=== PATIENT | female | born 1970 | race Caucasian/White ===

== ENCOUNTER 2018-05-31 12:19 | Inpatient (IN) ==
[2018-05-31 12:57] LABS: Bilirubin,Urine Negative (Negative); Blood,Urine Negative (Negative); Clarity,Urine Clear (Clear); Color,Urine Yellow (Yellow); Glucose,Urine (UA) Normal (Normal); Ketones,Urine Negative (Negative); Leukocyte Esterase,Urine Negative (Negative); Nitrite,Urine Negative (Negative); PH,Urine 8.5 pH Units (5.0-8.0); Protein,Urine 100 mg/dL (Neg-Trace); Specific Gravity,Urine 1.015 (1.010-1.025); Urobilinogen,Urine Normal (Normal)
[2018-05-31 13:19] LABS: RBC,Urine 0-3 per hpf (0-3); Squamous Epithelial Cell,Urine Many per lpf (None-Few); WBC,Urine 0-3 per hpf (0-3)
[2018-05-31 13:20] LABS: Bacteria,Urine Moderate per hpf (None-Few)
[2018-05-31] MEDS ORDERED: *HR* FentaNYL (PF) 100 MCG/2 ML VIAL IVP ONE ×2 (13:50→20:27)
[2018-05-31] MEDS ORDERED: Ondansetron 4 MG/2 ML VIAL IVP ONE (13:50)
--- NOTE | 2018-05-31 13:57 | Emergency Department Note ---
Disposition Clinical Impression: Epigastric pain, Chronic alcohol use Pancreatitis Qualifiers: Chronicity: acute Pancreatitis type: unspecified pancreatitis type Acute pancreatitis complication: unspecified Qualified Code(s): K85.90 - Acute pancreatitis without necrosis or infection, unspecified Nausea and vomiting Qualifiers: Vomiting type: unspecified Vomiting Intractability: non-intractable Qualified Code(s): R11.2 - Nausea with vomiting, unspecified Disposition: Admitted As Inpatient Condition: Good Referrals: NONE,PCP [Primary Care Provider] - Forms: ED Satisfaction Letter, Work/School Release Time of Disposition: 15:28 Abdominal Pain HPI - General Chief Complaint: ED Abdominal Pain Stated Complaint: "abd pain" Time Seen by Provider: 05/31/18 13:39 Source: patient, family Mode of arrival: ambulatory Limitations: no limitations Nursing Notes Reviewed: Yes Vital Signs Reviewed: Yes - History of Present Illness HPI Narrative: Patient is a 47 year old female with past medical history of chronic alcohol abuse, recurrent pancreatitis, previous opiate drug abuse. She presents today due to epigastric pain. She states that she was just recently admitted to [facility] about a week ago due to pancreatitis. She states that she was discharged after around 36 hours. She states that she went home and started drinking alcohol again. She drinks 2-3 bottles of vodka a day, says that she is drinking this for several years. She currently describes her abdominal pain as sharp in the epigastric region, mild radiation to the back. Associated with nausea and vomiting. Denies any fevers, chest pain, shortness of breath, diarrhea, constipation, blood in vomit or stool. She states that this feels similar to all previous pancreatitis exacerbations. Pain Scale: 10 - Related Data Previous Rx's Medication Instructions Recorded Sulfamethoxazole/Trimeth DS 1 each PO BID #14 tablet 01/26/17 [Bactrim DS] Allergies Allergy/AdvReac Type Severity Reaction Status Date / Time aspirin [ASA] Allergy Hives Verified 06/11/15 20:46 All systems ED: reviewed and negative except as stated. Constitutional: Denies: fever Cardiovascular: Denies: chest pain, palpitations Respiratory: Denies: cough, dyspnea, wheezes Gastrointestinal: Reports: abdominal pain, nausea, vomiting. Denies: diarrhea, constipation Genitourinary: Denies: urgency, dysuria, frequency Integumentary: Denies: rash Neurological: Denies: headache, weakness, numbness, paresthesias Abdominal Pain PMH - Past Medical History Medical history: Reports: other [employer] history: Reports: no [employer] history Psychiatric history: Reports: no psych history - Social History Smoking status: Current every day smoker Alcohol use: Reports: heavy, recent Drug use: Reports: none Physical Exam - General Limitations: no limitations General appearance: alert, other (Appears to be in pain, holding epigastric region) - Head Head exam: atraumatic, normocephalic, normal inspection - Eye Eye exam: Present: normal appearance, PERRL, EOMI - ENT ENT exam: normal exam, normal oropharynx, mucous membranes moist - Neck Neck exam: Present: normal inspection, full ROM, trachea midline - Chest Chest inspection: Present: normal inspection, symmetric chest wall rise - Respiratory Respiratory exam: Present: normal lung sounds bilaterally - Cardiovascular Cardiovascular exam: Present: regular rate, normal rhythm, normal heart sounds - Abdominal Exam Abdominal exam: Present: soft, tenderness (Epigastric tenderness, moderate). Absent: distention, guarding, rebound, rigidity - Extremities Exam Extremities exam: Present: normal inspection, full ROM. Absent: tenderness, pedal edema - Neurological Exam Neurological exam: Present: alert, oriented X3 - Psychiatric Psychiatric exam: Present: normal affect, normal mood - Skin Skin exam: Present: warm, dry, intact, normal color Course Course Narrative: Currently concern for recurrent pancreatitis. We will treat the patient with Zofran and fentanyl for nausea and pain control. We will also give the patient normal saline bolus due to tachycardia. We will obtain records from [facility]. Will see if there has been any recent CT abdomen and pelvis. If not , we will obtain CT abdomen and pelvis to assess for any other etiology. 15:26 labs consistent with chronic alcohol use, elevated AST and MALT. Lipase elevated in the 200s consistent with pancreatitis. No CT abdomen and pelvis obtained at this time. Still pending paperwork from [facility]. Fluids and pain medication have been given. Discussed admission with the patient she is agreeable with this plan. Hospitalist has accepted the patient for further care. Did discuss chronic alcohol use and concern for possible withdrawal during stay. Hospitalist is aware. Vital Signs Temperature 97.9 F 05/31/18 12:22 Pulse Rate 118 05/31/18 12:22 Respiratory Rate 18 05/31/18 12:22 Blood Pressure 149/84 05/31/18 12:22 O2 Sat by Pulse Oximetry 96 05/31/18 12:22 Temperature 97.9 F 05/31/18 13:27 Pulse Rate 118 05/31/18 13:27 Respiratory Rate 18 05/31/18 13:27 Blood Pressure 149/84 05/31/18 13:27 O2 Sat by Pulse Oximetry 96 05/31/18 13:27 Oxygen Delivery Oxygen Delivery Room Air Abdominal Pain - MDM Narrative Medical decision making narrative: Currently concern for recurrent pancreatitis. We will treat the patient with Zofran and fentanyl for nausea and pain control. We will also give the patient normal saline bolus due to tachycardia. We will obtain records from [facility]. Will see if there has been any recent CT abdomen and pelvis. If not , we will obtain CT abdomen and pelvis to assess for any other etiology. 15:26 labs consistent with chronic alcohol use, elevated AST and MALT. Lipase elevated in the 200s consistent with pancreatitis. No CT abdomen and pelvis obtained at this time. Still pending paperwork from [facility]. Fluids and pain medication have been given. Discussed admission with the patient she is agreeable with this plan. Hospitalist has accepted the patient for further care. Did discuss chronic alcohol use and concern for possible withdrawal during stay. Hospitalist is aware. - Medical Records Medical records reviewed: Yes I reviewed the patient's medical records. - Lab Data Lab results reviewed: Yes I reviewed the patient's lab results. Result diagrams: 05/31/18 13:48 05/31/18 13:48 Lab Results 05/31/18 05/31/18 05/31/18 Range/Units 12:32 13:48 13:48 WBC 3.8 L (4.3-11.1) K/mcL RBC 5.18 H (3.82-4.97) M/mcL Hgb 17.0 H (11.5-15.4) g/dL Hct 50.0 H (35.3-44.9) % MCV 96.5 (83.0-100.0) fL MCH 32.8 (28.0-33.3) pg MCHC 34.0 (31.6-35.5) g/dL RDW 15.1 H (11.5-14.5) % Plt Count 161 (140-400) K/mcL MPV 9.7 (9.4-12.4) fL Sodium 141 (136-145) mEq/L Potassium 4.2 (3.5-5.1) mEq/L Chloride 100 (98-107) mEq/L Carbon Dioxide 23 (23-29) mEq/L BUN 15 (6-20) mg/dL Creatinine 0.80 (0.60-1.20) mg/dL Est GFR ( Amer) > 60 (> 60) Est GFR (Non-Af Amer) > 60 (> 60) BUN/Creatinine Ratio 19 (6-26) Glucose 99 (70-105) mg/dL Calculated Osmolality 293 (280-300) Calcium 11.7 H (8.6-10.3) mg/dL Total Bilirubin 0.4 (0.3-1.0) mg/dL Direct Bilirubin 0.1 (0.0-0.2) mg/dL Indirect Bilirubin 0.3 (0.0-1.2) mg/dL AST 129 H (13-39) Units/L ALT 69 H (7-52) Units/L Alkaline Phosphatase 128 H (34-104) Units/L Serum Total Protein 9.7 H (6.4-8.9) g/dL Albumin 5.2 (3.5-5.7) g/dL Globulin 4.5 H (2.4-3.5) g/dL Albumin/Globulin Ratio 1.2 (1.1-2.2) Lipase 209 H (11-82) Units/L Urine Color Yellow (Yellow) Urine Clarity Clear (Clear) Urine pH 8.5 H (5.0-8.0) pH Units Ur Specific [place] 1.015 (1.010-1.025) Urine Protein 100 H (Neg-Trace) mg/dL Urine Glucose (UA) Normal (Normal) mg/dL Urine Ketones Negative (Negative) mg/dL Urine Blood Negative (Negative) Urine Nitrite Negative (Negative) Urine Bilirubin Negative (Negative) Urine Urobilinogen Normal (Normal) mg/dL Ur Leukocyte Esterase Negative (Negative) Urine Microscopic RBC 0-3 (0-3) per hpf Urine Microscopic WBC 0-3 (0-3) per hpf Ur Squamous Epith Cells Many H (None-Few) per lpf Urine Bacteria Moderate H (None-Few) per hpf S.B.A.R. - S.B.A.R. Situation: Demographics, MOA Background: Presenting Complaint, Relevant PMH, Meds, & Allergies Assessment: Vital Signs, Course and respsone to treatment, Exam Concerns, Patient/Family Expectation, Pertinant Lab Results Recommendation: Barrier(s) to disposition, Recommendation based on pending studies, treatments, or consults S.B.A.R. Report Given to: Dr. Webb
[2018-05-31 13:59] LABS: Mean Corpuscular Hemoglobin 32.8 pg (28.0-33.3); Mean Corpuscular Volume 96.5 fL (83.0-100.0); Mean Platelet Volume 9.7 fL (9.4-12.4); Platelet Count 161 K/mcL (140-400); Red Blood Count 5.18 M/mcL (3.82-4.97); Red Cell Distribution Width 15.1 % (11.5-14.5)
--- NOTE | 2018-05-31 14:05 | Emergency Department Note ---
Disposition Clinical Impression: Epigastric pain, Chronic alcohol use Pancreatitis Qualifiers: Chronicity: acute Pancreatitis type: unspecified pancreatitis type Acute pancreatitis complication: unspecified Qualified Code(s): K85.90 - Acute pancreatitis without necrosis or infection, unspecified Nausea and vomiting Qualifiers: Vomiting type: unspecified Vomiting Intractability: non-intractable Qualified Code(s): R11.2 - Nausea with vomiting, unspecified Disposition: Admitted As Inpatient Condition: Good General Adult HPI - General Chief complaint: ED Abdominal Pain Stated complaint: "abd pain" Time Seen by Provider: 05/31/18 13:39 Source: patient, family Limitations: no limitations - History of Present Illness Pain Scale: 10 - Related Data Home Medications Medication Instructions Recorded Confirmed No Known Home Drugs 05/31/18 05/31/18 Allergies Allergy/AdvReac Type Severity Reaction Status Date / Time aspirin [ASA] Allergy Hives Verified 05/31/18 15:41 Past Medical History - Past Medical History Medical history: Reports: other Psychiatric history: Reports: no psych history LITERACY SPECIALIST history: Reports: no LITERACY SPECIALIST history - Social History Smoking Status: Current every day smoker Smokeless Tobacco Status: No Alcohol use: Reports: heavy, recent Drug use: Reports: none Physical Exam - General Limitations: no limitations General appearance: alert, in no apparent distress Course Vital Signs Temperature 97.9 F 05/31/18 12:22 Pulse Rate 118 05/31/18 12:22 Respiratory Rate 18 05/31/18 12:22 Blood Pressure 149/84 05/31/18 12:22 O2 Sat by Pulse Oximetry 96 05/31/18 12:22 Temperature 97.9 F 05/31/18 13:27 Pulse Rate 118 05/31/18 13:27 Respiratory Rate 18 05/31/18 17:49 Blood Pressure 159/117 05/31/18 17:49 O2 Sat by Pulse Oximetry 96 05/31/18 13:27 Oxygen Delivery Oxygen Delivery Room Air Medical Decision Making - Lab Data Result diagrams: 05/31/18 13:48 05/31/18 13:48 Lab Results 05/31/18 05/31/18 05/31/18 Range/Units 12:32 13:48 13:48 WBC 3.8 L (4.3-11.1) K/mcL RBC 5.18 H (3.82-4.97) M/mcL Hgb 17.0 H (11.5-15.4) g/dL Hct 50.0 H (35.3-44.9) % MCV 96.5 (83.0-100.0) fL MCH 32.8 (28.0-33.3) pg MCHC 34.0 (31.6-35.5) g/dL RDW 15.1 H (11.5-14.5) % Plt Count 161 (140-400) K/mcL MPV 9.7 (9.4-12.4) fL PT (9.4-12.1) Seconds INR APTT (26.0-36.0) Seconds Sodium 141 (136-145) mEq/L Potassium 4.2 (3.5-5.1) mEq/L Chloride 100 (98-107) mEq/L Carbon Dioxide 23 (23-29) mEq/L BUN 15 (6-20) mg/dL Creatinine 0.80 (0.60-1.20) mg/dL Est GFR ( Amer) > 60 (> 60) Est GFR (Non-Af Amer) > 60 (> 60) BUN/Creatinine Ratio 19 (6-26) Glucose 99 (70-105) mg/dL Calculated Osmolality 293 (280-300) Lactic Acid (0.5-2.2) mmol/L Calcium 11.7 H (8.6-10.3) mg/dL Phosphorus 4.7 H (2.7-4.5) mg/dL Magnesium 1.8 (1.6-2.6) mg/dL Total Bilirubin 0.4 (0.3-1.0) mg/dL Direct Bilirubin 0.1 (0.0-0.2) mg/dL Indirect Bilirubin 0.3 (0.0-1.2) mg/dL AST 129 H (13-39) Units/L ALT 69 H (7-52) Units/L Alkaline Phosphatase 128 H (34-104) Units/L Lactate Dehydrogenase 287 H (140-271) Units/L Serum Total Protein 9.7 H (6.4-8.9) g/dL Albumin 5.2 (3.5-5.7) g/dL Globulin 4.5 H (2.4-3.5) g/dL Albumin/Globulin Ratio 1.2 (1.1-2.2) Amylase 109 H (29-103) Units/L Lipase 209 H (11-82) Units/L Urine Color Yellow (Yellow) Urine Clarity Clear (Clear) Urine pH 8.5 H (5.0-8.0) pH Units Ur Specific [place] 1.015 (1.010-1.025) Urine Protein 100 H (Neg-Trace) mg/dL Urine Glucose (UA) Normal (Normal) mg/dL Urine Ketones Negative (Negative) mg/dL Urine Blood Negative (Negative) Urine Nitrite Negative (Negative) Urine Bilirubin Negative (Negative) Urine Urobilinogen Normal (Normal) mg/dL Ur Leukocyte Esterase Negative (Negative) Urine Microscopic RBC 0-3 (0-3) per hpf Urine Microscopic WBC 0-3 (0-3) per hpf Ur Squamous Epith Cells Many H (None-Few) per lpf Urine Bacteria Moderate H (None-Few) per hpf Hyaline Casts (None-Few) per lpf Hep Bs Antigen (Nonreactive) HIV Ag/Ab Combo Qual (Nonreactive) 05/31/18 05/31/18 05/31/18 Range/Units 13:48 13:48 16:44 WBC (4.3-11.1) K/mcL RBC (3.82-4.97) M/mcL Hgb (11.5-15.4) g/dL Hct (35.3-44.9) % MCV (83.0-100.0) fL MCH (28.0-33.3) pg MCHC (31.6-35.5) g/dL RDW (11.5-14.5) % Plt Count (140-400) K/mcL MPV (9.4-12.4) fL PT 10.5 (9.4-12.1) Seconds INR 0.9 APTT 38.3 H (26.0-36.0) Seconds Sodium (136-145) mEq/L Potassium (3.5-5.1) mEq/L Chloride (98-107) mEq/L Carbon Dioxide (23-29) mEq/L BUN (6-20) mg/dL Creatinine (0.60-1.20) mg/dL Est GFR ( Amer) (> 60) Est GFR (Non-Af Amer) (> 60) BUN/Creatinine Ratio (6-26) Glucose (70-105) mg/dL Calculated Osmolality (280-300) Lactic Acid 2.0 (0.5-2.2) mmol/L Calcium (8.6-10.3) mg/dL Phosphorus (2.7-4.5) mg/dL Magnesium (1.6-2.6) mg/dL Total Bilirubin (0.3-1.0) mg/dL Direct Bilirubin (0.0-0.2) mg/dL Indirect Bilirubin (0.0-1.2) mg/dL AST (13-39) Units/L ALT (7-52) Units/L Alkaline Phosphatase (34-104) Units/L Lactate Dehydrogenase (140-271) Units/L Serum Total Protein (6.4-8.9) g/dL Albumin (3.5-5.7) g/dL Globulin (2.4-3.5) g/dL Albumin/Globulin Ratio (1.1-2.2) Amylase (29-103) Units/L Lipase (11-82) Units/L Urine Color (Yellow) Urine Clarity (Clear) Urine pH (5.0-8.0) pH Units Ur Specific [place] (1.010-1.025) Urine Protein (Neg-Trace) mg/dL Urine Glucose (UA) (Normal) mg/dL Urine Ketones (Negative) mg/dL Urine Blood (Negative) Urine Nitrite (Negative) Urine Bilirubin (Negative) Urine Urobilinogen (Normal) mg/dL Ur Leukocyte Esterase (Negative) Urine Microscopic RBC (0-3) per hpf Urine Microscopic WBC (0-3) per hpf Ur Squamous Epith Cells (None-Few) per lpf Urine Bacteria (None-Few) per hpf Hyaline Casts (None-Few) per lpf Hep Bs Antigen Nonreactive (Nonreactive) HIV Ag/Ab Combo Qual Nonreactive (Nonreactive) 05/31/18 Range/Units 17:10 WBC (4.3-11.1) K/mcL RBC (3.82-4.97) M/mcL Hgb (11.5-15.4) g/dL Hct (35.3-44.9) % MCV (83.0-100.0) fL MCH (28.0-33.3) pg MCHC (31.6-35.5) g/dL RDW (11.5-14.5) % Plt Count (140-400) K/mcL MPV (9.4-12.4) fL PT (9.4-12.1) Seconds INR APTT (26.0-36.0) Seconds Sodium (136-145) mEq/L Potassium (3.5-5.1) mEq/L Chloride (98-107) mEq/L Carbon Dioxide (23-29) mEq/L BUN (6-20) mg/dL Creatinine (0.60-1.20) mg/dL Est GFR ( Amer) (> 60) Est GFR (Non-Af Amer) (> 60) BUN/Creatinine Ratio (6-26) Glucose (70-105) mg/dL Calculated Osmolality (280-300) Lactic Acid (0.5-2.2) mmol/L Calcium (8.6-10.3) mg/dL Phosphorus (2.7-4.5) mg/dL Magnesium (1.6-2.6) mg/dL Total Bilirubin (0.3-1.0) mg/dL Direct Bilirubin (0.0-0.2) mg/dL Indirect Bilirubin (0.0-1.2) mg/dL AST (13-39) Units/L ALT (7-52) Units/L Alkaline Phosphatase (34-104) Units/L Lactate Dehydrogenase (140-271) Units/L Serum Total Protein (6.4-8.9) g/dL Albumin (3.5-5.7) g/dL Globulin (2.4-3.5) g/dL Albumin/Globulin Ratio (1.1-2.2) Amylase (29-103) Units/L Lipase (11-82) Units/L Urine Color Yellow (Yellow) Urine Clarity Cloudy A (Clear) Urine pH 7.5 (5.0-8.0) pH Units Ur Specific [place] > 1.030 H (1.010-1.025) Urine Protein 100 H (Neg-Trace) mg/dL Urine Glucose (UA) Normal (Normal) mg/dL Urine Ketones Trace H (Negative) mg/dL Urine Blood Negative (Negative) Urine Nitrite Negative (Negative) Urine Bilirubin Negative (Negative) Urine Urobilinogen Normal (Normal) mg/dL Ur Leukocyte Esterase Negative (Negative) Urine Microscopic RBC 5-15 H (0-3) per hpf Urine Microscopic WBC 0-3 (0-3) per hpf Ur Squamous Epith Cells Many H (None-Few) per lpf Urine Bacteria Few (None-Few) per hpf Hyaline Casts None Seen (None-Few) per lpf Hep Bs Antigen (Nonreactive) HIV Ag/Ab Combo Qual (Nonreactive) Attestation Statement - Attestation Attestation: I examined this patient and my medical decision-making was reviewed with the DRAWER UPFITTER/PA/Advanced Practice Nurse/Resident Physician. I agree with the documented findings, disposition and treatment plan as described except to the extent set forth below. I did see the patient spoke with her and examined her and she does have moderate pain and generalized mostly midepigastric reason and she does have a history of pancreatitis. Did drink half of a fifth of vodka today. Is here with her [id number]. Was recently admitted to [facility] and we will attempt to get the records from there. The patient on my exam does not have a surgical abdomen. Laboratory evaluation putting lipase level is initiated. Patient is hemodynamically stable at this time and 1404
[2018-05-31] MEDS ORDERED: 0.9 % Sodium Chloride 1,000 ML IVC ONE (14:15)
[2018-05-31 14:39] LABS: Alanine Aminotransferase 69 Units/L (7-52); Albumin 5.2 g/dL (3.5-5.7); Albumin/Globulin Ratio 1.2 (1.1-2.2); Alkaline Phosphatase 128 Units/L (34-104); Aspartate Amino Transferase 129 Units/L (13-39); BUN/Creatinine Ratio 19 (6-26); Bilirubin,Direct 0.1 mg/dL (0.0-0.2); Bilirubin,Indirect 0.3 mg/dL (0.0-1.2); Bilirubin,Total 0.4 mg/dL (0.3-1.0); Blood Urea Nitrogen 15 mg/dL (6-20); Calcium 11.7 mg/dL (8.6-10.3); Carbon Dioxide 23 mEq/L (23-29); Chloride 100 mEq/L (98-107); Globulin 4.5 g/dL (2.4-3.5); Glucose 99 mg/dL (70-105); Lipase 209 Units/L (11-82); Osmolality,Calculated 293 (280-300); Potassium 4.2 mEq/L (3.5-5.1); Sodium 141 mEq/L (136-145); Total Protein 9.7 g/dL (6.4-8.9); eGFR For Non-African Americans > 60 (> 60)
[2018-05-31] MEDS ORDERED: Lidocaine -MPF 1% 5 ML AMPUL INFILT ONE (15:04)
[2018-05-31] MEDS ORDERED: *HR* LORazepam 2 MG/ML VIAL IVP ONE (15:43)
--- NOTE | 2018-05-31 15:49 | Internal Med History&Physical ---
Date of Encounter: 05/31/18 Time of Encounter: 15:47 Internal Medicine - H&P: HPI Chief complaint: abdominal pain Admitted From: Home Plans for Post Hospital Care: Home History of present illness: Ms. Odell is a 47 year old female with alcohol use disorder, drug use disorder and multiple admissions for acute pancreatitis secondary to alcohol abuse presented to the ED with complaint of epigastric abdominal pain. As per patient she was recently admitted on May 22 to [facility] and was discharged 2 days later for similar symptoms. She was told to have acute pancreatitis secondary to alcohol abuse at that time. She reports that she continued to have epigastric abdominal pain radiating to her back since she was discharged on May 24. Her pain has progressively worsened so she decided to come to the ED for further management. She reports that she has not ate any solid food for the past 2 days but she was able to drink alcohol, last drink was about, on admission morning. She reports she drinks about 1-2 pints of vodka a day. She last used IV heroin on May 28. She used to be on methadone program but that was canceled due to her ongoing alcohol use disorder. Currently her pain is located in the epigastric area that radiates to the back it is 5 out of 10 and sharp in quality. She denies any nausea or vomiting. Currently she is only complaining of going through withdrawal from alcohol and is requesting medications. she denies fever, chills, Nausea, headache, vision changes, falls, abdominal trauma, chest pain, palpitations, SOB, cough, vomiting, diarrhea, hemoptysis, hematemesis, hematochezia. Past Med Surg Social Fam HX - Past Medical History Medical history: other Additional medical history: ETOH abuse, pancreatitis Psychiatric history: no psych history - Past Surgical History Additional surgical history: FOOT SURGERY TODAY - Social History Smoking Status: Current every day smoker Smokeless Tobacco Status: No Alcohol use: heavy, recent Drug use: none - Family History Mother Hx Family Endocrine Disorder: Yes (diabetes) Internal Medicine - H&P: Meds RX: No Known Home Drugs 05/31/18 [History] 3 Allergy/AdvReac Type Severity Reaction Status Date / Time aspirin [ASA] Allergy Hives Verified 05/31/18 15:41 All Systems PM: A 10-system review of systems was performed and is negative for pertinent findings except as documented above in the HPI. - Constitutional Vitals: Temp Pulse Resp BP Pulse Ox 97.9 F 118 18 149/84 96 05/31/18 13:27 05/31/18 13:27 05/31/18 13:27 05/31/18 13:27 05/31/18 13:27 - Other Additional findings: General: Patient is alert, oriented, no acute distress, desheveled Head: atraumatic, normocephalic, Eye: normal appearance, PERRL, no scleral icterus, no conjunctival injection ENT: mucous membranes moist, normal external ear exam Neck: normal inspection, trachea midline, full ROM, no carotid bruits Chest: normal inspection, symmetric chest rise Respiratory: Good respiratory effort. Bilateral breath sounds are clear without wheezing, crackles, or rhonchi. Cardiovascular: tachycardic . s1 and s2 No clicks, rubs, gallops, or murmors. Abdomen: Bowel sounds present normoactive, soft, tender to palpation in the epigastric area, no flank discoloration, has ecchymosis on the RLQ secondary to heparin injections from previous admission. negative turners sign musculoskeletal: Spontaneously moving all extremities. no edema, no calf tenderness Skin: warm, dry, intact. has needle murphy on bilateral upper nad lower extremity Neuro: Alert and oriented x4. Sensation light touch intact. Cranial nerves 2- 12 is intact. Not aphasic, mild tremor on out stretched hands Psych: Patient's affect is normal Internal Med - H&P Results - Labs CBC & Chem 7: 05/31/18 13:48 05/31/18 13:48 Labs: Short CBC 05/31/18 Range/Units 13:48 WBC 3.8 L (4.3-11.1) K/mcL Hgb 17.0 H (11.5-15.4) g/dL Hct 50.0 H (35.3-44.9) % Plt Count 161 (140-400) K/mcL BMP 05/31/18 13:48 Sodium 141 Potassium 4.2 Chloride 100 Carbon Dioxide 23 BUN 15 Creatinine 0.80 Glucose 99 Calcium 11.7 H Liver Function 05/31/18 Range/Units 13:48 Total Bilirubin 0.4 (0.3-1.0) mg/dL Direct Bilirubin 0.1 (0.0-0.2) mg/dL AST 129 H (13-39) Units/L ALT 69 H (7-52) Units/L Alkaline Phosphatase 128 H (34-104) Units/L Albumin 5.2 (3.5-5.7) g/dL Urine 05/31/18 Range/Units 12:32 Urine Color Yellow (Yellow) Urine Clarity Clear (Clear) Urine pH 8.5 H (5.0-8.0) pH Units Ur Specific [place] 1.015 (1.010-1.025) Urine Protein 100 H (Neg-Trace) mg/dL Urine Glucose (UA) Normal (Normal) mg/dL - Assessment and plan (1) Alcohol induced acute pancreatitis Current Visit: Yes Status: Acute Assessment and plan: ransons score is low - WBC<16, Age<55, flucose is <200, AST<250, Awaiting LDH IVF LR 2000 ML bolus stat, Ringer lactate at 150 ml/hr (received 1L NS in the ED ) is hemoconcentrated ilya send LDH, lactic acid and Amylase STAT PPI 40 mg IVPB Q daily Zofran 4 mg IVP Q 8 H PRN for nauseas or vomiting - watch QT Pain control with morphine prn - watch for ilius - currently not in pain bowel regimen Serial abdominal exam CBC, CMP in AM UTOX Fasting lipids in the AM r/o hypertriglyceridemia Abdominal US to evaluated biliary stone/obstruction. Consider CT Abdomen if the patient is not improving clinically after 3~4 days Consider GI evaluation if not clinically improving Keep patient NPO for now, except medications Vital as protocol Precaution: Fall, Aspiration. Activity: Bed Rest Prognosis: Guarded Qualifiers: Acute pancreatitis complication: unspecified Qualified Code(s): K85.20 - Alcohol induced acute pancreatitis without necrosis or infection (2) Alcoholic hepatitis Current Visit: Yes Status: Acute Assessment and plan: ASt>ALT RUQ pain will get US of the abdomen to rule out any obstruction on CIWA protocol avoid hepatotoxic medications Qualifiers: Ascites presence: without ascites Qualified Code(s): K70.10 - Alcoholic hepatitis without ascites (3) Alcohol withdrawal delirium Current Visit: Yes Status: Acute Assessment and plan: CIWA protocol initiated will check magnesium and PO4 (4) Alcohol use disorder Current Visit: Yes Status: Acute Assessment and plan: was counseled on Abstinence on CIWA protocol (5) Drug use disorder Current Visit: Yes Status: Acute Assessment and plan: has been using heroin IV. methadone was stopped by the clinic due to alcoholism was counseled on abstinence and harms associated with drug abuse (6) DVT prophylaxis Current Visit: Yes Status: Acute Assessment and plan: heparin 5000 units Q8H SC - Time Spent With Patient Total time spent is greater than 50% in coordination of care (as documented) at patient's floor/unit and/or counseling patient:
[2018-05-31] MEDS ORDERED: *HR* LORazepam 2 MG/ML VIAL IVP PRN (15:57)
[2018-05-31] MEDS ORDERED: Folic Acid 1 MG in D5% in Water 50 ML IVPB STA ×2 (16:05→23:16)
[2018-05-31] MEDS ORDERED: Pantoprazole 40 MG VIAL IVP SCH (16:15)
[2018-05-31] MEDS ORDERED: Thiamine (B-1) 100 MG in D5% in Water 50 ML IVPB SCH (16:15)
[2018-05-31 16:26] LABS: Amylase 109 Units/L (29-103); Lactate Dehydrogenase 287 Units/L (140-271); Magnesium 1.8 mg/dL (1.6-2.6); Phosphorous 4.7 mg/dL (2.7-4.5)
[2018-05-31 16:33] LABS: INR 0.9; Prothrombin Time 10.5 Seconds (9.4-12.1)
[2018-05-31 16:35] LABS: Activated Partial Thrombo Time 38.3 Seconds (26.0-36.0)
[2018-05-31 17:24] LABS: HIV-1&2 Antibody & p24 Ag Nonreactive (Nonreactive); Hepatitis B Surface Antigen Nonreactive (Nonreactive)
[2018-05-31 17:34] LABS: Bilirubin,Urine Negative (Negative); Blood,Urine Negative (Negative); Clarity,Urine Cloudy (Clear); Color,Urine Yellow (Yellow); Glucose,Urine (UA) Normal (Normal); Ketones,Urine Trace mg/dL (Negative); Leukocyte Esterase,Urine Negative (Negative); Nitrite,Urine Negative (Negative); PH,Urine 7.5 pH Units (5.0-8.0); Protein,Urine 100 mg/dL (Neg-Trace); Specific Gravity,Urine > 1.030 (1.010-1.025); Urobilinogen,Urine Normal (Normal)
[2018-05-31 17:40] LABS: Bacteria,Urine Few per hpf (None-Few); Hyaline Casts,Urine None Seen per lpf (None-Few); Squamous Epithelial Cell,Urine Many per lpf (None-Few); WBC,Urine 0-3 per hpf (0-3)
[2018-05-31] MEDS: Ringers Solution, Lactated 1,000 ML IVC SCH ×3 (18:26→20:05)
[2018-05-31] MEDS: *HR* LORazepam 2 MG/ML VIAL IVP PRN ×2 (18:42→23:30)
[2018-05-31] MEDS: *HR* Heparin 5,000 UNIT/ML VIAL SQ SCH (21:18)
[2018-05-31] MEDS: Ondansetron 4 MG/2 ML VIAL IVP PRN (21:19)
[2018-06-01] MEDS: Ringers Solution, Lactated 1,000 ML IVC SCH ×5 (02:23→22:38)
[2018-06-01 03:57] LABS: Hematocrit 39.3 % (35.3-44.9); Mean Corpuscular HGB Conc 34.9 g/dL (31.6-35.5); Mean Corpuscular Hemoglobin 33.7 pg (28.0-33.3); Mean Corpuscular Volume 96.6 fL (83.0-100.0); Mean Platelet Volume 9.9 fL (9.4-12.4); Platelet Count 142 K/mcL (140-400); Red Blood Count 4.07 M/mcL (3.82-4.97); Red Cell Distribution Width 14.7 % (11.5-14.5)
[2018-06-01 03:58] LABS: Hemoglobin 13.7 g/dL (11.5-15.4)
[2018-06-01 04:14] LABS: Hepatitis B Surface Antibody 1489.53 mIU/mL
[2018-06-01 04:17] LABS: Hepatitis C Virus Antibody Reactive (Nonreactive)
[2018-06-01 04:17] LABS: Alanine Aminotransferase 48 Units/L (7-52); Albumin 3.7 g/dL (3.5-5.7); Albumin/Globulin Ratio 1.2 (1.1-2.2); Alkaline Phosphatase 89 Units/L (34-104); Aspartate Amino Transferase 72 Units/L (13-39); BUN/Creatinine Ratio 22 (6-26); Bilirubin,Total 0.5 mg/dL (0.3-1.0); Blood Urea Nitrogen 14 mg/dL (6-20); Calcium 9.3 mg/dL (8.6-10.3); Carbon Dioxide 22 mEq/L (23-29); Chloride 100 mEq/L (98-107); Chol/HDL Ratio 3.4 (0-4.9); Cholesterol 271 mg/dL (< 200); Glucose 76 mg/dL (70-105); HDL Cholesterol 79 mg/dL (40-59); LDL Cholesterol,Calculated 172 mg/dL (0-99); Osmolality,Calculated 283 (280-300); Potassium 3.8 mEq/L (3.5-5.1); Sodium 137 mEq/L (136-145); Total Protein 6.7 g/dL (6.4-8.9); Triglycerides 102 mg/dL (< 150); eGFR For Non-African Americans > 60 (> 60)
[2018-06-01] MEDS: *HR* LORazepam 2 MG/ML VIAL IVP PRN ×8 (04:17→21:46)
[2018-06-01] MEDS: *HR* Heparin 5,000 UNIT/ML VIAL SQ SCH ×3 (05:10→21:41)
[2018-06-01] MEDS: Thiamine (B-1) 100 MG, Folic Acid 1 MG in D5% in Water 50 ML IVPB SCH (08:20)
[2018-06-01] MEDS: *HR* HYDROcodone/Acet 5/325 mg TABLET PO PRN ×3 (10:37→22:37)
--- NOTE | 2018-06-01 11:00 | Internal Med Progress Note ---
Date of Encounter: 06/01/18 Time of Encounter: 10:58 - Assessment and plan (1) Alcohol induced acute pancreatitis Current Visit: Yes Status: Acute Assessment and plan: ransons score is low - WBC<16, Age<55, flucose is <200, AST<250, Awaiting LDH IVF LR 2000 ML bolus stat, Ringer lactate at 150 ml/hr (received 1L NS in the ED ) is hemoconcentrated ilya send LDH, lactic acid and Amylase STAT PPI 40 mg IVPB Q daily Zofran 4 mg IVP Q 8 H PRN for nauseas or vomiting - watch QT Pain control with morphine prn - watch for ilius - currently not in pain bowel regimen Serial abdominal exam CBC, CMP in AM UTOX Fasting lipids in the AM r/o hypertriglyceridemia Abdominal US to evaluated biliary stone/obstruction.-Negative for biliary stent obstruction Consider CT Abdomen if the patient is not improving clinically after 3~4 days Consider GI evaluation if not clinically improving Keep patient NPO for now, except medications Vital as protocol Precaution: Fall, Aspiration. Activity: Bed Rest Prognosis: Guarded 06/01-Continuing to have left upper quadrant abdominal pain as well as right upper quadrant abdominal pain, history of recurrent alcohol-induced pancreatitis. Lipase 209, amylase 109. Continue to treat pain with by mouth [place] 5/325 every 6 when necessary, continue antiemetics. Continue PPI. Recheck lipase in the morning. Continue IV fluids. Daily labs, serial abdominal exams (2) Alcohol use disorder Current Visit: Yes Status: Acute Assessment and plan: was counseled on Abstinence on CIWA protocol 06/01-appears to be in early withdrawal. Continue CIWA protocol -Again counseled on abstinence of use of alcohol however, patient does not wish to have resources for alcohol cessation (3) Alcohol withdrawal delirium Current Visit: Yes Status: Acute Assessment and plan: CIWA protocol initiated will check magnesium and PO4 06/01-patient is agitated, anxious and tremulous. Denies any suicidal/homicidal ideation, denies any visual or auditory hallucinations. Does not appear to be delirious. In early withdrawal. Continue to closely monitor. Aggressive CIWA protocol. Should patient have a change her declining condition consider sending to unit with higher acuity and starting Precedex drip (4) Drug use disorder Current Visit: Yes Status: Acute Assessment and plan: has been using heroin IV. methadone was stopped by the clinic due to alcoholism was counseled on abstinence and harms associated with drug abuse 06/01-offered social research assistant for support and resources--patient declined stating "I am already in a program ", "I do not want any other help " (5) Alcoholic hepatitis Current Visit: Yes Status: Acute Assessment and plan: ASt>ALT RUQ pain will get US of the abdomen to rule out any obstruction on CIWA protocol avoid hepatotoxic medications 06/01-alcoholic hepatitis. AST> ALT, AST trending down 72 today. Abdominal ultrasound reveals no obstruction. Right upper quadrant pain secondary to acute on chronic alcohol induced pancreatitis Abdominal ultrasound-No cholelithiasis. Gallbladder sludge is noted. Common duct is at the upper limits of normal, measuring 6.3 mm. Hyperechoic liver parenchyma, consistent with fatty infiltration. Qualifiers: Ascites presence: without ascites Qualified Code(s): K70.10 - Alcoholic hepatitis without ascites (6) Hepatitis C Current Visit: Yes Status: Acute Assessment and plan: Positive for hepatitis C, chronic. Reactive results on 03/24/15. Reactive results this admission 05/31/18 Qualifiers: Viral hepatitis chronicity: chronic Hepatic coma status: without hepatic coma Qualified Code(s): B18.2 - Chronic viral hepatitis C (7) Hypertension Current Visit: Yes Status: Acute Assessment and plan: No prior history of hypertension-I suspect this is due to pain with acute on chronic alcohol induced pancreatitis. I suspect that pain management will assist with decreasing her blood pressure. Continue to closely monitor hemodynamic status and had BP medications as needed Qualifiers: Hypertension type: unspecified Qualified Code(s): I10 - Essential (primary ) hypertension (8) DVT prophylaxis Current Visit: Yes Status: Acute Assessment and plan: cont heparin 5000 units Q8H SC - Time Spent With Patient Total time spent is greater than 50% in coordination of care (as documented) at patient's floor/unit and/or counseling patient: 25 - 35 minutes - Subjective Interval history: Patient seen and examined at bedside today. Reporting agitation, anxiety, tremulousness. Also reporting nausea. Denies any suicidal/homicidal ideations , denies any auditory/visual hallucinations. She is concerned that she is in early withdrawal. Admits to being a daily drinker unsure of amount. Last drink was approximately 24 hours ago. - Constitutional Vitals: Temp Pulse Resp BP Pulse Ox 98.8 F 60 16 162/91 95 06/01/18 07:05 06/01/18 07:05 06/01/18 07:05 06/01/18 07:05 06/01/18 07:05 General appearance: Present: cooperative, A&O X 3 - Head Head exam: Present: atraumatic, normocephalic - Eye Eye exam: Present: PERRL, conjuntiva pink, sclera anicteric Pupils: Present: PERRL - Neck Neck exam general surgery: Present: supple, trachea midline. Absent: lymphadenopathy - Respiratory Respiratory exam: Present: CTAB. Absent: accessory muscle use, rales, rhonchi, wheezes - Cardiovascular Cardiovascular exam: Present: RRR, +S1, +S2. Absent: diastolic murmur, gallop, rubs, systolic murmur - GI/Abdominal GI/Abdominal exam: Present: normal bowel sounds, soft, no peritoneal signs. Absent: distended, tenderness - Extremities Exam Extremities exam: Present: warm, radial pulses palpable and symmetrical. Absent : calf tenderness, cyanotic, pedal edema Additional comments: Tremulous - Neurological Exam Neurological exam: Present: alert, CN II-XII intact, oriented X3, no focal deficits. Absent: pronater drift, facial droop, speech deficit - Psychiatric Psychiatric exam: Present: agitated, anxious. Absent: homicidal ideation, normal affect, normal mood, suicidal ideation - Skin Skin exam: Present: dry, intact Internal Medicine: Result - Labs CBC & Chem 7: 06/01/18 03:17 06/01/18 03:17 Labs: Short CBC 06/01/18 Range/Units 03:17 WBC 4.8 (4.3-11.1) K/mcL Hgb 13.7 D (11.5-15.4) g/dL Hct 39.3 (35.3-44.9) % Plt Count 142 (140-400) K/mcL BMP 06/01/18 03:17 Sodium 137 Potassium 3.8 Chloride 100 Carbon Dioxide 22 L BUN 14 Creatinine 0.63 Glucose 76 Calcium 9.3 Liver Function 06/01/18 Range/Units 03:17 Total Bilirubin 0.5 (0.3-1.0) mg/dL AST 72 H (13-39) Units/L ALT 48 (7-52) Units/L Alkaline Phosphatase 89 (34-104) Units/L Albumin 3.7 (3.5-5.7) g/dL - ABG Interpretation ABG results: PT/INR, D-dimer PT 10.5 Seconds (9.4-12.1) 05/31/18 13:48 Consult Discharge Plan - Plan Referrals: NONE,PCP [Primary Care Provider] -
[2018-06-01 14:15] LABS: Amphetamine Screen,Urine Negative ng/mL (Cutoff=1000); Barbiturate Screen,Urine Negative ng/mL (Cutoff=200); Benzodiazepines Screen,Urine Negative ng/mL (Cutoff=200); Cannabinoid Screen,Urine Negative ng/mL (Cutoff = 50); Cocaine Screen,Urine Negative ng/mL (Cutoff= 300); Opiate Screen,Urine Positive ng/mL (Cutoff=300); Phencyclidine Screen,Urine Negative ng/mL (Cutoff=25)
[2018-06-01] MEDS ORDERED: Ketorolac 15 MG/ML VIAL IVP ONE (15:03)
[2018-06-01] MEDS: Ondansetron 4 MG/2 ML VIAL IVP PRN (21:46)
[2018-06-02] MEDS: *HR* LORazepam 2 MG/ML VIAL IVP PRN ×5 (01:56→18:17)
[2018-06-02] MEDS: Ringers Solution, Lactated 1,000 ML IVC SCH ×3 (05:20→19:46)
[2018-06-02] MEDS: *HR* Heparin 5,000 UNIT/ML VIAL SQ SCH ×3 (05:45→21:47)
[2018-06-02] MEDS: *HR* HYDROcodone/Acet 5/325 mg TABLET PO PRN ×3 (05:45→18:45)
[2018-06-02] MEDS: Ondansetron 4 MG/2 ML VIAL IVP PRN ×3 (05:53→18:45)
[2018-06-02 06:52] LABS: Basophils # 0.1 K/mcL (0.0-0.2); Basophils % 1.3 %; Eosinophils # 0.1 K/mcL (0.0-0.6); Eosinophils % 2.2 %; Hemoglobin 13.6 g/dL (11.5-15.4); Immature Granulocytes % 0.4 % (0-4); Lymphocytes # 1.2 K/mcL (0.6-4.6); Lymphocytes % 26.2 %; Mean Corpuscular Hemoglobin 32.9 pg (28.0-33.3); Mean Corpuscular Volume 96.9 fL (83.0-100.0); Mean Platelet Volume 10.4 fL (9.4-12.4); Monocytes # 0.8 K/mcL (0.0-1.3); Monocytes % 16.7 %; Neutrophils # 2.4 K/mcL (1.6-8.9); Platelet Count 140 K/mcL (140-400); Red Blood Count 4.13 M/mcL (3.82-4.97); Segmented Neutrophils % 53.2 %
[2018-06-02 07:06] LABS: BUN/Creatinine Ratio 15 (6-26); Blood Urea Nitrogen 11 mg/dL (6-20); Calcium 9.6 mg/dL (8.6-10.3); Carbon Dioxide 25 mEq/L (23-29); Chloride 97 mEq/L (98-107); Glucose 80 mg/dL (70-105); Lipase 149 Units/L (11-82); Osmolality,Calculated 282 (280-300); Potassium 3.4 mEq/L (3.5-5.1); Sodium 137 mEq/L (136-145); eGFR For Non-African Americans > 60 (> 60)
[2018-06-02] MEDS: Thiamine (B-1) 100 MG, Folic Acid 1 MG in D5% in Water 50 ML IVPB SCH (08:53)
[2018-06-02] MEDS: Pantoprazole 40 MG VIAL IVP SCH (08:53)
[2018-06-02] MEDS: amLODIPine 5 MG TABLET PO SCH (14:38)
--- NOTE | 2018-06-02 15:39 | Internal Med Progress Note ---
Date of Encounter: 06/02/18 Time of Encounter: 15:35 - Assessment and plan (1) Alcohol induced acute pancreatitis Current Visit: Yes Status: Acute Assessment and plan: ransons score is low - WBC<16, Age<55, flucose is <200, AST<250, Awaiting LDH IVF LR 2000 ML bolus stat, Ringer lactate at 150 ml/hr (received 1L NS in the ED ) is hemoconcentrated ilya send LDH, lactic acid and Amylase STAT PPI 40 mg IVPB Q daily Zofran 4 mg IVP Q 8 H PRN for nauseas or vomiting - watch QT Pain control with morphine prn - watch for ilius - currently not in pain bowel regimen Serial abdominal exam CBC, CMP in AM UTOX Fasting lipids in the AM r/o hypertriglyceridemia Abdominal US to evaluated biliary stone/obstruction.-Negative for biliary stent obstruction Consider CT Abdomen if the patient is not improving clinically after 3~4 days Consider GI evaluation if not clinically improving Keep patient NPO for now, except medications Vital as protocol Precaution: Fall, Aspiration. Activity: Bed Rest Prognosis: Guarded 06/01-Continuing to have left upper quadrant abdominal pain as well as right upper quadrant abdominal pain, history of recurrent alcohol-induced pancreatitis. Lipase 209, amylase 109. Continue to treat pain with by mouth [place] 5/325 every 6 when necessary, continue antiemetics. Continue PPI. Recheck lipase in the morning. Continue IV fluids. Daily labs, serial abdominal exams 06/02- patient condition improving, abdominal pain remains but she reports that it is tolerable and less pronounced today. Mild B/L upper abdominal tenderness to palpation. Reporting nausea--continue antiemetics, continue IV fluid, advance to clear liquid diet as tolerated. Continue [place] for pain. Continue PPI. Recheck lipase in the morning. Daily labs and serial abdominal exams (2) Alcohol use disorder Current Visit: Yes Status: Acute Assessment and plan: was counseled on Abstinence on CIWA protocol 06/01-appears to be in early withdrawal. Continue CIWA protocol -Again counseled on abstinence of use of alcohol however, patient does not wish to have resources for alcohol cessation (3) Alcohol withdrawal delirium Current Visit: Yes Status: Acute Assessment and plan: CIWA protocol initiated will check magnesium and PO4 06/01-patient is agitated, anxious and tremulous. Denies any suicidal/homicidal ideation, denies any visual or auditory hallucinations. Does not appear to be delirious. In early withdrawal. Continue to closely monitor. Aggressive CIWA protocol. Should patient have a change her declining condition consider sending to unit with higher acuity and starting Precedex drip 06/02- ETOH withdrawal improving. Continues to deny SI/HI, auditory/visual hallucinations. cont with CIWA protocol (4) Drug use disorder Current Visit: Yes Status: Acute Assessment and plan: has been using heroin IV. methadone was stopped by the clinic due to alcoholism was counseled on abstinence and harms associated with drug abuse 06/01-offered social media strategist for support and resources--patient declined stating "I am already in a program ", "I do not want any other help " (5) Alcoholic hepatitis Current Visit: Yes Status: Acute Assessment and plan: ASt>ALT RUQ pain will get US of the abdomen to rule out any obstruction on CIWA protocol avoid hepatotoxic medications 06/01-alcoholic hepatitis. AST> ALT, AST trending down 72 today. Abdominal ultrasound reveals no obstruction. Right upper quadrant pain secondary to acute on chronic alcohol induced pancreatitis Abdominal ultrasound-No cholelithiasis. Gallbladder sludge is noted. Common duct is at the upper limits of normal, measuring 6.3 mm. Hyperechoic liver parenchyma, consistent with fatty infiltration. Qualifiers: Ascites presence: without ascites Qualified Code(s): K70.10 - Alcoholic hepatitis without ascites (6) Hepatitis C Current Visit: Yes Status: Acute Assessment and plan: chronic does not follow with GI Not a candidate for treatment d/t continued IVDU AST AND ALT improving yesterday recheck hepatic panel in am Qualifiers: Viral hepatitis chronicity: chronic Hepatic coma status: without hepatic coma Qualified Code(s): B18.2 - Chronic viral hepatitis C (7) Hypertension Current Visit: Yes Status: Acute Assessment and plan: Hypertension persists Prior history of HTN Likely exacerbated by pancreatitis and alcohol withdrawal Continue treat pain with pancreatitis 5 mg amlodipine by mouth daily monitor blood pressure and uptitrate as necessary PRN hydralazine Qualifiers: Hypertension type: unspecified Qualified Code(s): I10 - Essential (primary ) hypertension (8) DVT prophylaxis Current Visit: Yes Status: Acute Assessment and plan: cont SC heparin - Time Spent With Patient Total time spent is greater than 50% in coordination of care (as documented) at patient's floor/unit and/or counseling patient: less than 15 minutes - Subjective Interval history: Patient seen and examined at bedside today. Reporting that her agitation is improving. Continues to endorse nausea but denies any vomiting or diarrhea. Continues to deny any suicidal/homicidal ideations, orany auditory/visual hallucinations. - Constitutional Vitals: Temp Pulse Resp BP Pulse Ox 98.3 F 72 18 174/107 96 06/02/18 11:44 06/02/18 11:44 06/02/18 11:44 06/02/18 11:44 06/02/18 11:44 General appearance: Present: cooperative, A&O X 3 - Head Head exam: Present: atraumatic, normocephalic - Eye Eye exam: Present: PERRL, conjuntiva pink, sclera anicteric Pupils: Present: PERRL - Respiratory Respiratory exam: Present: CTAB. Absent: accessory muscle use, rales, rhonchi, wheezes - Cardiovascular Cardiovascular exam: Present: RRR, +S1, +S2. Absent: diastolic murmur, gallop, rubs, systolic murmur - GI/Abdominal GI/Abdominal exam: Present: normal bowel sounds, soft, no peritoneal signs. Absent: distended, tenderness - Extremities Exam Extremities exam: Present: warm, radial pulses palpable and symmetrical. Absent : calf tenderness, cyanotic, pedal edema - Neurological Exam Neurological exam: Present: alert, oriented X3. Absent: facial droop, speech deficit Additional comments: Tremulousness bilateral upper and lower extremities - Psychiatric Psychiatric exam: Present: agitated, anxious Internal Medicine: Result - Labs CBC & Chem 7: 06/02/18 06:25 06/02/18 06:25 Labs: Short CBC 06/02/18 Range/Units 06:25 WBC 4.5 (4.3-11.1) K/mcL Hgb 13.6 (11.5-15.4) g/dL Hct 40.0 (35.3-44.9) % Plt Count 140 (140-400) K/mcL Neutrophils # 2.4 (1.6-8.9) K/mcL BMP 06/02/18 06:25 Sodium 137 Potassium 3.4 L Chloride 97 L Carbon Dioxide 25 BUN 11 Creatinine 0.71 Glucose 80 Calcium 9.6 - ABG Interpretation ABG results: PT/INR, D-dimer PT 10.5 Seconds (9.4-12.1) 05/31/18 13:48 Consult Discharge Plan - Plan Referrals: NONE,PCP [Primary Care Provider] -
[2018-06-03] MEDS: *HR* HYDROcodone/Acet 5/325 mg TABLET PO PRN ×4 (00:54→20:00)
[2018-06-03] MEDS: *HR* LORazepam 2 MG/ML VIAL IVP PRN ×6 (00:55→23:16)
[2018-06-03] MEDS: Ondansetron 4 MG/2 ML VIAL IVP PRN ×4 (00:58→20:00)
[2018-06-03] MEDS: Ringers Solution, Lactated 1,000 ML IVC SCH ×3 (02:40→23:12)
[2018-06-03 04:34] LABS: Basophils # 0.1 K/mcL (0.0-0.2); Basophils % 1.3 %; Eosinophils # 0.1 K/mcL (0.0-0.6); Eosinophils % 2.5 %; Hematocrit 46.1 % (35.3-44.9); Immature Granulocytes % 0.2 % (0-4); Lymphocytes # 1.3 K/mcL (0.6-4.6); Lymphocytes % 24.9 %; Mean Corpuscular HGB Conc 33.8 g/dL (31.6-35.5); Mean Corpuscular Hemoglobin 34.2 pg (28.0-33.3); Mean Corpuscular Volume 101.1 fL (83.0-100.0); Monocytes # 0.7 K/mcL (0.0-1.3); Monocytes % 12.5 %; Neutrophils # 3.1 K/mcL (1.6-8.9); Platelet Count 114 K/mcL (140-400); Red Blood Count 4.56 M/mcL (3.82-4.97); Red Cell Distribution Width 13.7 % (11.5-14.5); Segmented Neutrophils % 58.6 %
[2018-06-03 04:44] LABS: Hemoglobin 15.6 g/dL (11.5-15.4)
[2018-06-03 04:58] LABS: Alanine Aminotransferase 56 Units/L (7-52); Albumin 4.3 g/dL (3.5-5.7); Albumin/Globulin Ratio 1.2 (1.1-2.2); Alkaline Phosphatase 100 Units/L (34-104); Aspartate Amino Transferase 76 Units/L (13-39); BUN/Creatinine Ratio 12 (6-26); Bilirubin,Direct 0.2 mg/dL (0.0-0.2); Bilirubin,Indirect 0.6 mg/dL (0.0-1.2); Bilirubin,Total 0.8 mg/dL (0.3-1.0); Blood Urea Nitrogen 9 mg/dL (6-20); Calcium 10.1 mg/dL (8.6-10.3); Carbon Dioxide 28 mEq/L (23-29); Chloride 100 mEq/L (98-107); Globulin 3.5 g/dL (2.4-3.5); Glucose 111 mg/dL (70-105); Lipase 174 Units/L (11-82); Osmolality,Calculated 285 (280-300); Potassium 3.2 mEq/L (3.5-5.1); Sodium 138 mEq/L (136-145); Total Protein 7.8 g/dL (6.4-8.9); eGFR For Non-African Americans > 60 (> 60)
[2018-06-03] MEDS: *HR* Heparin 5,000 UNIT/ML VIAL SQ SCH ×3 (05:34→20:02)
[2018-06-03] MEDS: amLODIPine 5 MG TABLET PO SCH (08:05)
[2018-06-03] MEDS: Pantoprazole 40 MG VIAL IVP SCH (08:05)
[2018-06-03] MEDS: Thiamine (B-1) 100 MG, Folic Acid 1 MG in D5% in Water 50 ML IVPB SCH (08:08)
--- NOTE | 2018-06-03 12:15 | Internal Med Progress Note ---
Date of Encounter: 06/03/18 Time of Encounter: 12:13 - Assessment and plan (1) Alcohol induced acute pancreatitis Current Visit: Yes Status: Acute Assessment and plan: ransons score is low - WBC<16, Age<55, flucose is <200, AST<250, Awaiting LDH IVF LR 2000 ML bolus stat, Ringer lactate at 150 ml/hr (received 1L NS in the ED ) is hemoconcentrated ilya send LDH, lactic acid and Amylase STAT PPI 40 mg IVPB Q daily Zofran 4 mg IVP Q 8 H PRN for nauseas or vomiting - watch QT Pain control with morphine prn - watch for ilius - currently not in pain bowel regimen Serial abdominal exam CBC, CMP in AM UTOX Fasting lipids in the AM r/o hypertriglyceridemia Abdominal US to evaluated biliary stone/obstruction.-Negative for biliary stent obstruction Consider CT Abdomen if the patient is not improving clinically after 3~4 days Consider GI evaluation if not clinically improving Keep patient NPO for now, except medications Vital as protocol Precaution: Fall, Aspiration. Activity: Bed Rest Prognosis: Guarded 06/01-Continuing to have left upper quadrant abdominal pain as well as right upper quadrant abdominal pain, history of recurrent alcohol-induced pancreatitis. Lipase 209, amylase 109. Continue to treat pain with by mouth [place] 5/325 every 6 when necessary, continue antiemetics. Continue PPI. Recheck lipase in the morning. Continue IV fluids. Daily labs, serial abdominal exams 06/02- patient condition improving, abdominal pain remains but she reports that it is tolerable and less pronounced today. Mild B/L upper abdominal tenderness to palpation. Reporting nausea--continue antiemetics, continue IV fluid, advance to clear liquid diet as tolerated. Continue [place] for pain. Continue PPI. Recheck lipase in the morning. Daily labs and serial abdominal exams 06/02- patient denies abdominal pain. Reports the nausea is improving as well. However, is experiencing diarrhea but I believe this is due to alcoholic withdrawal. Continue antiemetics and IV fluid. Decrease IV fluid rate to 50 mL per hour. Advance diet as tolerated. Patient tolerating diet well thus far. Continue with [place] for pain, continue PPI. Recheck lipase and liver profile in the morning. Daily labs and serial abdominal exams. (2) Alcohol use disorder Current Visit: Yes Status: Acute Assessment and plan: was counseled on Abstinence on CIWA protocol 06/01-appears to be in early withdrawal. Continue CIWA protocol -Again counseled on abstinence of use of alcohol however, patient does not wish to have resources for alcohol cessation (3) Alcohol withdrawal delirium Current Visit: Yes Status: Acute Assessment and plan: CIWA protocol initiated will check magnesium and PO4 06/01-patient is agitated, anxious and tremulous. Denies any suicidal/homicidal ideation, denies any visual or auditory hallucinations. Does not appear to be delirious. In early withdrawal. Continue to closely monitor. Aggressive CIWA protocol. Should patient have a change her declining condition consider sending to unit with higher acuity and starting Precedex drip 06/02- ETOH withdrawal improving. Continues to deny SI/HI, auditory/visual hallucinations. cont with CIWA protocol 06/03-withdrawal symptoms continue to improve, denies any suicidal or homicidal ideation or visual auditory hallucinations. Continue with CIWA protocol (4) Drug use disorder Current Visit: Yes Status: Acute Assessment and plan: has been using heroin IV. methadone was stopped by the clinic due to alcoholism was counseled on abstinence and harms associated with drug abuse 06/01-offered social media community manager for support and resources--patient declined stating "I am already in a program ", "I do not want any other help " (5) Alcoholic hepatitis Current Visit: Yes Status: Acute Assessment and plan: ASt>ALT RUQ pain will get US of the abdomen to rule out any obstruction on CIWA protocol avoid hepatotoxic medications 06/01-alcoholic hepatitis. AST> ALT, AST trending down 72 today. Abdominal ultrasound reveals no obstruction. Right upper quadrant pain secondary to acute on chronic alcohol induced pancreatitis Abdominal ultrasound-No cholelithiasis. Gallbladder sludge is noted. Common duct is at the upper limits of normal, measuring 6.3 mm. Hyperechoic liver parenchyma, consistent with fatty infiltration. 06/03-AST greater than ALT, AST 76, ALT 56--denies any abdominal pain, or nausea Qualifiers: Ascites presence: without ascites Qualified Code(s): K70.10 - Alcoholic hepatitis without ascites (6) Hepatitis C Current Visit: Yes Status: Acute Assessment and plan: chronic does not follow with GI Not a candidate for treatment d/t continued IVDU AST AND ALT improving yesterday recheck hepatic panel in am Qualifiers: Viral hepatitis chronicity: chronic Hepatic coma status: without hepatic coma Qualified Code(s): B18.2 - Chronic viral hepatitis C (7) Hypertension Current Visit: Yes Status: Acute Assessment and plan: Hypertension persists Prior history of HTN Likely exacerbated by pancreatitis and alcohol withdrawal Continue treat pain with pancreatitis 5 mg amlodipine by mouth daily monitor blood pressure and uptitrate as necessary PRN hydralazine 06/03-blood pressures improved, 132/88 this afternoon. Continue to monitor and titrate BP meds as necessary Qualifiers: Hypertension type: unspecified Qualified Code(s): I10 - Essential (primary ) hypertension (8) DVT prophylaxis Current Visit: Yes Status: Acute Assessment and plan: SC heparin - Time Spent With Patient Total time spent is greater than 50% in coordination of care (as documented) at patient's floor/unit and/or counseling patient: less than 15 minutes - Subjective Interval history: Patient seen and examined at bedside today. Reporting that her agitation is improving. Denies any nausea but is now reporting diarrhea. Continues have tremors. Denies any suicidal/homicidal ideations, or any auditory/visual hallucinations. - Constitutional Vitals: Temp Pulse Resp BP Pulse Ox 98.0 F 106 20 132/88 96 06/03/18 10:35 06/03/18 10:35 06/03/18 10:35 06/03/18 10:35 06/03/18 10:35 General appearance: Present: cooperative, A&O X 3 - Head Head exam: Present: atraumatic, normocephalic - Eye Eye exam: Present: PERRL, conjuntiva pink, sclera anicteric Pupils: Present: PERRL - Neck Neck exam general surgery: Present: supple, trachea midline. Absent: lymphadenopathy - Respiratory Respiratory exam: Present: CTAB. Absent: accessory muscle use, rales, rhonchi, wheezes - Cardiovascular Cardiovascular exam: Present: RRR, +S1, +S2. Absent: diastolic murmur, gallop, rubs, systolic murmur - GI/Abdominal GI/Abdominal exam: Present: normal bowel sounds, soft, no peritoneal signs. Absent: distended, tenderness - Extremities Exam Extremities exam: Present: normal capillary refill, normal inspection, warm, radial pulses palpable and symmetrical. Absent: calf tenderness, cyanotic, pedal edema, tenderness - Neurological Exam Neurological exam: Present: alert, oriented X3. Absent: pronater drift, facial droop, speech deficit Additional comments: Tremulous - Psychiatric Psychiatric exam: Present: agitated - Skin Skin exam: Present: dry, intact Internal Medicine: Result - Labs CBC & Chem 7: 06/03/18 03:27 06/03/18 03:27 Labs: Short CBC 06/03/18 Range/Units 03:27 WBC 5.3 (4.3-11.1) K/mcL Hgb 15.6 H D (11.5-15.4) g/dL Hct 46.1 H (35.3-44.9) % Plt Count 114 L (140-400) K/mcL Neutrophils # 3.1 (1.6-8.9) K/mcL BMP 06/03/18 03:27 Sodium 138 Potassium 3.2 L Chloride 100 Carbon Dioxide 28 BUN 9 Creatinine 0.77 Glucose 111 H Calcium 10.1 Liver Function 06/03/18 Range/Units 03:27 Total Bilirubin 0.8 (0.3-1.0) mg/dL Direct Bilirubin 0.2 (0.0-0.2) mg/dL AST 76 H (13-39) Units/L ALT 56 H (7-52) Units/L Alkaline Phosphatase 100 (34-104) Units/L Albumin 4.3 (3.5-5.7) g/dL - ABG Interpretation ABG results: PT/INR, D-dimer PT 10.5 Seconds (9.4-12.1) 05/31/18 13:48 Consult Discharge Plan - Plan Referrals: NONE,PCP [Primary Care Provider] -
[2018-06-04] MEDS: *HR* HYDROcodone/Acet 5/325 mg TABLET PO PRN ×3 (03:07→22:19)
[2018-06-04] MEDS: Ondansetron 4 MG/2 ML VIAL IVP PRN ×3 (03:08→20:52)
[2018-06-04] MEDS: *HR* LORazepam 2 MG/ML VIAL IVP PRN ×6 (03:29→20:44)
[2018-06-04 06:14] LABS: Basophils # 0.1 K/mcL (0.0-0.2); Basophils % 1.3 %; Eosinophils # 0.2 K/mcL (0.0-0.6); Eosinophils % 3.2 %; Hematocrit 41.9 % (35.3-44.9); Immature Granulocytes % 0.5 % (0-4); Lymphocytes # 1.6 K/mcL (0.6-4.6); Mean Corpuscular HGB Conc 32.9 g/dL (31.6-35.5); Mean Corpuscular Hemoglobin 32.7 pg (28.0-33.3); Mean Corpuscular Volume 99.3 fL (83.0-100.0); Mean Platelet Volume 11.3 fL (9.4-12.4); Monocytes # 0.6 K/mcL (0.0-1.3); Monocytes % 9.4 %; Neutrophils # 3.8 K/mcL (1.6-8.9); Platelet Count 114 K/mcL (140-400); Red Blood Count 4.22 M/mcL (3.82-4.97); Red Cell Distribution Width 13.8 % (11.5-14.5); Segmented Neutrophils % 59.6 %
[2018-06-04 06:15] LABS: Hemoglobin 13.8 g/dL (11.5-15.4)
[2018-06-04] MEDS: *HR* Heparin 5,000 UNIT/ML VIAL SQ SCH ×3 (06:20→20:41)
[2018-06-04 06:33] LABS: Alanine Aminotransferase 45 Units/L (7-52); Albumin 4.1 g/dL (3.5-5.7); Albumin/Globulin Ratio 1.2 (1.1-2.2); Alkaline Phosphatase 84 Units/L (34-104); Aspartate Amino Transferase 45 Units/L (13-39); Bilirubin,Direct 0.1 mg/dL (0.0-0.2); Bilirubin,Indirect 0.5 mg/dL (0.0-1.2); Bilirubin,Total 0.6 mg/dL (0.3-1.0); Globulin 3.3 g/dL (2.4-3.5); Lipase 144 Units/L (11-82); Total Protein 7.4 g/dL (6.4-8.9)
[2018-06-04 06:47] LABS: BUN/Creatinine Ratio 14 (6-26); Blood Urea Nitrogen 12 mg/dL (6-20); Calcium 9.9 mg/dL (8.6-10.3); Carbon Dioxide 21 mEq/L (23-29); Chloride 104 mEq/L (98-107); Glucose 100 mg/dL (70-105); Osmolality,Calculated 286 (280-300); Potassium 3.5 mEq/L (3.5-5.1); Sodium 138 mEq/L (136-145); eGFR For Non-African Americans > 60 (> 60)
[2018-06-04] MEDS ORDERED: *HR* LORazepam 2 MG/ML VIAL IVP ONE (07:51)
--- NOTE | 2018-06-04 10:59 | Internal Med Progress Note ---
Hospitalist Progress Note - Encounter Date of Encounter: 06/04/18 Time of Encounter: 10:57 - Subjective Interval History: Patient seen and examined at bedside today. Appears very agitated this morning , patient is confused reporting auditory and visual hallucinations. Continues to deny suicidal or homicidal ideation, but is a harm to self and others given her current state. She is reporting that she needs to drive home to her kid so she can get them to school, also, at times she is reporting that her kids are in her room and running through the halls. She is also hearing whistles and bells. - Exam Vitals: Temp Pulse Resp BP Pulse Ox 97.8 F 73 15 149/97 97 06/04/18 06:43 06/04/18 06:43 06/04/18 06:43 06/04/18 06:43 06/04/18 06:43 Exam: PHYSICAL EXAMINATION: GENERAL: He is an ill appearing female who looks older than stated age of 47. She is alert to self but due to acute alcoholic withdrawal she is unaware of situatio HEENT: Head is normocephalic and atraumatic. Extraocular muscles are intact. Pupils are equal, round, and reactive to light and accommodation. NECK: Supple. No carotid bruits. No lymphadenopathy or thyromegaly. LUNGS: Clear to auscultation. HEART: Regular rate and rhythm without murmur. ABDOMEN: Soft, nontender, and nondistended. Positive bowel sounds. No hepatosplenomegaly was noted. EXTREMITIES: Without any cyanosis, clubbing, rash, lesions or edema. NEUROLOGIC: No slurred speech, facial droop, alert to self but is uncooperative and disoriented due to acute alcohol withdrawal PSYCHIATRIC: Agitated, confused and uncooperative, having auditory and visual hallucinations, denies suicidal or homicidal ideations. SKIN: Track murphy present throughout bilateral lower extremities - Assessment and Plan (1) Alcohol withdrawal delirium Current Visit: Yes Status: Acute Assessment and Plan: CIWA protocol initiated will check magnesium and PO4 06/01-patient is agitated, anxious and tremulous. Denies any suicidal/homicidal ideation, denies any visual or auditory hallucinations. Does not appear to be delirious. In early withdrawal. Continue to closely monitor. Aggressive CIWA protocol. Should patient have a change her declining condition consider sending to unit with higher acuity and starting Precedex drip 06/02- ETOH withdrawal improving. Continues to deny SI/HI, auditory/visual hallucinations. cont with CIWA protocol 06/03-withdrawal symptoms continue to improve, denies any suicidal or homicidal ideation or visual auditory hallucinations. Continue with CIWA protocol 06/04- withdrawal progressing overnight. Per my assessment yesterday the patient's withdrawal. To be improving. However, overnight the patient began to experience auditory or visual hallucinations and is not agitated and uncooperative. She is having hallucinations of seeing her children running in and out of her room and throughout the hospital. Also, she is hearing bells and whistles. She is mistaking the plumbing in her room for an adamant objects. I believe she is a harm to self and others that she is reporting she wants to drive home and see her children. Continue current state withdrawal the patient will be transferred to higher level of acuity and started on a Precedex drip. Given that she is a harm to self and others she will be pink slipped into the hospital as she is attempting to sign out AGAINST MEDICAL ADVICE. Given her current state withdrawal she is without capacity to make safe decisions for herself. (2) Alcohol induced acute pancreatitis Current Visit: Yes Status: Acute Assessment and Plan: ransons score is low - WBC<16, Age<55, flucose is <200, AST<250, Awaiting LDH IVF LR 2000 ML bolus stat, Ringer lactate at 150 ml/hr (received 1L NS in the ED ) is hemoconcentrated ilya send LDH, lactic acid and Amylase STAT PPI 40 mg IVPB Q daily Zofran 4 mg IVP Q 8 H PRN for nauseas or vomiting - watch QT Pain control with morphine prn - watch for ilius - currently not in pain bowel regimen Serial abdominal exam CBC, CMP in AM UTOX Fasting lipids in the AM r/o hypertriglyceridemia Abdominal US to evaluated biliary stone/obstruction.-Negative for biliary stent obstruction Consider CT Abdomen if the patient is not improving clinically after 3~4 days Consider GI evaluation if not clinically improving Keep patient NPO for now, except medications Vital as protocol Precaution: Fall, Aspiration. Activity: Bed Rest Prognosis: Guarded 06/01-Continuing to have left upper quadrant abdominal pain as well as right upper quadrant abdominal pain, history of recurrent alcohol-induced pancreatitis. Lipase 209, amylase 109. Continue to treat pain with by mouth [place] 5/325 every 6 when necessary, continue antiemetics. Continue PPI. Recheck lipase in the morning. Continue IV fluids. Daily labs, serial abdominal exams 06/02- patient condition improving, abdominal pain remains but she reports that it is tolerable and less pronounced today. Mild B/L upper abdominal tenderness to palpation. Reporting nausea--continue antiemetics, continue IV fluid, advance to clear liquid diet as tolerated. Continue [place] for pain. Continue PPI. Recheck lipase in the morning. Daily labs and serial abdominal exams 06/02- patient denies abdominal pain. Reports the nausea is improving as well. However, is experiencing diarrhea but I believe this is due to alcoholic withdrawal. Continue antiemetics and IV fluid. Decrease IV fluid rate to 50 mL per hour. Advance diet as tolerated. Patient tolerating diet well thus far. Continue with [place] for pain, continue PPI. Recheck lipase and liver profile in the morning. Daily labs and serial abdominal exams. 06/04-abdominal pain and nausea has subsided. Tolerating diet today. However, patient in active withdrawal. Continue IV fluids, continue [place] for pain, continue PPI, continue serial abdominal exams (3) Alcohol use disorder Current Visit: Yes Status: Acute Assessment and Plan: was counseled on Abstinence on CIWA protocol 06/01-appears to be in early withdrawal. Continue CIWA protocol -Again counseled on abstinence of use of alcohol however, patient does not wish to have resources for alcohol cessation 06/04- withdrawal progressing overnight. Per my assessment yesterday the patient's withdrawal. To be improving. However, overnight the patient began to experience auditory or visual hallucinations and is not agitated and uncooperative. She is having hallucinations of seeing her children running in and out of her room and throughout the hospital. Also, she is hearing bells and whistles. She is mistaking the plumbing in her room for an adamant objects. I believe she is a harm to self and others that she is reporting she wants to drive home and see her children. Continue current state withdrawal the patient will be transferred to higher level of acuity and started on a Precedex drip. Given that she is a harm to self and others she will be pink slipped into the hospital as she is attempting to sign out AGAINST MEDICAL ADVICE. Given her current state withdrawal she is without capacity to make safe decisions for herself. (4) Drug use disorder Current Visit: Yes Status: Acute Assessment and Plan: Polysubstance abuse disorder--reporting regular IVDU--offered counseling, patient declined--reports that she does not want to quit drug use at this time (5) Alcoholic hepatitis Current Visit: Yes Status: Acute Assessment and Plan: ASt>ALT RUQ pain will get US of the abdomen to rule out any obstruction on CIWA protocol avoid hepatotoxic medications --alcoholic hepatitis as well as chronic hepatitis C infection Abdominal ultrasound-No cholelithiasis. Gallbladder sludge is noted. Common duct is at the upper limits of normal, measuring 6.3 mm. Hyperechoic liver parenchyma, consistent with fatty infiltration. (6) Hepatitis C Current Visit: Yes Status: Acute Assessment and Plan: chronic does not follow with GI Not a candidate for treatment d/t continued IVDU (7) Hypertension Current Visit: Yes Status: Acute Assessment and Plan: Hypertension persists Prior history of HTN Likely exacerbated by pancreatitis and alcohol withdrawal Continue treat pain with pancreatitis 5 mg amlodipine by mouth daily monitor blood pressure and uptitrate as necessary PRN hydralazine 06/03-blood pressures improved, 132/88 this afternoon. Continue to monitor and titrate BP meds as necessary 06/03- mild hypertension today, BP 149/97. She was experiencing active alcohol withdrawal which is further exacerbating her hypertension. Continue current medication regimen and uptitrate as necessary (8) DVT prophylaxis Current Visit: Yes Status: Acute Assessment and Plan: SC heparin - Time Spent with Patient Total time spent is greater than 50% in coordination of care (as documented) at patient's floor/unit and/or counseling patient: Internal Medicine: Result - Labs CBC & Chem 7: 06/04/18 04:51 06/04/18 04:51 Labs: Short CBC 06/04/18 Range/Units 04:51 WBC 6.3 (4.3-11.1) K/mcL Hgb 13.8 D (11.5-15.4) g/dL Hct 41.9 (35.3-44.9) % Plt Count 114 L (140-400) K/mcL Neutrophils # 3.8 (1.6-8.9) K/mcL BMP 06/04/18 04:51 Sodium 138 Potassium 3.5 Chloride 104 Carbon Dioxide 21 L BUN 12 Creatinine 0.83 Glucose 100 Calcium 9.9 Liver Function 06/04/18 Range/Units 04:51 Total Bilirubin 0.6 (0.3-1.0) mg/dL Direct Bilirubin 0.1 (0.0-0.2) mg/dL AST 45 H (13-39) Units/L ALT 45 (7-52) Units/L Alkaline Phosphatase 84 (34-104) Units/L Albumin 4.1 (3.5-5.7) g/dL - ABG Interpretation ABG results: PT/INR, D-dimer PT 10.5 Seconds (9.4-12.1) 05/31/18 13:48 Consult Discharge Plan - Plan Referrals: NONE,PCP [Primary Care Provider] - (5) Alcoholic hepatitis Qualifiers: Ascites presence: without ascites Qualified Code(s): K70.10 - Alcoholic hepatitis without ascites (6) Hepatitis C Qualifiers: Viral hepatitis chronicity: chronic Hepatic coma status: without hepatic coma Qualified Code(s): B18.2 - Chronic viral hepatitis C (7) Hypertension Qualifiers: Hypertension type: essential hypertension Qualified Code(s): I10 - Essential (primary) hypertension
[2018-06-04] MEDS: Pantoprazole 40 MG VIAL IVP SCH (11:38)
[2018-06-04] MEDS: Thiamine (B-1) 100 MG, Folic Acid 1 MG in D5% in Water 50 ML IVPB SCH (11:38)
[2018-06-04] MEDS: amLODIPine 5 MG TABLET PO SCH (12:16)
[2018-06-04] MEDS: Ringers Solution, Lactated 1,000 ML IVC SCH ×2 (13:40→20:32)
[2018-06-04] MEDS: Dexmedetomidine HCl 400 MCG/100 ML MLS IVC SCH (14:41)
[2018-06-05 04:43] LABS: Basophils # 0.1 K/mcL (0.0-0.2); Basophils % 1.2 %; Eosinophils # 0.3 K/mcL (0.0-0.6); Eosinophils % 4.9 %; Hematocrit 38.2 % (35.3-44.9); Immature Granulocytes % 0.3 % (0-4); Lymphocytes # 1.9 K/mcL (0.6-4.6); Mean Corpuscular Hemoglobin 33.2 pg (28.0-33.3); Mean Corpuscular Volume 97.7 fL (83.0-100.0); Mean Platelet Volume 10.5 fL (9.4-12.4); Monocytes # 0.8 K/mcL (0.0-1.3); Monocytes % 11.9 %; Neutrophils # 3.6 K/mcL (1.6-8.9); Platelet Count 147 K/mcL (140-400); Red Blood Count 3.91 M/mcL (3.82-4.97); Red Cell Distribution Width 13.8 % (11.5-14.5); Segmented Neutrophils % 53.7 %
[2018-06-05 05:04] LABS: BUN/Creatinine Ratio 15 (6-26); Blood Urea Nitrogen 13 mg/dL (6-20); Calcium 9.7 mg/dL (8.6-10.3); Carbon Dioxide 25 mEq/L (23-29); Chloride 107 mEq/L (98-107); Glucose 106 mg/dL (70-105); Osmolality,Calculated 293 (280-300); Potassium 3.4 mEq/L (3.5-5.1); Sodium 141 mEq/L (136-145); eGFR For Non-African Americans > 60 (> 60)
[2018-06-05] MEDS: Ringers Solution, Lactated 1,000 ML IVC SCH ×2 (05:39→19:50)
[2018-06-05] MEDS: *HR* Heparin 5,000 UNIT/ML VIAL SQ SCH ×3 (05:40→19:42)
[2018-06-05] MEDS: *HR* HYDROcodone/Acet 5/325 mg TABLET PO PRN ×3 (05:49→22:30)
[2018-06-05] MEDS: amLODIPine 5 MG TABLET PO SCH (09:52)
[2018-06-05] MEDS: Pantoprazole 40 MG VIAL IVP SCH (09:52)
[2018-06-05] MEDS: Thiamine (B-1) 100 MG, Folic Acid 1 MG in D5% in Water 50 ML IVPB SCH (09:55)
[2018-06-05] MEDS: *HR* LORazepam 2 MG/ML VIAL IVP PRN ×3 (10:01→22:31)
[2018-06-05] MEDS: Ondansetron 4 MG/2 ML VIAL IVP PRN ×2 (14:25→20:40)
--- NOTE | 2018-06-05 15:59 | Internal Med Progress Note ---
Hospitalist Progress Note - Encounter Date of Encounter: 06/05/18 Time of Encounter: 09:00 - Subjective Interval History: Patient said abdominal pain has improved but still has tenderness. Patient has nausea but no vomiting. Generally tolerate regular diet. Review chart, she may has chronic pancreatitis as lipase is always at high level. - Exam Vitals: Temp Pulse Resp BP Pulse Ox 98.7 F 78 20 153/92 96 06/05/18 15:10 06/05/18 14:00 06/05/18 14:00 06/05/18 14:00 06/05/18 14:00 - Assessment and Plan (1) Alcohol use disorder Current Visit: Yes Status: Acute Assessment and Plan: was counseled on Abstinence on CIWA protocol, continue closely monitor patient (2) Alcohol withdrawal delirium Current Visit: Yes Status: Acute Assessment and Plan: CIWA protocol initiated, mental status improved the today, continue close monitoring. (3) Alcohol induced acute pancreatitis Current Visit: Yes Status: Acute Assessment and Plan: Diet has been advanced to regular. Continue follow-up lipase level. (4) Drug use disorder Current Visit: Yes Status: Acute Assessment and Plan: Polysubstance abuse disorder--reporting regular IVDU--offered counseling, patient declined--reports that she does not want to quit drug use at this time. Closely monitor withdrawal symptoms (5) DVT prophylaxis Current Visit: Yes Status: Acute Assessment and Plan: SC heparin (6) Hepatitis C Current Visit: Yes Status: Acute Assessment and Plan: chronic does not follow with GI Probably not a candidate for treatment d/t continued IVDU and does not want to quit (7) Hypertension Current Visit: Yes Status: Acute Assessment and Plan: Hypertension improved. Continue current treatment with by mouth amlodipine. Monitor BP DVT Prophylaxis: Heparin subcutaneously - Summary of Assessment and Plan Summary of Assessment and Plan: Patient admitted as pancreatitis, most likely due to alcoholism. Abdominal pain has improved. Patient has signs of alcohol withdrawal. Continue CIWA protocol and closely monitoring - Time Spent with Patient Total time spent is greater than 50% in coordination of care (as documented) at patient's floor/unit and/or counseling patient: 40 minutes Greater than 35 minutes Plan of Care Discussed with: patient Internal Medicine: Result - Labs CBC & Chem 7: 06/05/18 04:27 06/05/18 04:27 Labs: Short CBC 06/05/18 Range/Units 04:27 WBC 6.7 (4.3-11.1) K/mcL Hgb 13.0 (11.5-15.4) g/dL Hct 38.2 (35.3-44.9) % Plt Count 147 (140-400) K/mcL Neutrophils # 3.6 (1.6-8.9) K/mcL BMP 06/05/18 04:27 Sodium 141 Potassium 3.4 L Chloride 107 Carbon Dioxide 25 BUN 13 Creatinine 0.84 Glucose 106 H Calcium 9.7 - ABG Interpretation ABG results: PT/INR, D-dimer PT 10.5 Seconds (9.4-12.1) 05/31/18 13:48 Consult Discharge Plan - Plan Referrals: NONE,PCP [Primary Care Provider] - (6) Hepatitis C Qualifiers: Viral hepatitis chronicity: chronic Hepatic coma status: without hepatic coma Qualified Code(s): B18.2 - Chronic viral hepatitis C (7) Hypertension Qualifiers: Hypertension type: essential hypertension Qualified Code(s): I10 - Essential (primary) hypertension
[2018-06-05] MEDS: Dexmedetomidine HCl 400 MCG/100 ML MLS IVC SCH (19:42)
[2018-06-06] MEDS: *HR* LORazepam 2 MG/ML VIAL IVP PRN ×2 (01:02→07:01)
[2018-06-06] MEDS: Dexmedetomidine HCl 400 MCG/100 ML MLS IVC SCH (04:54)
[2018-06-06 05:33] LABS: Basophils # 0.1 K/mcL (0.0-0.2); Basophils % 1.1 %; Eosinophils # 0.2 K/mcL (0.0-0.6); Eosinophils % 3.2 %; Hemoglobin 13.5 g/dL (11.5-15.4); Immature Granulocytes % 0.3 % (0-4); Lymphocytes # 1.9 K/mcL (0.6-4.6); Lymphocytes % 24.9 %; Mean Corpuscular HGB Conc 34.6 g/dL (31.6-35.5); Mean Corpuscular Hemoglobin 33.5 pg (28.0-33.3); Mean Corpuscular Volume 96.8 fL (83.0-100.0); Mean Platelet Volume 10.6 fL (9.4-12.4); Monocytes # 0.8 K/mcL (0.0-1.3); Monocytes % 10.5 %; Neutrophils # 4.5 K/mcL (1.6-8.9); Platelet Count 177 K/mcL (140-400); Red Blood Count 4.03 M/mcL (3.82-4.97); Red Cell Distribution Width 13.7 % (11.5-14.5)
[2018-06-06 05:59] LABS: BUN/Creatinine Ratio 17 (6-26); Blood Urea Nitrogen 11 mg/dL (6-20); Calcium 9.1 mg/dL (8.6-10.3); Carbon Dioxide 23 mEq/L (23-29); Chloride 110 mEq/L (98-107); Glucose 98 mg/dL (70-105); Osmolality,Calculated 291 (280-300); Potassium 3.1 mEq/L (3.5-5.1); Sodium 141 mEq/L (136-145); eGFR For Non-African Americans > 60 (> 60)
[2018-06-06 06:05] VITALS: BP 141/102
[2018-06-06] MEDS: *HR* Heparin 5,000 UNIT/ML VIAL SQ SCH (06:12)
[2018-06-06] MEDS: *HR* HYDROcodone/Acet 5/325 mg TABLET PO PRN (06:20)
[2018-06-06] MEDS: Ondansetron 4 MG/2 ML VIAL IVP PRN (06:57)
[2018-06-06] MEDS: Ringers Solution, Lactated 1,000 ML IVC SCH ×2 (07:11→08:07)
[2018-06-06] MEDS: amLODIPine 5 MG TABLET PO SCH (08:07)
[2018-06-06] MEDS: Pantoprazole 40 MG VIAL IVP SCH (08:17)
[2018-06-06] MEDS ORDERED: Folic Acid 1 MG TABLET PO SCH (09:00)
[2018-06-06] MEDS ORDERED: Thiamine (B-1) 100 MG TABLET PO SCH (09:00)
--- NOTE | 2018-06-06 09:56 | Discharge Summary ---
- NOTES TO OUTPATIENT PROVIDER Notes to Outpatient Provider: Pt was new diagnosed as HTN and started amlodipine 5 mg po daily, plz f/u BP. Date of Encounter: 06/06/18 Time of Encounter: 09:00 - Discharge Diagnosis (1) Alcohol use disorder Priority: Secondary Status: Acute Assessment and Plan: was counseled on Abstinence SW saw pt, resource provided. (2) Alcohol withdrawal delirium Priority: Secondary Status: Acute Assessment and Plan: CIWA protocol initiated, mental status improved the today. Stable now. (3) Alcohol induced acute pancreatitis Priority: Primary Status: Acute Assessment and Plan: Diet has been advanced to regular. Trend down lipase level. At baseline now (4) Drug use disorder Priority: Secondary Status: Acute Assessment and Plan: Polysubstance abuse disorder--reporting regular IVDU--offered counseling, patient declined--reports that she does not want to quit drug use at this time. (5) DVT prophylaxis Priority: Secondary Status: Acute Assessment and Plan: SC heparin (6) Hepatitis C Priority: Secondary Status: Acute Assessment and Plan: chronic does not follow with GI Probably not a candidate for treatment d/t continued IVDU and does not want to quit Qualifiers: Viral hepatitis chronicity: chronic Hepatic coma status: without hepatic coma Qualified Code(s): B18.2 - Chronic viral hepatitis C (7) Hypertension Priority: Secondary Status: Acute Assessment and Plan: Hypertension improved. Continue current treatment with by mouth amlodipine. F/ U with PCP after discharge. Qualifiers: Hypertension type: essential hypertension Qualified Code(s): I10 - Essential (primary) hypertension Hospital course: Ms. Odell is a 47 year old female admitted for acute pancreatitis. Patient has history of alcoholism and multiple substance abuse. Patient was treated with nothing by mouth, IV fluid. As symptoms has improved, her diet has been advanced to regular diet gradually. Patient tolerated regular diet well and lipase trended down to her baseline. Patient developed alcohol withdrawal delirium during hospitalization, she was treated per CIWA protocol and has improved the now. Patient has hypertension, amlodipine 5 mg by mouth daily was started. After treatment, patient's symptoms has improved and stable to discharge home. Continue follow-up with PCP for further management. I saw and examined the patient today. She is awake alert, no tremor, no hallucination, no nausea. Still mild abdominal tenderness. Tolerate regular diet well. Vitals are stable. Patient is stable to discharge home and continue follow-up with PCP. - Time Spent with Patient Total time spent providing and/or coordinating discharge services: 30 minutes Greater than 30 minutes - Discharge Medications Prescriptions: amLODIPine [Norvasc] 5 mg PO DAILY #30 tablet Folic Acid 1 mg PO DAILY #30 tablet Thiamine (B-1) [Vitamin B-1] 100 mg PO DAILY #30 tablet Home Medications: Folic Acid 1 mg PO DAILY #30 tablet 06/06/18 [Rx] Thiamine (B-1) [Vitamin B-1] 100 mg PO DAILY #30 tablet 06/06/18 [Rx] amLODIPine [Norvasc] 5 mg PO DAILY #30 tablet 06/06/18 [Rx] Allergies/Adverse Reactions: 3 Allergy/AdvReac Type Severity Reaction Status Date / Time aspirin [ASA] Allergy Hives Verified 05/31/18 15:41 Date of admission: 06/01/18 12:10 Primary care physician: PCP NONE Discharging clinician: Portillo Garcia Anticipated date of discharge: 06/06/18 - Constitutional Vitals: Temp Pulse Resp BP Pulse Ox 98.6 F 78 16 141/102 95 06/06/18 07:31 06/06/18 07:06 06/06/18 06:00 06/06/18 06:00 06/06/18 06:00 General appearance: Present: cooperative, A&O X 3 - Head Head exam: Present: atraumatic, normocephalic - Eye Eye exam: Present: PERRL, conjuntiva pink, sclera anicteric Pupils: Present: PERRL - Neck Neck exam general surgery: Present: supple, trachea midline. Absent: lymphadenopathy - Respiratory Respiratory exam: Present: CTAB. Absent: accessory muscle use, rales, rhonchi, wheezes - Cardiovascular Cardiovascular exam: Present: RRR, +S1, +S2. Absent: diastolic murmur, gallop, rubs, systolic murmur - GI/Abdominal GI/Abdominal exam: Present: normal bowel sounds, soft, tenderness (Mild epigastric tenderness without rebound or guarding), no peritoneal signs. Absent : distended - Extremities Exam Extremities exam: Present: warm, radial pulses palpable and symmetrical. Absent : calf tenderness, cyanotic, pedal edema - Neurological Exam Neurological exam: Present: CN II-XII intact, oriented X3, no focal deficits. Absent: pronater drift, facial droop, speech deficit - Skin Skin exam: Present: dry, intact - Patient Status Disposition: Home, Self-Care Condition: Good - Discharge Instructions Follow Up With: NONE,PCP [Primary Care Provider] - - Diet and Activity Activity: increase activity as tolerated Diet: advance to your usual diet
== END 2018-06-06 10:05 | disposition home or self-care (01) | DRG 282 ==
LOC: 3BNU 12:19 → EMEROO 12:19 → 3BNU 18:10 → ICNU 06-04 12:12
PROVIDERS: ADMIT Internal Medicine; ATTEND Internal Medicine

== ENCOUNTER 2019-06-05 19:58 | Inpatient (IN) ==
[2019-06-05] MEDS ORDERED: Ketorolac 15 MG/ML VIAL IVP ONE (20:35)
--- NOTE | 2019-06-05 20:38 | Emergency Department Note ---
Disposition Clinical Impression: Opiate withdrawal Acute pancreatitis Qualifiers: Pancreatitis type: alcohol induced Acute pancreatitis complication: unspecified Qualified Code(s): K85.20 - Alcohol induced acute pancreatitis without necrosis or infection Alcoholic pancreatitis Qualifiers: Chronicity: acute Acute pancreatitis complication: unspecified Qualified Code(s): K85.20 - Alcohol induced acute pancreatitis without necrosis or infec tion Alcohol intoxication Qualifiers: Complication of substance-induced condition: uncomplicated Qualified Code(s): F10.920 - Alcohol use, unspecified with intoxication, uncomplicated Disposition: Admitted As Inpatient Condition: Good Referrals: NONE,PCP [Primary Care Provider] - Forms: ED Satisfaction Letter, Work/School Release Time of Disposition: 22:40 General Adult HPI - General Chief complaint: ED Abdominal Pain Stated complaint: ABD Pain Time Seen by Provider: 06/05/19 20:16 Source: patient Mode of arrival: ambulatory Limitations: no limitations Nursing Notes Reviewed: Yes Vital Signs Reviewed: Yes - History of Present Illness HPI Narrative: Patient is a 48-year-old female that presents emergency Department with reports of abdominal pain. Patient states she has been having some vomiting and di arrhea. Patient states that she has been on methadone for the past year and approximate only 10 days ago she stopped taking the methadone "cold turkey". Patient states that she has since then not been feeling well. Patient states that she has not had any fevers. Patient states that she does at times feel like her abdominal pain makes it harder to breathe. Patient states that she was seen at urgent care and sent here for further evaluation. Patient states that she has not had any blood in her stool. Patient denies any other symptoms. Patient has any blood in her urine or any dysuria. Patient also states that she has a sore on her left big toe. Pain Scale: 6 - Related Data Home Medications Medication Instructions Recorded Confirmed Duloxetine HCl [Cymbalta] 60 mg PO DAILY 06/05/19 06/05/19 Previous Rx's Medication Instructions Recorded Folic Acid 1 mg PO DAILY #30 tablet 06/06/18 Allergies Allergy/AdvReac Type Severity Reaction Status Date / Time aspirin [ASA] Allergy Hives Verified 05/31/18 15:41 All systems ED: reviewed and negative except as stated. 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 Absent: respiratory distress, wheezes - Cardiovascular Cardiovascular exam: Present: regular rate, normal rhythm, normal heart sounds, +S1, +S2 - Abdominal Exam Abdominal exam: Present: soft, Non-Tender, normal bowel sounds - Neurological Exam Neurological exam: Present: alert, oriented X3 - Psychiatric Psychiatric exam: Present: normal affect, normal mood - Skin Skin exam: Present: warm, dry, intact Course Vital Signs Temperature 98.1 F 06/05/19 20:03 Pulse Rate 106 06/05/19 20:03 Respiratory Rate 20 06/05/19 20:03 Blood Pressure 157/99 06/05/19 20:03 O2 Sat by Pulse Oximetry 96 06/05/19 20:03 Temperature 98.1 F 06/05/19 20:03 Pulse Rate 106 06/05/19 20:03 Respiratory Rate 20 06/05/19 20:03 Blood Pressure 157/99 06/05/19 20:03 O2 Sat by Pulse Oximetry 96 06/05/19 20:03 Oxygen Delivery Oxygen Delivery Room Air Medical Decision Making - MDM Narrative Medical decision making narrative: Due to the patient since emergency Department with reports of abdominal pain we will obtain basic laboratory testing, CT scan of the abdomen and pelvis and provide the patient with analgesics here in the ED. CT scan shows evidence of acute pancreatitis. Patient has an elevated lipase of over 700. Her ethanol level is 458. Patient does have a white blood cell count of 3.1. Patient does have elevations of her AST and ALTs which is likely consistent with her alcohol abuse. Suspect at the patient's pancreatitis is secondary to her chronic alcohol consumption. I called and spoke with the admitting hospitalist Dr. Quinn and he has accepted the patient to their service. Patient will be admitted to the hospital for further evaluation and management of her pancreatitis. - Medical Records Medical records reviewed: Yes I reviewed the patient's medical records. - Lab Data Lab results reviewed: Yes I reviewed the patient's lab results. Result diagrams: 06/05/19 21:20 06/05/19 21:20 Lab Results 06/05/19 06/05/19 06/05/19 Range/Units 20:00 20:00 21:20 WBC 3.1 L (4.3-11.1) K/mcL RBC 3.93 (3.82-4.97) M/mcL Hgb 13.6 (11.5-15.4) g/dL Hct 39.5 (35.3-44.9) % MCV 100.5 H (83.0-100.0) fL MCH 34.6 H (28.0-33.3) pg MCHC 34.4 (31.6-35.5) g/dL RDW 17.0 H (11.5-14.5) % Plt Count 46 L (140-400) K/mcL MPV 10.4 (9.4-12.4) fL Immature Gran % 1.0 (0-4) % Seg Neutrophils % 32.7 % Lymphocytes % 40.7 % Monocytes % 20.8 % Eosinophils % 2.6 % Basophils % 2.2 % Neutrophils # 1.0 L (1.6-8.9) K/mcL Lymphocytes # 1.3 (0.6-4.6) K/mcL Monocytes # 0.6 (0.0-1.3) K/mcL Eosinophils # 0.1 (0.0-0.6) K/mcL Basophils # 0.1 (0.0-0.2) K/mcL Immature Plt Fraction 4.5 (1.1-6.1) % Sodium (136-145) mEq/L Potassium (3.5-5.1) mEq/L Chloride (98-107) mEq/L Carbon Dioxide (23-29) mEq/L BUN (6-20) mg/dL Creatinine (0.60-1.20) mg/dL Est GFR ( Amer) (> 60) Est GFR (Non-Af Amer) (> 60) BUN/Creatinine Ratio (6-26) Glucose (70-105) mg/dL Calculated Osmolality (280-300) Calcium (8.6-10.3) mg/dL Total Bilirubin (0.3-1.0) mg/dL Direct Bilirubin (0.0-0.2) mg/dL Indirect Bilirubin (0.0-1.2) mg/dL AST (13-39) Units/L ALT (7-52) Units/L Alkaline Phosphatase (34-104) Units/L Serum Total Protein (6.4-8.9) g/dL Albumin (3.5-5.7) g/dL Globulin (2.4-3.5) g/dL Albumin/Globulin Ratio (1.1-2.2) Lipase (11-82) Units/L Urine Color Yellow (Yellow) Urine Clarity Clear (Clear) Urine pH 7.0 (5.0-8.0) pH Units Ur Specific [place] 1.007 L (1.010-1.025) Urine Protein 30 H (Neg-Trace) mg/dL Urine Glucose (UA) Normal (Normal) mg/dL Urine Ketones Negative (Negative) mg/dL Urine Blood Trace H (Negative) Urine Nitrite Negative (Negative) Urine Bilirubin Negative (Negative) Urine Urobilinogen Normal (Normal) mg/dL Ur Leukocyte Esterase Negative (Negative) Urine Microscopic RBC 0-3 (0-3) per hpf Urine Microscopic WBC 0-3 (0-3) per hpf Ur Squamous Epith Cells Many H (None-Few) per lpf Urine Bacteria None Seen (None-Few) per hpf Hyaline Casts None Seen (None-Few) per lpf Ur Culture Indicated? NO (NO) Urine Test Negative (Negative) Ethyl Alcohol (Less than 10) mg/dL 06/05/19 Range/Units 21:20 WBC (4.3-11.1) K/mcL RBC (3.82-4.97) M/mcL Hgb (11.5-15.4) g/dL Hct (35.3-44.9) % MCV (83.0-100.0) fL MCH (28.0-33.3) pg MCHC (31.6-35.5) g/dL RDW (11.5-14.5) % Plt Count (140-400) K/mcL MPV (9.4-12.4) fL Immature Gran % (0-4) % Seg Neutrophils % % Lymphocytes % % Monocytes % % Eosinophils % % Basophils % % Neutrophils # (1.6-8.9) K/mcL Lymphocytes # (0.6-4.6) K/mcL Monocytes # (0.0-1.3) K/mcL Eosinophils # (0.0-0.6) K/mcL Basophils # (0.0-0.2) K/mcL Immature Plt Fraction (1.1-6.1) % Sodium 146 H (136-145) mEq/L Potassium 3.8 (3.5-5.1) mEq/L Chloride 104 (98-107) mEq/L Carbon Dioxide 28 (23-29) mEq/L BUN 13 (6-20) mg/dL Creatinine 0.57 L (0.60-1.20) mg/dL Est GFR ( Amer) > 60 (> 60) Est GFR (Non-Af Amer) > 60 (> 60) BUN/Creatinine Ratio 23 (6-26) Glucose 103 (70-105) mg/dL Calculated Osmolality 302 H (280-300) Calcium 9.1 (8.6-10.3) mg/dL Total Bilirubin 0.3 (0.3-1.0) mg/dL Direct Bilirubin 0.1 (0.0-0.2) mg/dL Indirect Bilirubin 0.2 (0.0-1.2) mg/dL AST 338 H (13-39) Units/L ALT 115 H (7-52) Units/L Alkaline Phosphatase 77 (34-104) Units/L Serum Total Protein 7.6 (6.4-8.9) g/dL Albumin 4.0 (3.5-5.7) g/dL Globulin 3.6 H (2.4-3.5) g/dL Albumin/Globulin Ratio 1.1 (1.1-2.2) Lipase 781 H (11-82) Units/L Urine Color (Yellow) Urine Clarity (Clear) Urine pH (5.0-8.0) pH Units Ur Specific [place] (1.010-1.025) Urine Protein (Neg-Trace) mg/dL Urine Glucose (UA) (Normal) mg/dL Urine Ketones (Negative) mg/dL Urine Blood (Negative) Urine Nitrite (Negative) Urine Bilirubin (Negative) Urine Urobilinogen (Normal) mg/dL Ur Leukocyte Esterase (Negative) Urine Microscopic RBC (0-3) per hpf Urine Microscopic WBC (0-3) per hpf Ur Squamous Epith Cells (None-Few) per lpf Urine Bacteria (None-Few) per hpf Hyaline Casts (None-Few) per lpf Ur Culture Indicated? (NO) Urine Test (Negative) Ethyl Alcohol 458 H (Less than 10) mg/dL - Radiology Data Radiology results reviewed: Yes I reviewed the patient's radiology results. Abdomen/Pelvis CT 06/05/19 20:34 IMPRESSION: 1. Acute pancreatitis. No peripancreatic fluid collection. 2. Punctate right nephroliths. No obstructive uropathy. 3. Diffuse hepatic steatosis. D/ / 06/05/2019 21:54:11 Shantal Cline MD / [facility] Interpreting Provider: Shantal Cline MD Chest X-Ray 06/05/19 21:45 IMPRESSION: Negative portable study. D/ / Angela Trent Cha, MD / Angela Trent Cha, MD Interpreting Provider: Angela Trent Cha, MD
[2019-06-05 20:40] LABS: Bilirubin,Urine Negative (Negative); Blood,Urine Trace (Negative); Clarity,Urine Clear (Clear); Color,Urine Yellow (Yellow); Glucose,Urine (UA) Normal (Normal); Ketones,Urine Negative (Negative); Leukocyte Esterase,Urine Negative (Negative); Nitrite,Urine Negative (Negative); Protein,Urine 30 mg/dL (Neg-Trace); Specific Gravity,Urine 1.007 (1.010-1.025); Urobilinogen,Urine Normal (Normal)
[2019-06-05 20:41] LABS: Bacteria,Urine None Seen per hpf (None-Few); Hyaline Casts,Urine None Seen per lpf (None-Few); RBC,Urine 0-3 per hpf (0-3); Squamous Epithelial Cell,Urine Many per lpf (None-Few); WBC,Urine 0-3 per hpf (0-3)
[2019-06-05 21:30] LABS: Hemoglobin 13.6 g/dL (11.5-15.4)
[2019-06-05 21:32] LABS: Basophils # 0.1 K/mcL (0.0-0.2); Basophils % 2.2 %; Eosinophils # 0.1 K/mcL (0.0-0.6); Eosinophils % 2.6 %; Hematocrit 39.5 % (35.3-44.9); Immature Platelets 4.5 % (1.1-6.1); Lymphocytes # 1.3 K/mcL (0.6-4.6); Lymphocytes % 40.7 %; Mean Corpuscular HGB Conc 34.4 g/dL (31.6-35.5); Mean Corpuscular Hemoglobin 34.6 pg (28.0-33.3); Mean Corpuscular Volume 100.5 fL (83.0-100.0); Mean Platelet Volume 10.4 fL (9.4-12.4); Monocytes % 20.8 %; Red Blood Count 3.93 M/mcL (3.82-4.97); Segmented Neutrophils % 32.7 %; White Blood Count 3.1 K/mcL (4.3-11.1)
[2019-06-05] MEDS ORDERED: 0.9 % Sodium Chloride 1,000 ML IVC ONE (21:45)
[2019-06-05] MEDS ORDERED: Ondansetron 4 MG/2 ML VIAL IVP ONE (21:45)
[2019-06-05 21:54] LABS: Monocytes # 0.6 K/mcL (0.0-1.3); Platelet Count 46 K/mcL (140-400)
--- NOTE | 2019-06-05 21:55 | Emergency Department Note ---
Disposition Clinical Impression: Acute pancreatitis, Alcoholic pancreatitis, Alcohol intoxication, Opiate withdrawal Disposition: Admitted As Inpatient Referrals: NONE,PCP [Primary Care Provider] - Forms: ED Satisfaction Letter, Work/School Release Time of Disposition: 22:31 General Adult HPI - General Chief complaint: ED Abdominal Pain Stated complaint: ABD Pain Time Seen by Provider: 06/05/19 20:16 Source: patient Mode of arrival: ambulatory Limitations: no limitations - History of Present Illness Pain Scale: 6 - Related Data Previous Rx's Medication Instructions Recorded Folic Acid 1 mg PO DAILY #30 tablet 06/06/18 Thiamine (B-1) [Vitamin B-1] 100 mg PO DAILY #30 tablet 06/06/18 amLODIPine [Norvasc] 5 mg PO DAILY #30 tablet 06/06/18 Allergies Allergy/AdvReac Type Severity Reaction Status Date / Time aspirin [ASA] Allergy Hives Verified 05/31/18 15:41 Constitutional: Denies: fever Cardiovascular: Denies: chest pain Respiratory: Reports: dyspnea Gastrointestinal: Reports: abdominal pain, nausea, vomiting, diarrhea Genitourinary: Denies: dysuria, frequency Integumentary: Reports: other (Wound on the left big toe.) Neurological: Denies: weakness, numbness, paresthesias Past Medical History - Past Medical History Medical history: Reports: hepatitis, hypertension, other Psychiatric history: Reports: no psych history MOLD BUNCH TRIMMER history: Reports: no MOLD BUNCH TRIMMER history - Social History Smoking Status: Current every day smoker Smokeless Tobacco Status: No Alcohol use: Reports: heavy, recent Drug use: Reports: none Physical Exam - General Limitations: no limitations General appearance: alert, in no apparent distress, anxious Course Vital Signs Temperature 98.1 F 06/05/19 20:03 Pulse Rate 106 06/05/19 20:03 Respiratory Rate 06/05/19 20:03 Blood Pressure 157/99 06/05/19 20:03 O2 Sat by Pulse Oximetry 96 06/05/19 20:03 Temperature 98.1 F 06/05/19 20:03 Pulse Rate 106 06/05/19 20:03 Respiratory Rate 20 06/05/19 20:03 Blood Pressure 157/99 06/05/19 20:03 O2 Sat by Pulse Oximetry 96 06/05/19 20:03 Oxygen Delivery Oxygen Delivery Room Air Medical Decision Making - MDM Narrative Medical decision making narrative: Patient has a ALCOHOL level 458. CT shows evidence of pancreatitis. Patient will need to be admitted. I have ordered some IV fluids as well. Pain control as needed. Antiemetics. - Medical Records Medical records reviewed: Yes I reviewed the patient's medical records. - Lab Data Lab results reviewed: Yes I reviewed the patient's lab results. Result diagrams: 06/05/19 21:20 06/05/19 21:20 Lab Results 06/05/19 06/05/19 06/05/19 Range/Units 20:00 20:00 21:20 WBC 3.1 L (4.3-11.1) K/mcL RBC 3.93 (3.82-4.97) M/mcL Hgb 13.6 (11.5-15.4) g/dL Hct 39.5 (35.3-44.9) % MCV 100.5 H (83.0-100.0) fL MCH 34.6 H (28.0-33.3) pg MCHC 34.4 (31.6-35.5) g/dL RDW 17.0 H (11.5-14.5) % Plt Count 46 L (140-400) K/mcL MPV 10.4 (9.4-12.4) fL Immature Gran % 1.0 (0-4) % Seg Neutrophils % 32.7 % Lymphocytes % 40.7 % Monocytes % 20.8 % Eosinophils % 2.6 % Basophils % 2.2 % Neutrophils # 1.0 L (1.6-8.9) K/mcL Lymphocytes # 1.3 (0.6-4.6) K/mcL Monocytes # 0.6 (0.0-1.3) K/mcL Eosinophils # 0.1 (0.0-0.6) K/mcL Basophils # 0.1 (0.0-0.2) K/mcL Immature Plt Fraction 4.5 (1.1-6.1) % Sodium (136-145) mEq/L Potassium (3.5-5.1) mEq/L Chloride (98-107) mEq/L Carbon Dioxide (23-29) mEq/L BUN (6-20) mg/dL Creatinine (0.60-1.20) mg/dL Est GFR ( Amer) (> 60) Est GFR (Non-Af Amer) (> 60) BUN/Creatinine Ratio (6-26) Glucose (70-105) mg/dL Calculated Osmolality (280-300) Calcium (8.6-10.3) mg/dL Total Bilirubin (0.3-1.0) mg/dL Direct Bilirubin (0.0-0.2) mg/dL Indirect Bilirubin (0.0-1.2) mg/dL AST (13-39) Units/L ALT (7-52) Units/L Alkaline Phosphatase (34-104) Units/L Serum Total Protein (6.4-8.9) g/dL Albumin (3.5-5.7) g/dL Globulin (2.4-3.5) g/dL Albumin/Globulin Ratio (1.1-2.2) Lipase (11-82) Units/L Urine Color Yellow (Yellow) Urine Clarity Clear (Clear) Urine pH 7.0 (5.0-8.0) pH Units Ur Specific [place] 1.007 L (1.010-1.025) Urine Protein 30 H (Neg-Trace) mg/dL Urine Glucose (UA) Normal (Normal) mg/dL Urine Ketones Negative (Negative) mg/dL Urine Blood Trace H (Negative) Urine Nitrite Negative (Negative) Urine Bilirubin Negative (Negative) Urine Urobilinogen Normal (Normal) mg/dL Ur Leukocyte Esterase Negative (Negative) Urine Microscopic RBC 0-3 (0-3) per hpf Urine Microscopic WBC 0-3 (0-3) per hpf Ur Squamous Epith Cells Many H (None-Few) per lpf Urine Bacteria None Seen (None-Few) per hpf Hyaline Casts None Seen (None-Few) per lpf Ur Culture Indicated? NO (NO) Urine Test Negative (Negative) Ethyl Alcohol (Less than 10) mg/dL 06/05/19 Range/Units 21:20 WBC (4.3-11.1) K/mcL RBC (3.82-4.97) M/mcL Hgb (11.5-15.4) g/dL Hct (35.3-44.9) % MCV (83.0-100.0) fL MCH (28.0-33.3) pg MCHC (31.6-35.5) g/dL RDW (11.5-14.5) % Plt Count (140-400) K/mcL MPV (9.4-12.4) fL Immature Gran % (0-4) % Seg Neutrophils % % Lymphocytes % % Monocytes % % Eosinophils % % Basophils % % Neutrophils # (1.6-8.9) K/mcL Lymphocytes # (0.6-4.6) K/mcL Monocytes # (0.0-1.3) K/mcL Eosinophils # (0.0-0.6) K/mcL Basophils # (0.0-0.2) K/mcL Immature Plt Fraction (1.1-6.1) % Sodium 146 H (136-145) mEq/L Potassium 3.8 (3.5-5.1) mEq/L Chloride 104 (98-107) mEq/L Carbon Dioxide 28 (23-29) mEq/L BUN 13 (6-20) mg/dL Creatinine 0.57 L (0.60-1.20) mg/dL Est GFR ( Amer) > 60 (> 60) Est GFR (Non-Af Amer) > 60 (> 60) BUN/Creatinine Ratio 23 (6-26) Glucose 103 (70-105) mg/dL Calculated Osmolality 302 H (280-300) Calcium 9.1 (8.6-10.3) mg/dL Total Bilirubin 0.3 (0.3-1.0) mg/dL Direct Bilirubin 0.1 (0.0-0.2) mg/dL Indirect Bilirubin 0.2 (0.0-1.2) mg/dL AST 338 H (13-39) Units/L ALT 115 H (7-52) Units/L Alkaline Phosphatase 77 (34-104) Units/L Serum Total Protein 7.6 (6.4-8.9) g/dL Albumin 4.0 (3.5-5.7) g/dL Globulin 3.6 H (2.4-3.5) g/dL Albumin/Globulin Ratio 1.1 (1.1-2.2) Lipase 781 H (11-82) Units/L Urine Color (Yellow) Urine Clarity (Clear) Urine pH (5.0-8.0) pH Units Ur Specific [place] (1.010-1.025) Urine Protein (Neg-Trace) mg/dL Urine Glucose (UA) (Normal) mg/dL Urine Ketones (Negative) mg/dL Urine Blood (Negative) Urine Nitrite (Negative) Urine Bilirubin (Negative) Urine Urobilinogen (Normal) mg/dL Ur Leukocyte Esterase (Negative) Urine Microscopic RBC (0-3) per hpf Urine Microscopic WBC (0-3) per hpf Ur Squamous Epith Cells (None-Few) per lpf Urine Bacteria (None-Few) per hpf Hyaline Casts (None-Few) per lpf Ur Culture Indicated? (NO) Urine Test (Negative) Ethyl Alcohol 458 H (Less than 10) mg/dL - Radiology Data Radiology results reviewed: Yes I reviewed the patient's radiology results. Attestation Statement - Attestation Attestation: I examined this patient and my medical decision-making was reviewed with the Resident Physician. I agree with the documented findings, disposition and treatment plan as described except to the extent set forth below. 48-year-old female presents emergency room for abdominal pain and shortness of breath. She has a long-standing history of chronic alcohol abuse. She drinks daily liquor. She is a history of hepatitis C. She is currently on methadone but has been off that cold turkey for 10 days. She went to urgent care and they sent her to the ER because they thought she might be withdrawing from opiates. She again is on day 10 of no methadone. Her withdrawal symptoms should have started days ago. She does admit to some loose stools but states that because she stopped the methadone and is still drinking more alcohol. She denies fevers. She states she is has diffuse abdominal discomfort. She also feels slightly short of breath. She does admit to a cough. Positive for smoking.
[2019-06-05] MEDS ORDERED: *HR* HYDROmorphone (PF) 1 MG/ML SYRINGE IVP ONE (22:02)
[2019-06-05 22:10] LABS: Alanine Aminotransferase 115 Units/L (7-52); Albumin/Globulin Ratio 1.1 (1.1-2.2); Alkaline Phosphatase 77 Units/L (34-104); Aspartate Amino Transferase 338 Units/L (13-39); BUN/Creatinine Ratio 23 (6-26); Bilirubin,Direct 0.1 mg/dL (0.0-0.2); Bilirubin,Indirect 0.2 mg/dL (0.0-1.2); Bilirubin,Total 0.3 mg/dL (0.3-1.0); Blood Urea Nitrogen 13 mg/dL (6-20); Calcium 9.1 mg/dL (8.6-10.3); Carbon Dioxide 28 mEq/L (23-29); Chloride 104 mEq/L (98-107); Ethanol 458 mg/dL (Less than 10); Globulin 3.6 g/dL (2.4-3.5); Glucose 103 mg/dL (70-105); Lipase 781 Units/L (11-82); Osmolality,Calculated 302 (280-300); Potassium 3.8 mEq/L (3.5-5.1); Sodium 146 mEq/L (136-145); Total Protein 7.6 g/dL (6.4-8.9); eGFR For African Americans > 60 (> 60); eGFR For Non-African Americans > 60 (> 60)
[2019-06-05] MEDS ORDERED: *HR* LORazepam 2 MG/ML VIAL IVP ONE (23:11)
[2019-06-06] MEDS ORDERED: *HR* LORazepam 2 MG/ML VIAL IVP PRN ×2 (00:09)
[2019-06-06] MEDS ORDERED: diazePAM 10 MG/2 ML SYRINGE IVP PRN (00:09)
[2019-06-06] MEDS ORDERED: Naloxone 0.4 MG/ML INJ IVP PRN (00:09)
[2019-06-06] MEDS: Ringers Solution, Lactated 1,000 ML IVC SCH ×3 (00:44→10:44)
[2019-06-06] MEDS: Ondansetron 4 MG/2 ML VIAL IVP PRN ×3 (00:45→19:00)
--- NOTE | 2019-06-06 01:39 | Internal Med History&Physical ---
Date of Encounter: 06/06/19 Time of Encounter: 01:38 Internal Medicine - H&P: HPI Chief complaint: abdominal pain Admitted From: Home Plans for Post Hospital Care: Home History of present illness: Madai Odell is 48 -year-old woman with a history of substance use disorder and viral hepatitis who was up until last week on methadone program but was kicked out due to ongoing incessant alcohol abuse. She says that since being off methadone she has cranked up her alcohol intake even more than her last drink was before coming into the emergency room today. She presents to the ER with complaints of abdominal pain which she localizes more to her epigastrium that has been present for over a week but did not care to seek medical attention as she thought it would pass on its own. She has had multiple episodes of pancreatitis in the past and felt like this was the case after it worsened with her alcohol binge today. She was found to have a serum lipase of 781 and an alcohol level of 458. CT scan showed inflammatory signs of acute pancreatitis. She is admitted for further care. Vitals: Reviewed General: Well-developed white woman sitting up in bed in no acute distress. Skin: Warm, flushed and dry. HEENT: Moist mucous membranes. No conjunctivae pallor. Neck: No lymphadenopathy. No JVD. No carotid bruits. No palpable thyroid. Chest: Normal thoracic expansion. Normal breath sounds. Clear to auscultation. Heart: Normal S1 & S2; rhythmic. No rubs or murmurs. Abdomen: Non-distended, soft and exquisitely tender to palpation in the epigastrium and right upper quadrant. Extremities: No clubbing, cyanosis or edema. No calf tenderness. Normal distal pulses. Neurological: Awake, alert and oriented to person, place and time. No focal deficits. Psych: Affect appropriate. Assessment/Plan 1. Acute pancreatitis: Seemingly alcoholic in etiology. Will keep NPO and diet may be advanced as tolerated. Provide antiemetics and analgesics as needed. Aggressive fluid resuscitation in the meantime. 2. Alcohol intoxication: The patient is at high risk of withdrawal during this admission and will need close monitoring. CIWA protocol instituted. Benzos on symptom triggered approach. Banana bags ordered as well. 3. Viral hepatitis: Review of records reveal HCV 1a that remains untreated and HBV core IgM suggesting an inactive cleared Hep B virus. She will benefit from HAV vaccination if not already immune given the risk of fulminant hepatitis if she were to acquire this. 4. Substance use disorder: Reports not having been on heroin for years. Since she is no longer on methadone program, we cannot provide this medication for her. Check UDS. Past Med Surg Social Fam HX - Past Medical History Medical history: hepatitis, hypertension, other Additional medical history: ETOH abuse, pancreatitis Psychiatric history: no psych history - Past Surgical History Additional surgical history: FOOT SURGERY - Social History Smoking Status: Current every day smoker Smokeless Tobacco Status: No Alcohol use: heavy, recent Drug use: none - Family History Mother Hx Family Endocrine Disorder: Yes (diabetes) Internal Medicine - H&P: Meds Folic Acid 1 mg PO DAILY #30 tablet 06/06/18 [Rx] Duloxetine HCl [Cymbalta] 60 mg PO DAILY 06/05/19 [History] Allergy/AdvReac Type Severity Reaction Status Date / Time aspirin [ASA] Allergy Hives Verified 05/31/18 15:41 All Systems PM: A 10-system review of systems was performed and is negative for pertinent findings except as documented above in the HPI. - Constitutional Vitals: Temp Pulse Resp BP Pulse Ox 98.0 F 87 16 144/100 93 06/06/19 00:18 06/06/19 00:18 06/06/19 00:18 06/06/19 00:18 06/06/19 00:58 Exam: . Internal Med - H&P Results - Labs CBC & Chem 7: 06/05/19 21:20 06/05/19 21:20 Labs: Short CBC 06/05/19 Range/Units 21:20 WBC 3.1 L (4.3-11.1) K/mcL Hgb 13.6 (11.5-15.4) g/dL Hct 39.5 (35.3-44.9) % Plt Count 46 L (140-400) K/mcL Neutrophils # 1.0 L (1.6-8.9) K/mcL BMP 06/05/19 21:20 Sodium 146 H Potassium 3.8 Chloride 104 Carbon Dioxide 28 BUN 13 Creatinine 0.57 L Glucose 103 Calcium 9.1 Liver Function 06/05/19 Range/Units 21:20 Total Bilirubin 0.3 (0.3-1.0) mg/dL Direct Bilirubin 0.1 (0.0-0.2) mg/dL AST 338 H (13-39) Units/L ALT 115 H (7-52) Units/L Alkaline Phosphatase 77 (34-104) Units/L Albumin 4.0 (3.5-5.7) g/dL Urine 06/05/19 Range/Units 20:00 Urine Color Yellow (Yellow) Urine Clarity Clear (Clear) Urine pH 7.0 (5.0-8.0) pH Units Ur Specific [place] 1.007 L (1.010-1.025) Urine Protein 30 H (Neg-Trace) mg/dL Urine Glucose (UA) Normal (Normal) mg/dL - Impressions ITS Impressions Abdomen/Pelvis CT 06/05/19 20:34 IMPRESSION: 1. Acute pancreatitis. No peripancreatic fluid collection. 2. Punctate right nephroliths. No obstructive uropathy. 3. Diffuse hepatic steatosis. D/ / 06/05/2019 21:54:11 Shantal Cline MD / [facility] Interpreting Provider: Shantal Clnie MD Chest X-Ray 06/05/19 21:45 IMPRESSION: Negative portable study. D/ / Angela Trent Cha, MD / Angela Trent Cha, MD Interpreting Provider: Angela Trent Cha, MD - Time Spent With Patient Total time spent is greater than 50% in coordination of care (as documented) at patient's floor/unit and/or counseling patient: Greater than 35 minutes
[2019-06-06] MEDS: *HR* Promethazine 25 MG/ML VIAL IVP PRN (05:28)
[2019-06-06 06:36] LABS: Immature Granulocytes % 0.9 % (0-4)
[2019-06-06 06:38] LABS: Basophils % 1.7 %; Eosinophils # 0.1 K/mcL (0.0-0.6); Eosinophils % 5.2 %; Hematocrit 38.6 % (35.3-44.9); Immature Platelets 5.2 % (1.1-6.1); Lymphocytes # 1.1 K/mcL (0.6-4.6); Lymphocytes % 45.9 %; Mean Corpuscular HGB Conc 33.7 g/dL (31.6-35.5); Mean Corpuscular Hemoglobin 34.4 pg (28.0-33.3); Mean Corpuscular Volume 102.1 fL (83.0-100.0); Mean Platelet Volume 10.8 fL (9.4-12.4); Monocytes # 0.3 K/mcL (0.0-1.3); Monocytes % 14.6 %; Neutrophils # 0.7 K/mcL (1.6-8.9); Red Blood Count 3.78 M/mcL (3.82-4.97); Red Cell Distribution Width 17.1 % (11.5-14.5); Segmented Neutrophils % 31.7 %; White Blood Count 2.3 K/mcL (4.3-11.1)
[2019-06-06 06:39] LABS: Platelet Count 39 K/mcL (140-400)
[2019-06-06 07:00] LABS: Alanine Aminotransferase 98 Units/L (7-52); Albumin 3.7 g/dL (3.5-5.7); Albumin/Globulin Ratio 1.2 (1.1-2.2); Alkaline Phosphatase 70 Units/L (34-104); Aspartate Amino Transferase 252 Units/L (13-39); BUN/Creatinine Ratio 22 (6-26); Bilirubin,Direct 0.2 mg/dL (0.0-0.2); Bilirubin,Indirect 0.2 mg/dL (0.0-1.2); Bilirubin,Total 0.4 mg/dL (0.3-1.0); Blood Urea Nitrogen 11 mg/dL (6-20); Calcium 8.2 mg/dL (8.6-10.3); Carbon Dioxide 28 mEq/L (23-29); Chloride 103 mEq/L (98-107); Globulin 3.1 g/dL (2.4-3.5); Glucose 86 mg/dL (70-105); Magnesium 1.4 mg/dL (1.6-2.6); Osmolality,Calculated 297 (280-300); Potassium 3.8 mEq/L (3.5-5.1); Sodium 144 mEq/L (136-145); Total Protein 6.8 g/dL (6.4-8.9); eGFR For African Americans > 60 (> 60); eGFR For Non-African Americans > 60 (> 60)
[2019-06-06] MEDS: *HR* LORazepam 2 MG/ML VIAL IVP PRN ×3 (11:15→19:00)
[2019-06-06] MEDS: Ketorolac 30 MG/ML VIAL IVP PRN ×2 (11:16→19:00)
--- NOTE | 2019-06-06 12:16 | Event Note ---
Date of Encounter: 06/06/19 Time of Encounter: 12:15 Patient is 48-year-old female with past medical history of recurrent pancreatitis, significant alcohol abuse, and history of substance use disorder. She was recently kicked out of methadone clinic program due to continuous use of alcohol. Patient was presented to the emergency room yesterday after heavy binge drinking with complaint of severe epigastric abdominal pain. Upon presentation to the emergency care patient's lipase level was elevated at 781, alkaline of [address] findings suggestive of acute pancreatitis. Patient was started on Cipro protocol. Patient is made nothing by mouth. And we will advance diet as tolerated. I examined the patient this morning and patient was complaining of moderate abdominal pain. Patient reports pain has improved from yesterday. On his monitor today for pain and nausea. We will continue banana bag and IV fluid. We will switch her to oral as tolerated. We will switch banana to oral multivitamin, folic acid, and timing. We will continue to monitor today.
[2019-06-06] MEDS: Pantoprazole 40 MG VIAL IVP SCH (12:53)
[2019-06-06 15:23] LABS: Amphetamine Screen,Urine Negative ng/mL (Cutoff=1000); Barbiturate Screen,Urine Negative ng/mL (Cutoff=200); Benzodiazepines Screen,Urine Negative ng/mL (Cutoff=200); Cannabinoid Screen,Urine Negative ng/mL (Cutoff = 50); Cocaine Screen,Urine Negative ng/mL (Cutoff= 300); Opiate Screen,Urine Negative ng/mL (Cutoff=300); Phencyclidine Screen,Urine Negative ng/mL (Cutoff=25)
[2019-06-06] MEDS: Thiamine (B-1) 100 MG, Folic Acid 1 MG, MVI, adult with vitamin K 10 ML in 0.9 % Sodi... IVPB SCH (16:14)
[2019-06-07] MEDS: *HR* LORazepam 2 MG/ML VIAL IVP PRN ×6 (00:13→20:56)
[2019-06-07] MEDS: *HR* Promethazine 25 MG/ML VIAL IVP PRN (00:14)
[2019-06-07 03:03] LABS: Immature Granulocytes % 0.6 % (0-4)
[2019-06-07 03:05] LABS: Basophils # 0.1 K/mcL (0.0-0.2); Basophils % 1.9 %; Eosinophils # 0.1 K/mcL (0.0-0.6); Eosinophils % 2.3 %; Hematocrit 45.2 % (35.3-44.9); Hemoglobin 15.4 g/dL (11.5-15.4); Immature Platelets 7.4 % (1.1-6.1); Lymphocytes # 0.8 K/mcL (0.6-4.6); Mean Corpuscular HGB Conc 34.1 g/dL (31.6-35.5); Mean Corpuscular Hemoglobin 33.8 pg (28.0-33.3); Mean Corpuscular Volume 99.1 fL (83.0-100.0); Mean Platelet Volume 11.6 fL (9.4-12.4); Monocytes # 0.6 K/mcL (0.0-1.3); Neutrophils # 1.6 K/mcL (1.6-8.9); Red Blood Count 4.56 M/mcL (3.82-4.97); Red Cell Distribution Width 15.4 % (11.5-14.5); Segmented Neutrophils % 50.2 %; White Blood Count 3.1 K/mcL (4.3-11.1)
[2019-06-07 03:11] LABS: Platelet Count 39 K/mcL (140-400)
[2019-06-07 03:40] LABS: Platelet Estimate Decreased (Normal)
[2019-06-07 03:54] LABS: Alanine Aminotransferase 93 Units/L (7-52); Albumin 4.4 g/dL (3.5-5.7); Albumin/Globulin Ratio 1.2 (1.1-2.2); Alkaline Phosphatase 91 Units/L (34-104); Aspartate Amino Transferase 191 Units/L (13-39); BUN/Creatinine Ratio 13 (6-26); Bilirubin,Total 0.9 mg/dL (0.3-1.0); Blood Urea Nitrogen 8 mg/dL (6-20); Calcium 9.4 mg/dL (8.6-10.3); Carbon Dioxide 25 mEq/L (23-29); Chloride 97 mEq/L (98-107); Globulin 3.8 g/dL (2.4-3.5); Glucose 86 mg/dL (70-105); Osmolality,Calculated 278 (280-300); Potassium 3.4 mEq/L (3.5-5.1); Sodium 135 mEq/L (136-145); Total Protein 8.2 g/dL (6.4-8.9); eGFR For African Americans > 60 (> 60); eGFR For Non-African Americans > 60 (> 60)
[2019-06-07] MEDS: Ondansetron 4 MG/2 ML VIAL IVP PRN ×2 (04:00→15:49)
[2019-06-07] MEDS: Pantoprazole 40 MG VIAL IVP SCH (09:13)
[2019-06-07] MEDS: Ketorolac 30 MG/ML VIAL IVP PRN (11:54)
--- NOTE | 2019-06-07 13:05 | Internal Med Progress Note ---
Hospitalist Progress Note - Encounter Date of Encounter: 06/07/19 Time of Encounter: 13:03 - Subjective Interval History: Patient was seen and examined at bedside. Patient reports that her epigastric pain has improved significantly. Patient reports that she is getting assessment for alcohol withdrawal. Patient reports [id number] pain. Patient has tolerated clear liquid diet which was placed last night for the dinner. - Exam Vitals: Temp Pulse Resp BP Pulse Ox 99.1 F 80 16 148/98 93 06/07/19 11:56 06/07/19 11:56 06/07/19 11:56 06/07/19 11:56 06/07/19 11:56 Exam: General: A & O 3, In no acute distress HENNT: PERRLA. Head atraumatic and makes supple CVS S1 and S2 regular, no murmur RS: Clear to air entry bilaterally, no wheeze, no crackles Abdomen: Mild tenderness. No rebound tenderness no guarding no rigidity. Bowel sounds normal 4 Extremities: No cyanosis, clubbing, and edema Neurology: Cranial II - XII normal. Motor strength 5/5 bilaterally. Sensation intact - Assessment and Plan (1) Acute pancreatitis Current Visit: Yes Status: Acute Assessment and Plan: Patient was admitted for acute pancreatitis , alcohol couple of days ago. Patient is improving well on pain management. Patient was advanced on diet to clear liquid. 1 is to continue advancing diet as tolerated. (2) Alcoholic pancreatitis Current Visit: Yes Status: Acute Assessment and Plan: Management as above. (3) Alcohol withdrawal delirium Current Visit: No Status: Acute Assessment and Plan: Continue CIWA protocol. (4) Substance use disorder Current Visit: Yes Status: Acute Assessment and Plan: Consultation regarding substance use. Patient was recently discharged from methadone clinic. DVT Prophylaxis: Compression stocking. - Time Spent with Patient Total time spent is greater than 50% in coordination of care (as documented) at patient's floor/unit and/or counseling patient: 25 - 35 minutes Plan of Care Discussed with: patient Internal Medicine: Result - Labs CBC & Chem 7: 06/07/19 02:46 06/07/19 02:46 Labs: Short CBC 06/07/19 Range/Units 02:46 WBC 3.1 L (4.3-11.1) K/mcL Hgb 15.4 D (11.5-15.4) g/dL Hct 45.2 H (35.3-44.9) % Plt Count 39 L (140-400) K/mcL Neutrophils # 1.6 (1.6-8.9) K/mcL BMP 06/07/19 02:46 Sodium 135 L D Potassium 3.4 L Chloride 97 L Carbon Dioxide 25 BUN 8 Creatinine 0.60 Glucose 86 Calcium 9.4 Liver Function 06/07/19 Range/Units 02:46 Total Bilirubin 0.9 (0.3-1.0) mg/dL AST 191 H (13-39) Units/L ALT 93 H (7-52) Units/L Alkaline Phosphatase 91 (34-104) Units/L Albumin 4.4 (3.5-5.7) g/dL Consult Discharge Plan - Plan Referrals: NONE,PCP [Primary Care Provider] - (1) Acute pancreatitis Qualifiers: Pancreatitis type: alcohol induced Acute pancreatitis complication: unspecified Qualified Code(s): K85.20 - Alcohol induced acute pancreatitis without necrosis or infection (2) Alcoholic pancreatitis Qualifiers: Chronicity: acute Acute pancreatitis complication: unspecified Qualified Code(s): K85.20 - Alcohol induced acute pancreatitis without necrosis or infection
[2019-06-07] MEDS: Thiamine (B-1) 100 MG, Folic Acid 1 MG, MVI, adult with vitamin K 10 ML in 0.9 % Sodi... IVPB SCH (17:51)
[2019-06-07] MEDS ORDERED: Haloperidol Lactate 5 MG/ML VIAL IVP ONE (22:05)
[2019-06-07] MEDS ORDERED: *HR* Promethazine 25 MG/ML VIAL IVP ONE ×2 (22:06→22:45)
[2019-06-08] MEDS ORDERED: Dexmedetomidine HCl 400 MCG/100 ML MLS IVC ONE (00:19)
[2019-06-08] MEDS: Dexmedetomidine HCl 400 MCG/100 ML MLS IVC SCH ×3 (00:24→10:24)
[2019-06-08] MEDS ORDERED: 0.9 % Sodium Chloride 500 ML ONE (00:26)
[2019-06-08] MEDS: Nicotine 21 MG PATCH.TD24 TD SCH (01:59)
[2019-06-08] MEDS: *HR* Promethazine 25 MG/ML VIAL IVP PRN (04:32)
[2019-06-08] MEDS ORDERED: *HR* LORazepam 2 MG/ML VIAL IVP ONE (04:47)
--- NOTE | 2019-06-08 07:12 | Event Note ---
Date of Encounter: 06/07/19 Time of Encounter: 19:38 Alerted by pts. nurse DO Newman that the patient was scoring 26 on CIWA scale. She had administered 4 mg of Ativan per protocol. Nurse reported the pt. was experiencing severe tremors, hallucinations, auditory and visual disturbances. I went to see the pt. immediately who was in bed and very restless. Patient was talking about people in the room who were not present. Patient was agitated as well. The pts. room was originally 2A38. I instructed the charge nurse DO Love to move the pt. to a closer room to the nurse's station. Patient was moved to 2A63. I ordered 2 mg Haldol IVP as well as an initial dose of Phenergan IVP 12.5 mg which was given to the patient. This did nothing to calm the patient down. Additional 12.5 mg IVP Phenergan ordered. Again, patient continued to have active hallucinations and was agitated. I called Bed Management to discuss if a or ICU bed was available d/t pts. high CIWA scores. [facility] was coming available after cleaning. Sitter placed with the patient in the meantime. Patient was transferred to [facility] and Precedex gtt ordered as well as 4-point soft restraints d/t pts. current agitation and disruption of her medical care. Continuous pulse oximetry ordered. as well as cardiac monitoring. Dr. Baumann notified of patient's transfer to as he was covering this unit. Nurse instructed to continue monitoring the patient and alert Dr. Baumann or myself of any adverse changes or events.
[2019-06-08] MEDS: *HR* LORazepam 2 MG/ML VIAL IVP PRN ×4 (08:27→21:18)
[2019-06-08 11:17] LABS: Red Cell Distribution Width 14.7 % (11.5-14.5)
[2019-06-08 11:18] LABS: Basophils # 0.1 K/mcL (0.0-0.2); Basophils % 1.5 %; Eosinophils # 0.2 K/mcL (0.0-0.6); Eosinophils % 5.1 %; Hematocrit 43.1 % (35.3-44.9); Hemoglobin 15.1 g/dL (11.5-15.4); Immature Granulocytes % 3.6 % (0-4); Immature Platelets 9.5 % (1.1-6.1); Lymphocytes % 23.2 %; Mean Corpuscular Hemoglobin 34.5 pg (28.0-33.3); Mean Corpuscular Volume 98.4 fL (83.0-100.0); Mean Platelet Volume 11.4 fL (9.4-12.4); Monocytes # 0.6 K/mcL (0.0-1.3); Monocytes % 14.5 %; Red Blood Count 4.38 M/mcL (3.82-4.97); Segmented Neutrophils % 52.1 %; White Blood Count 4.1 K/mcL (4.3-11.1)
[2019-06-08 11:35] LABS: Neutrophils # 2.1 K/mcL (1.6-8.9); Platelet Count 46 K/mcL (140-400)
--- NOTE | 2019-06-08 12:34 | Internal Med Progress Note ---
Hospitalist Progress Note - Encounter Date of Encounter: 06/08/19 Time of Encounter: 12:37 - Subjective Interval History: Patient was seen and examined at bedside. Patient was sedated on Precedex drip. Patient developed acute delirium last night and started developing aggression, tremor, agitation, auditory and visual disturbances, and hallucination. Patient was placed on Precedex drip and then was transferred to the unit. Patient is currently on Precedex drip. Will monitor patient on a drip and will start to wean as tolerated. - Exam Vitals: Temp Pulse Resp BP Pulse Ox 98.6 F 80 19 133/103 97 06/08/19 11:45 06/08/19 11:45 06/08/19 11:45 06/08/19 11:45 06/08/19 08:38 Exam: Patient is sedated on Precedex drip. Patient has intermittent agitation. RASS score scale of -1 CVS S1 and S2 regular, no murmur RS: Clear to air entry bilaterally, no wheeze, no crackles Abdomen: Soft and nontender. Bowel sounds normal 4 Extremities: No cyanosis, clubbing, and edema Neurology: Not performed due to patient is sedated at this point. - Assessment and Plan (1) Alcohol withdrawal delirium Current Visit: No Status: Acute Assessment and Plan: Patient acute delirium from alcohol withdrawal last night. Patient was agitated and aggressive. Patient was transferred from 2A38 to bed 2N08 since he was placed on Precedex drip. Patient still required 51 while on the Precedex drip and subsequently got 4 mg of vecuronium and around 5 AM and again 2 mg few hours later. We will continue Precedex drip at current rate at this point. Will try to wean once patient is stable on CIWA. Continue CIWA protocol. (2) Acute pancreatitis Current Visit: Yes Status: Acute Assessment and Plan: Patient was admitted for acute pancreatitis , alcohol couple of days ago. Pt is currently on sedation for acute delirium. Will advance diet once patient is alert and oriented. (3) Alcoholic pancreatitis Current Visit: Yes Status: Acute Assessment and Plan: Management as above. (4) Substance use disorder Current Visit: Yes Status: Acute Assessment and Plan: Consultation regarding substance use. Patient was recently discharged from methadone clinic. DVT Prophylaxis: Compression stocking. - Time Spent with Patient Total time spent is greater than 50% in coordination of care (as documented) at patient's floor/unit and/or counseling patient: 25 - 35 minutes Plan of Care Discussed with: nurse Internal Medicine: Result - Labs CBC & Chem 7: 06/08/19 10:15 06/07/19 02:46 Labs: Short CBC 06/08/19 Range/Units 10:15 WBC 4.1 L (4.3-11.1) K/mcL Hgb 15.1 (11.5-15.4) g/dL Hct 43.1 (35.3-44.9) % Plt Count 46 L (140-400) K/mcL Neutrophils # 2.1 (1.6-8.9) K/mcL Consult Discharge Plan - Plan Referrals: NONE,PCP [Primary Care Provider] - (2) Acute pancreatitis Qualifiers: Pancreatitis type: alcohol induced Acute pancreatitis complication: unspecified Qualified Code(s): K85.20 - Alcohol induced acute pancreatitis without necrosis or infection (3) Alcoholic pancreatitis Qualifiers: Chronicity: acute Acute pancreatitis complication: unspecified Qualified Code(s): K85.20 - Alcohol induced acute pancreatitis without necrosis or infection
[2019-06-08 16:23] LABS: Alanine Aminotransferase 99 Units/L (7-52); Albumin/Globulin Ratio 1.1 (1.1-2.2); Alkaline Phosphatase 86 Units/L (34-104); Aspartate Amino Transferase 175 Units/L (13-39); BUN/Creatinine Ratio 22 (6-26); Bilirubin,Total 1.3 mg/dL (0.3-1.0); Blood Urea Nitrogen 15 mg/dL (6-20); Calcium 9.5 mg/dL (8.6-10.3); Carbon Dioxide 24 mEq/L (23-29); Chloride 102 mEq/L (98-107); Globulin 3.6 g/dL (2.4-3.5); Glucose 111 mg/dL (70-105); Osmolality,Calculated 286 (280-300); Potassium 3.7 mEq/L (3.5-5.1); Sodium 137 mEq/L (136-145); Total Protein 7.6 g/dL (6.4-8.9); eGFR For African Americans > 60 (> 60); eGFR For Non-African Americans > 60 (> 60)
[2019-06-08] MEDS: Thiamine (B-1) 100 MG, Folic Acid 1 MG, MVI, adult with vitamin K 10 ML in 0.9 % Sodi... IVPB SCH (18:59)
[2019-06-08] MEDS: Ketorolac 30 MG/ML VIAL IVP PRN (20:22)
[2019-06-09] MEDS: Nicotine 21 MG PATCH.TD24 TD SCH (01:35)
[2019-06-09] MEDS: *HR* LORazepam 2 MG/ML VIAL IVP PRN ×3 (03:14→19:57)
[2019-06-09] MEDS: Dexmedetomidine HCl 400 MCG/100 ML MLS IVC SCH ×2 (05:49→17:18)
[2019-06-09 06:06] LABS: Basophils % 1.4 %; Red Blood Count 4.59 M/mcL (3.82-4.97); Red Cell Distribution Width 14.6 % (11.5-14.5)
[2019-06-09 06:08] LABS: Basophils # 0.1 K/mcL (0.0-0.2); Eosinophils # 0.4 K/mcL (0.0-0.6); Eosinophils % 6.5 %; Hematocrit 46.2 % (35.3-44.9); Hemoglobin 15.6 g/dL (11.5-15.4); Immature Granulocytes % 1.1 % (0-4); Immature Platelets 8.1 % (1.1-6.1); Lymphocytes # 1.6 K/mcL (0.6-4.6); Lymphocytes % 27.5 %; Mean Corpuscular HGB Conc 33.8 g/dL (31.6-35.5); Mean Corpuscular Volume 100.7 fL (83.0-100.0); Mean Platelet Volume 11.4 fL (9.4-12.4); Monocytes # 0.9 K/mcL (0.0-1.3); Monocytes % 15.8 %; Neutrophils # 2.7 K/mcL (1.6-8.9); Segmented Neutrophils % 47.7 %; White Blood Count 5.7 K/mcL (4.3-11.1)
[2019-06-09 06:09] LABS: Platelet Count 64 K/mcL (140-400)
[2019-06-09] MEDS: Thiamine (B-1) 100 MG TABLET PO SCH (08:10)
[2019-06-09] MEDS: Folic Acid 1 MG TABLET PO SCH (08:10)
[2019-06-09] MEDS ORDERED: 0.9 % Sodium Chloride 500 ML ONE (09:28)
[2019-06-09] MEDS ORDERED: Gabapentin 400 MG CAPSULE PO ONE (11:14)
--- NOTE | 2019-06-09 11:17 | Internal Med Progress Note ---
Hospitalist Progress Note - Encounter Date of Encounter: 06/09/19 Time of Encounter: 11:15 - Subjective Interval History: Patient was seen and examined at bedside. Patient was sedated on Precedex drip day before . Patient is currently ding well on Precedex drip. Drip rate is at 0.6. Will monitor patient on a drip and will start to wean as too erated. Target RASS ia at 0. Pt is currently at RASS of 0 - Exam Vitals: Temp Pulse Resp BP Pulse Ox 98.0 F 89 17 127/100 97 06/09/19 06:41 06/09/19 06:41 06/09/19 06:41 06/09/19 06:41 06/09/19 06:41 Exam: Patient is sedated on Precedex drip. Patient has intermittent agitation. RASS score scale of 0 CVS S1 and S2 regular, no murmur RS: Clear to air entry bilaterally, no wheeze, no crackles Abdomen: Soft and nontender. Bowel sounds normal 4 Extremities: No cyanosis, clubbing, and edema Neurology: Not performed due to patient is sedated at this point. - Assessment and Plan (1) Alcohol withdrawal delirium Current Visit: No Status: Acute Assessment and Plan: Patient acute delirium from alcohol withdrawal night before last night. Continue Precedex drip with a target goal of RASS of 0. Continue CIWA protocol. (2) Acute pancreatitis Current Visit: Yes Status: Acute Assessment and Plan: Advance diet as tolerated. Patient reports of mild pain. Continue to monitor. (3) Alcoholic pancreatitis Current Visit: Yes Status: Acute Assessment and Plan: Management as above. (4) Substance use disorder Current Visit: Yes Status: Acute Assessment and Plan: Consultation regarding substance use. Patient was recently discharged from methadone clinic. DVT Prophylaxis: Compression stocking. - Time Spent with Patient Total time spent is greater than 50% in coordination of care (as documented) at patient's floor/unit and/or counseling patient: 25 - 35 minutes Plan of Care Discussed with: patient Internal Medicine: Result - Labs CBC & Chem 7: 06/09/19 05:43 06/08/19 15:51 Labs: Short CBC 06/08/19 06/09/19 Range/Units 10:15 05:43 WBC 4.1 L 5.7 (4.3-11.1) K/mcL Hgb 15.1 15.6 H (11.5-15.4) g/dL Hct 43.1 46.2 H (35.3-44.9) % Plt Count 46 L 64 L (140-400) K/mcL Neutrophils # 2.1 2.7 (1.6-8.9) K/mcL BMP 06/08/19 15:51 Sodium 137 Potassium 3.7 Chloride 102 Carbon Dioxide 24 BUN 15 Creatinine 0.68 Glucose 111 H Calcium 9.5 Liver Function 06/08/19 Range/Units 15:51 Total Bilirubin 1.3 H (0.3-1.0) mg/dL AST 175 H (13-39) Units/L ALT 99 H (7-52) Units/L Alkaline Phosphatase 86 (34-104) Units/L Albumin 4.0 (3.5-5.7) g/dL - VTE Documentation of Mechanical Device: Graduated compression elastic hosiery Consult Discharge Plan - Plan Referrals: NONE,PCP [Primary Care Provider] - __ (2) Acute pancreatitis Qualifiers: Pancreatitis type: alcohol induced Acute pancreatitis complication: unspecified Qualified Code(s): K85.20 - Alcohol induced acute pancreatitis without necrosis or infection (3) Alcoholic pancreatitis Qualifiers: Chronicity: acute Acute pancreatitis complication: unspecified Qualified Code(s): K85.20 - Alcohol induced acute pancreatitis without necrosis or infection
[2019-06-09] MEDS: Ketorolac 30 MG/ML VIAL IVP PRN (20:07)
[2019-06-09] MEDS: *HR* Promethazine 25 MG/ML VIAL IVP PRN (20:07)
[2019-06-10] MEDS: Nicotine 21 MG PATCH.TD24 TD SCH (02:12)
[2019-06-10] MEDS: Dexmedetomidine HCl 400 MCG/100 ML MLS IVC SCH ×3 (02:13→23:35)
[2019-06-10 05:44] LABS: Basophils # 0.1 K/mcL (0.0-0.2); Eosinophils # 0.3 K/mcL (0.0-0.6); Eosinophils % 6.1 %; Hematocrit 46.1 % (35.3-44.9); Hemoglobin 15.6 g/dL (11.5-15.4); Immature Granulocytes % 0.8 % (0-4); Lymphocytes # 1.5 K/mcL (0.6-4.6); Mean Corpuscular HGB Conc 33.8 g/dL (31.6-35.5); Mean Corpuscular Hemoglobin 34.8 pg (28.0-33.3); Mean Corpuscular Volume 102.9 fL (83.0-100.0); Mean Platelet Volume 10.9 fL (9.4-12.4); Monocytes # 0.7 K/mcL (0.0-1.3); Monocytes % 13.9 %; Neutrophils # 2.3 K/mcL (1.6-8.9); Platelet Count 102 K/mcL (140-400); Red Blood Count 4.48 M/mcL (3.82-4.97); Red Cell Distribution Width 14.6 % (11.5-14.5); Segmented Neutrophils % 46.2 %; White Blood Count 4.9 K/mcL (4.3-11.1)
[2019-06-10] MEDS: *HR* LORazepam 2 MG/ML VIAL IVP PRN ×4 (05:53→21:34)
[2019-06-10 06:04] LABS: Alanine Aminotransferase 77 Units/L (7-52); Albumin/Globulin Ratio 1.2 (1.1-2.2); Alkaline Phosphatase 82 Units/L (34-104); Aspartate Amino Transferase 80 Units/L (13-39); BUN/Creatinine Ratio 24 (6-26); Blood Urea Nitrogen 16 mg/dL (6-20); Calcium 9.7 mg/dL (8.6-10.3); Carbon Dioxide 23 mEq/L (23-29); Chloride 106 mEq/L (98-107); Globulin 3.3 g/dL (2.4-3.5); Glucose 116 mg/dL (70-105); Osmolality,Calculated 292 (280-300); Potassium 3.5 mEq/L (3.5-5.1); Sodium 140 mEq/L (136-145); Total Protein 7.3 g/dL (6.4-8.9); eGFR For African Americans > 60 (> 60); eGFR For Non-African Americans > 60 (> 60)
[2019-06-10] MEDS: Folic Acid 1 MG TABLET PO SCH (08:31)
[2019-06-10] MEDS: Thiamine (B-1) 100 MG TABLET PO SCH (08:31)
[2019-06-10] MEDS: Gabapentin 400 MG CAPSULE PO SCH ×2 (11:52→19:59)
--- NOTE | 2019-06-10 11:56 | Internal Med Progress Note ---
Hospitalist Progress Note - Encounter Date of Encounter: 06/10/19 Time of Encounter: 11:54 - Subjective Interval History: Patient was seen and examined today. Patient is alert and oriented. Patient is on Precedex drip with RASS of 1. We will continue to down titrate her Precedex drip. She reports some mild abdominal pain. Apart from this, she denies any acute issues and concerns overnight. - Exam Vitals: Temp Pulse Resp BP Pulse Ox 98.4 F 96 18 136/93 95 06/10/19 11:31 06/10/19 11:31 06/10/19 11:31 06/10/19 11:31 06/10/19 11:31 Exam: Patient is sedated on Precedex drip. Patient has intermittent agitation. RASS score scale of 1 CVS S1 and S2 regular, no murmur RS: Clear to air entry bilaterally, no wheeze, no crackles Abdomen: Soft and mildly tender. Bowel sounds normal 4 Extremities: No cyanosis, clubbing, and edema Neurology: Not performed due to patient is sedated at this point. - Assessment and Plan (1) Alcohol withdrawal delirium Current Visit: No Status: Acute Assessment and Plan: Patient acute delirium from alcohol withdrawal night before last night. Continue Precedex drip with a target goal of RASS of 0. Continue CIWA protocol. Current RASS of 1. Current Precedex drip rate of 0.3 mcg/kg/hr. and is doing her off from the Precedex drip today. (2) Acute pancreatitis Current Visit: Yes Status: Acute Assessment and Plan: Advance diet as tolerated. Patient has successfully advanced to regular diet. Patient reports of mild pain. Continue to monitor. (3) Alcoholic pancreatitis Current Visit: Yes Status: Acute Assessment and Plan: Management as above. (4) Substance use disorder Current Visit: Yes Status: Acute Assessment and Plan: Consultation regarding substance use. Patient was recently discharged from methadone clinic. DVT Prophylaxis: Compression stocking. - Time Spent with Patient Total time spent is greater than 50% in coordination of care (as documented) at patient's floor/unit and/or counseling patient: Internal Medicine: Result - Labs CBC & Chem 7: 06/10/19 05:04 06/10/19 05:04 Labs: Short CBC 06/10/19 Range/Units 05:04 WBC 4.9 (4.3-11.1) K/mcL Hgb 15.6 H (11.5-15.4) g/dL Hct 46.1 H (35.3-44.9) % Plt Count 102 L D (140-400) K/mcL Neutrophils # 2.3 (1.6-8.9) K/mcL BMP 06/10/19 05:04 Sodium 140 Potassium 3.5 Chloride 106 Carbon Dioxide 23 BUN 16 Creatinine 0.68 Glucose 116 H Calcium 9.7 Liver Function 06/10/19 Range/Units 05:04 Total Bilirubin 1.0 (0.3-1.0) mg/dL AST 80 H (13-39) Units/L ALT 77 H (7-52) Units/L Alkaline Phosphatase 82 (34-104) Units/L Albumin 4.0 (3.5-5.7) g/dL - VTE Documentation of Mechanical Device: Graduated compression elastic hosiery Consult Discharge Plan - Plan Referrals: NONE,PCP [Primary Care Provider] - (2) Acute pancreatitis Qualifiers: Pancreatitis type: alcohol induced Acute pancreatitis complication: unspecified Qualified Code(s): K85.20 - Alcohol induced acute pancreatitis without necrosis or infection (3) Alcoholic pancreatitis Qualifiers: Chronicity: acute Acute pancreatitis complication: unspecified Qualified Code(s): K85.20 - Alcohol induced acute pancreatitis without necrosis or infection
[2019-06-10] MEDS ORDERED: 0.9 % Sodium Chloride 500 ML ONE (19:47)
[2019-06-10] MEDS: *HR* Promethazine 25 MG/ML VIAL IVP PRN (19:55)
[2019-06-11 02:14] LABS: White Blood Count 5.2 K/mcL (4.3-11.1)
[2019-06-11 02:15] LABS: Basophils # 0.1 K/mcL (0.0-0.2); Basophils % 1.7 %; Eosinophils # 0.3 K/mcL (0.0-0.6); Eosinophils % 5.2 %; Hematocrit 43.6 % (35.3-44.9); Hemoglobin 14.4 g/dL (11.5-15.4); Immature Granulocytes % 0.8 % (0-4); Lymphocytes # 1.6 K/mcL (0.6-4.6); Mean Corpuscular Hemoglobin 34.4 pg (28.0-33.3); Mean Corpuscular Volume 104.3 fL (83.0-100.0); Mean Platelet Volume 11.1 fL (9.4-12.4); Monocytes # 0.8 K/mcL (0.0-1.3); Monocytes % 14.8 %; Neutrophils # 2.5 K/mcL (1.6-8.9); Platelet Count 123 K/mcL (140-400); Red Blood Count 4.18 M/mcL (3.82-4.97); Red Cell Distribution Width 14.9 % (11.5-14.5); Segmented Neutrophils % 47.5 %
[2019-06-11 02:19] LABS: Alanine Aminotransferase 58 Units/L (7-52); Albumin 3.7 g/dL (3.5-5.7); Albumin/Globulin Ratio 1.2 (1.1-2.2); Alkaline Phosphatase 71 Units/L (34-104); Aspartate Amino Transferase 46 Units/L (13-39); BUN/Creatinine Ratio 25 (6-26); Bilirubin,Total 0.7 mg/dL (0.3-1.0); Blood Urea Nitrogen 13 mg/dL (6-20); Calcium 9.4 mg/dL (8.6-10.3); Carbon Dioxide 21 mEq/L (23-29); Chloride 108 mEq/L (98-107); Glucose 124 mg/dL (70-105); Osmolality,Calculated 288 (280-300); Potassium 3.8 mEq/L (3.5-5.1); Sodium 138 mEq/L (136-145); Total Protein 6.7 g/dL (6.4-8.9); eGFR For African Americans > 60 (> 60); eGFR For Non-African Americans > 60 (> 60)
[2019-06-11] MEDS: Nicotine 21 MG PATCH.TD24 TD SCH (04:22)
[2019-06-11] MEDS: Gabapentin 400 MG CAPSULE PO SCH ×2 (08:03→20:10)
[2019-06-11] MEDS: Folic Acid 1 MG TABLET PO SCH (08:03)
[2019-06-11] MEDS: *HR* LORazepam 2 MG/ML VIAL IVP PRN ×5 (08:03→20:10)
[2019-06-11] MEDS: Thiamine (B-1) 100 MG TABLET PO SCH (08:03)
[2019-06-11] MEDS ORDERED: Ibuprofen 800 MG TABLET PO PRN (12:03)
[2019-06-11] MEDS: *HR* Promethazine 25 MG/ML VIAL IVP PRN ×2 (14:42→18:27)
--- NOTE | 2019-06-11 14:43 | Internal Med Progress Note ---
Hospitalist Progress Note - Encounter Date of Encounter: 06/11/19 Time of Encounter: 14:41 - Subjective Interval History: He was seen and examined at bedside. He reports no acute issues overnight. Patient is currently on Precedex drip and drip is running at 0.3 g per KG per hour. She reports mild abdominal pain. Apart from this, she denies any acute issues. I advised patient that we will continue to keep her on medication drip for alcohol withdrawal and will continue giving her Ativan as needed for withdrawal. - Exam Vitals: Temp Pulse Resp BP Pulse Ox 98.7 F 91 18 142/100 97 06/11/19 11:34 06/11/19 11:34 06/11/19 11:34 06/11/19 11:34 06/11/19 11:34 Exam: Patient is sedated on Precedex drip. Patient has intermittent agitation. RASS score scale of 2 CVS S1 and S2 regular, no murmur RS: Clear to air entry bilaterally, no wheeze, no crackles Abdomen: Soft and mildly tender. Bowel sounds normal 4 Extremities: No cyanosis, clubbing, and edema Neurology: Not performed due to patient is sedated at this point. - Assessment and Plan (1) Alcohol withdrawal delirium Current Visit: No Status: Acute Assessment and Plan: Patient acute delirium from alcohol withdrawal. Continue Precedex drip with a target goal of RASS of 0. Continue CIWA protocol. Current RASS of 2. Current Precedex drip rate of 0.3 mcg/kg/hr and plan is to wean her off from the Precedex drip today. Morning CIWA score was 16 and patient received Ativan 2 mg IV push once. Patient was started on Librium today. Plan is to taper off Librium. Anticipate discharge tomorrow or day after tomorrow. (2) Acute pancreatitis Current Visit: Yes Status: Acute Assessment and Plan: Advance diet as tolerated. Patient has successfully advanced to regular diet. Patient reports of mild pain. Continue to monitor. (3) Alcoholic pancreatitis Current Visit: Yes Status: Acute Assessment and Plan: Management as above. (4) Substance use disorder Current Visit: Yes Status: Acute Assessment and Plan: Consultation regarding substance use. Patient was recently discharged from methadone clinic. He reports that she can go back to methadone program. Case management and social director is on consult. Awaiting input from them. DVT Prophylaxis: Compression stocking. - Time Spent with Patient Total time spent is greater than 50% in coordination of care (as documented) at patient's floor/unit and/or counseling patient: 25 - 35 minutes Plan of Care Discussed with: patient Internal Medicine: Result - Labs CBC & Chem 7: 06/11/19 01:47 06/11/19 01:47 Labs: Short CBC 06/11/19 Range/Units 01:47 WBC 5.2 (4.3-11.1) K/mcL Hgb 14.4 (11.5-15.4) g/dL Hct 43.6 (35.3-44.9) % Plt Count 123 L (140-400) K/mcL Neutrophils # 2.5 (1.6-8.9) K/mcL BMP 06/11/19 01:47 Sodium 138 Potassium 3.8 Chloride 108 H Carbon Dioxide 21 L BUN 13 Creatinine 0.53 L Glucose 124 H Calcium 9.4 Liver Function 06/11/19 Range/Units 01:47 Total Bilirubin 0.7 (0.3-1.0) mg/dL AST 46 H (13-39) Units/L ALT 58 H (7-52) Units/L Alkaline Phosphatase 71 (34-104) Units/L Albumin 3.7 (3.5-5.7) g/dL - VTE Documentation of Mechanical Device: Graduated compression elastic hosiery Consult Discharge Plan - Plan Referrals: wound,clinic [Other] - 06/19/19 1:00 pm Grace Valera [Resident] - 06/18/19 9:00 am (2) Acute pancreatitis Qualifiers: Pancreatitis type: alcohol induced Acute pancreatitis complication: unspecified Qualified Code(s): K85.20 - Alcohol induced acute pancreatitis without necrosis or infection (3) Alcoholic pancreatitis Qualifiers: Chronicity: acute Acute pancreatitis complication: unspecified Qualified Code(s): K85.20 - Alcohol induced acute pancreatitis without necrosis or infection
[2019-06-11] MEDS: hydroCHLOROthiazide 25 MG TABLET PO SCH (20:12)
[2019-06-12] MEDS: *HR* Promethazine 25 MG/ML VIAL IVP PRN ×4 (00:42→21:54)
[2019-06-12] MEDS: *HR* LORazepam 2 MG/ML VIAL IVP PRN ×4 (00:42→20:10)
[2019-06-12 02:31] LABS: Basophils # 0.1 K/mcL (0.0-0.2); Basophils % 1.4 %; Eosinophils # 0.2 K/mcL (0.0-0.6); Eosinophils % 3.5 %; Hematocrit 45.7 % (35.3-44.9); Hemoglobin 15.4 g/dL (11.5-15.4); Immature Granulocytes % 0.7 % (0-4); Lymphocytes % 33.9 %; Mean Corpuscular HGB Conc 33.7 g/dL (31.6-35.5); Mean Corpuscular Hemoglobin 34.5 pg (28.0-33.3); Mean Corpuscular Volume 102.2 fL (83.0-100.0); Mean Platelet Volume 10.9 fL (9.4-12.4); Monocytes % 15.1 %; Platelet Count 137 K/mcL (140-400); Red Blood Count 4.47 M/mcL (3.82-4.97); Red Cell Distribution Width 14.9 % (11.5-14.5); Segmented Neutrophils % 45.4 %; White Blood Count 6.9 K/mcL (4.3-11.1)
[2019-06-12 02:59] LABS: Lymphocytes # 2.3 K/mcL (0.6-4.6); Neutrophils # 3.1 K/mcL (1.6-8.9)
[2019-06-12 03:00] LABS: Platelet Estimate Slight Decrease (Normal)
[2019-06-12 03:48] LABS: BUN/Creatinine Ratio 23 (6-26); Blood Urea Nitrogen 17 mg/dL (6-20); Calcium 9.8 mg/dL (8.6-10.3); Carbon Dioxide 22 mEq/L (23-29); Chloride 107 mEq/L (98-107); Glucose 111 mg/dL (70-105); Osmolality,Calculated 290 (280-300); Potassium 3.7 mEq/L (3.5-5.1); Sodium 139 mEq/L (136-145); eGFR For African Americans > 60 (> 60); eGFR For Non-African Americans > 60 (> 60)
[2019-06-12] MEDS: Nicotine 21 MG PATCH.TD24 TD SCH (04:24)
[2019-06-12] MEDS: hydroCHLOROthiazide 25 MG TABLET PO SCH (09:41)
[2019-06-12] MEDS: Gabapentin 400 MG CAPSULE PO SCH ×2 (09:45→20:10)
[2019-06-12] MEDS: Thiamine (B-1) 100 MG TABLET PO SCH (09:46)
[2019-06-12] MEDS: Folic Acid 1 MG TABLET PO SCH (09:47)
--- NOTE | 2019-06-12 14:27 | Internal Med Progress Note ---
Hospitalist Progress Note - Encounter Date of Encounter: 06/12/19 Time of Encounter: 14:24 - Subjective Interval History: No acute events overnight. Patient has no new complaints. Was able to tolerate diet today with minimal epigastric pain. - Exam Vitals: Temp Pulse Resp BP Pulse Ox 36.7 C 104 17 143/111 96 06/12/19 11:55 06/12/19 13:30 06/12/19 13:30 06/12/19 11:55 06/12/19 11:55 Exam: GENERAL: Not in distress. Alert and Oriented. No tremors or excessive pe rspiration noted HEENT: EOMI, PERRLA MOUTH: Good oral hygiene NECK:No JVD, No lymph nodes. CHEST AND LUNGS: Normal breath sounds, no wheezes or crackles HEART: S1 and S2 normal, no murmurs ABDOMEN: Soft, mild epigasric pain, no organomegaly SKIN: Normal color, no rahses, no lesions EXTREMITIES: No deformity, no edema, no tenderness, no joint swelling or clubbing NEUROLOGICAL: Normal cognition, normal motor and sensory exam. - Assessment and Plan (1) Alcohol withdrawal delirium Current Visit: No Status: Acute Assessment and Plan: Currently has no withdrawal signs or symptoms. Continue on CIWA protocol. (2) Acute pancreatitis Current Visit: Yes Status: Acute Assessment and Plan: Tolerated diet with minimal epigastric pain and complains of some nausea. For possible discaharge tomorrow (3) Alcoholic pancreatitis Current Visit: Yes Status: Acute Assessment and Plan: Management as above. (4) Substance use disorder Current Visit: Yes Status: Acute Assessment and Plan: Patient counseled. Would like some form of rehab for heroin after discharge. - Time Spent with Patient Total time spent is greater than 50% in coordination of care (as documented) at patient's floor/unit and/or counseling patient: Internal Medicine: Result - Labs CBC & Chem 7: 06/12/19 02:18 06/12/19 03:18 Labs: Short CBC 06/12/19 Range/Units 02:18 WBC 6.9 (4.3-11.1) K/mcL Hgb 15.4 (11.5-15.4) g/dL Hct 45.7 H (35.3-44.9) % Plt Count 137 L (140-400) K/mcL Neutrophils # 3.1 (1.6-8.9) K/mcL BMP 06/12/19 03:18 Sodium 139 Potassium 3.7 Chloride 107 Carbon Dioxide 22 L BUN 17 Creatinine 0.75 Glucose 111 H Calcium 9.8 - VTE Documentation of Mechanical Device: Graduated compression elastic hosiery Consult Discharge Plan - Plan Referrals: wound,clinic [Other] - 06/19/19 1:00 pm Grace Valera [Resident] - 06/18/19 9:00 am (2) Acute pancreatitis Qualifiers: Pancreatitis type: alcohol induced Acute pancreatitis complication: unspecified Qualified Code(s): K85.20 - Alcohol induced acute pancreatitis without necrosis or infection (3) Alcoholic pancreatitis Qualifiers: Chronicity: acute Acute pancreatitis complication: unspecified Qualified Code(s): K85.20 - Alcohol induced acute pancreatitis without necrosis or infection
[2019-06-13 01:48] LABS: Basophils # 0.1 K/mcL (0.0-0.2); Basophils % 1.4 %; Eosinophils # 0.3 K/mcL (0.0-0.6); Eosinophils % 3.6 %; Hematocrit 45.6 % (35.3-44.9); Hemoglobin 15.3 g/dL (11.5-15.4); Immature Granulocytes % 0.7 % (0-4); Mean Corpuscular HGB Conc 33.6 g/dL (31.6-35.5); Mean Corpuscular Hemoglobin 34.9 pg (28.0-33.3); Mean Corpuscular Volume 103.9 fL (83.0-100.0); Mean Platelet Volume 10.7 fL (9.4-12.4); Monocytes # 1.2 K/mcL (0.0-1.3); Monocytes % 16.8 %; Neutrophils # 3.7 K/mcL (1.6-8.9); Platelet Count 207 K/mcL (140-400); Red Blood Count 4.39 M/mcL (3.82-4.97); Red Cell Distribution Width 14.7 % (11.5-14.5); Segmented Neutrophils % 50.5 %; White Blood Count 7.3 K/mcL (4.3-11.1)
[2019-06-13 02:05] LABS: BUN/Creatinine Ratio 20 (6-26); Blood Urea Nitrogen 19 mg/dL (6-20); Calcium 10.4 mg/dL (8.6-10.3); Carbon Dioxide 23 mEq/L (23-29); Chloride 104 mEq/L (98-107); Glucose 113 mg/dL (70-105); Osmolality,Calculated 289 (280-300); Sodium 138 mEq/L (136-145); eGFR For African Americans > 60 (> 60); eGFR For Non-African Americans > 60 (> 60)
[2019-06-13] MEDS: Dexmedetomidine HCl 400 MCG/100 ML MLS IVC SCH (05:48)
[2019-06-13] MEDS: *HR* LORazepam 2 MG/ML VIAL IVP PRN (05:57)
[2019-06-13 07:40] VITALS: BP 134/85
[2019-06-13] MEDS: Folic Acid 1 MG TABLET PO SCH (08:33)
[2019-06-13] MEDS: hydroCHLOROthiazide 25 MG TABLET PO SCH (08:33)
[2019-06-13] MEDS: Gabapentin 400 MG CAPSULE PO SCH (08:33)
[2019-06-13] MEDS: Thiamine (B-1) 100 MG TABLET PO SCH (08:33)
--- NOTE | 2019-06-13 08:35 | Discharge Summary ---
Date of Encounter: 06/13/19 Time of Encounter: 08:32 - Discharge Diagnosis (1) Alcoholic pancreatitis Priority: Primary Status: Acute Assessment and Plan: Patient with a known hx of heavy alcohol cosumption presented with abdominal pain, nausea and vomiting. Investigation revealed acute pancreatitis. She was managed with pain meds and IVF and is now doing well. Will DC. Counseled to quit drinking. Qualifiers: Chronicity: acute Acute pancreatitis complication: no infection or necrosis Qualified Code(s): K85.20 - Alcohol induced acute pancreatitis without necrosis or infection (2) Acute pancreatitis Priority: Secondary Status: Acute Qualifiers: Pancreatitis type: alcohol induced Acute pancreatitis complication: no infection or necrosis Qualified Code(s): K85.20 - Alcohol induced acute pancreatitis without necrosis or infection (3) Alcohol withdrawal delirium Priority: Secondary Status: Acute (4) Substance use disorder Priority: Secondary Status: Acute Assessment and Plan: Patient counseled. Would like some form of rehab for heroin after discharge. Hospital course: Ms. Odell is a 48 year old female with a PMHx of Polysubstance use disorder including heavy alcohol ocnsumption. She presented with nausea, vomiting and abdominal pain. Investigations revealed acute pancreatitis. Patient was managed with IVF and analgesics. Currently tolerating regular diet without significant pain. Counseled on trying to quit alcohol use. Will be dsicharged. Discharge discussed with: patient - Time Spent with Patient Total time spent providing and/or coordinating discharge services: Time spent: Greater than 30 minutes (36) - Discharge Medications Prescriptions: New Thiamine (B-1) [Vitamin B-1] 100 mg PO DAILY 30 Days #30 tablet Continued Folic Acid 1 mg PO DAILY #30 tablet Duloxetine HCl [Cymbalta] 60 mg PO DAILY Home Medications: Folic Acid 1 mg PO DAILY #30 tablet 06/06/18 [Rx] Duloxetine HCl [Cymbalta] 60 mg PO DAILY 06/05/19 [History] Thiamine (B-1) [Vitamin B-1] 100 mg PO DAILY 30 Days #30 tablet 06/13/19 [Rx] Allergies/Adverse Reactions: Allergy/AdvReac Type Severity Reaction Status Date / Time aspirin [ASA] Allergy Hives Verified 05/31/18 15:41 Date of admission: 06/06/19 00:06 Primary care physician: PCP NONE Consults: 06/06/19 01:32 Consult to Wound Care [CONS] Routine Reason for Consult: Deep lonstanding ulceration under her left great toe. Call Completed: No - Constitutional Vitals: Temp Pulse Resp BP Pulse Ox 36.9 C 114 18 134/85 92 06/13/19 03:49 06/13/19 07:38 06/13/19 07:38 06/13/19 07:38 06/13/19 07:38 Exam: GENERAL: Not in distress. Alert and Oriented HEENT: EOMI, PERRLA MOUTH: Good oral hygiene NECK:No JVD, No lymph nodes. CHEST AND LUNGS: Normal breath sounds, no wheezes or crackles HEART: S1 and S2 normal, no murmurs ABDOMEN: Soft, nontender, no organomegaly SKIN: Normal color, no rahses, no lesions EXTREMITIES: No deformity, no edema, no tenderness, no joint swelling or clubbing NEUROLOGICAL: Normal cognition, normal motor and sensory exam. - Patient Status Disposition: Home, Self-Care Functional capacity at discharge: independent ambulation Overall status at discharge: patient is back to baseline - Discharge Instructions Follow Up With: wound,clinic [Other] - 06/19/19 1:00 pm Grace Valera [Resident] - 06/18/19 9:00 am - Diet and Activity Activity: increase activity as tolerated Diet: advance to your usual diet - VTE Documentation of Mechanical Device: Graduated compression elastic hosiery
[2019-06-13] MEDS: Nicotine 21 MG PATCH.TD24 TD SCH (08:36)
== END 2019-06-13 10:59 | disposition home or self-care (01) | DRG 282 ==
LOC: 2ANU 19:58 → EMEROOARM 19:58 → 2ANU 23:39 → SUATTDRO 06-06 00:06 → 2ANU 06-07 19:54 → 2NNU 06-08 00:21
PROVIDERS: ADMIT Internal Medicine; ATTEND Internal Medicine

== ENCOUNTER 2019-12-12 01:18 | Inpatient (IN) ==
[2019-12-12 02:11] LABS: Hematocrit 34.8 % (35.3-44.9); Hemoglobin 11.7 g/dL (11.5-15.4); Mean Corpuscular HGB Conc 33.6 g/dL (31.6-35.5); Mean Corpuscular Hemoglobin 32.1 pg (28.0-33.3); Mean Corpuscular Volume 95.3 fL (83.0-100.0); Mean Platelet Volume 9.7 fL (9.4-12.4); Platelet Count 157 K/mcL (140-400); Red Blood Count 3.65 M/mcL (3.82-4.97); Red Cell Distribution Width 14.8 % (11.5-14.5); White Blood Count 5.3 K/mcL (4.3-11.1)
[2019-12-12] MEDS ORDERED: Ipratropium/Albuterol Neb 3 ML IH STA (02:17)
[2019-12-12 02:32] LABS: Alanine Aminotransferase 39 Units/L (7-52); Albumin 3.9 g/dL (3.5-5.7); Albumin/Globulin Ratio 1.2 (1.1-2.2); Alkaline Phosphatase 115 Units/L (34-104); Aspartate Amino Transferase 64 Units/L (13-39); BUN/Creatinine Ratio 26 (6-26); Bilirubin,Indirect 0.2 mg/dL (0.0-1.0); Bilirubin,Total 0.2 mg/dL (0.3-1.0); Blood Urea Nitrogen 19 mg/dL (6-20); Calcium 9.1 mg/dL (8.6-10.3); Carbon Dioxide 34 mEq/L (23-29); Chloride 101 mEq/L (98-107); Ethanol 297 mg/dL (Less than 10); Globulin 3.3 g/dL (2.4-3.5); Glucose 88 mg/dL (70-105); Osmolality,Calculated 294 (280-300); Sodium 141 mEq/L (136-145); Total Protein 7.2 g/dL (6.4-8.9); eGFR For African Americans > 60 (> 60); eGFR For Non-African Americans > 60 (> 60)
[2019-12-12] MEDS ORDERED: Albuterol 2.5 MG/3 ML NEBULIZER IH ONE (03:30)
[2019-12-12] MEDS ORDERED: cefTRIAXone 2,000 MG in Water for inj. (sterile) 20 ML IVP ONE (03:32)
[2019-12-12] MEDS ORDERED: cefTRIAXone 1,000 MG in Water for inj. (sterile) 10 ML IVP ONE (03:32)
[2019-12-12] MEDS ORDERED: Azithromycin 500 MG in 0.9 % Sodium Chloride 250 ML IVPB ONE (03:32)
[2019-12-12] MEDS ORDERED: *HR* LORazepam 2 MG/ML VIAL IVP PRN ×2 (04:10)
[2019-12-12] MEDS: *HR* LORazepam 2 MG/ML VIAL IVP PRN ×2 (04:46→14:26)
[2019-12-12] MEDS ORDERED: Naloxone 0.4 MG/ML INJ IVP PRN (04:53)
[2019-12-12] MEDS: *HR* Heparin 5,000 UNIT/ML VIAL SQ SCH ×2 (06:05→17:29)
[2019-12-12] MEDS ORDERED: levoFLOXacin 750 MG/150 ML 750 MG/150 ML BAG IVPB SCH (09:00)
[2019-12-12] MEDS: Piperacillin/Tazobactam 3.375 GM in 0.9 % Sodium Chloride Mini Bag 100 ML IVPB SCH ×2 (10:08→17:28)
[2019-12-12] MEDS: Ondansetron 4 MG/2 ML VIAL IVP PRN (13:20)
[2019-12-12] MEDS: Methadone Oral Concentrate 50 MG/5 ML UDC PO SCH (14:51)
[2019-12-12 15:50] LABS: Adenovirus Not Detected (Not Detect); Bordetella Pertussis Not Detected (Not Detect); Chlamydophila pneumoniae Not Detected (Not Detect); Coronavirus 229E Not Detected (Not Detect); Coronavirus HKU1 Not Detected (Not Detect); Coronavirus NL63 Not Detected (Not Detect); Coronavirus OC43 Not Detected (Not Detect); Human Metapneumovirus Not Detected (Not Detect); Human Rhinovirus/Enterovirus Not Detected (Not Detect); Influenza A Subtype 2009 H1 Not Detected (Not Detect); Influenza B Not Detected (Not Detect); Mycoplasma pneumoniae Not Detected (Not Detect); Parainfluenza Virus 1 Not Detected (Not Detect); Parainfluenza Virus 2 Not Detected (Not Detect); Parainfluenza Virus 3 Not Detected (Not Detect); Parainfluenza Virus 4 Not Detected (Not Detect); Respiratory Syncytial Virus Not Detected (Not Detect)
[2019-12-12 19:59] LABS: Lipase 143 Units/L (11-82)
[2019-12-12] MEDS: Thiamine (B-1) 100 MG, Folic Acid 1 MG, MVI, adult with vitamin K 10 ML in 0.9 % Sodi... IVPB SCH (23:24)
[2019-12-13] MEDS ORDERED: *HR* LORazepam 2 MG/ML VIAL IM STA (00:06)
[2019-12-13 01:06] LABS: Hematocrit 39.6 % (35.3-44.9); Mean Corpuscular HGB Conc 32.8 g/dL (31.6-35.5); Mean Corpuscular Hemoglobin 32.2 pg (28.0-33.3); Platelet Count 145 K/mcL (140-400); Red Blood Count 4.04 M/mcL (3.82-4.97); Red Cell Distribution Width 14.3 % (11.5-14.5)
[2019-12-13] MEDS: Piperacillin/Tazobactam 3.375 GM in 0.9 % Sodium Chloride Mini Bag 100 ML IVPB SCH ×3 (01:12→15:48)
[2019-12-13 01:25] LABS: BUN/Creatinine Ratio 19 (6-26); Blood Urea Nitrogen 12 mg/dL (6-20); Calcium 9.6 mg/dL (8.6-10.3); Carbon Dioxide 30 mEq/L (23-29); Chloride 97 mEq/L (98-107); Glucose 91 mg/dL (70-105); Osmolality,Calculated 281 (280-300); Sodium 136 mEq/L (136-145); eGFR For African Americans > 60 (> 60); eGFR For Non-African Americans > 60 (> 60)
[2019-12-13] MEDS: *HR* Heparin 5,000 UNIT/ML VIAL SQ SCH ×2 (05:29→17:51)
[2019-12-13 06:02] LABS: Amphetamine Screen,Urine Negative ng/mL (Cutoff=1000); Barbiturate Screen,Urine Negative ng/mL (Cutoff=200); Benzodiazepines Screen,Urine Negative ng/mL (Cutoff=200); Cannabinoid Screen,Urine Negative ng/mL (Cutoff = 50); Cocaine Screen,Urine Negative ng/mL (Cutoff= 300); Opiate Screen,Urine Negative ng/mL (Cutoff=300); Phencyclidine Screen,Urine Negative ng/mL (Cutoff=25)
[2019-12-13] MEDS: amLODIPine 5 MG TABLET PO SCH (08:26)
[2019-12-13] MEDS: Methadone Oral Concentrate 50 MG/5 ML UDC PO SCH (08:31)
[2019-12-13] MEDS: 0.9 % Sodium Chloride 1,000 ML IVC SCH ×2 (08:39→20:40)
[2019-12-13] MEDS ORDERED: Folic Acid 1 MG TABLET PO SCH (09:00)
[2019-12-13] MEDS: *HR* LORazepam 2 MG/ML VIAL IVP PRN ×2 (13:59→18:10)
[2019-12-13] MEDS: Gentamicin Oint 15 GM TUBE TP SCH (15:50)
[2019-12-13] MEDS: Thiamine (B-1) 100 MG, Folic Acid 1 MG, MVI, adult with vitamin K 10 ML in 0.9 % Sodi... IVPB SCH (20:37)
[2019-12-14] MEDS: Piperacillin/Tazobactam 3.375 GM in 0.9 % Sodium Chloride Mini Bag 100 ML IVPB SCH ×3 (01:26→16:22)
[2019-12-14] MEDS: *HR* LORazepam 2 MG/ML VIAL IVP PRN ×4 (02:57→21:49)
[2019-12-14] MEDS: *HR* Heparin 5,000 UNIT/ML VIAL SQ SCH ×2 (06:31→17:21)
[2019-12-14] MEDS: Gentamicin Oint 15 GM TUBE TP SCH (06:32)
[2019-12-14] MEDS ORDERED: Aminoglycoside Consult 1 EACH MC ONE (08:11)
[2019-12-14] MEDS: amLODIPine 5 MG TABLET PO SCH (09:01)
[2019-12-14] MEDS: Methadone Oral Concentrate 50 MG/5 ML UDC PO SCH (09:01)
[2019-12-14] MEDS: Ondansetron 4 MG/2 ML VIAL IVP PRN (12:22)
[2019-12-14] MEDS: Thiamine (B-1) 100 MG, Folic Acid 1 MG, MVI, adult with vitamin K 10 ML in 0.9 % Sodi... IVPB SCH (21:49)
[2019-12-15 01:49] LABS: Hematocrit 40.3 % (35.3-44.9); Mean Corpuscular HGB Conc 32.3 g/dL (31.6-35.5); Mean Corpuscular Hemoglobin 31.8 pg (28.0-33.3); Mean Corpuscular Volume 98.5 fL (83.0-100.0); Mean Platelet Volume 9.9 fL (9.4-12.4); Platelet Count 152 K/mcL (140-400); Red Blood Count 4.09 M/mcL (3.82-4.97); Red Cell Distribution Width 14.3 % (11.5-14.5)
[2019-12-15] MEDS: Piperacillin/Tazobactam 3.375 GM in 0.9 % Sodium Chloride Mini Bag 100 ML IVPB SCH ×3 (01:49→16:33)
[2019-12-15 02:03] LABS: BUN/Creatinine Ratio 24 (6-26); Blood Urea Nitrogen 19 mg/dL (6-20); Calcium 9.8 mg/dL (8.6-10.3); Carbon Dioxide 28 mEq/L (23-29); Chloride 100 mEq/L (98-107); Glucose 99 mg/dL (70-105); Osmolality,Calculated 282 (280-300); Potassium 4.1 mEq/L (3.5-5.1); Sodium 135 mEq/L (136-145); eGFR For African Americans > 60 (> 60); eGFR For Non-African Americans > 60 (> 60)
[2019-12-15] MEDS: *HR* Heparin 5,000 UNIT/ML VIAL SQ SCH ×2 (06:09→17:58)
[2019-12-15] MEDS: Folic Acid 1 MG TABLET PO SCH (10:46)
[2019-12-15] MEDS: amLODIPine 5 MG TABLET PO SCH (10:46)
[2019-12-15] MEDS: Thiamine (B-1) 100 MG TABLET PO SCH (10:46)
[2019-12-15] MEDS: Vitamin B Complex/Vit C/Vit E 1 EACH TABLET PO SCH (10:46)
[2019-12-15] MEDS: *HR* LORazepam 2 MG/ML VIAL IVP PRN ×3 (10:47→21:55)
[2019-12-15] MEDS: Methadone Oral Concentrate 50 MG/5 ML UDC PO SCH (10:47)
[2019-12-15] MEDS: Gentamicin Oint 15 GM TUBE TP SCH (10:48)
[2019-12-15] MEDS: Ondansetron 4 MG/2 ML VIAL IVP PRN ×2 (10:57→17:59)
[2019-12-16] MEDS: Piperacillin/Tazobactam 3.375 GM in 0.9 % Sodium Chloride Mini Bag 100 ML IVPB SCH ×3 (00:23→16:14)
[2019-12-16] MEDS: *HR* LORazepam 2 MG/ML VIAL IVP PRN ×3 (02:00→19:39)
[2019-12-16] MEDS: Ondansetron 4 MG/2 ML VIAL IVP PRN (02:00)
[2019-12-16] MEDS: *HR* Heparin 5,000 UNIT/ML VIAL SQ SCH ×2 (06:37→17:12)
[2019-12-16] MEDS: amLODIPine 5 MG TABLET PO SCH (08:30)
[2019-12-16] MEDS: Vitamin B Complex/Vit C/Vit E 1 EACH TABLET PO SCH (08:30)
[2019-12-16] MEDS: Folic Acid 1 MG TABLET PO SCH (08:30)
[2019-12-16] MEDS: Thiamine (B-1) 100 MG TABLET PO SCH (08:30)
[2019-12-16] MEDS: Methadone Oral Concentrate 50 MG/5 ML UDC PO SCH (08:30)
[2019-12-16] MEDS: Gentamicin Oint 15 GM TUBE TP SCH (10:31)
[2019-12-17] MEDS: Piperacillin/Tazobactam 3.375 GM in 0.9 % Sodium Chloride Mini Bag 100 ML IVPB SCH ×4 (00:20→23:34)
[2019-12-17] MEDS: *HR* LORazepam 2 MG/ML VIAL IVP PRN ×5 (02:42→23:58)
[2019-12-17] MEDS: *HR* Heparin 5,000 UNIT/ML VIAL SQ SCH ×2 (05:09→19:00)
[2019-12-17 07:16] LABS: Alanine Aminotransferase 53 Units/L (7-52); Albumin 3.9 g/dL (3.5-5.7); Albumin/Globulin Ratio 1.1 (1.1-2.2); Alkaline Phosphatase 107 Units/L (34-104); Aspartate Amino Transferase 38 Units/L (13-39); BUN/Creatinine Ratio 29 (6-26); Bilirubin,Total 0.3 mg/dL (0.3-1.0); Blood Urea Nitrogen 23 mg/dL (6-20); Calcium 9.6 mg/dL (8.6-10.3); Carbon Dioxide 28 mEq/L (23-29); Chloride 101 mEq/L (98-107); Globulin 3.6 g/dL (2.4-3.5); Glucose 105 mg/dL (70-105); Osmolality,Calculated 290 (280-300); Potassium 4.2 mEq/L (3.5-5.1); Sodium 138 mEq/L (136-145); Total Protein 7.5 g/dL (6.4-8.9); eGFR For African Americans > 60 (> 60); eGFR For Non-African Americans > 60 (> 60)
[2019-12-17] MEDS: Folic Acid 1 MG TABLET PO SCH (08:57)
[2019-12-17] MEDS: amLODIPine 5 MG TABLET PO SCH (08:58)
[2019-12-17] MEDS: Methadone Oral Concentrate 50 MG/5 ML UDC PO SCH (08:58)
[2019-12-17] MEDS: Thiamine (B-1) 100 MG TABLET PO SCH (08:58)
[2019-12-17] MEDS: Vitamin B Complex/Vit C/Vit E 1 EACH TABLET PO SCH (08:58)
[2019-12-17] MEDS: Gentamicin Oint 15 GM TUBE TP SCH (09:01)
[2019-12-17] MEDS: Ondansetron 4 MG/2 ML VIAL IVP PRN (23:57)
[2019-12-18] MEDS: *HR* Promethazine 25 MG/ML VIAL IVP PRN ×3 (03:18→22:56)
[2019-12-18] MEDS: *HR* Heparin 5,000 UNIT/ML VIAL SQ SCH ×2 (04:19→17:15)
[2019-12-18] MEDS: *HR* LORazepam 2 MG/ML VIAL IVP PRN ×2 (04:19→08:27)
[2019-12-18] MEDS: Piperacillin/Tazobactam 3.375 GM in 0.9 % Sodium Chloride Mini Bag 100 ML IVPB SCH (08:24)
[2019-12-18] MEDS: Methadone Oral Concentrate 50 MG/5 ML UDC PO SCH (08:26)
[2019-12-18] MEDS: Thiamine (B-1) 100 MG TABLET PO SCH (08:26)
[2019-12-18] MEDS: amLODIPine 5 MG TABLET PO SCH (08:26)
[2019-12-18] MEDS: Vitamin B Complex/Vit C/Vit E 1 EACH TABLET PO SCH (08:26)
[2019-12-18] MEDS: Gentamicin Oint 15 GM TUBE TP SCH (08:27)
[2019-12-18] MEDS: Folic Acid 1 MG TABLET PO SCH (08:27)
[2019-12-18 12:00] LABS: Adenovirus F 40/41 PCR Not detected (Not detect); Astrovirus PCR Not detected (Not detect); C.difficile Toxin A/B Gene PCR Not detected (Not detect); Campylobacter by PCR Not detected (Not detect); Cryptosporidium by PCR Not detected (Not detect); Cyclospora cayetanensis PCR Not detected (Not detect); E. coli O157 by PCR Not detected (Not detect); Entamoeba histolytica PCR Not detected (Not detect); Enteroaggregative E.coli(EAEC) Not detected (Not detect); Enteropathogenic E.coli(EPEC) Not detected (Not detect); Enterotoxigenic E.coli (ETEC) Not detected (Not detect); Giardia lamblia PCR Not detected (Not detect); Norovirus GI/GII PCR Not detected (Not detect); Plesiomonas shigelloides PCR Not detected (Not detect); Rotavirus A PCR Not detected (Not detect); Salmonella PCR Not detected (Not detect); Sapovirus PCR Not detected (Not detect); Shig/EnteroinvasiveE coli EIEC Not detected (Not detect); Shigalike tox-prod E coli STEC Not detected (Not detect); Vibrio PCR Not detected (Not detect); Vibrio cholerae PCR Not detected (Not detect); Yersinia enterocolitica PCR Not detected (Not detect)
[2019-12-18] MEDS: *HR* LORazepam 0.5 MG TABLET PO PRN (19:26)
[2019-12-19] MEDS ORDERED: *HR* LORazepam 2 MG/ML VIAL IVP ONE (00:30)
[2019-12-19 05:18] LABS: Basophils # 0.1 K/mcL (0.0-0.2); Eosinophils # 0.4 K/mcL (0.0-0.6); Eosinophils % 4.4 %; Hemoglobin 14.2 g/dL (11.5-15.4); Immature Granulocytes % 1.7 % (0-4); Lymphocytes # 2.4 K/mcL (0.6-4.6); Lymphocytes % 29.9 %; Mean Corpuscular Hemoglobin 31.8 pg (28.0-33.3); Mean Corpuscular Volume 96.4 fL (83.0-100.0); Mean Platelet Volume 10.3 fL (9.4-12.4); Monocytes % 12.8 %; Neutrophils # 4.1 K/mcL (1.6-8.9); Platelet Count 226 K/mcL (140-400); Red Blood Count 4.46 M/mcL (3.82-4.97); Red Cell Distribution Width 14.3 % (11.5-14.5); Segmented Neutrophils % 50.2 %; White Blood Count 8.1 K/mcL (4.3-11.1)
[2019-12-19 05:36] LABS: BUN/Creatinine Ratio 28 (6-26); Blood Urea Nitrogen 22 mg/dL (6-20); Calcium 10.3 mg/dL (8.6-10.3); Carbon Dioxide 28 mEq/L (23-29); Chloride 100 mEq/L (98-107); Glucose 80 mg/dL (70-105); Osmolality,Calculated 290 (280-300); Potassium 4.3 mEq/L (3.5-5.1); Sodium 139 mEq/L (136-145); eGFR For African Americans > 60 (> 60); eGFR For Non-African Americans > 60 (> 60)
[2019-12-19] MEDS: *HR* LORazepam 0.5 MG TABLET PO PRN (06:14)
[2019-12-19] MEDS: *HR* Heparin 5,000 UNIT/ML VIAL SQ SCH (06:14)
[2019-12-19] MEDS: *HR* Promethazine 25 MG/ML VIAL IVP PRN (06:20)
[2019-12-19 06:43] VITALS: BP 133/81
[2019-12-19] MEDS: amLODIPine 5 MG TABLET PO SCH (10:01)
[2019-12-19] MEDS: Folic Acid 1 MG TABLET PO SCH (10:02)
[2019-12-19] MEDS: Gentamicin Oint 15 GM TUBE TP SCH (10:02)
[2019-12-19] MEDS: Methadone Oral Concentrate 50 MG/5 ML UDC PO SCH (10:02)
[2019-12-19] MEDS: Thiamine (B-1) 100 MG TABLET PO SCH (10:02)
[2019-12-19] MEDS: Vitamin B Complex/Vit C/Vit E 1 EACH TABLET PO SCH (10:02)
== END 2019-12-19 11:05 | disposition home or self-care (01) | DRG 139 ==
LOC: 2ANU 01:18 → EMEROOARM 01:18 → SUATTDRO 03:50 → 2ANU 04:19 → SUATTDRO 12-14 15:11
PROVIDERS: ADMIT Family Medicine; ATTEND Family Medicine

== ENCOUNTER 2020-01-15 18:09 | Inpatient (IN) ==
[2020-01-15 19:20] LABS: Basophils # 0.1 K/mcL (0.0-0.2); Basophils % 0.4 %; Eosinophils # 0.2 K/mcL (0.0-0.6); Eosinophils % 1.8 %; Hematocrit 35.5 % (35.3-44.9); Hemoglobin 11.8 g/dL (11.5-15.4); Immature Granulocytes % 0.4 % (0-4); Lymphocytes # 1.4 K/mcL (0.6-4.6); Lymphocytes % 12.2 %; Mean Corpuscular HGB Conc 33.2 g/dL (31.6-35.5); Mean Corpuscular Hemoglobin 31.1 pg (28.0-33.3); Mean Corpuscular Volume 93.4 fL (83.0-100.0); Mean Platelet Volume 9.7 fL (9.4-12.4); Monocytes # 0.7 K/mcL (0.0-1.3); Monocytes % 5.9 %; Neutrophils # 9.2 K/mcL (1.6-8.9); Platelet Count 397 K/mcL (140-400); Red Cell Distribution Width 12.9 % (11.5-14.5); Segmented Neutrophils % 79.3 %; White Blood Count 11.6 K/mcL (4.3-11.1)
[2020-01-15 19:36] LABS: INR 1.1
[2020-01-15 19:38] LABS: Calcium 9.6 mg/dL (8.6-10.3); Potassium 3.8 mEq/L (3.5-5.1)
[2020-01-15] MEDS: 0.9 % Sodium Chloride 1,000 ML IVC SCH (21:09)
[2020-01-15] MEDS ORDERED: Naloxone 0.4 MG/ML INJ IVP PRN (21:44)
[2020-01-16] MEDS ORDERED: *HR* LORazepam 2 MG/ML VIAL IVP PRN ×3 (01:28)
[2020-01-16] MEDS: Piperacillin/Tazobactam 3.375 GM in 0.9 % Sodium Chloride Mini Bag 100 ML IVPB SCH ×3 (03:01→17:02)
[2020-01-16 05:15] LABS: Basophils # 0.1 K/mcL (0.0-0.2); Basophils % 0.6 %; Eosinophils # 0.8 K/mcL (0.0-0.6); Eosinophils % 9.1 %; Immature Granulocytes % 0.2 % (0-4); Lymphocytes # 1.7 K/mcL (0.6-4.6); Lymphocytes % 20.4 %; Mean Corpuscular HGB Conc 33.3 g/dL (31.6-35.5); Mean Corpuscular Hemoglobin 31.5 pg (28.0-33.3); Mean Corpuscular Volume 94.5 fL (83.0-100.0); Mean Platelet Volume 10.1 fL (9.4-12.4); Monocytes # 0.8 K/mcL (0.0-1.3); Monocytes % 9.1 %; Platelet Count 367 K/mcL (140-400); Red Blood Count 3.81 M/mcL (3.82-4.97); Red Cell Distribution Width 13.1 % (11.5-14.5); Segmented Neutrophils % 60.6 %; White Blood Count 8.3 K/mcL (4.3-11.1)
[2020-01-16 05:20] LABS: Amphetamine Screen,Urine Positive ng/mL (Cutoff=1000); Barbiturate Screen,Urine Negative ng/mL (Cutoff=200); Benzodiazepines Screen,Urine Positive ng/mL (Cutoff=200); Cannabinoid Screen,Urine Negative ng/mL (Cutoff = 50); Cocaine Screen,Urine Negative ng/mL (Cutoff= 300); Opiate Screen,Urine Negative ng/mL (Cutoff=300); Phencyclidine Screen,Urine Negative ng/mL (Cutoff=25)
[2020-01-16 05:34] LABS: BUN/Creatinine Ratio 16 (6-26); Blood Urea Nitrogen 17 mg/dL (6-20); Calcium 9.3 mg/dL (8.6-10.3); Carbon Dioxide 28 mEq/L (23-29); Chloride 102 mEq/L (98-107); Glucose 89 mg/dL (70-105); Osmolality,Calculated 285 (280-300); Potassium 3.9 mEq/L (3.5-5.1); Sodium 137 mEq/L (136-145); eGFR For African Americans > 60 (> 60); eGFR For Non-African Americans 55 (> 60)
[2020-01-16] MEDS: *HR* Heparin 5,000 UNIT/ML VIAL SQ SCH ×3 (06:24→21:19)
[2020-01-16] MEDS ORDERED: Isovue-370 500 ML BOTTLE IVP ONE (07:47)
[2020-01-16] MEDS ORDERED: Methadone Oral Concentrate 50 MG/5 ML UDC PO SCH (09:00)
[2020-01-16] MEDS: amLODIPine 5 MG TABLET PO SCH (09:54)
[2020-01-16] MEDS: Thiamine (B-1) 100 MG TABLET PO SCH (09:54)
[2020-01-16] MEDS: Vitamin B Complex/Vit C/Vit E 1 EACH TABLET PO SCH (09:54)
[2020-01-16] MEDS: Folic Acid 1 MG TABLET PO SCH (09:54)
[2020-01-16] MEDS: Methadone Oral Concentrate 50 MG/5 ML UDC PO SCH (09:55)
[2020-01-16] MEDS: 0.9 % Sodium Chloride 1,000 ML IVC SCH (10:00)
[2020-01-16] MEDS ORDERED: polyethylene glycoL 3350 17 GM POWD.PACK PO PRN (13:35)
[2020-01-16] MEDS ORDERED: Methyl Salicylate/Menthol 57 APPL/57 GM TUBE TP PRN (13:54)
[2020-01-16] MEDS ORDERED: *HR* HYDROcodone/Acet 5/325 mg TABLET PO ONE (18:51)
[2020-01-17] MEDS: 0.9 % Sodium Chloride 1,000 ML IVC SCH ×3 (02:22→21:46)
[2020-01-17] MEDS: Piperacillin/Tazobactam 3.375 GM in 0.9 % Sodium Chloride Mini Bag 100 ML IVPB SCH ×3 (02:23→17:02)
[2020-01-17] MEDS ORDERED: *HR* HYDROcodone/Acet 5/325 mg TABLET PO ONE (02:54)
[2020-01-17] MEDS ORDERED: Naloxone 0.4 MG/ML INJ IVP PRN ×2 (03:10→18:40)
[2020-01-17] MEDS ORDERED: Acetaminophen 325 MG TABLET PO PRN ×2 (03:10→18:40)
[2020-01-17] MEDS: *HR* Heparin 5,000 UNIT/ML VIAL SQ SCH ×3 (05:53→21:45)
[2020-01-17 05:54] LABS: Basophils # 0.1 K/mcL (0.0-0.2); Basophils % 0.8 %; Eosinophils # 0.7 K/mcL (0.0-0.6); Eosinophils % 11.6 %; Hematocrit 35.9 % (35.3-44.9); Hemoglobin 11.5 g/dL (11.5-15.4); Immature Granulocytes % 0.3 % (0-4); Lymphocytes % 30.7 %; Mean Corpuscular Hemoglobin 31.3 pg (28.0-33.3); Mean Corpuscular Volume 97.6 fL (83.0-100.0); Mean Platelet Volume 10.9 fL (9.4-12.4); Monocytes # 0.6 K/mcL (0.0-1.3); Monocytes % 10.1 %; Platelet Count 324 K/mcL (140-400); Red Blood Count 3.68 M/mcL (3.82-4.97); Red Cell Distribution Width 13.1 % (11.5-14.5); Segmented Neutrophils % 46.5 %; White Blood Count 6.4 K/mcL (4.3-11.1)
[2020-01-17 06:11] LABS: BUN/Creatinine Ratio 26 (6-26); Blood Urea Nitrogen 23 mg/dL (6-20); Calcium 9.3 mg/dL (8.6-10.3); Carbon Dioxide 28 mEq/L (23-29); Chloride 105 mEq/L (98-107); Glucose 109 mg/dL (70-105); Osmolality,Calculated 292 (280-300); Potassium 4.6 mEq/L (3.5-5.1); Sodium 139 mEq/L (136-145); eGFR For African Americans > 60 (> 60); eGFR For Non-African Americans > 60 (> 60)
[2020-01-17] MEDS ORDERED: Ketorolac 15 MG/ML VIAL IVP PRN (07:26)
[2020-01-17] MEDS ORDERED: Ketorolac 30 MG/ML VIAL IVP PRN (07:26)
[2020-01-17] MEDS: amLODIPine 5 MG TABLET PO SCH (09:22)
[2020-01-17] MEDS: Vitamin B Complex/Vit C/Vit E 1 EACH TABLET PO SCH (09:22)
[2020-01-17] MEDS: Folic Acid 1 MG TABLET PO SCH (09:23)
[2020-01-17] MEDS: Methadone Oral Concentrate 50 MG/5 ML UDC PO SCH (09:23)
[2020-01-17] MEDS: Thiamine (B-1) 100 MG TABLET PO SCH (09:23)
[2020-01-17] MEDS ORDERED: Ondansetron 4 MG/2 ML VIAL ONE (16:18)
[2020-01-17] MEDS ORDERED: *HR* Propofol 200 MG/20 ML VIAL IVP ONE (16:18)
[2020-01-17] MEDS ORDERED: *HR* Midazolam HCl 2 MG/2 ML VIAL ONE (16:18)
[2020-01-17] MEDS ORDERED: Lidocaine -MPF 2% 2 ML VIAL ONE (16:18)
[2020-01-17] MEDS ORDERED: Dexamethasone 4 MG/ML VIAL ONE (16:18)
[2020-01-17] MEDS ORDERED: *HR* FentaNYL (PF) 100 MCG/2 ML VIAL ONE (16:21)
[2020-01-17] MEDS ORDERED: *HR* Labetalol 20 MG/4 ML SYRINGE IVP PRN ×2 (16:36→18:40)
[2020-01-17] MEDS ORDERED: Ipratropium/Albuterol Neb 3 ML IH ONE (16:36)
[2020-01-17] MEDS ORDERED: *HR* Promethazine 25 MG/ML VIAL IVP PRN ×2 (16:36→18:40)
[2020-01-17] MEDS ORDERED: *HR* HYDROmorphone (PF) 1 MG/ML SYRINGE IVP PRN ×2 (16:36→18:40)
[2020-01-17] MEDS ORDERED: Ondansetron 4 MG/2 ML VIAL IVP PRN ×2 (16:36→18:40)
[2020-01-17] MEDS ORDERED: Vancomycin 1,000 MG VIAL ONE (16:41)
[2020-01-17] MEDS ORDERED: *HR* Succinylcholine 200 MG/10 ML VIAL IVP ONE (17:42)
[2020-01-17] MEDS ORDERED: *HR* LORazepam 2 MG/ML VIAL IVP PRN ×3 (18:40)
[2020-01-17] MEDS ORDERED: Methyl Salicylate/Menthol 57 APPL/57 GM TUBE TP PRN (18:40)
[2020-01-17] MEDS ORDERED: polyethylene glycoL 3350 17 GM POWD.PACK PO PRN (18:40)
[2020-01-17] MEDS: Ketorolac 30 MG/ML VIAL IVP PRN (23:40)
[2020-01-18] MEDS ORDERED: Piperacillin/Tazobactam 3.375 GM in 0.9 % Sodium Chloride Mini Bag 100 ML IVPB SCH (02:00)
[2020-01-18] MEDS: Piperacillin/Tazobactam 3.375 GM in 0.9 % Sodium Chloride Mini Bag 100 ML IVPB SCH ×3 (04:54→21:42)
[2020-01-18] MEDS: *HR* Heparin 5,000 UNIT/ML VIAL SQ SCH ×3 (04:54→21:43)
[2020-01-18] MEDS: 0.9 % Sodium Chloride 1,000 ML IVC SCH ×3 (05:24→17:54)
[2020-01-18 06:00] LABS: Acinetobacter baumannii by PCR Not Detected (Not Detect); Candida albicans by PCR Not Detected (Not Detect); Candida glabrata by PCR Not Detected (Not Detect); Candida krusei by PCR Not Detected (Not Detect); Candida parapsilosis by PCR Not Detected (Not Detect); Candida tropicalis by PCR Not Detected (Not Detect); Enterobacter cloacae Cmplx PCR Not Detected (Not Detect); Enterobacteriaceae by PCR Not Detected (Not Detect); Enterococcus by PCR Not Detected (Not Detect); Escherichia coli by PCR Not Detected (Not Detect); Klebsiella oxytoca by PCR Not Detected (Not Detect); Klebsiella pneumoniae by PCR Not Detected (Not Detect); Proteus by PCR Not Detected (Not Detect); Pseudomonas aeruginosa by PCR Not Detected (Not Detect); Serratia marcescens by PCR Not Detected (Not Detect); Staphylococcus aureus by PCR Not Detected (Not Detect); Staphylococcus by PCR Not Detected (Not Detect); Streptococcus agalactiae(B)PCR Not Detected (Not Detect); Streptococcus by PCR Not Detected (Not Detect); Streptococcus pneumoniae PCR Not Detected (Not Detect); Streptococcus pyogenes (A) PCR Not Detected (Not Detect)
[2020-01-18] MEDS ORDERED: Methadone Oral Concentrate 50 MG/5 ML UDC ONE ×2 (13:36)
[2020-01-18] MEDS ORDERED: Vitamin B Complex/Vit C/Vit E 1 EACH TABLET ONE (13:36)
[2020-01-18] MEDS ORDERED: Thiamine (B-1) 100 MG TABLET ONE (13:36)
[2020-01-18] MEDS ORDERED: Ketorolac 15 MG/ML VIAL ONE (13:36)
[2020-01-18] MEDS ORDERED: Folic Acid 1 MG TABLET ONE (13:36)
[2020-01-18] MEDS ORDERED: Piperacillin/Tazobactam 3.375 GM VIAL ONE (13:36)
[2020-01-18] MEDS ORDERED: *HR* Heparin 5,000 UNIT/ML VIAL ONE (13:36)
[2020-01-18] MEDS ORDERED: amLODIPine 5 MG TABLET ONE (13:36)
[2020-01-18] MEDS ORDERED: 0.9 % Sodium Chloride (Mini-Bag +) 100 ML IVBAG ONE (13:36)
[2020-01-18] MEDS: Folic Acid 1 MG TABLET PO SCH (17:50)
[2020-01-18] MEDS: amLODIPine 5 MG TABLET PO SCH (17:51)
[2020-01-18] MEDS: Vitamin B Complex/Vit C/Vit E 1 EACH TABLET PO SCH (17:51)
[2020-01-18] MEDS: Thiamine (B-1) 100 MG TABLET PO SCH (17:51)
[2020-01-18] MEDS: Methadone Oral Concentrate 50 MG/5 ML UDC PO SCH (17:51)
[2020-01-19] MEDS: Ketorolac 30 MG/ML VIAL IVP PRN (03:02)
[2020-01-19 04:54] LABS: Basophils # 0.1 K/mcL (0.0-0.2); Basophils % 0.7 %; Eosinophils # 0.5 K/mcL (0.0-0.6); Eosinophils % 5.1 %; Hemoglobin 11.4 g/dL (11.5-15.4); Immature Granulocytes % 0.3 % (0-4); Lymphocytes # 3.5 K/mcL (0.6-4.6); Lymphocytes % 38.9 %; Mean Corpuscular HGB Conc 32.6 g/dL (31.6-35.5); Mean Corpuscular Hemoglobin 31.7 pg (28.0-33.3); Mean Corpuscular Volume 97.2 fL (83.0-100.0); Monocytes # 0.6 K/mcL (0.0-1.3); Monocytes % 6.8 %; Neutrophils # 4.3 K/mcL (1.6-8.9); Platelet Count 380 K/mcL (140-400); Red Cell Distribution Width 13.2 % (11.5-14.5); Segmented Neutrophils % 48.2 %
[2020-01-19 05:15] LABS: BUN/Creatinine Ratio 27 (6-26); Blood Urea Nitrogen 24 mg/dL (6-20); Calcium 9.2 mg/dL (8.6-10.3); Carbon Dioxide 27 mEq/L (23-29); Chloride 104 mEq/L (98-107); Glucose 126 mg/dL (70-105); Osmolality,Calculated 294 (280-300); Potassium 3.6 mEq/L (3.5-5.1); Sodium 139 mEq/L (136-145); eGFR For African Americans > 60 (> 60); eGFR For Non-African Americans > 60 (> 60)
[2020-01-19] MEDS: 0.9 % Sodium Chloride 1,000 ML IVC SCH (05:36)
[2020-01-19] MEDS: Piperacillin/Tazobactam 3.375 GM in 0.9 % Sodium Chloride Mini Bag 100 ML IVPB SCH (05:37)
[2020-01-19] MEDS: *HR* Heparin 5,000 UNIT/ML VIAL SQ SCH ×3 (05:38→22:11)
[2020-01-19] MEDS: amLODIPine 5 MG TABLET PO SCH (09:35)
[2020-01-19] MEDS: Thiamine (B-1) 100 MG TABLET PO SCH (09:35)
[2020-01-19] MEDS: Vitamin B Complex/Vit C/Vit E 1 EACH TABLET PO SCH (09:35)
[2020-01-19] MEDS: Methadone Oral Concentrate 50 MG/5 ML UDC PO SCH (09:35)
[2020-01-19] MEDS: Folic Acid 1 MG TABLET PO SCH (09:35)
[2020-01-19] MEDS: Ketorolac 15 MG/ML VIAL IVP PRN (14:43)
[2020-01-20] MEDS: *HR* Heparin 5,000 UNIT/ML VIAL SQ SCH ×3 (05:38→21:54)
[2020-01-20] MEDS: 0.9 % Sodium Chloride 1,000 ML IVC SCH (05:39)
[2020-01-20] MEDS: amLODIPine 5 MG TABLET PO SCH (08:57)
[2020-01-20] MEDS: Folic Acid 1 MG TABLET PO SCH (08:57)
[2020-01-20] MEDS: Vitamin B Complex/Vit C/Vit E 1 EACH TABLET PO SCH (08:57)
[2020-01-20] MEDS: Thiamine (B-1) 100 MG TABLET PO SCH (08:57)
[2020-01-20] MEDS: Methadone Oral Concentrate 50 MG/5 ML UDC PO SCH (08:57)
[2020-01-20] MEDS: Ketorolac 30 MG/ML VIAL IVP PRN (21:50)
[2020-01-21 04:13] LABS: Basophils # 0.1 K/mcL (0.0-0.2); Basophils % 0.7 %; Eosinophils # 0.6 K/mcL (0.0-0.6); Eosinophils % 6.4 %; Hematocrit 38.4 % (35.3-44.9); Hemoglobin 12.1 g/dL (11.5-15.4); Immature Granulocytes % 1.4 % (0-4); Lymphocytes # 2.8 K/mcL (0.6-4.6); Lymphocytes % 29.3 %; Mean Corpuscular HGB Conc 31.5 g/dL (31.6-35.5); Mean Corpuscular Hemoglobin 30.1 pg (28.0-33.3); Mean Corpuscular Volume 95.5 fL (83.0-100.0); Mean Platelet Volume 9.8 fL (9.4-12.4); Monocytes # 0.7 K/mcL (0.0-1.3); Monocytes % 7.2 %; Neutrophils # 5.2 K/mcL (1.6-8.9); Platelet Count 444 K/mcL (140-400); Red Blood Count 4.02 M/mcL (3.82-4.97); Red Cell Distribution Width 13.2 % (11.5-14.5); White Blood Count 9.4 K/mcL (4.3-11.1)
[2020-01-21 04:24] LABS: BUN/Creatinine Ratio 35 (6-26); Blood Urea Nitrogen 29 mg/dL (6-20); Calcium 9.5 mg/dL (8.6-10.3); Carbon Dioxide 26 mEq/L (23-29); Chloride 106 mEq/L (98-107); Glucose 108 mg/dL (70-105); Osmolality,Calculated 292 (280-300); Potassium 3.8 mEq/L (3.5-5.1); Sodium 138 mEq/L (136-145); eGFR For African Americans > 60 (> 60); eGFR For Non-African Americans > 60 (> 60)
[2020-01-21] MEDS: *HR* Heparin 5,000 UNIT/ML VIAL SQ SCH ×3 (05:42→22:05)
[2020-01-21] MEDS: Ketorolac 15 MG/ML VIAL IVP PRN (05:50)
[2020-01-21] MEDS: Vitamin B Complex/Vit C/Vit E 1 EACH TABLET PO SCH (07:44)
[2020-01-21] MEDS: Thiamine (B-1) 100 MG TABLET PO SCH (07:44)
[2020-01-21] MEDS: Folic Acid 1 MG TABLET PO SCH (07:44)
[2020-01-21] MEDS: amLODIPine 5 MG TABLET PO SCH (07:44)
[2020-01-21] MEDS: Methadone Oral Concentrate 50 MG/5 ML UDC PO SCH (07:44)
[2020-01-21] MEDS: Ketorolac 30 MG/ML VIAL IVP PRN (22:09)
[2020-01-22] MEDS: Ketorolac 30 MG/ML VIAL IVP PRN (05:38)
[2020-01-22] MEDS: *HR* Heparin 5,000 UNIT/ML VIAL SQ SCH ×3 (05:40→21:00)
[2020-01-22] MEDS: Folic Acid 1 MG TABLET PO SCH (08:01)
[2020-01-22] MEDS: amLODIPine 5 MG TABLET PO SCH (08:02)
[2020-01-22] MEDS: Vitamin B Complex/Vit C/Vit E 1 EACH TABLET PO SCH (08:02)
[2020-01-22] MEDS: Thiamine (B-1) 100 MG TABLET PO SCH (08:02)
[2020-01-22] MEDS: Methadone Oral Concentrate 50 MG/5 ML UDC PO SCH (08:02)
[2020-01-22] MEDS: Ketorolac 15 MG/ML VIAL IVP PRN (16:49)
[2020-01-22] MEDS: Acetaminophen 325 MG TABLET PO PRN (21:00)
[2020-01-23] MEDS: Ketorolac 15 MG/ML VIAL IVP PRN ×2 (01:30→21:16)
[2020-01-23] MEDS: *HR* Heparin 5,000 UNIT/ML VIAL SQ SCH ×3 (05:28→21:16)
[2020-01-23] MEDS: amLODIPine 5 MG TABLET PO SCH (09:40)
[2020-01-23] MEDS: Thiamine (B-1) 100 MG TABLET PO SCH (09:40)
[2020-01-23] MEDS: Methadone Oral Concentrate 50 MG/5 ML UDC PO SCH (09:41)
[2020-01-23] MEDS: Folic Acid 1 MG TABLET PO SCH (09:41)
[2020-01-23] MEDS: Vitamin B Complex/Vit C/Vit E 1 EACH TABLET PO SCH (09:41)
[2020-01-24 03:40] LABS: BUN/Creatinine Ratio 32 (6-26); Blood Urea Nitrogen 28 mg/dL (6-20); Calcium 9.3 mg/dL (8.6-10.3); Carbon Dioxide 26 mEq/L (23-29); Chloride 107 mEq/L (98-107); Glucose 91 mg/dL (70-105); Osmolality,Calculated 289 (280-300); Potassium 4.5 mEq/L (3.5-5.1); Sodium 137 mEq/L (136-145); eGFR For African Americans > 60 (> 60); eGFR For Non-African Americans > 60 (> 60)
[2020-01-24] MEDS: *HR* Heparin 5,000 UNIT/ML VIAL SQ SCH ×3 (05:43→20:57)
[2020-01-24] MEDS: Vitamin B Complex/Vit C/Vit E 1 EACH TABLET PO SCH (08:18)
[2020-01-24] MEDS: amLODIPine 5 MG TABLET PO SCH (08:19)
[2020-01-24] MEDS: Thiamine (B-1) 100 MG TABLET PO SCH (08:19)
[2020-01-24] MEDS: Folic Acid 1 MG TABLET PO SCH (08:19)
[2020-01-24] MEDS: Methadone Oral Concentrate 50 MG/5 ML UDC PO SCH (08:19)
[2020-01-24] MEDS: Ketorolac 15 MG/ML VIAL IVP PRN (12:58)
[2020-01-24] MEDS: Gabapentin 100 MG CAPSULE PO SCH ×2 (14:41→20:57)
[2020-01-25] MEDS: Ketorolac 15 MG/ML VIAL IVP PRN ×2 (00:26→14:10)
[2020-01-25] MEDS: *HR* Heparin 5,000 UNIT/ML VIAL SQ SCH ×3 (05:59→21:42)
[2020-01-25] MEDS: Thiamine (B-1) 100 MG TABLET PO SCH (09:42)
[2020-01-25] MEDS: Gabapentin 100 MG CAPSULE PO SCH ×3 (09:42→21:42)
[2020-01-25] MEDS: Vitamin B Complex/Vit C/Vit E 1 EACH TABLET PO SCH (09:42)
[2020-01-25] MEDS: amLODIPine 5 MG TABLET PO SCH (09:43)
[2020-01-25] MEDS: Folic Acid 1 MG TABLET PO SCH (09:43)
[2020-01-25] MEDS: Methadone Oral Concentrate 50 MG/5 ML UDC PO SCH (09:44)
[2020-01-26] MEDS: Acetaminophen 325 MG TABLET PO PRN ×2 (00:55→11:14)
[2020-01-26] MEDS: Ketorolac 15 MG/ML VIAL IVP PRN ×2 (00:55→14:53)
[2020-01-26] MEDS: Gabapentin 100 MG CAPSULE PO SCH ×3 (08:48→20:27)
[2020-01-26] MEDS: Vitamin B Complex/Vit C/Vit E 1 EACH TABLET PO SCH (08:48)
[2020-01-26] MEDS: Thiamine (B-1) 100 MG TABLET PO SCH (08:49)
[2020-01-26] MEDS: Folic Acid 1 MG TABLET PO SCH (08:49)
[2020-01-26] MEDS: amLODIPine 5 MG TABLET PO SCH (08:50)
[2020-01-26] MEDS: Methadone Oral Concentrate 50 MG/5 ML UDC PO SCH (08:51)
[2020-01-26 11:40] LABS: BUN/Creatinine Ratio 48 (6-26); Blood Urea Nitrogen 39 mg/dL (6-20); eGFR For African Americans > 60 (> 60); eGFR For Non-African Americans > 60 (> 60)
[2020-01-26] MEDS: *HR* Heparin 5,000 UNIT/ML VIAL SQ SCH ×3 (11:55→20:26)
[2020-01-27] MEDS: *HR* Heparin 5,000 UNIT/ML VIAL SQ SCH ×3 (05:36→21:20)
[2020-01-27] MEDS: Ketorolac 15 MG/ML VIAL IVP PRN (07:37)
[2020-01-27] MEDS: Folic Acid 1 MG TABLET PO SCH (07:42)
[2020-01-27] MEDS: Methadone Oral Concentrate 50 MG/5 ML UDC PO SCH (07:42)
[2020-01-27] MEDS: Thiamine (B-1) 100 MG TABLET PO SCH (07:46)
[2020-01-27] MEDS: Gabapentin 100 MG CAPSULE PO SCH ×3 (07:46→21:20)
[2020-01-27] MEDS: amLODIPine 5 MG TABLET PO SCH (07:46)
[2020-01-27] MEDS: Vitamin B Complex/Vit C/Vit E 1 EACH TABLET PO SCH (07:46)
[2020-01-27] MEDS ORDERED: Lidocaine -MPF 1% 5 ML AMPUL INFILT ONE (10:31)
[2020-01-28] MEDS: Acetaminophen 325 MG TABLET PO PRN ×2 (00:19→07:35)
[2020-01-28] MEDS: *HR* Heparin 5,000 UNIT/ML VIAL SQ SCH ×2 (05:50→13:48)
[2020-01-28] MEDS: Folic Acid 1 MG TABLET PO SCH (07:36)
[2020-01-28] MEDS: Methadone Oral Concentrate 50 MG/5 ML UDC PO SCH (07:36)
[2020-01-28] MEDS: Vitamin B Complex/Vit C/Vit E 1 EACH TABLET PO SCH (07:37)
[2020-01-28] MEDS: Gabapentin 100 MG CAPSULE PO SCH ×3 (07:37→21:19)
[2020-01-28] MEDS: Thiamine (B-1) 100 MG TABLET PO SCH (07:37)
[2020-01-28] MEDS: amLODIPine 5 MG TABLET PO SCH (07:37)
[2020-01-28] MEDS: Ibuprofen 400 MG TABLET PO PRN (11:33)
[2020-01-29] MEDS: *HR* Heparin 5,000 UNIT/ML VIAL SQ SCH ×4 (00:42→21:08)
[2020-01-29] MEDS: Vitamin B Complex/Vit C/Vit E 1 EACH TABLET PO SCH (08:16)
[2020-01-29] MEDS: Thiamine (B-1) 100 MG TABLET PO SCH (08:16)
[2020-01-29] MEDS: Gabapentin 100 MG CAPSULE PO SCH ×3 (08:16→21:08)
[2020-01-29] MEDS: Folic Acid 1 MG TABLET PO SCH (08:16)
[2020-01-29] MEDS: amLODIPine 5 MG TABLET PO SCH (08:16)
[2020-01-29] MEDS: Methadone Oral Concentrate 50 MG/5 ML UDC PO SCH (08:16)
[2020-01-30] MEDS: Ibuprofen 400 MG TABLET PO PRN (05:19)
[2020-01-30] MEDS: *HR* Heparin 5,000 UNIT/ML VIAL SQ SCH ×3 (05:19→21:02)
[2020-01-30] MEDS: Gabapentin 300 MG CAPSULE PO SCH ×4 (08:23→21:02)
[2020-01-30] MEDS: Folic Acid 1 MG TABLET PO SCH (08:23)
[2020-01-30] MEDS: Methadone Oral Concentrate 50 MG/5 ML UDC PO SCH (08:23)
[2020-01-30] MEDS: Gabapentin 100 MG CAPSULE PO SCH (08:24)
[2020-01-30] MEDS: amLODIPine 5 MG TABLET PO SCH (08:25)
[2020-01-30] MEDS: Vitamin B Complex/Vit C/Vit E 1 EACH TABLET PO SCH (08:25)
[2020-01-30] MEDS: Thiamine (B-1) 100 MG TABLET PO SCH (08:25)
[2020-01-31] MEDS: *HR* Heparin 5,000 UNIT/ML VIAL SQ SCH ×2 (05:25→13:22)
[2020-01-31] MEDS: amLODIPine 5 MG TABLET PO SCH (09:17)
[2020-01-31] MEDS: Vitamin B Complex/Vit C/Vit E 1 EACH TABLET PO SCH (09:17)
[2020-01-31] MEDS: Folic Acid 1 MG TABLET PO SCH (09:17)
[2020-01-31] MEDS: Gabapentin 300 MG CAPSULE PO SCH ×2 (09:17→15:00)
[2020-01-31] MEDS: Thiamine (B-1) 100 MG TABLET PO SCH (09:17)
[2020-01-31] MEDS: Methadone Oral Concentrate 50 MG/5 ML UDC PO SCH (09:17)
[2020-01-31 10:44] VITALS: BP 118/74
[2020-01-31] MEDS ORDERED: Aminoglycoside Consult 1 EACH MC ONE (17:13)
== END 2020-01-31 17:14 | disposition home or self-care (01) | DRG 951 ==
LOC: 3ANU 18:09 → EMEROOARM 18:09 → SUATTDRO 21:16 → 3ANU 22:23 → SUATTDRO 01-17 10:23
PROVIDERS: ADMIT Internal Medicine; ATTEND Internal Medicine

== ENCOUNTER 2020-05-29 11:46 | Inpatient (IN) ==
[2020-05-29] MEDS ORDERED: 0.9 % Sodium Chloride 1,000 ML IVC ONE (11:59)
[2020-05-29] MEDS ORDERED: Ondansetron 4 MG/2 ML VIAL IVP ONE (11:59)
[2020-05-29 13:19] LABS: Red Cell Distribution Width 14.6 % (11.5-14.5)
[2020-05-29 13:21] LABS: Basophils % 1.6 %; Eosinophils % 1.6 %; Hematocrit 39.2 % (35.3-44.9); Immature Granulocytes % 1.6 % (0-4); Immature Platelets 6.9 % (1.1-6.1); Lymphocytes # 0.7 K/mcL (0.6-4.6); Mean Corpuscular HGB Conc 33.2 g/dL (31.6-35.5); Mean Corpuscular Hemoglobin 30.6 pg (28.0-33.3); Mean Corpuscular Volume 92.2 fL (83.0-100.0); Mean Platelet Volume 11.3 fL (9.4-12.4); Monocytes # 0.5 K/mcL (0.0-1.3); Monocytes % 21.4 %; Neutrophils # 1.1 K/mcL (1.6-8.9); Red Blood Count 4.25 M/mcL (3.82-4.97); Segmented Neutrophils % 44.8 %; White Blood Count 2.5 K/mcL (4.3-11.1)
[2020-05-29 13:39] LABS: Alanine Aminotransferase 53 Units/L (7-52); Albumin 4.2 g/dL (3.5-5.7); Albumin/Globulin Ratio 1.2 (1.1-2.2); Alkaline Phosphatase 113 Units/L (34-104); Aspartate Amino Transferase 135 Units/L (13-39); BUN/Creatinine Ratio 13 (6-26); Bilirubin,Total 0.3 mg/dL (0.3-1.0); Blood Urea Nitrogen 8 mg/dL (6-20); Calcium 9.2 mg/dL (8.6-10.3); Carbon Dioxide 27 mEq/L (23-29); Chloride 102 mEq/L (98-107); Globulin 3.6 g/dL (2.4-3.5); Glucose 99 mg/dL (70-105); Osmolality,Calculated 290 (280-300); Potassium 3.6 mEq/L (3.5-5.1); Sodium 141 mEq/L (136-145); Total Protein 7.8 g/dL (6.4-8.9); eGFR For African Americans > 60 (> 60); eGFR For Non-African Americans > 60 (> 60)
[2020-05-29 13:52] LABS: Platelet Count 53 K/mcL (140-400)
[2020-05-29 15:39] LABS: Bilirubin,Urine Negative (Negative); Blood,Urine Negative (Negative); Clarity,Urine Clear (Clear); Color,Urine Colorless (Yellow); Glucose,Urine (UA) Normal (Normal); Ketones,Urine Negative (Negative); Leukocyte Esterase,Urine Negative (Negative); Nitrite,Urine Negative (Negative); PH,Urine 6.5 pH Units (5.0-8.0); Protein,Urine Trace mg/dL (Neg-Trace); Specific Gravity,Urine 1.007 (1.010-1.025); Urobilinogen,Urine Normal (Normal)
[2020-05-29] MEDS ORDERED: *HR* LORazepam 2 MG/ML VIAL IVP ONE (15:52)
[2020-05-29] MEDS ORDERED: Naloxone 0.4 MG/ML INJ IVP PRN (15:54)
[2020-05-29] MEDS ORDERED: Ringers Solution, Lactated 1,000 ML IVC SCH (16:00)
[2020-05-29 16:09] LABS: Lipase 214 Units/L (11-82)
[2020-05-29] MEDS ORDERED: Ipratropium/Albuterol Neb 3 ML IH PRN (16:18)
[2020-05-29] MEDS ORDERED: *HR* Labetalol 20 MG/4 ML SYRINGE IVP PRN (16:31)
[2020-05-29] MEDS: Piperacillin/Tazobactam 3.375 GM in 0.9 % Sodium Chloride Mini Bag 100 ML IVPB SCH (18:37)
[2020-05-29] MEDS: MethylPREDNISolone 40 MG/ML VIAL IVP SCH (18:37)
[2020-05-29] MEDS: Pantoprazole 40 MG VIAL IVP SCH (18:37)
[2020-05-29] MEDS: Gabapentin 300 MG CAPSULE PO SCH (19:33)
[2020-05-29] MEDS: Ondansetron 4 MG/2 ML VIAL IVP PRN (19:36)
[2020-05-29] MEDS: *HR* OxyCODONE Immed Rel 5 MG TABLET PO PRN (19:36)
[2020-05-29] MEDS: *HR* LORazepam 2 MG/ML VIAL IVP PRN (22:08)
[2020-05-30] MEDS ORDERED: 0.9 % Sodium Chloride 1,000 ML IV SCH (00:45)
[2020-05-30] MEDS: Piperacillin/Tazobactam 3.375 GM in 0.9 % Sodium Chloride Mini Bag 100 ML IVPB SCH ×4 (00:53→23:43)
[2020-05-30] MEDS: *HR* OxyCODONE Immed Rel 5 MG TABLET PO PRN ×2 (03:43→18:00)
[2020-05-30] MEDS: *HR* LORazepam 2 MG/ML VIAL IVP PRN ×5 (03:43→23:42)
[2020-05-30] MEDS: Ondansetron 4 MG/2 ML VIAL IVP PRN (03:48)
[2020-05-30] MEDS: MethylPREDNISolone 40 MG/ML VIAL IVP SCH (05:32)
[2020-05-30] MEDS: Thiamine (B-1) 100 MG TABLET PO SCH (08:25)
[2020-05-30] MEDS: Gabapentin 300 MG CAPSULE PO SCH ×3 (08:25→21:03)
[2020-05-30] MEDS: Folic Acid 1 MG TABLET PO SCH (08:25)
[2020-05-30] MEDS: Vitamin B Complex/Vit C/Vit E 1 EACH TABLET PO SCH (08:25)
[2020-05-30] MEDS: Pantoprazole 40 MG VIAL IVP SCH (08:25)
[2020-05-30] MEDS: amLODIPine 5 MG TABLET PO SCH (08:25)
[2020-05-30] MEDS: *HR* HYDROcodone/Acet 5/325 mg TABLET PO PRN (08:43)
[2020-05-30] MEDS: *HR* Promethazine 25 MG/ML VIAL IVP PRN ×2 (08:50→21:04)
[2020-05-30 09:59] LABS: Basophils % 0.9 %; Hematocrit 40.6 % (35.3-44.9); Hemoglobin 13.6 g/dL (11.5-15.4); Immature Granulocytes % 0.9 % (0-4); Immature Platelets 7.4 % (1.1-6.1); Lymphocytes # 0.4 K/mcL (0.6-4.6); Lymphocytes % 17.6 %; Mean Corpuscular HGB Conc 33.5 g/dL (31.6-35.5); Mean Corpuscular Hemoglobin 31.3 pg (28.0-33.3); Mean Corpuscular Volume 93.3 fL (83.0-100.0); Mean Platelet Volume 11.6 fL (9.4-12.4); Monocytes # 0.2 K/mcL (0.0-1.3); Monocytes % 6.4 %; Neutrophils # 1.7 K/mcL (1.6-8.9); Red Blood Count 4.35 M/mcL (3.82-4.97); Segmented Neutrophils % 74.2 %; White Blood Count 2.3 K/mcL (4.3-11.1)
[2020-05-30 10:03] LABS: Prothrombin Time 11.3 Seconds (9.4-12.1)
[2020-05-30 10:06] LABS: Activated Partial Thrombo Time 32.6 Seconds (26.0-36.0)
[2020-05-30 10:15] LABS: Platelet Count 52 K/mcL (140-400)
[2020-05-30 10:17] LABS: Alanine Aminotransferase 58 Units/L (7-52); Albumin 4.1 g/dL (3.5-5.7); Albumin/Globulin Ratio 1.2 (1.1-2.2); Alkaline Phosphatase 116 Units/L (34-104); Aspartate Amino Transferase 155 Units/L (13-39); BUN/Creatinine Ratio 13 (6-26); Bilirubin,Total 0.6 mg/dL (0.3-1.0); Blood Urea Nitrogen 8 mg/dL (6-20); Calcium 9.2 mg/dL (8.6-10.3); Carbon Dioxide 22 mEq/L (23-29); Chloride 96 mEq/L (98-107); Globulin 3.5 g/dL (2.4-3.5); Glucose 142 mg/dL (70-105); Magnesium 1.3 mg/dL (1.6-2.6); Osmolality,Calculated 281 (280-300); Phosphorous 3.1 mg/dL (2.7-4.5); Potassium 3.7 mEq/L (3.5-5.1); Sodium 135 mEq/L (136-145); Total Protein 7.6 g/dL (6.4-8.9); eGFR For African Americans > 60 (> 60); eGFR For Non-African Americans > 60 (> 60)
[2020-05-31 01:17] LABS: Eosinophils % 0.1 %
[2020-05-31 01:19] LABS: Basophils % 0.4 %; Hematocrit 43.1 % (35.3-44.9); Hemoglobin 14.2 g/dL (11.5-15.4); Immature Granulocytes % 0.8 % (0-4); Immature Platelets 13.6 % (1.1-6.1); Lymphocytes % 14.1 %; Mean Corpuscular HGB Conc 32.9 g/dL (31.6-35.5); Mean Corpuscular Hemoglobin 30.3 pg (28.0-33.3); Mean Corpuscular Volume 91.9 fL (83.0-100.0); Mean Platelet Volume 11.2 fL (9.4-12.4); Monocytes # 0.7 K/mcL (0.0-1.3); Monocytes % 9.4 %; Neutrophils # 5.5 K/mcL (1.6-8.9); Red Blood Count 4.69 M/mcL (3.82-4.97); Red Cell Distribution Width 14.1 % (11.5-14.5); Segmented Neutrophils % 75.2 %; White Blood Count 7.3 K/mcL (4.3-11.1)
[2020-05-31 01:29] LABS: Platelet Count 55 K/mcL (140-400)
[2020-05-31 01:33] LABS: Alanine Aminotransferase 51 Units/L (7-52); Albumin 4.1 g/dL (3.5-5.7); Albumin/Globulin Ratio 1.1 (1.1-2.2); Alkaline Phosphatase 105 Units/L (34-104); Aspartate Amino Transferase 90 Units/L (13-39); BUN/Creatinine Ratio 13 (6-26); Bilirubin,Total 0.6 mg/dL (0.3-1.0); Blood Urea Nitrogen 9 mg/dL (6-20); Calcium 9.8 mg/dL (8.6-10.3); Carbon Dioxide 26 mEq/L (23-29); Chloride 98 mEq/L (98-107); Globulin 3.6 g/dL (2.4-3.5); Glucose 117 mg/dL (70-105); Osmolality,Calculated 282 (280-300); Potassium 3.5 mEq/L (3.5-5.1); Sodium 136 mEq/L (136-145); Total Protein 7.7 g/dL (6.4-8.9); eGFR For African Americans > 60 (> 60); eGFR For Non-African Americans > 60 (> 60)
[2020-05-31] MEDS: *HR* LORazepam 2 MG/ML VIAL IVP PRN ×3 (03:36→21:46)
[2020-05-31] MEDS: Folic Acid 1 MG TABLET PO SCH (08:03)
[2020-05-31] MEDS: Vitamin B Complex/Vit C/Vit E 1 EACH TABLET PO SCH (08:03)
[2020-05-31] MEDS: Thiamine (B-1) 100 MG TABLET PO SCH (08:03)
[2020-05-31] MEDS: amLODIPine 5 MG TABLET PO SCH (08:03)
[2020-05-31] MEDS: Gabapentin 300 MG CAPSULE PO SCH ×3 (08:04→21:46)
[2020-05-31] MEDS: Pantoprazole 40 MG VIAL IVP SCH (08:04)
[2020-05-31] MEDS: Piperacillin/Tazobactam 3.375 GM in 0.9 % Sodium Chloride Mini Bag 100 ML IVPB SCH ×2 (08:04→17:05)
[2020-05-31] MEDS: *HR* HYDROcodone/Acet 5/325 mg TABLET PO PRN (12:29)
[2020-05-31] MEDS: *HR* Heparin 5,000 UNIT/ML VIAL SQ SCH (17:11)
[2020-06-01] MEDS: *HR* LORazepam 2 MG/ML VIAL IVP PRN ×4 (00:28→21:53)
[2020-06-01] MEDS: Piperacillin/Tazobactam 3.375 GM in 0.9 % Sodium Chloride Mini Bag 100 ML IVPB SCH ×4 (00:29→23:23)
[2020-06-01 02:29] LABS: Hematocrit 44.6 % (35.3-44.9); Hemoglobin 15.2 g/dL (11.5-15.4); Mean Corpuscular HGB Conc 34.1 g/dL (31.6-35.5); Mean Corpuscular Hemoglobin 31.1 pg (28.0-33.3); Mean Corpuscular Volume 91.4 fL (83.0-100.0); Mean Platelet Volume 11.7 fL (9.4-12.4); Red Blood Count 4.88 M/mcL (3.82-4.97); Red Cell Distribution Width 13.8 % (11.5-14.5); White Blood Count 6.9 K/mcL (4.3-11.1)
[2020-06-01 02:30] LABS: Platelet Count 79 K/mcL (140-400)
[2020-06-01 02:44] LABS: BUN/Creatinine Ratio 21 (6-26); Blood Urea Nitrogen 15 mg/dL (6-20); Calcium 9.8 mg/dL (8.6-10.3); Carbon Dioxide 23 mEq/L (23-29); Chloride 101 mEq/L (98-107); Glucose 89 mg/dL (70-105); Osmolality,Calculated 284 (280-300); Potassium 3.8 mEq/L (3.5-5.1); Sodium 137 mEq/L (136-145); eGFR For African Americans > 60 (> 60); eGFR For Non-African Americans > 60 (> 60)
[2020-06-01] MEDS ORDERED: Haloperidol Lactate 5 MG/ML VIAL IM ONE (03:17)
[2020-06-01] MEDS ORDERED: *HR* LORazepam 2 MG/ML VIAL IVP ONE (03:27)
[2020-06-01] MEDS: *HR* Heparin 5,000 UNIT/ML VIAL SQ SCH ×2 (05:52→17:18)
[2020-06-01] MEDS: Vitamin B Complex/Vit C/Vit E 1 EACH TABLET PO SCH (09:33)
[2020-06-01] MEDS: Gabapentin 300 MG CAPSULE PO SCH ×3 (09:33→20:35)
[2020-06-01] MEDS: Pantoprazole 40 MG VIAL IVP SCH (09:33)
[2020-06-01] MEDS: Folic Acid 1 MG TABLET PO SCH (09:33)
[2020-06-01] MEDS: Thiamine (B-1) 100 MG TABLET PO SCH (09:34)
[2020-06-01] MEDS: amLODIPine 5 MG TABLET PO SCH (09:34)
[2020-06-01] MEDS: *HR* Promethazine 25 MG/ML VIAL IVP PRN (13:21)
[2020-06-01] MEDS: *HR* HYDROcodone/Acet 5/325 mg TABLET PO PRN (13:22)
[2020-06-01] MEDS ORDERED: Prochlorperazine 10 MG/2 ML VIAL IVP PRN (14:19)
[2020-06-01] MEDS: *HR* OxyCODONE Immed Rel 5 MG TABLET PO PRN (15:26)
[2020-06-02] MEDS: *HR* Heparin 5,000 UNIT/ML VIAL SQ SCH ×2 (05:28→17:17)
[2020-06-02] MEDS: *HR* HYDROcodone/Acet 5/325 mg TABLET PO PRN (05:33)
[2020-06-02] MEDS: Gabapentin 300 MG CAPSULE PO SCH ×3 (08:53→20:44)
[2020-06-02] MEDS: Vitamin B Complex/Vit C/Vit E 1 EACH TABLET PO SCH (08:53)
[2020-06-02] MEDS: amLODIPine 5 MG TABLET PO SCH (08:53)
[2020-06-02] MEDS: Thiamine (B-1) 100 MG TABLET PO SCH (08:53)
[2020-06-02] MEDS: Piperacillin/Tazobactam 3.375 GM in 0.9 % Sodium Chloride Mini Bag 100 ML IVPB SCH ×2 (08:54→16:41)
[2020-06-02] MEDS: *HR* LORazepam 2 MG/ML VIAL IVP PRN ×5 (08:54→22:29)
[2020-06-02] MEDS: Folic Acid 1 MG TABLET PO SCH (08:54)
[2020-06-02] MEDS: *HR* Promethazine 25 MG/ML VIAL IVP PRN ×2 (09:03→20:58)
[2020-06-02] MEDS ORDERED: *HR* HYDROmorphone (PF) 1 MG/ML SYRINGE IVP ONE (13:51)
[2020-06-02] MEDS ORDERED: Prochlorperazine 10 MG/2 ML VIAL IVP PRN (13:53)
[2020-06-02 17:21] LABS: Campylobacter by PCR Not detected (Not detect)
[2020-06-02 17:22] LABS: Adenovirus F 40/41 PCR Not detected (Not detect); Astrovirus PCR Not detected (Not detect); C.difficile Toxin A/B Gene PCR DETECTED (Not detect); Cryptosporidium by PCR Not detected (Not detect); Cyclospora cayetanensis PCR Not detected (Not detect); E. coli O157 by PCR Not detected (Not detect); Entamoeba histolytica PCR Not detected (Not detect); Enteroaggregative E.coli(EAEC) Not detected (Not detect); Enteropathogenic E.coli(EPEC) DETECTED (Not detect); Enterotoxigenic E.coli (ETEC) Not detected (Not detect); Giardia lamblia PCR Not detected (Not detect); Norovirus GI/GII PCR Not detected (Not detect); Plesiomonas shigelloides PCR Not detected (Not detect); Rotavirus A PCR Not detected (Not detect); Salmonella PCR Not detected (Not detect); Sapovirus PCR Not detected (Not detect); Shig/EnteroinvasiveE coli EIEC Not detected (Not detect); Shigalike tox-prod E coli STEC Not detected (Not detect); Vibrio PCR Not detected (Not detect); Vibrio cholerae PCR Not detected (Not detect); Yersinia enterocolitica PCR Not detected (Not detect)
[2020-06-02] MEDS: Vancomycin Oral Soln 125 MG/2.5 ML UDC PO SCH (20:45)
[2020-06-02] MEDS: *HR* OxyCODONE Immed Rel 5 MG TABLET PO PRN (22:31)
[2020-06-03] MEDS: *HR* HYDROcodone/Acet 5/325 mg TABLET PO PRN (02:33)
[2020-06-03] MEDS: *HR* LORazepam 2 MG/ML VIAL IVP PRN ×4 (02:33→16:56)
[2020-06-03] MEDS: *HR* Promethazine 25 MG/ML VIAL IVP PRN (03:15)
[2020-06-03 05:25] LABS: Mean Corpuscular Volume 96.3 fL (83.0-100.0)
[2020-06-03 05:27] LABS: Hematocrit 41.7 % (35.3-44.9); Hemoglobin 13.2 g/dL (11.5-15.4); Immature Platelets 9.3 % (1.1-6.1); Mean Corpuscular HGB Conc 31.7 g/dL (31.6-35.5); Mean Corpuscular Hemoglobin 30.5 pg (28.0-33.3); Mean Platelet Volume 11.1 fL (9.4-12.4); Red Blood Count 4.33 M/mcL (3.82-4.97); Red Cell Distribution Width 14.3 % (11.5-14.5); White Blood Count 7.6 K/mcL (4.3-11.1)
[2020-06-03 05:41] LABS: BUN/Creatinine Ratio 26 (6-26); Blood Urea Nitrogen 22 mg/dL (6-20); Calcium 9.4 mg/dL (8.6-10.3); Carbon Dioxide 23 mEq/L (23-29); Chloride 104 mEq/L (98-107); Glucose 109 mg/dL (70-105); Osmolality,Calculated 290 (280-300); Potassium 3.4 mEq/L (3.5-5.1); Sodium 138 mEq/L (136-145); eGFR For African Americans > 60 (> 60); eGFR For Non-African Americans > 60 (> 60)
[2020-06-03] MEDS: *HR* Heparin 5,000 UNIT/ML VIAL SQ SCH ×2 (09:00→16:57)
[2020-06-03] MEDS: Vitamin B Complex/Vit C/Vit E 1 EACH TABLET PO SCH (09:09)
[2020-06-03] MEDS: Thiamine (B-1) 100 MG TABLET PO SCH (09:09)
[2020-06-03] MEDS: Gabapentin 300 MG CAPSULE PO SCH ×3 (09:09→21:40)
[2020-06-03] MEDS: Folic Acid 1 MG TABLET PO SCH (09:09)
[2020-06-03] MEDS: Vancomycin Oral Soln 125 MG/2.5 ML UDC PO SCH ×4 (09:10→21:40)
[2020-06-03] MEDS: *HR* OxyCODONE Immed Rel 5 MG TABLET PO PRN (12:16)
[2020-06-03] MEDS ORDERED: *HR* LORazepam 2 MG/ML VIAL IM PRN ×2 (17:31)
[2020-06-03] MEDS ORDERED: Ondansetron ODT 4 MG TAB.RAPDIS SL ONE (20:46)
[2020-06-03] MEDS: *HR* LORazepam 2 MG/ML VIAL IM PRN (21:45)
[2020-06-04] MEDS: *HR* HYDROcodone/Acet 5/325 mg TABLET PO PRN (02:18)
[2020-06-04] MEDS: *HR* Heparin 5,000 UNIT/ML VIAL SQ SCH ×2 (05:50→17:21)
[2020-06-04] MEDS: *HR* LORazepam 2 MG/ML VIAL IM PRN ×2 (05:56→18:24)
[2020-06-04 07:04] LABS: Mean Platelet Volume 10.9 fL (9.4-12.4)
[2020-06-04 07:07] LABS: Basophils % 0.5 %; Eosinophils # 0.4 K/mcL (0.0-0.6); Eosinophils % 5.4 %; Hematocrit 40.9 % (35.3-44.9); Hemoglobin 13.1 g/dL (11.5-15.4); Immature Granulocytes % 1.1 % (0-4); Lymphocytes # 1.7 K/mcL (0.6-4.6); Lymphocytes % 22.8 %; Mean Corpuscular Hemoglobin 30.5 pg (28.0-33.3); Mean Corpuscular Volume 95.1 fL (83.0-100.0); Monocytes % 13.4 %; Neutrophils # 4.2 K/mcL (1.6-8.9); Platelet Count 131 K/mcL (140-400); Red Cell Distribution Width 14.4 % (11.5-14.5); Segmented Neutrophils % 56.8 %; White Blood Count 7.3 K/mcL (4.3-11.1)
[2020-06-04 07:26] LABS: Alanine Aminotransferase 48 Units/L (7-52); Albumin/Globulin Ratio 1.3 (1.1-2.2); Alkaline Phosphatase 95 Units/L (34-104); Aspartate Amino Transferase 45 Units/L (13-39); BUN/Creatinine Ratio 17 (6-26); Bilirubin,Total 0.4 mg/dL (0.3-1.0); Blood Urea Nitrogen 13 mg/dL (6-20); Calcium 9.6 mg/dL (8.6-10.3); Carbon Dioxide 24 mEq/L (23-29); Chloride 105 mEq/L (98-107); Globulin 3.2 g/dL (2.4-3.5); Glucose 103 mg/dL (70-105); Osmolality,Calculated 284 (280-300); Potassium 3.7 mEq/L (3.5-5.1); Sodium 137 mEq/L (136-145); Total Protein 7.2 g/dL (6.4-8.9); eGFR For African Americans > 60 (> 60); eGFR For Non-African Americans > 60 (> 60)
[2020-06-04] MEDS: Thiamine (B-1) 100 MG TABLET PO SCH (08:41)
[2020-06-04] MEDS: Vitamin B Complex/Vit C/Vit E 1 EACH TABLET PO SCH (08:41)
[2020-06-04] MEDS: Vancomycin Oral Soln 125 MG/2.5 ML UDC PO SCH ×4 (08:41→20:14)
[2020-06-04] MEDS: Folic Acid 1 MG TABLET PO SCH (08:41)
[2020-06-04] MEDS: Gabapentin 300 MG CAPSULE PO SCH ×3 (08:41→20:14)
[2020-06-04] MEDS: *HR* OxyCODONE Immed Rel 5 MG TABLET PO PRN (14:48)
[2020-06-04] MEDS: *HR* Promethazine 25 MG/ML VIAL IVP PRN ×2 (16:30→22:33)
[2020-06-04] MEDS ORDERED: *HR* LORazepam 2 MG/ML VIAL IVP PRN ×2 (20:17)
[2020-06-04] MEDS: *HR* LORazepam 2 MG/ML VIAL IVP PRN (22:34)
[2020-06-05] MEDS: *HR* OxyCODONE Immed Rel 5 MG TABLET PO PRN ×3 (00:20→21:56)
[2020-06-05] MEDS ORDERED: *HR* LORazepam 2 MG/ML VIAL IVP ONE ×2 (03:05→08:32)
[2020-06-05] MEDS: *HR* HYDROcodone/Acet 5/325 mg TABLET PO PRN ×2 (03:16→15:06)
[2020-06-05] MEDS: *HR* Heparin 5,000 UNIT/ML VIAL SQ SCH ×2 (05:06→16:51)
[2020-06-05] MEDS: *HR* Promethazine 25 MG/ML VIAL IVP PRN ×3 (05:07→21:47)
[2020-06-05 06:50] LABS: Basophils # 0.1 K/mcL (0.0-0.2); Eosinophils # 0.4 K/mcL (0.0-0.6); Eosinophils % 5.3 %; Hematocrit 40.8 % (35.3-44.9); Hemoglobin 13.2 g/dL (11.5-15.4); Immature Granulocytes % 1.1 % (0-4); Lymphocytes % 26.7 %; Mean Corpuscular HGB Conc 32.4 g/dL (31.6-35.5); Mean Corpuscular Hemoglobin 30.3 pg (28.0-33.3); Mean Corpuscular Volume 93.8 fL (83.0-100.0); Mean Platelet Volume 11.1 fL (9.4-12.4); Monocytes # 1.1 K/mcL (0.0-1.3); Monocytes % 14.4 %; Neutrophils # 3.8 K/mcL (1.6-8.9); Platelet Count 174 K/mcL (140-400); Red Blood Count 4.35 M/mcL (3.82-4.97); Red Cell Distribution Width 14.3 % (11.5-14.5); Segmented Neutrophils % 51.5 %; White Blood Count 7.3 K/mcL (4.3-11.1)
[2020-06-05 07:09] LABS: BUN/Creatinine Ratio 22 (6-26); Blood Urea Nitrogen 20 mg/dL (6-20); Calcium 9.6 mg/dL (8.6-10.3); Carbon Dioxide 22 mEq/L (23-29); Chloride 109 mEq/L (98-107); Glucose 118 mg/dL (70-105); Magnesium 1.6 mg/dL (1.6-2.6); Osmolality,Calculated 294 (280-300); Potassium 4.1 mEq/L (3.5-5.1); Sodium 140 mEq/L (136-145); eGFR For African Americans > 60 (> 60); eGFR For Non-African Americans > 60 (> 60)
[2020-06-05] MEDS: Thiamine (B-1) 100 MG TABLET PO SCH (08:09)
[2020-06-05] MEDS: Vitamin B Complex/Vit C/Vit E 1 EACH TABLET PO SCH (08:09)
[2020-06-05] MEDS: Gabapentin 300 MG CAPSULE PO SCH ×3 (08:10→21:47)
[2020-06-05] MEDS: Vancomycin Oral Soln 125 MG/2.5 ML UDC PO SCH ×4 (08:10→21:48)
[2020-06-05] MEDS: Folic Acid 1 MG TABLET PO SCH (08:10)
[2020-06-05] MEDS: *HR* LORazepam 2 MG/ML VIAL IVP PRN (16:55)
[2020-06-06] MEDS ORDERED: *HR* LORazepam 2 MG/ML VIAL IVP ONE (01:05)
[2020-06-06] MEDS: *HR* Heparin 5,000 UNIT/ML VIAL SQ SCH ×2 (06:38→18:02)
[2020-06-06] MEDS: *HR* Promethazine 25 MG/ML VIAL IVP PRN ×2 (10:36→16:40)
[2020-06-06] MEDS: Vancomycin Oral Soln 125 MG/2.5 ML UDC PO SCH ×4 (10:37→20:00)
[2020-06-06] MEDS: Thiamine (B-1) 100 MG TABLET PO SCH (10:37)
[2020-06-06] MEDS: Folic Acid 1 MG TABLET PO SCH (10:37)
[2020-06-06] MEDS: Vitamin B Complex/Vit C/Vit E 1 EACH TABLET PO SCH (10:37)
[2020-06-06] MEDS: Gabapentin 300 MG CAPSULE PO SCH ×3 (10:37→20:00)
[2020-06-06] MEDS: Ketorolac 30 MG/ML VIAL IVP PRN ×2 (13:21→19:59)
[2020-06-06] MEDS: *HR* LORazepam 2 MG/ML VIAL IVP PRN ×2 (16:41→22:38)
[2020-06-07] MEDS: *HR* Promethazine 25 MG/ML VIAL IVP PRN ×2 (00:28→17:23)
[2020-06-07] MEDS: Ketorolac 30 MG/ML VIAL IVP PRN ×2 (06:38→21:46)
[2020-06-07] MEDS: *HR* Heparin 5,000 UNIT/ML VIAL SQ SCH ×2 (06:39→17:26)
[2020-06-07] MEDS: Vancomycin Oral Soln 125 MG/2.5 ML UDC PO SCH ×4 (08:44→20:22)
[2020-06-07] MEDS: Thiamine (B-1) 100 MG TABLET PO SCH (08:44)
[2020-06-07] MEDS: Vitamin B Complex/Vit C/Vit E 1 EACH TABLET PO SCH (08:44)
[2020-06-07] MEDS: Ondansetron 4 MG/2 ML VIAL IVP PRN ×2 (08:44→20:21)
[2020-06-07] MEDS: Folic Acid 1 MG TABLET PO SCH (08:44)
[2020-06-07] MEDS: Gabapentin 300 MG CAPSULE PO SCH ×3 (08:44→20:22)
[2020-06-07 09:38] LABS: Basophils # 0.1 K/mcL (0.0-0.2); Basophils % 1.6 %; Eosinophils # 0.3 K/mcL (0.0-0.6); Eosinophils % 4.2 %; Hematocrit 41.5 % (35.3-44.9); Hemoglobin 12.9 g/dL (11.5-15.4); Immature Granulocytes % 1.2 % (0-4); Lymphocytes # 1.7 K/mcL (0.6-4.6); Lymphocytes % 25.4 %; Mean Corpuscular HGB Conc 31.1 g/dL (31.6-35.5); Mean Corpuscular Hemoglobin 30.2 pg (28.0-33.3); Mean Corpuscular Volume 97.2 fL (83.0-100.0); Mean Platelet Volume 11.4 fL (9.4-12.4); Monocytes # 1.2 K/mcL (0.0-1.3); Monocytes % 17.7 %; Neutrophils # 3.3 K/mcL (1.6-8.9); Platelet Count 246 K/mcL (140-400); Red Blood Count 4.27 M/mcL (3.82-4.97); Red Cell Distribution Width 14.3 % (11.5-14.5); Segmented Neutrophils % 49.9 %; White Blood Count 6.7 K/mcL (4.3-11.1)
[2020-06-07 09:57] LABS: Alanine Aminotransferase 39 Units/L (7-52); Albumin/Globulin Ratio 1.3 (1.1-2.2); Alkaline Phosphatase 94 Units/L (34-104); Aspartate Amino Transferase 30 Units/L (13-39); BUN/Creatinine Ratio 29 (6-26); Bilirubin,Total 0.3 mg/dL (0.3-1.0); Blood Urea Nitrogen 26 mg/dL (6-20); Calcium 9.3 mg/dL (8.6-10.3); Carbon Dioxide 22 mEq/L (23-29); Chloride 108 mEq/L (98-107); Globulin 3.1 g/dL (2.4-3.5); Glucose 82 mg/dL (70-105); Osmolality,Calculated 292 (280-300); Potassium 4.1 mEq/L (3.5-5.1); Sodium 139 mEq/L (136-145); Total Protein 7.1 g/dL (6.4-8.9); eGFR For African Americans > 60 (> 60); eGFR For Non-African Americans > 60 (> 60)
[2020-06-07] MEDS: *HR* LORazepam 2 MG/ML VIAL IVP PRN (13:32)
[2020-06-07] MEDS ORDERED: polyethylene glycoL 3350 17 GM POWD.PACK PO PRN (14:35)
[2020-06-08] MEDS: *HR* Heparin 5,000 UNIT/ML VIAL SQ SCH ×2 (05:22→17:03)
[2020-06-08] MEDS: Ketorolac 30 MG/ML VIAL IVP PRN ×2 (05:22→14:11)
[2020-06-08] MEDS: Thiamine (B-1) 100 MG TABLET PO SCH (08:36)
[2020-06-08] MEDS: Folic Acid 1 MG TABLET PO SCH (08:37)
[2020-06-08] MEDS: Gabapentin 300 MG CAPSULE PO SCH ×3 (08:37→21:17)
[2020-06-08] MEDS: Vancomycin Oral Soln 125 MG/2.5 ML UDC PO SCH ×4 (08:37→21:19)
[2020-06-08] MEDS: Vitamin B Complex/Vit C/Vit E 1 EACH TABLET PO SCH (08:37)
[2020-06-08] MEDS: *HR* Promethazine 25 MG/ML VIAL IVP PRN ×3 (08:44→23:04)
[2020-06-08] MEDS: Ondansetron 4 MG/2 ML VIAL IVP PRN ×2 (14:11→21:18)
[2020-06-08] MEDS: Ketorolac 15 MG/ML VIAL IVP PRN (21:17)
[2020-06-09] MEDS: Ketorolac 30 MG/ML VIAL IVP PRN ×2 (04:16→16:06)
[2020-06-09] MEDS: *HR* Heparin 5,000 UNIT/ML VIAL SQ SCH (05:40)
[2020-06-09] MEDS: Ondansetron 4 MG/2 ML VIAL IVP PRN (09:09)
[2020-06-09] MEDS: Folic Acid 1 MG TABLET PO SCH (09:10)
[2020-06-09] MEDS: Vitamin B Complex/Vit C/Vit E 1 EACH TABLET PO SCH (09:10)
[2020-06-09] MEDS: Thiamine (B-1) 100 MG TABLET PO SCH (09:10)
[2020-06-09] MEDS: Gabapentin 300 MG CAPSULE PO SCH ×2 (09:10→16:06)
[2020-06-09] MEDS: Vancomycin Oral Soln 125 MG/2.5 ML UDC PO SCH ×3 (09:11→16:06)
[2020-06-09] MEDS: Ketorolac 15 MG/ML VIAL IVP PRN (10:06)
[2020-06-09] MEDS: *HR* Promethazine 25 MG/ML VIAL IVP PRN (10:07)
[2020-06-09] MEDS ORDERED: amLODIPine 5 MG TABLET PO SCH (13:00)
[2020-06-09 16:39] VITALS: BP 150/92
== END 2020-06-09 18:20 | disposition home or self-care (01) | DRG 248 ==
LOC: 3ANU 11:46 → EMEROOARM 11:46 → SUATTDRO 17:11 → 3ANU 17:42 → SUATTDRO 06-01 20:02
PROVIDERS: ADMIT Internal Medicine; ATTEND Internal Medicine

== ENCOUNTER 2020-06-18 18:57 | Inpatient (IN) ==
[2020-06-18] MEDS ORDERED: 0.9 % Sodium Chloride 1,000 ML IVC ONE (19:44)
[2020-06-18 20:10] LABS: Basophils # 0.1 K/mcL (0.0-0.2); Eosinophils # 0.4 K/mcL (0.0-0.6); Eosinophils % 4.9 %; Hematocrit 36.9 % (35.3-44.9); Hemoglobin 11.9 g/dL (11.5-15.4); Immature Platelets 8.5 % (1.1-6.1); Lymphocytes # 2.4 K/mcL (0.6-4.6); Lymphocytes % 28.4 %; Mean Corpuscular HGB Conc 32.2 g/dL (31.6-35.5); Mean Corpuscular Hemoglobin 30.4 pg (28.0-33.3); Mean Corpuscular Volume 94.1 fL (83.0-100.0); Mean Platelet Volume 10.7 fL (9.4-12.4); Monocytes # 0.9 K/mcL (0.0-1.3); Monocytes % 10.4 %; Platelet Count 347 K/mcL (140-400); Red Blood Count 3.92 M/mcL (3.82-4.97); Red Cell Distribution Width 13.8 % (11.5-14.5); Segmented Neutrophils % 54.3 %; White Blood Count 8.4 K/mcL (4.3-11.1)
[2020-06-18 20:11] LABS: Neutrophils # 4.6 K/mcL (1.6-8.9)
[2020-06-18 20:26] LABS: Alanine Aminotransferase 73 Units/L (7-52); Albumin 3.9 g/dL (3.5-5.7); Albumin/Globulin Ratio 1.2 (1.1-2.2); Alkaline Phosphatase 174 Units/L (34-104); Aspartate Amino Transferase 55 Units/L (13-39); BUN/Creatinine Ratio 17 (6-26); Bilirubin,Total 0.2 mg/dL (0.3-1.0); Blood Urea Nitrogen 11 mg/dL (6-20); C-Reactive Protein 47 mg/L (Less than 10); Calcium 9.7 mg/dL (8.6-10.3); Carbon Dioxide 29 mEq/L (23-29); Chloride 105 mEq/L (98-107); Globulin 3.2 g/dL (2.4-3.5); Glucose 89 mg/dL (70-105); Osmolality,Calculated 293 (280-300); Potassium 3.6 mEq/L (3.5-5.1); Sodium 142 mEq/L (136-145); Total Protein 7.1 g/dL (6.4-8.9); Uric Acid 6.8 mg/dL (2.3-7.6); eGFR For African Americans > 60 (> 60); eGFR For Non-African Americans > 60 (> 60)
[2020-06-18 20:57] LABS: Activated Partial Thrombo Time 32.4 Seconds (26.0-36.0)
[2020-06-18] MEDS ORDERED: Ondansetron 4 MG/2 ML VIAL IVP PRN (21:39)
[2020-06-18] MEDS ORDERED: Naloxone 0.4 MG/ML INJ IVP PRN (21:39)
[2020-06-18] MEDS ORDERED: 0.9 % Sodium Chloride 1,000 ML IVC SCH (21:45)
[2020-06-18 21:55] LABS: Bilirubin,Urine Negative (Negative); Blood,Urine Negative (Negative); Clarity,Urine Clear (Clear); Color,Urine Colorless (Yellow); Glucose,Urine (UA) Normal (Normal); Ketones,Urine Negative (Negative); Leukocyte Esterase,Urine Negative (Negative); Nitrite,Urine Negative (Negative); Protein,Urine Negative (Neg-Trace); Specific Gravity,Urine 1.009 (1.010-1.025); Urobilinogen,Urine Normal (Normal)
[2020-06-18] MEDS: *HR* OxyCODONE Immed Rel 5 MG TABLET PO PRN (22:20)
[2020-06-19] MEDS ORDERED: *HR* LORazepam 2 MG/ML VIAL IVP PRN ×2 (00:15)
[2020-06-19] MEDS ORDERED: Ondansetron ODT 4 MG TAB.RAPDIS SL PRN (00:17)
[2020-06-19] MEDS ORDERED: polyethylene glycoL 3350 17 GM POWD.PACK PO PRN (00:17)
[2020-06-19] MEDS ORDERED: Pantoprazole 40 MG VIAL IVP ONE (00:17)
[2020-06-19] MEDS: *HR* LORazepam 2 MG/ML VIAL IVP PRN ×2 (00:38→18:18)
[2020-06-19] MEDS: Ketorolac 15 MG/ML VIAL IVP PRN ×2 (00:39→21:24)
[2020-06-19] MEDS: Piperacillin/Tazobactam 3.375 GM in 0.9 % Sodium Chloride Mini Bag 100 ML IVPB SCH ×4 (01:34→23:40)
[2020-06-19 05:31] LABS: Alanine Aminotransferase 69 Units/L (7-52); Albumin 3.2 g/dL (3.5-5.7); Albumin/Globulin Ratio 1.2 (1.1-2.2); Alkaline Phosphatase 163 Units/L (34-104); Aspartate Amino Transferase 74 Units/L (13-39); BUN/Creatinine Ratio 17 (6-26); Bilirubin,Total 0.2 mg/dL (0.3-1.0); Blood Urea Nitrogen 11 mg/dL (6-20); Calcium 8.5 mg/dL (8.6-10.3); Carbon Dioxide 27 mEq/L (23-29); Chloride 109 mEq/L (98-107); Globulin 2.7 g/dL (2.4-3.5); Glucose 93 mg/dL (70-105); Osmolality,Calculated 295 (280-300); Potassium 3.6 mEq/L (3.5-5.1); Sodium 143 mEq/L (136-145); Total Protein 5.9 g/dL (6.4-8.9); eGFR For African Americans > 60 (> 60); eGFR For Non-African Americans > 60 (> 60)
[2020-06-19 05:32] LABS: Basophils # 0.1 K/mcL (0.0-0.2); Basophils % 1.2 %; Eosinophils # 0.4 K/mcL (0.0-0.6); Eosinophils % 7.2 %; Hematocrit 33.3 % (35.3-44.9); Hemoglobin 10.5 g/dL (11.5-15.4); Immature Granulocytes % 1.4 % (0-4); Lymphocytes # 1.9 K/mcL (0.6-4.6); Lymphocytes % 32.6 %; Mean Corpuscular HGB Conc 31.5 g/dL (31.6-35.5); Mean Corpuscular Hemoglobin 30.2 pg (28.0-33.3); Mean Corpuscular Volume 95.7 fL (83.0-100.0); Mean Platelet Volume 10.4 fL (9.4-12.4); Monocytes # 0.7 K/mcL (0.0-1.3); Monocytes % 12.5 %; Neutrophils # 2.7 K/mcL (1.6-8.9); Platelet Count 339 K/mcL (140-400); Red Blood Count 3.48 M/mcL (3.82-4.97); Segmented Neutrophils % 45.1 %; White Blood Count 5.9 K/mcL (4.3-11.1)
[2020-06-19] MEDS: Gabapentin 300 MG CAPSULE PO SCH ×3 (09:36→21:15)
[2020-06-19] MEDS: Thiamine (B-1) 100 MG TABLET PO SCH (09:36)
[2020-06-19] MEDS: amLODIPine 5 MG TABLET PO SCH (09:36)
[2020-06-19] MEDS: Vancomycin Oral Soln 125 MG/2.5 ML UDC PO SCH ×2 (09:37→13:36)
[2020-06-19] MEDS: *HR* OxyCODONE Immed Rel 5 MG TABLET PO PRN ×2 (09:43→16:51)
[2020-06-19] MEDS: Vancomycin 1,500 MG/265 ML IV.SOLN IVPB SCH ×2 (11:28→21:15)
[2020-06-19] MEDS: *HR* Promethazine 25 MG/ML VIAL IVP PRN (16:51)
[2020-06-19] MEDS: *HR* Heparin 5,000 UNIT/ML VIAL SQ SCH (18:16)
[2020-06-20] MEDS: *HR* OxyCODONE Immed Rel 5 MG TABLET PO PRN ×3 (00:24→18:07)
[2020-06-20 03:22] LABS: Hematocrit 34.7 % (35.3-44.9); Hemoglobin 10.9 g/dL (11.5-15.4); Mean Corpuscular HGB Conc 31.4 g/dL (31.6-35.5); Mean Corpuscular Hemoglobin 30.3 pg (28.0-33.3); Mean Corpuscular Volume 96.4 fL (83.0-100.0); Mean Platelet Volume 10.4 fL (9.4-12.4); Platelet Count 349 K/mcL (140-400); Red Cell Distribution Width 13.7 % (11.5-14.5); White Blood Count 6.5 K/mcL (4.3-11.1)
[2020-06-20 03:39] LABS: BUN/Creatinine Ratio 14 (6-26); Blood Urea Nitrogen 11 mg/dL (6-20); Calcium 8.8 mg/dL (8.6-10.3); Carbon Dioxide 29 mEq/L (23-29); Chloride 106 mEq/L (98-107); Glucose 92 mg/dL (70-105); Osmolality,Calculated 291 (280-300); Potassium 3.7 mEq/L (3.5-5.1); Sodium 141 mEq/L (136-145); eGFR For African Americans > 60 (> 60); eGFR For Non-African Americans > 60 (> 60)
[2020-06-20] MEDS: *HR* Heparin 5,000 UNIT/ML VIAL SQ SCH ×2 (06:25→18:07)
[2020-06-20] MEDS: Gabapentin 300 MG CAPSULE PO SCH ×4 (09:36→20:41)
[2020-06-20] MEDS: Thiamine (B-1) 100 MG TABLET PO SCH (09:36)
[2020-06-20] MEDS: amLODIPine 5 MG TABLET PO SCH (09:36)
[2020-06-20] MEDS: Piperacillin/Tazobactam 3.375 GM in 0.9 % Sodium Chloride Mini Bag 100 ML IVPB SCH ×3 (09:37→23:51)
[2020-06-20] MEDS: *HR* Promethazine 25 MG/ML VIAL IVP PRN (09:46)
[2020-06-20] MEDS ORDERED: Vancomycin 1,250 MG/262.5 ML IV.SOLN IVPB SCH (11:00)
[2020-06-20] MEDS ORDERED: *HR* Propofol 200 MG/20 ML VIAL IVP ONE (11:54)
[2020-06-20] MEDS ORDERED: *HR* Midazolam HCl 2 MG/2 ML VIAL ONE (11:54)
[2020-06-20] MEDS ORDERED: *HR* FentaNYL (PF) 100 MCG/2 ML VIAL ONE (11:54)
[2020-06-20] MEDS ORDERED: Dexamethasone 4 MG/ML VIAL ONE (11:55)
[2020-06-20] MEDS ORDERED: Lidocaine -MPF 2% 2 ML VIAL ONE (11:55)
[2020-06-20] MEDS ORDERED: Ondansetron 4 MG/2 ML VIAL ONE (11:55)
[2020-06-20] MEDS ORDERED: *HR* Labetalol 20 MG/4 ML SYRINGE IVP PRN ×2 (12:22→15:00)
[2020-06-20] MEDS ORDERED: *HR* HYDROmorphone PF 0.5 MG/0.5 ML SYRINGE IVP PRN ×2 (12:22→15:00)
[2020-06-20] MEDS ORDERED: *HR* Promethazine 25 MG/ML VIAL IVP PRN ×3 (12:22→15:00)
[2020-06-20] MEDS ORDERED: Ondansetron 4 MG/2 ML VIAL IVP ONE ×2 (12:22→15:00)
[2020-06-20] MEDS ORDERED: *HR* OxyCODONE Immed Rel 5 MG TABLET PO PRN ×2 (12:22→15:00)
[2020-06-20] MEDS ORDERED: Famotidine 20 MG/2 ML VIAL ONE (12:28)
[2020-06-20] MEDS ORDERED: ROPIVACAINE/PF/NS 0.25% 1 EACH SYRINGE INTRAART ONE (12:30)
[2020-06-20] MEDS ORDERED: Vancomycin 1,000 MG VIAL ONE (13:06)
[2020-06-20] MEDS ORDERED: Ondansetron ODT 4 MG TAB.RAPDIS SL PRN (15:00)
[2020-06-20] MEDS ORDERED: Naloxone 0.4 MG/ML INJ IVP PRN (15:00)
[2020-06-20] MEDS ORDERED: *HR* LORazepam 2 MG/ML VIAL IVP PRN (15:00)
[2020-06-20] MEDS ORDERED: polyethylene glycoL 3350 17 GM POWD.PACK PO PRN (15:00)
[2020-06-20] MEDS: Ketorolac 15 MG/ML VIAL IVP PRN (19:43)
[2020-06-20] MEDS: *HR* LORazepam 2 MG/ML VIAL IVP PRN (19:43)
[2020-06-20] MEDS: Ondansetron 4 MG/2 ML VIAL IVP PRN (19:43)
[2020-06-20] MEDS: Vancomycin 1,500 MG/265 ML IV.SOLN IVPB SCH (20:04)
[2020-06-20] MEDS: Vancomycin 1,250 MG/262.5 ML IV.SOLN IVPB SCH (23:52)
[2020-06-21] MEDS: Ketorolac 15 MG/ML VIAL IVP PRN (04:05)
[2020-06-21] MEDS: *HR* OxyCODONE Immed Rel 5 MG TABLET PO PRN ×3 (05:10→21:09)
[2020-06-21] MEDS: *HR* Heparin 5,000 UNIT/ML VIAL SQ SCH ×2 (05:11→17:37)
[2020-06-21 06:44] LABS: Hematocrit 36.5 % (35.3-44.9); Hemoglobin 11.7 g/dL (11.5-15.4); Mean Corpuscular HGB Conc 32.1 g/dL (31.6-35.5); Mean Corpuscular Hemoglobin 30.2 pg (28.0-33.3); Mean Corpuscular Volume 94.3 fL (83.0-100.0); Platelet Count 324 K/mcL (140-400); Red Blood Count 3.87 M/mcL (3.82-4.97); Red Cell Distribution Width 13.2 % (11.5-14.5)
[2020-06-21 07:01] LABS: BUN/Creatinine Ratio 19 (6-26); Blood Urea Nitrogen 16 mg/dL (6-20); Calcium 9.4 mg/dL (8.6-10.3); Carbon Dioxide 28 mEq/L (23-29); Chloride 103 mEq/L (98-107); Glucose 155 mg/dL (70-105); Osmolality,Calculated 292 (280-300); Potassium 3.8 mEq/L (3.5-5.1); Sodium 139 mEq/L (136-145); eGFR For African Americans > 60 (> 60); eGFR For Non-African Americans > 60 (> 60)
[2020-06-21] MEDS: Gabapentin 300 MG CAPSULE PO SCH ×3 (08:44→20:53)
[2020-06-21] MEDS: Piperacillin/Tazobactam 3.375 GM in 0.9 % Sodium Chloride Mini Bag 100 ML IVPB SCH ×2 (08:44→15:08)
[2020-06-21] MEDS: Thiamine (B-1) 100 MG TABLET PO SCH (08:45)
[2020-06-21] MEDS: amLODIPine 5 MG TABLET PO SCH (08:45)
[2020-06-21] MEDS: Vancomycin 1,250 MG/262.5 ML IV.SOLN IVPB SCH ×2 (11:06→23:30)
[2020-06-21] MEDS: *HR* LORazepam 2 MG/ML VIAL IVP PRN ×3 (11:12→22:16)
[2020-06-21] MEDS ORDERED: Perflutren Lipid Microsphere 1.3 ML in 0.9 % Sodium Chloride 8.7 ML IVP PRN (13:33)
[2020-06-21] MEDS: Ondansetron 4 MG/2 ML VIAL IVP PRN (16:52)
[2020-06-21] MEDS: Vancomycin 1,500 MG/265 ML IV.SOLN IVPB SCH (23:19)
[2020-06-22] MEDS: Ketorolac 15 MG/ML VIAL IVP PRN ×2 (00:01→09:40)
[2020-06-22] MEDS: Piperacillin/Tazobactam 3.375 GM in 0.9 % Sodium Chloride Mini Bag 100 ML IVPB SCH ×2 (00:06→09:41)
[2020-06-22] MEDS: *HR* OxyCODONE Immed Rel 5 MG TABLET PO PRN ×3 (03:11→22:17)
[2020-06-22 04:54] LABS: Hematocrit 33.6 % (35.3-44.9); Hemoglobin 10.7 g/dL (11.5-15.4); Mean Corpuscular HGB Conc 31.8 g/dL (31.6-35.5); Mean Corpuscular Hemoglobin 31.1 pg (28.0-33.3); Mean Corpuscular Volume 97.7 fL (83.0-100.0); Mean Platelet Volume 10.5 fL (9.4-12.4); Platelet Count 257 K/mcL (140-400); Red Blood Count 3.44 M/mcL (3.82-4.97); White Blood Count 12.2 K/mcL (4.3-11.1)
[2020-06-22 05:14] LABS: BUN/Creatinine Ratio 21 (6-26); Blood Urea Nitrogen 18 mg/dL (6-20); Calcium 9.4 mg/dL (8.6-10.3); Carbon Dioxide 30 mEq/L (23-29); Chloride 104 mEq/L (98-107); Glucose 114 mg/dL (70-105); Osmolality,Calculated 295 (280-300); Potassium 3.6 mEq/L (3.5-5.1); Sodium 141 mEq/L (136-145); eGFR For African Americans > 60 (> 60); eGFR For Non-African Americans > 60 (> 60)
[2020-06-22] MEDS: *HR* Heparin 5,000 UNIT/ML VIAL SQ SCH ×2 (05:44→17:06)
[2020-06-22] MEDS: *HR* LORazepam 2 MG/ML VIAL IVP PRN ×4 (09:40→20:57)
[2020-06-22] MEDS: Thiamine (B-1) 100 MG TABLET PO SCH (09:42)
[2020-06-22] MEDS: Gabapentin 300 MG CAPSULE PO SCH ×3 (09:42→20:51)
[2020-06-22] MEDS: amLODIPine 5 MG TABLET PO SCH (09:42)
[2020-06-22] MEDS: Vancomycin 1,500 MG/265 ML IV.SOLN IVPB SCH ×2 (10:55→23:35)
[2020-06-22] MEDS: metroNIDAZOLE 500 MG TABLET PO SCH ×2 (14:46→20:52)
[2020-06-23] MEDS: Ketorolac 15 MG/ML VIAL IVP PRN ×2 (04:09→23:11)
[2020-06-23] MEDS: *HR* OxyCODONE Immed Rel 5 MG TABLET PO PRN ×3 (05:41→19:14)
[2020-06-23] MEDS: *HR* Heparin 5,000 UNIT/ML VIAL SQ SCH ×2 (05:41→18:34)
[2020-06-23 10:51] LABS: Hematocrit 36.7 % (35.3-44.9); Hemoglobin 11.5 g/dL (11.5-15.4); Mean Corpuscular HGB Conc 31.3 g/dL (31.6-35.5); Mean Corpuscular Volume 95.8 fL (83.0-100.0); Mean Platelet Volume 10.6 fL (9.4-12.4); Platelet Count 322 K/mcL (140-400); Red Blood Count 3.83 M/mcL (3.82-4.97); Red Cell Distribution Width 14.1 % (11.5-14.5); White Blood Count 10.4 K/mcL (4.3-11.1)
[2020-06-23] MEDS: metroNIDAZOLE 500 MG TABLET PO SCH ×3 (10:51→21:07)
[2020-06-23] MEDS: amLODIPine 5 MG TABLET PO SCH (10:51)
[2020-06-23] MEDS: Thiamine (B-1) 100 MG TABLET PO SCH (10:51)
[2020-06-23] MEDS: Gabapentin 300 MG CAPSULE PO SCH ×3 (10:52→21:07)
[2020-06-23 10:53] LABS: BUN/Creatinine Ratio 27 (6-26); Blood Urea Nitrogen 21 mg/dL (6-20); Calcium 9.6 mg/dL (8.6-10.3); Carbon Dioxide 32 mEq/L (23-29); Chloride 102 mEq/L (98-107); Glucose 103 mg/dL (70-105); Osmolality,Calculated 295 (280-300); Potassium 3.6 mEq/L (3.5-5.1); Sodium 141 mEq/L (136-145); Vancomycin,Trough 15 mcg/mL (5-10); eGFR For African Americans > 60 (> 60); eGFR For Non-African Americans > 60 (> 60)
[2020-06-23] MEDS: *HR* LORazepam 2 MG/ML VIAL IVP PRN (11:02)
[2020-06-23] MEDS: Vancomycin 1,500 MG/265 ML IV.SOLN IVPB SCH ×2 (12:38→23:08)
[2020-06-24] MEDS: *HR* OxyCODONE Immed Rel 5 MG TABLET PO PRN ×4 (02:57→22:17)
[2020-06-24] MEDS: *HR* Heparin 5,000 UNIT/ML VIAL SQ SCH ×2 (05:48→17:21)
[2020-06-24 06:06] LABS: Hematocrit 35.8 % (35.3-44.9); Hemoglobin 11.4 g/dL (11.5-15.4); Mean Corpuscular HGB Conc 31.8 g/dL (31.6-35.5); Mean Corpuscular Hemoglobin 29.9 pg (28.0-33.3); Mean Platelet Volume 10.6 fL (9.4-12.4); Platelet Count 311 K/mcL (140-400); Red Blood Count 3.81 M/mcL (3.82-4.97); Red Cell Distribution Width 14.1 % (11.5-14.5); White Blood Count 10.6 K/mcL (4.3-11.1)
[2020-06-24 06:24] LABS: BUN/Creatinine Ratio 31 (6-26); Blood Urea Nitrogen 24 mg/dL (6-20); Calcium 9.2 mg/dL (8.6-10.3); Carbon Dioxide 29 mEq/L (23-29); Chloride 103 mEq/L (98-107); Glucose 141 mg/dL (70-105); Osmolality,Calculated 296 (280-300); Potassium 3.6 mEq/L (3.5-5.1); Sodium 140 mEq/L (136-145); eGFR For African Americans > 60 (> 60); eGFR For Non-African Americans > 60 (> 60)
[2020-06-24] MEDS: Gabapentin 300 MG CAPSULE PO SCH ×3 (08:48→20:28)
[2020-06-24] MEDS: Thiamine (B-1) 100 MG TABLET PO SCH (08:48)
[2020-06-24] MEDS: metroNIDAZOLE 500 MG TABLET PO SCH ×3 (08:48→20:28)
[2020-06-24] MEDS: amLODIPine 5 MG TABLET PO SCH (08:48)
[2020-06-24] MEDS: Vancomycin 1,500 MG/265 ML IV.SOLN IVPB SCH ×2 (11:45→22:18)
[2020-06-24] MEDS ORDERED: Lidocaine -MPF 1% 5 ML AMPUL INFILT ONE (12:43)
[2020-06-24] MEDS: Ketorolac 15 MG/ML VIAL IVP PRN (12:51)
[2020-06-24] MEDS: Lactobacillus 1 EACH CAP.SPRINK PO SCH (20:28)
[2020-06-25] MEDS: *HR* OxyCODONE Immed Rel 5 MG TABLET PO PRN ×2 (04:32→10:37)
[2020-06-25] MEDS: *HR* Heparin 5,000 UNIT/ML VIAL SQ SCH (05:24)
[2020-06-25] MEDS: amLODIPine 5 MG TABLET PO SCH (09:06)
[2020-06-25] MEDS: metroNIDAZOLE 500 MG TABLET PO SCH ×2 (09:06→14:26)
[2020-06-25] MEDS: Lactobacillus 1 EACH CAP.SPRINK PO SCH (09:06)
[2020-06-25] MEDS: Thiamine (B-1) 100 MG TABLET PO SCH (09:06)
[2020-06-25] MEDS: Gabapentin 300 MG CAPSULE PO SCH ×2 (09:07→14:26)
[2020-06-25 10:42] VITALS: BP 109/78
[2020-06-25] MEDS: Vancomycin 1,500 MG/265 ML IV.SOLN IVPB SCH (11:57)
[2020-06-25] MEDS: Ketorolac 15 MG/ML VIAL IVP PRN (12:19)
== END 2020-06-25 16:03 | DRG 361 ==
LOC: EMEROOARM 18:57 → 3NENU 18:57 → SUATTDRO 22:00 → 3NENU 23:21
PROVIDERS: ADMIT Student in an Organized Health Care Education/Training Program; ATTEND Internal Medicine

== ENCOUNTER 2020-07-01 15:19 | Inpatient (IN) ==
[2020-07-01 17:33] LABS: Basophils # 0.1 K/mcL (0.0-0.2); Basophils % 0.9 %; Eosinophils # 0.4 K/mcL (0.0-0.6); Hematocrit 38.8 % (35.3-44.9); Hemoglobin 12.4 g/dL (11.5-15.4); Immature Granulocytes % 0.7 % (0-4); Lymphocytes # 2.4 K/mcL (0.6-4.6); Lymphocytes % 19.9 %; Mean Corpuscular Hemoglobin 30.8 pg (28.0-33.3); Mean Corpuscular Volume 96.3 fL (83.0-100.0); Mean Platelet Volume 10.8 fL (9.4-12.4); Monocytes # 1.3 K/mcL (0.0-1.3); Monocytes % 10.9 %; Neutrophils # 7.9 K/mcL (1.6-8.9); Platelet Count 293 K/mcL (140-400); Red Blood Count 4.03 M/mcL (3.82-4.97); Red Cell Distribution Width 14.5 % (11.5-14.5); Segmented Neutrophils % 64.6 %; White Blood Count 12.1 K/mcL (4.3-11.1)
[2020-07-01] MEDS ORDERED: Ondansetron 4 MG/2 ML VIAL IVP STA ×2 (17:41→18:37)
[2020-07-01 17:54] LABS: Albumin 4.2 g/dL (3.5-5.7); Albumin/Globulin Ratio 1.4 (1.1-2.2); Bilirubin,Total 0.4 mg/dL (0.3-1.0); Calcium 10.1 mg/dL (8.6-10.3); Potassium 4.2 mEq/L (3.5-5.1); Total Protein 7.2 g/dL (6.4-8.9)
[2020-07-01 18:28] LABS: Bilirubin,Urine Negative (Negative); Blood,Urine Small (Negative); Clarity,Urine Clear (Clear); Color,Urine Light-Yellow (Yellow); Glucose,Urine (UA) Normal (Normal); Hyaline Casts,Urine Few per lpf (None Seen); Ketones,Urine Negative (Negative); Leukocyte Esterase,Urine Moderate (Negative); Nitrite,Urine Negative (Negative); PH,Urine 5.5 pH Units (5.0-8.0); Protein,Urine Negative (Neg-Trace); Specific Gravity,Urine 1.013 (1.010-1.025); Squamous Epithelial Cell,Urine Few per hpf (None-Few); Urobilinogen,Urine Normal (Normal)
[2020-07-01] MEDS ORDERED: 0.9 % Sodium Chloride 1,000 ML IVC ONE (18:36)
[2020-07-01] MEDS ORDERED: Morphine Sulfate 2 MG/ML SYRINGE IVP ONE (18:37)
[2020-07-01 21:12] LABS: Adenovirus Not Detected (Not Detect); Bordetella Pertussis Not Detected (Not Detect); Chlamydophila pneumoniae Not Detected (Not Detect); Coronavirus 229E Not Detected (Not Detect); Coronavirus HKU1 Not Detected (Not Detect); Coronavirus NL63 Not Detected (Not Detect); Coronavirus OC43 Not Detected (Not Detect); Human Metapneumovirus Not Detected (Not Detect); Human Rhinovirus/Enterovirus Not Detected (Not Detect); Influenza A Subtype 2009 H1 Not Detected (Not Detect); Influenza B Not Detected (Not Detect); Mycoplasma pneumoniae Not Detected (Not Detect); Parainfluenza Virus 1 Not Detected (Not Detect); Parainfluenza Virus 2 Not Detected (Not Detect); Parainfluenza Virus 3 Not Detected (Not Detect); Parainfluenza Virus 4 Not Detected (Not Detect); Respiratory Syncytial Virus Not Detected (Not Detect)
[2020-07-01 21:14] LABS: SARS-CoV-2 Not Detected (Not Detect)
[2020-07-01] MEDS ORDERED: Naloxone 0.4 MG/ML INJ IVP PRN (23:08)
[2020-07-01] MEDS ORDERED: Ondansetron ODT 4 MG TAB.RAPDIS SL PRN (23:08)
[2020-07-01] MEDS: 0.9 % Sodium Chloride 1,000 ML IVC SCH (23:10)
[2020-07-01] MEDS ORDERED: VANCOMYCIN 1500 MG IVPB SCH (23:15)
[2020-07-01] MEDS ORDERED: metroNIDAZOLE 500 MG TABLET PO SCH (23:15)
[2020-07-01] MEDS ORDERED: Nicotine 2 MG GUM BC PRN (23:23)
[2020-07-01] MEDS ORDERED: cefTRIAXone 1,000 MG in 0.9 % Sodium Chloride Mini Bag 100 ML IVPB SCH (23:45)
[2020-07-02] MEDS ORDERED: Vancomycin 1,500 MG/265 ML IV.SOLN IVPB ONE (00:01)
[2020-07-02 01:55] LABS: Basophils # 0.1 K/mcL (0.0-0.2); Basophils % 0.6 %; Eosinophils # 0.3 K/mcL (0.0-0.6); Eosinophils % 2.7 %; Hematocrit 38.5 % (35.3-44.9); Hemoglobin 12.3 g/dL (11.5-15.4); Immature Granulocytes % 0.6 % (0-4); Lymphocytes # 2.6 K/mcL (0.6-4.6); Lymphocytes % 20.8 %; Mean Corpuscular HGB Conc 31.9 g/dL (31.6-35.5); Mean Corpuscular Hemoglobin 30.6 pg (28.0-33.3); Mean Corpuscular Volume 95.8 fL (83.0-100.0); Mean Platelet Volume 11.2 fL (9.4-12.4); Monocytes # 0.9 K/mcL (0.0-1.3); Monocytes % 7.3 %; Neutrophils # 8.4 K/mcL (1.6-8.9); Platelet Count 300 K/mcL (140-400); Red Blood Count 4.02 M/mcL (3.82-4.97); Red Cell Distribution Width 14.4 % (11.5-14.5); White Blood Count 12.3 K/mcL (4.3-11.1)
[2020-07-02 02:16] LABS: Calcium 9.3 mg/dL (8.6-10.3); Magnesium 1.6 mg/dL (1.6-2.6)
[2020-07-02] MEDS: *HR* Heparin 5,000 UNIT/ML VIAL SQ SCH ×2 (04:56→16:50)
[2020-07-02] MEDS ORDERED: 0.9 % Sodium Chloride 1,000 ML IVC ONE (08:24)
[2020-07-02 08:50] LABS: Protein/Creatinine Ratio,Urine 0.14 mg/mg (0.00-0.20)
[2020-07-02] MEDS: Nicotine 14 MG PATCH.TD24 TD SCH (09:11)
[2020-07-02] MEDS: amLODIPine 5 MG TABLET PO SCH (09:11)
[2020-07-02] MEDS: Lactobacillus 1 EACH CAP.SPRINK PO SCH (09:11)
[2020-07-02] MEDS ORDERED: *HR* LORazepam 2 MG/ML VIAL IVP PRN (10:06)
[2020-07-02] MEDS ORDERED: *HR* Promethazine 25 MG/ML VIAL IVP PRN (10:08)
[2020-07-02] MEDS: Gabapentin 300 MG CAPSULE PO SCH ×3 (10:45→22:21)
[2020-07-02] MEDS ORDERED: Ketorolac 30 MG/ML VIAL IVP PRN (15:02)
[2020-07-02 15:08] LABS: Lipase 89 Units/L (11-82)
[2020-07-02] MEDS: Ondansetron 4 MG/2 ML VIAL IVP SCH ×3 (15:37→22:22)
[2020-07-02] MEDS: *HR* LORazepam 2 MG/ML VIAL IVP PRN ×2 (15:38→22:19)
[2020-07-02] MEDS: 0.9 % Sodium Chloride 1,000 ML IVC SCH ×2 (16:48→18:37)
[2020-07-02] MEDS: *HR* Promethazine 25 MG/ML VIAL IVP PRN ×2 (16:51→22:20)
[2020-07-02 18:41] LABS: C-Reactive Protein 65 mg/L (Less than 10)
[2020-07-03] MEDS ORDERED: Vancomycin 1,250 MG/262.5 ML IV.SOLN IVPB SCH (00:01)
[2020-07-03] MEDS: *HR* LORazepam 2 MG/ML VIAL IVP PRN ×4 (00:58→21:38)
[2020-07-03] MEDS: Ondansetron 4 MG/2 ML VIAL IVP SCH ×5 (03:46→21:37)
[2020-07-03] MEDS: 0.9 % Sodium Chloride 1,000 ML IVC SCH ×2 (05:22→17:26)
[2020-07-03] MEDS: *HR* Heparin 5,000 UNIT/ML VIAL SQ SCH ×2 (05:26→17:26)
[2020-07-03 07:29] LABS: Basophils # 0.1 K/mcL (0.0-0.2); Basophils % 0.7 %; Eosinophils # 0.4 K/mcL (0.0-0.6); Eosinophils % 4.8 %; Hematocrit 32.9 % (35.3-44.9); Immature Granulocytes % 0.4 % (0-4); Lymphocytes # 2.2 K/mcL (0.6-4.6); Mean Corpuscular HGB Conc 31.9 g/dL (31.6-35.5); Mean Corpuscular Hemoglobin 30.4 pg (28.0-33.3); Mean Corpuscular Volume 95.4 fL (83.0-100.0); Mean Platelet Volume 11.2 fL (9.4-12.4); Monocytes # 0.8 K/mcL (0.0-1.3); Neutrophils # 5.6 K/mcL (1.6-8.9); Platelet Count 298 K/mcL (140-400); Red Blood Count 3.45 M/mcL (3.82-4.97); Red Cell Distribution Width 14.5 % (11.5-14.5); Segmented Neutrophils % 61.1 %; White Blood Count 9.1 K/mcL (4.3-11.1)
[2020-07-03 07:41] LABS: Hemoglobin 10.5 g/dL (11.5-15.4)
[2020-07-03 07:45] LABS: Calcium 9.6 mg/dL (8.6-10.3); Potassium 3.7 mEq/L (3.5-5.1)
[2020-07-03] MEDS: Lactobacillus 1 EACH CAP.SPRINK PO SCH (08:17)
[2020-07-03] MEDS: Gabapentin 300 MG CAPSULE PO SCH ×3 (08:17→17:44)
[2020-07-03] MEDS: Nicotine 14 MG PATCH.TD24 TD SCH (08:22)
[2020-07-03] MEDS: amLODIPine 5 MG TABLET PO SCH (10:23)
[2020-07-03] MEDS: Vancomycin 1,250 MG/262.5 ML IV.SOLN IVPB SCH (12:30)
[2020-07-03] MEDS: *HR* Promethazine 25 MG/ML VIAL IVP PRN (14:51)
[2020-07-04] MEDS: Ondansetron 4 MG/2 ML VIAL IVP SCH ×7 (01:03→23:50)
[2020-07-04] MEDS: *HR* Promethazine 25 MG/ML VIAL IVP PRN ×2 (01:48→21:20)
[2020-07-04] MEDS: 0.9 % Sodium Chloride 1,000 ML IVC SCH ×3 (03:58→23:47)
[2020-07-04 06:25] LABS: Basophils # 0.1 K/mcL (0.0-0.2); Basophils % 0.6 %; Eosinophils # 0.5 K/mcL (0.0-0.6); Eosinophils % 4.6 %; Hematocrit 32.7 % (35.3-44.9); Hemoglobin 10.6 g/dL (11.5-15.4); Immature Granulocytes % 0.5 % (0-4); Lymphocytes # 1.9 K/mcL (0.6-4.6); Lymphocytes % 18.8 %; Mean Corpuscular HGB Conc 32.4 g/dL (31.6-35.5); Mean Corpuscular Hemoglobin 31.3 pg (28.0-33.3); Mean Corpuscular Volume 96.5 fL (83.0-100.0); Mean Platelet Volume 10.8 fL (9.4-12.4); Monocytes % 9.9 %; Neutrophils # 6.7 K/mcL (1.6-8.9); Platelet Count 326 K/mcL (140-400); Red Blood Count 3.39 M/mcL (3.82-4.97); Red Cell Distribution Width 14.3 % (11.5-14.5); Segmented Neutrophils % 65.6 %; White Blood Count 10.2 K/mcL (4.3-11.1)
[2020-07-04] MEDS: *HR* Heparin 5,000 UNIT/ML VIAL SQ SCH ×2 (06:31→18:46)
[2020-07-04 06:44] LABS: Calcium 9.5 mg/dL (8.6-10.3)
[2020-07-04] MEDS: Vancomycin 1,250 MG/262.5 ML IV.SOLN IVPB SCH (10:01)
[2020-07-04] MEDS: Nicotine 14 MG PATCH.TD24 TD SCH (10:01)
[2020-07-04] MEDS: Lactobacillus 1 EACH CAP.SPRINK PO SCH (10:02)
[2020-07-04] MEDS: Gabapentin 300 MG CAPSULE PO SCH ×3 (10:02→21:18)
[2020-07-04] MEDS: amLODIPine 5 MG TABLET PO SCH (10:02)
[2020-07-04] MEDS: *HR* LORazepam 2 MG/ML VIAL IVP PRN (10:03)
[2020-07-04] MEDS ORDERED: *HR* HYDROmorphone (PF) 1 MG/ML SYRINGE IVP ONE (12:14)
[2020-07-04] MEDS ORDERED: *HR* HYDROmorphone PF 0.5 MG/0.5 ML SYRINGE IVP ONE (13:39)
[2020-07-04] MEDS ORDERED: Prochlorperazine 10 MG/2 ML VIAL IVP PRN (23:43)
[2020-07-05] MEDS: Ondansetron 4 MG/2 ML VIAL IVP SCH ×6 (03:08→23:25)
[2020-07-05] MEDS: *HR* Heparin 5,000 UNIT/ML VIAL SQ SCH ×2 (05:35→16:37)
[2020-07-05 06:03] LABS: Basophils % 0.3 %; Eosinophils # 0.4 K/mcL (0.0-0.6); Eosinophils % 3.1 %; Hematocrit 31.9 % (35.3-44.9); Hemoglobin 10.3 g/dL (11.5-15.4); Immature Granulocytes % 0.3 % (0-4); Lymphocytes # 2.2 K/mcL (0.6-4.6); Lymphocytes % 18.7 %; Mean Corpuscular HGB Conc 32.3 g/dL (31.6-35.5); Mean Corpuscular Hemoglobin 31.1 pg (28.0-33.3); Mean Corpuscular Volume 96.4 fL (83.0-100.0); Mean Platelet Volume 10.7 fL (9.4-12.4); Monocytes % 9.1 %; Neutrophils # 7.9 K/mcL (1.6-8.9); Platelet Count 339 K/mcL (140-400); Red Blood Count 3.31 M/mcL (3.82-4.97); Red Cell Distribution Width 13.9 % (11.5-14.5); Segmented Neutrophils % 68.5 %; White Blood Count 11.5 K/mcL (4.3-11.1)
[2020-07-05 06:40] LABS: BUN/Creatinine Ratio 8 (6-26); Blood Urea Nitrogen 8 mg/dL (6-20); Calcium 6.5 mg/dL (8.6-10.3); Carbon Dioxide 19 mEq/L (23-29); Chloride 119 mEq/L (98-107); Glucose 109 mg/dL (70-105); Osmolality,Calculated 301 (280-300); Potassium 2.4 mEq/L (3.5-5.1); Sodium 146 mEq/L (136-145); eGFR For African Americans > 60 (> 60); eGFR For Non-African Americans > 60 (> 60)
[2020-07-05] MEDS ORDERED: Potassium Chloride 40 MEQ, Lidocaine 1% 2 ML in 0.9 % Sodium Chloride 500 ML IVPB ONE ×2 (06:46→15:47)
[2020-07-05 08:25] LABS: Bilirubin,Urine Negative (Negative); Blood,Urine Negative (Negative); Clarity,Urine Clear (Clear); Color,Urine Colorless (Yellow); Glucose,Urine (UA) Normal (Normal); Ketones,Urine Negative (Negative); Leukocyte Esterase,Urine Negative (Negative); Nitrite,Urine Negative (Negative); Protein,Urine Negative (Neg-Trace); Specific Gravity,Urine 1.007 (1.010-1.025); Urobilinogen,Urine Normal (Normal)
[2020-07-05 08:33] LABS: BUN/Creatinine Ratio 8 (6-26); Blood Urea Nitrogen 8 mg/dL (6-20); Carbon Dioxide 22 mEq/L (23-29); Chloride 117 mEq/L (98-107); Glucose 74 mg/dL (70-105); Osmolality,Calculated 297 (280-300); Potassium 2.8 mEq/L (3.5-5.1); Sodium 145 mEq/L (136-145); eGFR For African Americans > 60 (> 60); eGFR For Non-African Americans > 60 (> 60)
[2020-07-05 09:17] LABS: Amphetamine Screen,Urine Negative ng/mL (Cutoff=1000); Barbiturate Screen,Urine Negative ng/mL (Cutoff=200); Benzodiazepines Screen,Urine Positive ng/mL (Cutoff=200); Cannabinoid Screen,Urine Negative ng/mL (Cutoff = 50); Cocaine Screen,Urine Negative ng/mL (Cutoff= 300); Opiate Screen,Urine Negative ng/mL (Cutoff=300); Phencyclidine Screen,Urine Negative ng/mL (Cutoff=25)
[2020-07-05] MEDS: 0.9 % Sodium Chloride 1,000 ML IVC SCH ×2 (10:06→15:25)
[2020-07-05] MEDS: amLODIPine 5 MG TABLET PO SCH (10:07)
[2020-07-05] MEDS: Gabapentin 300 MG CAPSULE PO SCH ×3 (10:07→19:53)
[2020-07-05] MEDS: Nicotine 14 MG PATCH.TD24 TD SCH (10:07)
[2020-07-05] MEDS: Lactobacillus 1 EACH CAP.SPRINK PO SCH (10:07)
[2020-07-05] MEDS: Vancomycin 1,250 MG/262.5 ML IV.SOLN IVPB SCH (12:54)
[2020-07-05] MEDS: Vancomycin 1,500 MG/265 ML IV.SOLN IVPB SCH (15:24)
[2020-07-05 16:22] LABS: VBG Ionized Calcium 1.06 mmol/L (1.15-1.35)
[2020-07-05] MEDS: Acetaminophen 325 MG TABLET PO PRN (19:53)
[2020-07-06] MEDS: Acetaminophen 325 MG TABLET PO PRN (03:12)
[2020-07-06] MEDS: Ondansetron 4 MG/2 ML VIAL IVP SCH ×4 (03:12→14:39)
[2020-07-06] MEDS: *HR* Heparin 5,000 UNIT/ML VIAL SQ SCH ×2 (05:29→17:44)
[2020-07-06 05:49] LABS: Hematocrit 32.9 % (35.3-44.9); Hemoglobin 10.6 g/dL (11.5-15.4); Mean Corpuscular HGB Conc 32.2 g/dL (31.6-35.5); Mean Corpuscular Hemoglobin 30.9 pg (28.0-33.3); Mean Corpuscular Volume 95.9 fL (83.0-100.0); Mean Platelet Volume 10.5 fL (9.4-12.4); Platelet Count 343 K/mcL (140-400); Red Blood Count 3.43 M/mcL (3.82-4.97); Red Cell Distribution Width 14.1 % (11.5-14.5); White Blood Count 10.4 K/mcL (4.3-11.1)
[2020-07-06 06:11] LABS: Albumin 3.4 g/dL (3.5-5.7); Albumin/Globulin Ratio 1.1 (1.1-2.2); Bilirubin,Total 0.3 mg/dL (0.3-1.0); Calcium 9.4 mg/dL (8.6-10.3); Magnesium 2.2 mg/dL (1.6-2.6); Phosphorous 5.1 mg/dL (2.7-4.5); Potassium 3.7 mEq/L (3.5-5.1); Total Protein 6.4 g/dL (6.4-8.9)
[2020-07-06] MEDS ORDERED: 0.9 % Sodium Chloride 1,000 ML IVC ONE (07:59)
[2020-07-06] MEDS: *HR* LORazepam 2 MG/ML VIAL IVP PRN ×2 (08:37→22:11)
[2020-07-06] MEDS: Nicotine 14 MG PATCH.TD24 TD SCH (08:40)
[2020-07-06] MEDS: Lactobacillus 1 EACH CAP.SPRINK PO SCH (08:41)
[2020-07-06] MEDS: Gabapentin 300 MG CAPSULE PO SCH ×3 (08:41→22:12)
[2020-07-06] MEDS: amLODIPine 5 MG TABLET PO SCH (08:41)
[2020-07-06] MEDS: 0.9 % Sodium Chloride 1,000 ML IVC SCH ×2 (09:30→22:12)
[2020-07-06] MEDS: Vancomycin 1,500 MG/265 ML IV.SOLN IVPB SCH (11:12)
[2020-07-06] MEDS ORDERED: *HR* LORazepam 2 MG/ML VIAL IVP ONE (11:37)
[2020-07-07] MEDS: Ondansetron 4 MG/2 ML VIAL IVP PRN ×2 (01:41→02:20)
[2020-07-07] MEDS: *HR* LORazepam 2 MG/ML VIAL IVP PRN ×2 (02:19→07:56)
[2020-07-07] MEDS ORDERED: *HR* Promethazine 25 MG/ML VIAL IVP PRN (04:00)
[2020-07-07] MEDS: *HR* Heparin 5,000 UNIT/ML VIAL SQ SCH ×2 (05:15→17:57)
[2020-07-07 05:41] LABS: Hematocrit 32.4 % (35.3-44.9); Hemoglobin 10.4 g/dL (11.5-15.4); Mean Corpuscular HGB Conc 32.1 g/dL (31.6-35.5); Mean Corpuscular Hemoglobin 30.9 pg (28.0-33.3); Mean Corpuscular Volume 96.1 fL (83.0-100.0); Mean Platelet Volume 10.5 fL (9.4-12.4); Platelet Count 353 K/mcL (140-400); Red Blood Count 3.37 M/mcL (3.82-4.97); Red Cell Distribution Width 13.9 % (11.5-14.5); White Blood Count 10.6 K/mcL (4.3-11.1)
[2020-07-07 06:19] LABS: Albumin 3.4 g/dL (3.5-5.7); Albumin/Globulin Ratio 1.1 (1.1-2.2); Bilirubin,Total 0.2 mg/dL (0.3-1.0); Calcium 9.2 mg/dL (8.6-10.3); Magnesium 1.6 mg/dL (1.6-2.6); Phosphorous 4.7 mg/dL (2.7-4.5); Potassium 4.1 mEq/L (3.5-5.1); Total Protein 6.4 g/dL (6.4-8.9)
[2020-07-07] MEDS: Lactobacillus 1 EACH CAP.SPRINK PO SCH (08:03)
[2020-07-07] MEDS: Gabapentin 300 MG CAPSULE PO SCH ×3 (08:03→20:59)
[2020-07-07] MEDS: amLODIPine 5 MG TABLET PO SCH (08:04)
[2020-07-07] MEDS: Nicotine 14 MG PATCH.TD24 TD SCH (08:04)
[2020-07-07] MEDS: haloperidoL 1 MG TABLET PO PRN (10:41)
[2020-07-07] MEDS: Sucralfate 1 GM TABLET PO SCH ×4 (12:53→20:59)
[2020-07-07] MEDS: Vancomycin 1,750 MG/517.5 ML IV.SOLN IVPB SCH (12:54)
[2020-07-07] MEDS: 0.9 % Sodium Chloride 1,000 ML IVC SCH (18:00)
[2020-07-07] MEDS: *HR* OxyCODONE/APAP 5/325 TABLET PO PRN (20:59)
[2020-07-08 00:59] LABS: Hematocrit 32.4 % (35.3-44.9); Hemoglobin 10.3 g/dL (11.5-15.4); Mean Corpuscular HGB Conc 31.8 g/dL (31.6-35.5); Mean Corpuscular Hemoglobin 30.5 pg (28.0-33.3); Mean Corpuscular Volume 95.9 fL (83.0-100.0); Mean Platelet Volume 10.7 fL (9.4-12.4); Platelet Count 350 K/mcL (140-400); Red Blood Count 3.38 M/mcL (3.82-4.97); Red Cell Distribution Width 13.8 % (11.5-14.5); White Blood Count 8.2 K/mcL (4.3-11.1)
[2020-07-08 01:04] LABS: Albumin 3.3 g/dL (3.5-5.7); Albumin/Globulin Ratio 1.1 (1.1-2.2); Bilirubin,Total 0.2 mg/dL (0.3-1.0); Magnesium 1.5 mg/dL (1.6-2.6); Phosphorous 4.4 mg/dL (2.7-4.5); Potassium 3.4 mEq/L (3.5-5.1); Total Protein 6.3 g/dL (6.4-8.9)
[2020-07-08] MEDS: 0.9 % Sodium Chloride 1,000 ML IVC SCH (04:29)
[2020-07-08] MEDS: *HR* Heparin 5,000 UNIT/ML VIAL SQ SCH ×2 (04:30→17:53)
[2020-07-08] MEDS ORDERED: Magnesium Sulfate 1 GM/102 ML PIGGYBACK IVPB ONE (08:11)
[2020-07-08] MEDS: amLODIPine 5 MG TABLET PO SCH (10:36)
[2020-07-08] MEDS: Lactobacillus 1 EACH CAP.SPRINK PO SCH (10:36)
[2020-07-08] MEDS: Gabapentin 300 MG CAPSULE PO SCH ×3 (10:37→22:00)
[2020-07-08] MEDS: Nicotine 14 MG PATCH.TD24 TD SCH (10:37)
[2020-07-08] MEDS: Sucralfate 1 GM TABLET PO SCH ×4 (10:37→22:00)
[2020-07-08] MEDS: Vancomycin 1,750 MG/517.5 ML IV.SOLN IVPB SCH (11:31)
[2020-07-08] MEDS ORDERED: *HR* Propofol 200 MG/20 ML VIAL IVP ONE (13:19)
[2020-07-08] MEDS ORDERED: Lidocaine -MPF 2% 2 ML VIAL ONE (13:19)
[2020-07-08] MEDS: *HR* OxyCODONE/APAP 5/325 TABLET PO PRN (16:27)
[2020-07-08] MEDS: Ondansetron 4 MG/2 ML VIAL IVP PRN (16:30)
[2020-07-09] MEDS: *HR* OxyCODONE/APAP 5/325 TABLET PO PRN ×3 (00:30→18:35)
[2020-07-09] MEDS: *HR* Heparin 5,000 UNIT/ML VIAL SQ SCH ×2 (05:12→17:25)
[2020-07-09] MEDS: Nicotine 14 MG PATCH.TD24 TD SCH (07:16)
[2020-07-09] MEDS: Sucralfate 1 GM TABLET PO SCH ×4 (07:16→20:53)
[2020-07-09] MEDS: amLODIPine 5 MG TABLET PO SCH (07:16)
[2020-07-09] MEDS: Gabapentin 300 MG CAPSULE PO SCH ×3 (07:16→20:53)
[2020-07-09] MEDS: Lactobacillus 1 EACH CAP.SPRINK PO SCH (07:16)
[2020-07-09 09:13] LABS: Calcium 9.3 mg/dL (8.6-10.3); Magnesium 1.7 mg/dL (1.6-2.6); Phosphorous 4.4 mg/dL (2.7-4.5); Potassium 3.9 mEq/L (3.5-5.1)
[2020-07-09] MEDS: Vancomycin 1,750 MG/517.5 ML IV.SOLN IVPB SCH (12:29)
[2020-07-10] MEDS: *HR* Heparin 5,000 UNIT/ML VIAL SQ SCH ×2 (05:41→17:27)
[2020-07-10] MEDS: *HR* OxyCODONE/APAP 5/325 TABLET PO PRN ×3 (05:49→22:21)
[2020-07-10] MEDS: Nicotine 14 MG PATCH.TD24 TD SCH (09:55)
[2020-07-10] MEDS: amLODIPine 5 MG TABLET PO SCH (09:56)
[2020-07-10] MEDS: Lactobacillus 1 EACH CAP.SPRINK PO SCH (09:56)
[2020-07-10] MEDS: Sucralfate 1 GM TABLET PO SCH ×4 (09:56→21:49)
[2020-07-10] MEDS: Gabapentin 300 MG CAPSULE PO SCH ×3 (09:56→21:17)
[2020-07-10] MEDS: Vancomycin 1,750 MG/517.5 ML IV.SOLN IVPB SCH (13:09)
[2020-07-10] MEDS ORDERED: Ringers Solution, Lactated 500 ML IVC SCH (16:15)
[2020-07-11] MEDS: Acetaminophen 325 MG TABLET PO PRN (02:29)
[2020-07-11 05:27] LABS: Magnesium 1.7 mg/dL (1.6-2.6); Phosphorous 5.9 mg/dL (2.7-4.5)
[2020-07-11] MEDS: *HR* OxyCODONE/APAP 5/325 TABLET PO PRN ×2 (06:23→15:13)
[2020-07-11] MEDS: *HR* Heparin 5,000 UNIT/ML VIAL SQ SCH ×2 (06:24→17:08)
[2020-07-11] MEDS ORDERED: Ringers Solution, Lactated 1,000 ML IVC SCH (07:45)
[2020-07-11] MEDS: Lactobacillus 1 EACH CAP.SPRINK PO SCH (09:23)
[2020-07-11] MEDS: amLODIPine 5 MG TABLET PO SCH (09:23)
[2020-07-11] MEDS: Sucralfate 1 GM TABLET PO SCH ×4 (09:23→21:42)
[2020-07-11] MEDS: Nicotine 14 MG PATCH.TD24 TD SCH (09:23)
[2020-07-11] MEDS: Gabapentin 300 MG CAPSULE PO SCH ×3 (09:23→20:18)
[2020-07-11] MEDS ORDERED: Methyl Salicylate/Menthol 57 APPL/57 GM TUBE TP PRN (11:25)
[2020-07-11] MEDS: Vancomycin 1,750 MG/517.5 ML IV.SOLN IVPB SCH (12:48)
[2020-07-11] MEDS: Ringers Solution, Lactated 1,000 ML IVC SCH (14:06)
[2020-07-12] MEDS: Ringers Solution, Lactated 1,000 ML IVC SCH ×2 (00:02→10:18)
[2020-07-12] MEDS: *HR* OxyCODONE/APAP 5/325 TABLET PO PRN ×3 (01:00→18:03)
[2020-07-12 04:12] LABS: Calcium 9.1 mg/dL (8.6-10.3); Magnesium 1.7 mg/dL (1.6-2.6); Phosphorous 5.4 mg/dL (2.7-4.5); Potassium 4.2 mEq/L (3.5-5.1)
[2020-07-12] MEDS: *HR* Heparin 5,000 UNIT/ML VIAL SQ SCH ×2 (05:39→17:16)
[2020-07-12] MEDS: Sucralfate 1 GM TABLET PO SCH ×4 (08:06→22:47)
[2020-07-12] MEDS: Gabapentin 300 MG CAPSULE PO SCH ×3 (08:06→20:21)
[2020-07-12] MEDS: Lactobacillus 1 EACH CAP.SPRINK PO SCH (08:06)
[2020-07-12] MEDS: Nicotine 14 MG PATCH.TD24 TD SCH (08:06)
[2020-07-12] MEDS: amLODIPine 5 MG TABLET PO SCH (08:08)
[2020-07-12] MEDS ORDERED: Vancomycin 1,500 MG/265 ML IV.SOLN IVPB SCH (13:00)
[2020-07-12] MEDS: Vancomycin 1,750 MG/517.5 ML IV.SOLN IVPB SCH (14:11)
[2020-07-13] MEDS: *HR* OxyCODONE/APAP 5/325 TABLET PO PRN ×3 (02:16→19:32)
[2020-07-13 04:21] LABS: Basophils % 0.6 %; Eosinophils # 0.7 K/mcL (0.0-0.6); Eosinophils % 9.8 %; Hematocrit 31.5 % (35.3-44.9); Hemoglobin 10.2 g/dL (11.5-15.4); Immature Granulocytes % 0.6 % (0-4); Lymphocytes # 2.1 K/mcL (0.6-4.6); Lymphocytes % 29.2 %; Mean Corpuscular HGB Conc 32.4 g/dL (31.6-35.5); Mean Corpuscular Hemoglobin 30.9 pg (28.0-33.3); Mean Corpuscular Volume 95.5 fL (83.0-100.0); Mean Platelet Volume 10.4 fL (9.4-12.4); Monocytes # 0.7 K/mcL (0.0-1.3); Neutrophils # 3.7 K/mcL (1.6-8.9); Platelet Count 364 K/mcL (140-400); Red Cell Distribution Width 13.7 % (11.5-14.5); Segmented Neutrophils % 50.8 %; White Blood Count 7.3 K/mcL (4.3-11.1)
[2020-07-13 04:41] LABS: Calcium 9.4 mg/dL (8.6-10.3); Magnesium 1.6 mg/dL (1.6-2.6); Phosphorous 4.7 mg/dL (2.7-4.5); Potassium 3.9 mEq/L (3.5-5.1)
[2020-07-13] MEDS: *HR* Heparin 5,000 UNIT/ML VIAL SQ SCH ×2 (05:45→16:24)
[2020-07-13] MEDS: Lactobacillus 1 EACH CAP.SPRINK PO SCH (07:25)
[2020-07-13] MEDS: Sucralfate 1 GM TABLET PO SCH ×4 (07:25→21:21)
[2020-07-13] MEDS: Gabapentin 300 MG CAPSULE PO SCH ×3 (07:25→21:21)
[2020-07-13] MEDS: Nicotine 14 MG PATCH.TD24 TD SCH (07:25)
[2020-07-13] MEDS: amLODIPine 5 MG TABLET PO SCH (07:25)
[2020-07-13] MEDS: Ondansetron 4 MG/2 ML VIAL IVP PRN (11:27)
[2020-07-13] MEDS: Vancomycin 1,750 MG/517.5 ML IV.SOLN IVPB SCH (14:27)
[2020-07-14] MEDS: *HR* OxyCODONE/APAP 5/325 TABLET PO PRN ×2 (03:36→14:38)
[2020-07-14 04:32] LABS: Calcium 9.7 mg/dL (8.6-10.3); Magnesium 1.7 mg/dL (1.6-2.6); Phosphorous 5.1 mg/dL (2.7-4.5); Potassium 4.3 mEq/L (3.5-5.1)
[2020-07-14] MEDS: *HR* Heparin 5,000 UNIT/ML VIAL SQ SCH ×3 (06:04→17:49)
[2020-07-14] MEDS: Gabapentin 300 MG CAPSULE PO SCH ×3 (08:20→21:23)
[2020-07-14] MEDS: Nicotine 14 MG PATCH.TD24 TD SCH (08:20)
[2020-07-14] MEDS: Lactobacillus 1 EACH CAP.SPRINK PO SCH (08:20)
[2020-07-14] MEDS: Sucralfate 1 GM TABLET PO SCH ×4 (08:20→21:23)
[2020-07-14] MEDS: amLODIPine 5 MG TABLET PO SCH (08:20)
[2020-07-14] MEDS: Vancomycin 1,750 MG/517.5 ML IV.SOLN IVPB SCH (14:39)
[2020-07-15] MEDS: *HR* OxyCODONE/APAP 5/325 TABLET PO PRN ×3 (00:25→18:41)
[2020-07-15 04:48] LABS: Calcium 9.2 mg/dL (8.6-10.3); Magnesium 1.5 mg/dL (1.6-2.6); Phosphorous 4.1 mg/dL (2.7-4.5); Potassium 3.8 mEq/L (3.5-5.1)
[2020-07-15] MEDS: *HR* Heparin 5,000 UNIT/ML VIAL SQ SCH ×2 (05:44→17:31)
[2020-07-15] MEDS: Lactobacillus 1 EACH CAP.SPRINK PO SCH (08:08)
[2020-07-15] MEDS: Nicotine 14 MG PATCH.TD24 TD SCH (08:08)
[2020-07-15] MEDS: amLODIPine 5 MG TABLET PO SCH (08:08)
[2020-07-15] MEDS: Sucralfate 1 GM TABLET PO SCH ×4 (08:08→21:04)
[2020-07-15] MEDS: Gabapentin 300 MG CAPSULE PO SCH ×3 (08:09→21:04)
[2020-07-15] MEDS: Acetaminophen 325 MG TABLET PO PRN (09:52)
[2020-07-15] MEDS: Vancomycin 1,750 MG/517.5 ML IV.SOLN IVPB SCH (15:48)
[2020-07-16] MEDS: *HR* OxyCODONE/APAP 5/325 TABLET PO PRN ×3 (03:19→19:56)
[2020-07-16] MEDS: *HR* Heparin 5,000 UNIT/ML VIAL SQ SCH ×2 (05:54→17:10)
[2020-07-16] MEDS: Gabapentin 300 MG CAPSULE PO SCH ×3 (09:12→19:57)
[2020-07-16] MEDS: Lactobacillus 1 EACH CAP.SPRINK PO SCH (09:12)
[2020-07-16] MEDS: Nicotine 14 MG PATCH.TD24 TD SCH (09:12)
[2020-07-16] MEDS: amLODIPine 5 MG TABLET PO SCH (09:13)
[2020-07-16] MEDS: Sucralfate 1 GM TABLET PO SCH ×4 (09:13→19:56)
[2020-07-16] MEDS: Vancomycin 1,750 MG/517.5 ML IV.SOLN IVPB SCH (13:54)
[2020-07-17] MEDS: *HR* OxyCODONE/APAP 5/325 TABLET PO PRN ×3 (04:16→22:44)
[2020-07-17] MEDS: *HR* Heparin 5,000 UNIT/ML VIAL SQ SCH ×2 (05:08→17:40)
[2020-07-17 05:57] LABS: Hemoglobin 11.4 g/dL (11.5-15.4); Mean Corpuscular HGB Conc 31.7 g/dL (31.6-35.5); Mean Corpuscular Hemoglobin 29.8 pg (28.0-33.3); Mean Platelet Volume 10.1 fL (9.4-12.4); Platelet Count 392 K/mcL (140-400); Red Blood Count 3.83 M/mcL (3.82-4.97); Red Cell Distribution Width 14.3 % (11.5-14.5); White Blood Count 6.9 K/mcL (4.3-11.1)
[2020-07-17 06:02] LABS: Calcium 9.6 mg/dL (8.6-10.3)
[2020-07-17] MEDS: Gabapentin 300 MG CAPSULE PO SCH ×3 (08:40→20:13)
[2020-07-17] MEDS: Lactobacillus 1 EACH CAP.SPRINK PO SCH (08:40)
[2020-07-17] MEDS: Sucralfate 1 GM TABLET PO SCH ×4 (08:40→21:56)
[2020-07-17] MEDS: amLODIPine 5 MG TABLET PO SCH (08:41)
[2020-07-17] MEDS: Nicotine 14 MG PATCH.TD24 TD SCH (08:41)
[2020-07-17] MEDS: Vancomycin 1,750 MG/517.5 ML IV.SOLN IVPB SCH (15:18)
[2020-07-18] MEDS: *HR* Heparin 5,000 UNIT/ML VIAL SQ SCH ×2 (06:11→17:32)
[2020-07-18] MEDS: *HR* OxyCODONE/APAP 5/325 TABLET PO PRN ×2 (06:51→16:20)
[2020-07-18] MEDS: amLODIPine 5 MG TABLET PO SCH (07:59)
[2020-07-18] MEDS: Lactobacillus 1 EACH CAP.SPRINK PO SCH (08:05)
[2020-07-18] MEDS: Gabapentin 300 MG CAPSULE PO SCH ×3 (08:05→21:01)
[2020-07-18] MEDS: Sucralfate 1 GM TABLET PO SCH ×4 (08:05→21:01)
[2020-07-18] MEDS: Nicotine 14 MG PATCH.TD24 TD SCH (08:06)
[2020-07-18] MEDS: Ondansetron 4 MG/2 ML VIAL IVP PRN (11:06)
[2020-07-18] MEDS: haloperidoL 1 MG TABLET PO PRN (13:51)
[2020-07-18] MEDS: Vancomycin 1,750 MG/517.5 ML IV.SOLN IVPB SCH (13:51)
[2020-07-18] MEDS: *HR* Promethazine 25 MG/ML VIAL IVP PRN ×2 (17:32→23:13)
[2020-07-19] MEDS: *HR* OxyCODONE/APAP 5/325 TABLET PO PRN ×2 (04:41→14:22)
[2020-07-19] MEDS: *HR* Heparin 5,000 UNIT/ML VIAL SQ SCH ×2 (06:08→18:22)
[2020-07-19] MEDS: *HR* Promethazine 25 MG/ML VIAL IVP PRN ×2 (07:12→22:50)
[2020-07-19] MEDS: amLODIPine 5 MG TABLET PO SCH (07:44)
[2020-07-19] MEDS: Sucralfate 1 GM TABLET PO SCH ×4 (08:08→21:37)
[2020-07-19] MEDS: Nicotine 14 MG PATCH.TD24 TD SCH (08:09)
[2020-07-19] MEDS: Gabapentin 300 MG CAPSULE PO SCH ×3 (08:09→21:37)
[2020-07-19] MEDS: Lactobacillus 1 EACH CAP.SPRINK PO SCH (08:09)
[2020-07-19] MEDS: Vancomycin 1,750 MG/517.5 ML IV.SOLN IVPB SCH (14:21)
[2020-07-19 20:52] LABS: Calcium 9.5 mg/dL (8.6-10.3); Potassium 4.5 mEq/L (3.5-5.1)
[2020-07-20] MEDS: *HR* OxyCODONE/APAP 5/325 TABLET PO PRN ×3 (00:21→22:59)
[2020-07-20 05:58] LABS: Basophils # 0.1 K/mcL (0.0-0.2); Basophils % 1.1 %; Eosinophils # 0.6 K/mcL (0.0-0.6); Hematocrit 32.9 % (35.3-44.9); Hemoglobin 10.2 g/dL (11.5-15.4); Immature Granulocytes % 1.7 % (0-4); Lymphocytes # 1.8 K/mcL (0.6-4.6); Mean Corpuscular Volume 96.8 fL (83.0-100.0); Mean Platelet Volume 10.2 fL (9.4-12.4); Monocytes # 0.8 K/mcL (0.0-1.3); Monocytes % 11.3 %; Neutrophils # 3.6 K/mcL (1.6-8.9); Nucleated Red Blood Cells 0.3 /100 WBC (0); Platelet Count 318 K/mcL (140-400); Red Cell Distribution Width 14.3 % (11.5-14.5); Segmented Neutrophils % 51.9 %
[2020-07-20 06:17] LABS: BUN/Creatinine Ratio 22 (6-26); Blood Urea Nitrogen 25 mg/dL (6-20); Calcium 9.3 mg/dL (8.6-10.3); Carbon Dioxide 25 mEq/L (23-29); Chloride 106 mEq/L (98-107); Glucose 142 mg/dL (70-105); Osmolality,Calculated 295 (280-300); Potassium 3.9 mEq/L (3.5-5.1); Sodium 139 mEq/L (136-145); eGFR For African Americans > 60 (> 60); eGFR For Non-African Americans 51 (> 60)
[2020-07-20] MEDS: *HR* Heparin 5,000 UNIT/ML VIAL SQ SCH ×2 (06:33→16:33)
[2020-07-20 09:32] LABS: C-Reactive Protein 25 mg/L (Less than 10)
[2020-07-20] MEDS: Sucralfate 1 GM TABLET PO SCH ×4 (10:10→21:04)
[2020-07-20] MEDS: Gabapentin 300 MG CAPSULE PO SCH ×3 (10:10→21:04)
[2020-07-20] MEDS: amLODIPine 5 MG TABLET PO SCH (10:10)
[2020-07-20] MEDS: Nicotine 14 MG PATCH.TD24 TD SCH (10:11)
[2020-07-20] MEDS: Lactobacillus 1 EACH CAP.SPRINK PO SCH (10:11)
[2020-07-20] MEDS: Vancomycin 1,750 MG/517.5 ML IV.SOLN IVPB SCH (13:47)
[2020-07-21] MEDS: *HR* Heparin 5,000 UNIT/ML VIAL SQ SCH ×2 (05:54→16:53)
[2020-07-21] MEDS: Lactobacillus 1 EACH CAP.SPRINK PO SCH (07:47)
[2020-07-21] MEDS: Sucralfate 1 GM TABLET PO SCH ×4 (07:48→20:14)
[2020-07-21] MEDS: Nicotine 14 MG PATCH.TD24 TD SCH (07:48)
[2020-07-21] MEDS: Gabapentin 300 MG CAPSULE PO SCH ×3 (07:48→20:10)
[2020-07-21] MEDS: amLODIPine 5 MG TABLET PO SCH (07:48)
[2020-07-21] MEDS: Acetaminophen 325 MG TABLET PO PRN (07:54)
[2020-07-21] MEDS: Vancomycin 1,750 MG/517.5 ML IV.SOLN IVPB SCH (15:14)
[2020-07-22] MEDS: *HR* Heparin 5,000 UNIT/ML VIAL SQ SCH (05:21)
[2020-07-22 07:27] VITALS: BP 127/81
[2020-07-22] MEDS: Nicotine 14 MG PATCH.TD24 TD SCH (08:34)
[2020-07-22] MEDS: amLODIPine 5 MG TABLET PO SCH (08:35)
[2020-07-22] MEDS: Sucralfate 1 GM TABLET PO SCH ×2 (08:35→11:52)
[2020-07-22] MEDS: Gabapentin 300 MG CAPSULE PO SCH (08:35)
[2020-07-22] MEDS: Lactobacillus 1 EACH CAP.SPRINK PO SCH (08:35)
[2020-07-22] MEDS ORDERED: FLU Vac QV 20-21 (6Month+)/PF 0.5 ML SYRINGE IM ONE (10:37)
[2020-07-22] MEDS: Vancomycin 1,750 MG/517.5 ML IV.SOLN IVPB SCH (11:52)
== END 2020-07-22 14:00 | DRG 720 ==
LOC: EMEROOARM 15:19 → 3ANU 15:19 → SUATTDRO 21:17 → 3ANU 22:04 → SUATTDRO 07-03 18:19
PROVIDERS: ADMIT Student in an Organized Health Care Education/Training Program; ATTEND Internal Medicine
PROC: ENDOEBX (2020-07-08 13:45)

== ENCOUNTER 2020-08-06 18:31 | Inpatient (IN) ==
[2020-08-06] MEDS ORDERED: Isovue-370 500 ML BOTTLE IVP ONE (19:24)
[2020-08-06] MEDS ORDERED: Gadolinium Contrast Agent (WT Based) IV PRN (19:25)
[2020-08-06 19:37] LABS: Basophils # 0.1 K/mcL (0.0-0.2); Basophils % 0.6 %; Eosinophils # 0.4 K/mcL (0.0-0.6); Eosinophils % 5.6 %; Hematocrit 30.5 % (35.3-44.9); Hemoglobin 9.9 g/dL (11.5-15.4); Immature Granulocytes % 0.4 % (0-4); Lymphocytes # 2.5 K/mcL (0.6-4.6); Lymphocytes % 31.4 %; Mean Corpuscular HGB Conc 32.5 g/dL (31.6-35.5); Mean Corpuscular Hemoglobin 30.5 pg (28.0-33.3); Mean Corpuscular Volume 93.8 fL (83.0-100.0); Monocytes # 0.9 K/mcL (0.0-1.3); Monocytes % 11.1 %; Platelet Count 269 K/mcL (140-400); Red Blood Count 3.25 M/mcL (3.82-4.97); Red Cell Distribution Width 13.5 % (11.5-14.5); Segmented Neutrophils % 50.9 %; White Blood Count 7.9 K/mcL (4.3-11.1)
[2020-08-06 19:43] LABS: Bilirubin,Urine Negative (Negative); Blood,Urine Negative (Negative); Calcium Oxalate Crystals,Urine Present; Clarity,Urine Clear (Clear); Color,Urine Yellow (Yellow); Glucose,Urine (UA) Normal (Normal); Hyaline Casts,Urine Few per lpf (None Seen); Ketones,Urine Negative (Negative); Leukocyte Esterase,Urine Trace (Negative); Mucus,Urine Few per lpf (None-Few); Nitrite,Urine Negative (Negative); Protein,Urine Negative (Neg-Trace); RBC,Urine 0-3 per hpf (0-3); Specific Gravity,Urine 1.025 (1.010-1.025); Squamous Epithelial Cell,Urine Few per hpf (None-Few); Urobilinogen,Urine Normal (Normal)
[2020-08-06 19:47] LABS: Prothrombin Time 10.9 Seconds (9.4-12.1)
[2020-08-06 20:01] LABS: Alanine Aminotransferase 44 Units/L (7-52); Albumin 3.5 g/dL (3.5-5.7); Albumin/Globulin Ratio 1.2 (1.1-2.2); Alkaline Phosphatase 133 Units/L (34-104); Aspartate Amino Transferase 40 Units/L (13-39); BUN/Creatinine Ratio 14 (6-26); Bilirubin,Direct 0.1 mg/dL (0.0-0.2); Bilirubin,Indirect 0.1 mg/dL (0.0-1.0); Bilirubin,Total 0.2 mg/dL (0.3-1.0); Blood Urea Nitrogen 12 mg/dL (6-20); C-Reactive Protein 24 mg/L (Less than 10); Calcium 8.9 mg/dL (8.6-10.3); Carbon Dioxide 26 mEq/L (23-29); Chloride 103 mEq/L (98-107); Globulin 2.9 g/dL (2.4-3.5); Glucose 136 mg/dL (70-105); Lipase 38 Units/L (11-82); Osmolality,Calculated 290 (280-300); Potassium 3.9 mEq/L (3.5-5.1); Sodium 139 mEq/L (136-145); Total Protein 6.4 g/dL (6.4-8.9); Troponin I < 0.03 ng/mL (< 0.04); eGFR For African Americans > 60 (> 60); eGFR For Non-African Americans > 60 (> 60)
[2020-08-07] MEDS ORDERED: Morphine Sulfate 2 MG/ML SYRINGE IVP ONE (00:49)
[2020-08-07] MEDS ORDERED: Naloxone 0.4 MG/ML INJ IVP PRN (02:16)
[2020-08-07 03:13] LABS: Hematocrit 32.8 % (35.3-44.9); Hemoglobin 10.4 g/dL (11.5-15.4); Mean Corpuscular HGB Conc 31.7 g/dL (31.6-35.5); Mean Corpuscular Hemoglobin 29.9 pg (28.0-33.3); Mean Corpuscular Volume 94.3 fL (83.0-100.0); Mean Platelet Volume 10.7 fL (9.4-12.4); Platelet Count 261 K/mcL (140-400); Red Blood Count 3.48 M/mcL (3.82-4.97); Red Cell Distribution Width 13.8 % (11.5-14.5)
[2020-08-07 03:18] LABS: Activated Partial Thrombo Time 33.1 Seconds (26.0-36.0)
[2020-08-07 03:25] LABS: Alanine Aminotransferase 41 Units/L (7-52); Albumin 3.4 g/dL (3.5-5.7); Albumin/Globulin Ratio 1.1 (1.1-2.2); Alkaline Phosphatase 131 Units/L (34-104); Aspartate Amino Transferase 39 Units/L (13-39); BUN/Creatinine Ratio 16 (6-26); Bilirubin,Total 0.3 mg/dL (0.3-1.0); Blood Urea Nitrogen 12 mg/dL (6-20); Calcium 9.2 mg/dL (8.6-10.3); Carbon Dioxide 27 mEq/L (23-29); Chloride 103 mEq/L (98-107); Glucose 94 mg/dL (70-105); Magnesium 1.5 mg/dL (1.6-2.6); Osmolality,Calculated 288 (280-300); Phosphorous 4.1 mg/dL (2.7-4.5); Potassium 3.6 mEq/L (3.5-5.1); Sodium 139 mEq/L (136-145); Total Protein 6.4 g/dL (6.4-8.9); eGFR For African Americans > 60 (> 60); eGFR For Non-African Americans > 60 (> 60)
[2020-08-07] MEDS: Ketorolac 30 MG/ML VIAL IVP PRN ×2 (05:48→22:05)
[2020-08-07] MEDS ORDERED: Ondansetron 4 MG/2 ML VIAL IVP PRN (06:29)
[2020-08-07] MEDS ORDERED: 0.9 % Sodium Chloride 1,000 ML IVC ONE (06:50)
[2020-08-07] MEDS ORDERED: *HR* Dextrose 50 % in Water (Vial) 50 ML VIAL IVP PRN (07:40)
[2020-08-07] MEDS ORDERED: D5% in Water 1,000 ML IVC PRN (07:40)
[2020-08-07] MEDS ORDERED: Dextrose Gel 15 GM/37.5 ML TUBE PO PRN ×2 (07:40)
[2020-08-07] MEDS ORDERED: Vancomycin 1,500 MG/265 ML IV.SOLN IVPB SCH (08:00)
[2020-08-07] MEDS: Piperacillin/Tazobactam 3.375 GM in 0.9 % Sodium Chloride Mini Bag 100 ML IVPB SCH ×3 (08:14→23:56)
[2020-08-07] MEDS: Nicotine 21 MG PATCH.TD24 TD SCH (08:15)
[2020-08-07] MEDS: Furosemide 20 MG/2 ML VIAL IVP SCH ×2 (08:28→22:05)
[2020-08-07] MEDS ORDERED: Methadone Oral Concentrate 50 MG/5 ML UDC PO ONE (10:45)
[2020-08-07] MEDS ORDERED: Dexamethasone 4 MG/ML VIAL ONE (12:34)
[2020-08-07] MEDS ORDERED: *HR* FentaNYL (PF) 100 MCG/2 ML VIAL ONE (12:34)
[2020-08-07] MEDS ORDERED: *HR* Succinylcholine 200 MG/10 ML VIAL IVP ONE (12:34)
[2020-08-07] MEDS ORDERED: Lidocaine -MPF 2% 2 ML VIAL ONE (12:34)
[2020-08-07] MEDS ORDERED: Ondansetron 4 MG/2 ML VIAL ONE (12:34)
[2020-08-07] MEDS ORDERED: *HR* Propofol 200 MG/20 ML VIAL IVP ONE (12:35)
[2020-08-07] MEDS ORDERED: Lidocaine -MPF 4% 5 ML AMPUL ONE (12:36)
[2020-08-07] MEDS ORDERED: Indomethacin 50 MG SUPP.RECT RC ONE (14:01)
[2020-08-07] MEDS: Insulin LISPRO 300 UNITS/3 ML VIAL SQ SCH ×2 (14:14→17:14)
[2020-08-07] MEDS: *HR* Heparin 5,000 UNIT/ML VIAL SQ SCH (17:13)
[2020-08-08] MEDS: Insulin LISPRO 300 UNITS/3 ML VIAL SQ SCH ×4 (00:10→18:03)
[2020-08-08 05:34] LABS: BUN/Creatinine Ratio 13 (6-26); Blood Urea Nitrogen 10 mg/dL (6-20); Calcium 9.5 mg/dL (8.6-10.3); Carbon Dioxide 31 mEq/L (23-29); Chloride 103 mEq/L (98-107); Glucose 134 mg/dL (70-105); Magnesium 1.4 mg/dL (1.6-2.6); Osmolality,Calculated 295 (280-300); Potassium 3.7 mEq/L (3.5-5.1); Sodium 142 mEq/L (136-145); eGFR For African Americans > 60 (> 60); eGFR For Non-African Americans > 60 (> 60)
[2020-08-08] MEDS: *HR* Heparin 5,000 UNIT/ML VIAL SQ SCH ×2 (06:26→16:28)
[2020-08-08] MEDS ORDERED: Magnesium Sulfate 1 GM/102 ML PIGGYBACK IVPB ONE (07:43)
[2020-08-08] MEDS: Furosemide 20 MG/2 ML VIAL IVP SCH ×2 (08:41→23:14)
[2020-08-08] MEDS: Nicotine 21 MG PATCH.TD24 TD SCH (08:48)
[2020-08-08] MEDS ORDERED: Methadone Oral Concentrate 50 MG/5 ML UDC PO ONE (09:00)
[2020-08-08] MEDS ORDERED: Vancomycin 1,750 MG/517.5 ML IV.SOLN IVPB SCH (09:00)
[2020-08-08] MEDS: Piperacillin/Tazobactam 3.375 GM in 0.9 % Sodium Chloride Mini Bag 100 ML IVPB SCH ×2 (09:41→17:51)
[2020-08-08] MEDS: Ketorolac 30 MG/ML VIAL IVP PRN ×2 (11:19→23:07)
[2020-08-08] MEDS ORDERED: Isovue-370 500 ML BOTTLE IVP ONE (11:29)
[2020-08-08] MEDS ORDERED: *HR* Promethazine 25 MG/ML VIAL IVP ONE ×2 (11:31→22:21)
[2020-08-08 12:55] LABS: Albumin 3.6 g/dL (3.5-5.7); Albumin/Globulin Ratio 1.2 (1.1-2.2); Bilirubin,Indirect 0.3 mg/dL (0.0-1.0); Bilirubin,Total 0.3 mg/dL (0.3-1.0); Total Protein 6.6 g/dL (6.4-8.9)
[2020-08-08] MEDS: Vancomycin Oral Soln 125 MG/2.5 ML UDC PO SCH ×3 (13:25→21:10)
[2020-08-08] MEDS ORDERED: Ondansetron ODT 4 MG TAB.RAPDIS SL PRN (17:38)
[2020-08-08] MEDS: Lactobacillus 1 EACH CAP.SPRINK PO SCH (21:10)
[2020-08-09] MEDS: Insulin LISPRO 300 UNITS/3 ML VIAL SQ SCH ×4 (00:41→18:03)
[2020-08-09] MEDS: Piperacillin/Tazobactam 3.375 GM in 0.9 % Sodium Chloride Mini Bag 100 ML IVPB SCH ×3 (03:17→16:23)
[2020-08-09] MEDS: *HR* Heparin 5,000 UNIT/ML VIAL SQ SCH ×2 (06:14→17:59)
[2020-08-09 08:32] LABS: BUN/Creatinine Ratio 16 (6-26); Blood Urea Nitrogen 13 mg/dL (6-20); Calcium 9.6 mg/dL (8.6-10.3); Carbon Dioxide 34 mEq/L (23-29); Chloride 102 mEq/L (98-107); Glucose 104 mg/dL (70-105); Magnesium 1.9 mg/dL (1.6-2.6); Osmolality,Calculated 294 (280-300); Phosphorous 3.7 mg/dL (2.7-4.5); Potassium 3.5 mEq/L (3.5-5.1); Sodium 142 mEq/L (136-145); Vancomycin,Trough 11 mcg/mL (5-10); eGFR For African Americans > 60 (> 60); eGFR For Non-African Americans > 60 (> 60)
[2020-08-09] MEDS: Vancomycin Oral Soln 125 MG/2.5 ML UDC PO SCH ×4 (08:39→20:30)
[2020-08-09] MEDS: Nicotine 21 MG PATCH.TD24 TD SCH (08:39)
[2020-08-09] MEDS: Lactobacillus 1 EACH CAP.SPRINK PO SCH ×2 (08:39→20:30)
[2020-08-09] MEDS: Thiamine (B-1) 100 MG TABLET PO SCH (08:52)
[2020-08-09] MEDS: amLODIPine 5 MG TABLET PO SCH (08:52)
[2020-08-09] MEDS: Gabapentin 300 MG CAPSULE PO SCH ×3 (08:53→20:30)
[2020-08-09] MEDS ORDERED: Methadone Oral Concentrate 50 MG/5 ML UDC PO ONE (09:00)
[2020-08-09] MEDS ORDERED: Vancomycin 1,750 MG/517.5 ML IV.SOLN IVPB SCH (10:00)
[2020-08-09] MEDS: Vancomycin 1,500 MG/265 ML IV.SOLN IVPB SCH (16:22)
[2020-08-09] MEDS: Ketorolac 30 MG/ML VIAL IVP PRN (17:59)
[2020-08-09] MEDS ORDERED: *HR* Promethazine 25 MG/ML VIAL IVP ONE (22:42)
[2020-08-10] MEDS: Insulin LISPRO 300 UNITS/3 ML VIAL SQ SCH ×4 (00:35→17:44)
[2020-08-10] MEDS: Piperacillin/Tazobactam 3.375 GM in 0.9 % Sodium Chloride Mini Bag 100 ML IVPB SCH ×3 (01:01→17:26)
[2020-08-10] MEDS: *HR* Heparin 5,000 UNIT/ML VIAL SQ SCH ×2 (05:35→17:20)
[2020-08-10] MEDS: Vancomycin 1,500 MG/265 ML IV.SOLN IVPB SCH ×2 (05:37→17:26)
[2020-08-10] MEDS: Furosemide 20 MG TABLET PO SCH (09:35)
[2020-08-10] MEDS: Thiamine (B-1) 100 MG TABLET PO SCH (09:35)
[2020-08-10] MEDS: Lactobacillus 1 EACH CAP.SPRINK PO SCH ×2 (09:35→22:06)
[2020-08-10] MEDS: Methadone Oral Concentrate 50 MG/5 ML UDC PO SCH (09:42)
[2020-08-10] MEDS: Vancomycin Oral Soln 125 MG/2.5 ML UDC PO SCH ×4 (09:44→22:06)
[2020-08-10] MEDS: Nicotine 21 MG PATCH.TD24 TD SCH (09:44)
[2020-08-10] MEDS: amLODIPine 5 MG TABLET PO SCH (09:45)
[2020-08-10] MEDS: Gabapentin 300 MG CAPSULE PO SCH ×3 (09:55→22:06)
[2020-08-10] MEDS ORDERED: *HR* FentaNYL (PF) 100 MCG/2 ML VIAL ONE (17:11)
[2020-08-10] MEDS ORDERED: Lidocaine -MPF 2% 2 ML VIAL ONE (17:11)
[2020-08-10] MEDS ORDERED: Ondansetron 4 MG/2 ML VIAL ONE (17:31)
[2020-08-10] MEDS ORDERED: *HR* Promethazine 25 MG/ML VIAL IVP PRN (18:31)
[2020-08-10] MEDS ORDERED: Ondansetron 4 MG/2 ML VIAL IVP PRN (18:31)
[2020-08-10] MEDS ORDERED: *HR* Labetalol 20 MG/4 ML SYRINGE IVP PRN (18:31)
[2020-08-11] MEDS: Piperacillin/Tazobactam 3.375 GM in 0.9 % Sodium Chloride Mini Bag 100 ML IVPB SCH ×2 (01:39→09:35)
[2020-08-11] MEDS: Vancomycin 1,500 MG/265 ML IV.SOLN IVPB SCH (03:30)
[2020-08-11 04:26] LABS: Basophils # 0.1 K/mcL (0.0-0.2); Basophils % 0.9 %; Eosinophils # 0.6 K/mcL (0.0-0.6); Eosinophils % 7.9 %; Hematocrit 31.4 % (35.3-44.9); Hemoglobin 9.9 g/dL (11.5-15.4); Immature Granulocytes % 0.3 % (0-4); Lymphocytes # 2.1 K/mcL (0.6-4.6); Lymphocytes % 29.8 %; Mean Corpuscular HGB Conc 31.5 g/dL (31.6-35.5); Mean Corpuscular Hemoglobin 30.5 pg (28.0-33.3); Mean Corpuscular Volume 96.6 fL (83.0-100.0); Mean Platelet Volume 10.6 fL (9.4-12.4); Monocytes # 0.8 K/mcL (0.0-1.3); Monocytes % 11.1 %; Neutrophils # 3.5 K/mcL (1.6-8.9); Platelet Count 281 K/mcL (140-400); Red Blood Count 3.25 M/mcL (3.82-4.97)
[2020-08-11 04:30] LABS: BUN/Creatinine Ratio 12 (6-26); Blood Urea Nitrogen 12 mg/dL (6-20); Calcium 9.2 mg/dL (8.6-10.3); Carbon Dioxide 31 mEq/L (23-29); Chloride 104 mEq/L (98-107); Glucose 77 mg/dL (70-105); Magnesium 1.9 mg/dL (1.6-2.6); Osmolality,Calculated 291 (280-300); Phosphorous 5.6 mg/dL (2.7-4.5); Potassium 3.7 mEq/L (3.5-5.1); Sodium 141 mEq/L (136-145); eGFR For African Americans > 60 (> 60); eGFR For Non-African Americans 60 (> 60)
[2020-08-11] MEDS: *HR* Heparin 5,000 UNIT/ML VIAL SQ SCH ×2 (06:20→17:52)
[2020-08-11] MEDS: Insulin LISPRO 300 UNITS/3 ML VIAL SQ SCH ×2 (06:55)
[2020-08-11] MEDS: Vancomycin Oral Soln 125 MG/2.5 ML UDC PO SCH ×4 (09:35→20:52)
[2020-08-11] MEDS: Methadone Oral Concentrate 50 MG/5 ML UDC PO SCH (09:36)
[2020-08-11] MEDS: Lactobacillus 1 EACH CAP.SPRINK PO SCH ×2 (09:37→20:52)
[2020-08-11] MEDS: Gabapentin 300 MG CAPSULE PO SCH ×3 (09:37→20:52)
[2020-08-11] MEDS: Nicotine 21 MG PATCH.TD24 TD SCH (09:37)
[2020-08-11] MEDS: amLODIPine 5 MG TABLET PO SCH (09:37)
[2020-08-11] MEDS: Thiamine (B-1) 100 MG TABLET PO SCH (09:37)
[2020-08-11] MEDS: Furosemide 20 MG TABLET PO SCH (09:37)
[2020-08-11] MEDS ORDERED: Metoclopramide 10 MG/2 ML VIAL IVP PRN (15:25)
[2020-08-11] MEDS: Ketorolac 30 MG/ML VIAL IVP PRN (15:29)
[2020-08-11 15:51] LABS: Amylase 22 Units/L (29-103); Lipase 27 Units/L (11-82); Vancomycin,Trough 34 mcg/mL (5-10)
[2020-08-11] MEDS ORDERED: Ringers Solution, Lactated 1,000 ML IVC SCH (16:45)
[2020-08-12 04:55] LABS: Calcium 9.4 mg/dL (8.6-10.3); Magnesium 1.7 mg/dL (1.6-2.6); Phosphorous 5.4 mg/dL (2.7-4.5); Potassium 3.9 mEq/L (3.5-5.1)
[2020-08-12] MEDS: *HR* Heparin 5,000 UNIT/ML VIAL SQ SCH ×2 (06:03→17:09)
[2020-08-12] MEDS: Thiamine (B-1) 100 MG TABLET PO SCH (08:57)
[2020-08-12] MEDS: Gabapentin 300 MG CAPSULE PO SCH ×3 (08:57→20:43)
[2020-08-12] MEDS: Lactobacillus 1 EACH CAP.SPRINK PO SCH ×2 (08:57→20:43)
[2020-08-12] MEDS: Vancomycin Oral Soln 125 MG/2.5 ML UDC PO SCH ×4 (08:57→20:43)
[2020-08-12] MEDS: Nicotine 21 MG PATCH.TD24 TD SCH (08:58)
[2020-08-12] MEDS: Methadone Oral Concentrate 50 MG/5 ML UDC PO SCH (08:59)
[2020-08-12] MEDS: amLODIPine 5 MG TABLET PO SCH (09:42)
[2020-08-12] MEDS ORDERED: Cholestyramine 4 GM POWD.PACK PO SCH ×2 (12:10→12:15)
[2020-08-13 05:03] LABS: Hematocrit 28.8 % (35.3-44.9); Hemoglobin 9.2 g/dL (11.5-15.4); Mean Corpuscular HGB Conc 31.9 g/dL (31.6-35.5); Mean Corpuscular Hemoglobin 30.8 pg (28.0-33.3); Mean Corpuscular Volume 96.3 fL (83.0-100.0); Mean Platelet Volume 10.5 fL (9.4-12.4); Platelet Count 277 K/mcL (140-400); Red Blood Count 2.99 M/mcL (3.82-4.97); Red Cell Distribution Width 14.1 % (11.5-14.5); White Blood Count 8.8 K/mcL (4.3-11.1)
[2020-08-13 05:22] LABS: BUN/Creatinine Ratio 20 (6-26); Blood Urea Nitrogen 20 mg/dL (6-20); Carbon Dioxide 29 mEq/L (23-29); Chloride 104 mEq/L (98-107); Glucose 123 mg/dL (70-105); Osmolality,Calculated 294 (280-300); Potassium 3.8 mEq/L (3.5-5.1); Sodium 140 mEq/L (136-145); eGFR For African Americans > 60 (> 60); eGFR For Non-African Americans 58 (> 60)
[2020-08-13] MEDS: *HR* Heparin 5,000 UNIT/ML VIAL SQ SCH (06:12)
[2020-08-13 06:54] VITALS: BP 120/69
[2020-08-13] MEDS ORDERED: Cholestyramine 4 GM POWD.PACK PO SCH (07:00)
[2020-08-13] MEDS: Thiamine (B-1) 100 MG TABLET PO SCH (09:31)
[2020-08-13] MEDS: Methadone Oral Concentrate 50 MG/5 ML UDC PO SCH (09:31)
[2020-08-13] MEDS: Lactobacillus 1 EACH CAP.SPRINK PO SCH (09:31)
[2020-08-13] MEDS: amLODIPine 5 MG TABLET PO SCH (09:31)
[2020-08-13] MEDS: Gabapentin 300 MG CAPSULE PO SCH (09:31)
[2020-08-13] MEDS: Nicotine 21 MG PATCH.TD24 TD SCH (09:32)
[2020-08-13] MEDS: Vancomycin Oral Soln 125 MG/2.5 ML UDC PO SCH (09:32)
== END 2020-08-13 10:24 | disposition home or self-care (01) | DRG 314 ==
LOC: 3NENU 18:31 → EMEROOARM 18:31 → SUATTDRO 08-07 01:33 → 3NENU 08-07 01:54 → SUATTDRO 08-08 15:32 → 3ANU 08-12 15:23
PROVIDERS: ADMIT Internal Medicine; ATTEND Family Medicine

== ENCOUNTER 2021-01-18 16:37 | Inpatient (IN) ==
[2021-01-18 18:34] LABS: BUN/Creatinine Ratio 19 (6-26); Blood Urea Nitrogen 10 mg/dL (6-20); Calcium 8.8 mg/dL (8.6-10.3); Carbon Dioxide 27 mEq/L (23-29); Chloride 105 mEq/L (98-107); Glucose 77 mg/dL (70-105); Osmolality,Calculated 290 (280-300); Potassium 3.7 mEq/L (3.5-5.1); Sodium 141 mEq/L (136-145); eGFR For African Americans > 60 (> 60); eGFR For Non-African Americans > 60 (> 60)
[2021-01-18 18:35] LABS: Troponin I < 0.03 ng/mL (< 0.04)
[2021-01-18 19:06] LABS: Basophils % 0.7 %; Eosinophils # 0.2 K/mcL (0.0-0.6); Eosinophils % 3.8 %; Hematocrit 37.4 % (35.3-44.9); Immature Granulocytes % 0.3 % (0-4); Lymphocytes # 2.4 K/mcL (0.6-4.6); Lymphocytes % 39.2 %; Mean Corpuscular HGB Conc 32.1 g/dL (31.6-35.5); Mean Corpuscular Hemoglobin 29.4 pg (28.0-33.3); Mean Corpuscular Volume 91.7 fL (83.0-100.0); Mean Platelet Volume 9.3 fL (9.4-12.4); Monocytes # 0.7 K/mcL (0.0-1.3); Monocytes % 11.4 %; Neutrophils # 2.7 K/mcL (1.6-8.9); Platelet Count 169 K/mcL (140-400); Red Blood Count 4.08 M/mcL (3.82-4.97); Red Cell Distribution Width 18.2 % (11.5-14.5); Segmented Neutrophils % 44.6 %
[2021-01-18] MEDS ORDERED: Ipratropium/Albuterol Neb 3 ML IH ONE (19:40)
[2021-01-18] MEDS ORDERED: methylPREDNISolone 125 MG/2 ML VIAL IVP ONE (19:40)
[2021-01-18] MEDS ORDERED: Azithromycin 500 MG in D5% in Water 250 ML IVPB ONE (19:40)
[2021-01-18] MEDS ORDERED: cefTRIAXone 1,000 MG in 0.9 % Sodium Chloride Mini Bag 100 ML IVPB ONE (19:47)
[2021-01-18] MEDS ORDERED: Isovue-370 500 ML BOTTLE IVP ONE (20:32)
[2021-01-18] MEDS ORDERED: Melatonin 3 MG TABLET PO PRN (23:37)
[2021-01-18] MEDS ORDERED: Naloxone 0.4 MG/ML INJ IVP PRN (23:37)
[2021-01-19] MEDS ORDERED: Ipratropium 1 PUFF INHALER IH SCH
[2021-01-19] MEDS: MethylPREDNISolone 40 MG/ML VIAL IVP SCH ×5 (01:11→23:40)
[2021-01-19] MEDS: *HR* LORazepam 2 MG/ML VIAL IVP PRN ×6 (01:12→22:53)
[2021-01-19] MEDS: Ondansetron 4 MG/2 ML VIAL IVP PRN (01:13)
[2021-01-19 01:30] LABS: Hematocrit 39.1 % (35.3-44.9); Hemoglobin 12.6 g/dL (11.5-15.4); Mean Corpuscular HGB Conc 32.2 g/dL (31.6-35.5); Mean Corpuscular Volume 93.1 fL (83.0-100.0); Mean Platelet Volume 10.9 fL (9.4-12.4); Platelet Count 148 K/mcL (140-400); Red Cell Distribution Width 18.4 % (11.5-14.5); White Blood Count 3.6 K/mcL (4.3-11.1)
[2021-01-19] MEDS ORDERED: Perflutren Lipid Microsphere 1.3 ML in 0.9 % Sodium Chloride 8.7 ML IVP PRN (02:05)
[2021-01-19] MEDS ORDERED: Nicotine 14 MG PATCH.TD24 TD PRN (02:11)
[2021-01-19 02:12] LABS: BUN/Creatinine Ratio 19 (6-26); Blood Urea Nitrogen 10 mg/dL (6-20); Calcium 8.8 mg/dL (8.6-10.3); Carbon Dioxide 20 mEq/L (23-29); Chloride 101 mEq/L (98-107); Glucose 120 mg/dL (70-105); Osmolality,Calculated 288 (280-300); Potassium 3.5 mEq/L (3.5-5.1); Sodium 139 mEq/L (136-145); eGFR For African Americans > 60 (> 60); eGFR For Non-African Americans > 60 (> 60)
[2021-01-19] MEDS: Ipratropium/Albuterol Neb 3 ML IH SCH ×7 (03:42→23:47)
[2021-01-19] MEDS: *HR* Heparin 5,000 UNIT/ML VIAL SQ SCH ×3 (06:03→21:48)
[2021-01-19] MEDS ORDERED: Azithromycin 500 MG in 0.9 % Sodium Chloride 250 ML IVPB SCH (09:00)
[2021-01-19] MEDS: Methadone Oral Concentrate 50 MG/5 ML UDC PO SCH (17:27)
[2021-01-19] MEDS ORDERED: Acetaminophen 325 MG TABLET PO PRN (20:09)
[2021-01-19] MEDS: Gabapentin 300 MG CAPSULE PO SCH (22:53)
[2021-01-20] MEDS: Ipratropium/Albuterol Neb 3 ML IH SCH ×6 (03:54→23:14)
[2021-01-20 04:17] LABS: Basophils % 0.1 %; Hematocrit 38.2 % (35.3-44.9); Hemoglobin 12.1 g/dL (11.5-15.4); Immature Granulocytes % 0.4 % (0-4); Lymphocytes # 0.3 K/mcL (0.6-4.6); Lymphocytes % 3.6 %; Mean Corpuscular HGB Conc 31.7 g/dL (31.6-35.5); Mean Corpuscular Hemoglobin 30.1 pg (28.0-33.3); Mean Platelet Volume 10.3 fL (9.4-12.4); Monocytes # 0.4 K/mcL (0.0-1.3); Monocytes % 5.3 %; Nucleated Red Blood Cells 0.3 /100 WBC (0); Platelet Count 161 K/mcL (140-400); Red Blood Count 4.02 M/mcL (3.82-4.97); Red Cell Distribution Width 18.5 % (11.5-14.5); Segmented Neutrophils % 90.6 %; White Blood Count 7.7 K/mcL (4.3-11.1)
[2021-01-20] MEDS: *HR* Heparin 5,000 UNIT/ML VIAL SQ SCH ×3 (05:05→21:16)
[2021-01-20] MEDS: MethylPREDNISolone 40 MG/ML VIAL IVP SCH ×2 (05:06→12:30)
[2021-01-20 06:05] LABS: BUN/Creatinine Ratio 31 (6-26); Blood Urea Nitrogen 15 mg/dL (6-20); Calcium 9.2 mg/dL (8.6-10.3); Carbon Dioxide 29 mEq/L (23-29); Chloride 103 mEq/L (98-107); Glucose 154 mg/dL (70-105); Osmolality,Calculated 294 (280-300); Potassium 4.3 mEq/L (3.5-5.1); Sodium 140 mEq/L (136-145); eGFR For African Americans > 60 (> 60); eGFR For Non-African Americans > 60 (> 60)
[2021-01-20] MEDS: Gabapentin 300 MG CAPSULE PO SCH ×3 (10:31→20:16)
[2021-01-20] MEDS: Methadone Oral Concentrate 50 MG/5 ML UDC PO SCH (10:31)
[2021-01-20] MEDS: *HR* LORazepam 2 MG/ML VIAL IVP PRN ×4 (10:42→20:19)
[2021-01-20] MEDS: Ondansetron 4 MG/2 ML VIAL IVP PRN (12:19)
[2021-01-21] MEDS: MethylPREDNISolone 40 MG/ML VIAL IVP SCH ×3 (00:07→15:22)
[2021-01-21] MEDS: *HR* LORazepam 2 MG/ML VIAL IVP PRN ×7 (00:07→22:47)
[2021-01-21] MEDS: Ipratropium/Albuterol Neb 3 ML IH SCH ×5 (03:51→20:18)
[2021-01-21] MEDS: *HR* Heparin 5,000 UNIT/ML VIAL SQ SCH ×3 (05:53→21:35)
[2021-01-21] MEDS: Methadone Oral Concentrate 50 MG/5 ML UDC PO SCH (09:52)
[2021-01-21] MEDS: Gabapentin 300 MG CAPSULE PO SCH ×3 (09:52→20:37)
[2021-01-21] MEDS: Multivit/Ca/Min/Fe/FA 1 TAB TABLET PO SCH (11:55)
[2021-01-21] MEDS: Thiamine (B-1) 100 MG TABLET PO SCH (11:55)
[2021-01-21] MEDS: Ondansetron 4 MG/2 ML VIAL IVP PRN (15:29)
[2021-01-22] MEDS: Ipratropium/Albuterol Neb 3 ML IH SCH ×6 (00:13→19:55)
[2021-01-22] MEDS: *HR* LORazepam 2 MG/ML VIAL IVP PRN ×9 (01:55→21:31)
[2021-01-22] MEDS: *HR* Heparin 5,000 UNIT/ML VIAL SQ SCH ×2 (06:01→13:25)
[2021-01-22] MEDS: Gabapentin 300 MG CAPSULE PO SCH ×2 (08:20→14:03)
[2021-01-22] MEDS: Multivit/Ca/Min/Fe/FA 1 TAB TABLET PO SCH (08:20)
[2021-01-22] MEDS: Thiamine (B-1) 100 MG TABLET PO SCH (08:20)
[2021-01-22] MEDS: Methadone Oral Concentrate 50 MG/5 ML UDC PO SCH (08:21)
[2021-01-22] MEDS ORDERED: predniSONE 20 MG TABLET PO SCH (09:00)
[2021-01-22] MEDS ORDERED: Ketorolac 30 MG/ML VIAL IVP ONE (09:50)
[2021-01-22] MEDS ORDERED: Naloxone 0.4 MG/ML INJ IVP PRN (18:01)
[2021-01-22] MEDS ORDERED: Albuterol 2.5 MG/3 ML NEBULIZER IH PRN (18:05)
[2021-01-22] MEDS ORDERED: GuaiFENesin Liq 200 MG/10 ML UDC PO PRN (18:05)
[2021-01-22] MEDS ORDERED: *HR* LORazepam 2 MG/ML VIAL IVP PRN (18:06)
[2021-01-22] MEDS: Ondansetron 4 MG/2 ML VIAL IVP PRN (21:10)
[2021-01-23] MEDS: *HR* LORazepam 2 MG/ML VIAL IVP PRN ×9 (00:33→23:24)
[2021-01-23] MEDS: Ipratropium/Albuterol Neb 3 ML IH SCH ×7 (00:35→23:26)
[2021-01-23] MEDS: Acetaminophen 325 MG TABLET PO PRN (02:29)
[2021-01-23] MEDS: *HR* Heparin 5,000 UNIT/ML VIAL SQ SCH ×2 (04:53→16:54)
[2021-01-23] MEDS: Thiamine (B-1) 100 MG TABLET PO SCH (07:31)
[2021-01-23] MEDS: Methadone Oral Concentrate 50 MG/5 ML UDC PO SCH (07:31)
[2021-01-23] MEDS: Nicotine 14 MG PATCH.TD24 TD SCH (07:31)
[2021-01-23] MEDS: Gabapentin 300 MG CAPSULE PO SCH ×3 (07:31→20:07)
[2021-01-23] MEDS ORDERED: predniSONE 20 MG TABLET PO SCH (09:00)
[2021-01-23] MEDS: Lactobacillus 1 EACH CAP.SPRINK PO SCH ×2 (10:38→20:06)
[2021-01-23] MEDS: Ondansetron 4 MG/2 ML VIAL IVP PRN (14:02)
[2021-01-24] MEDS: *HR* LORazepam 2 MG/ML VIAL IVP PRN ×5 (03:44→21:44)
[2021-01-24] MEDS: Acetaminophen 325 MG TABLET PO PRN (03:47)
[2021-01-24] MEDS: Ipratropium/Albuterol Neb 3 ML IH SCH ×5 (04:26→20:37)
[2021-01-24 05:35] LABS: Basophils % 0.1 %; Eosinophils # 0.3 K/mcL (0.0-0.6); Eosinophils % 2.3 %; Hemoglobin 12.8 g/dL (11.5-15.4); Immature Granulocytes % 5.6 % (0-4); Lymphocytes # 3.6 K/mcL (0.6-4.6); Lymphocytes % 26.7 %; Mean Corpuscular HGB Conc 31.2 g/dL (31.6-35.5); Mean Corpuscular Hemoglobin 29.9 pg (28.0-33.3); Mean Corpuscular Volume 95.8 fL (83.0-100.0); Mean Platelet Volume 10.6 fL (9.4-12.4); Monocytes # 1.3 K/mcL (0.0-1.3); Monocytes % 9.4 %; Platelet Count 164 K/mcL (140-400); Red Blood Count 4.28 M/mcL (3.82-4.97); Segmented Neutrophils % 55.9 %
[2021-01-24 05:43] LABS: Neutrophils # 7.4 K/mcL (1.6-8.9); White Blood Count 13.3 K/mcL (4.3-11.1)
[2021-01-24 05:52] LABS: BUN/Creatinine Ratio 31 (6-26); Blood Urea Nitrogen 27 mg/dL (6-20); Carbon Dioxide 24 mEq/L (23-29); Chloride 104 mEq/L (98-107); Glucose 125 mg/dL (70-105); Osmolality,Calculated 297 (280-300); Potassium 3.8 mEq/L (3.5-5.1); Sodium 140 mEq/L (136-145); eGFR For African Americans > 60 (> 60); eGFR For Non-African Americans > 60 (> 60)
[2021-01-24 06:09] LABS: Reactive Lymphocytes Present (Not Present)
[2021-01-24 06:10] LABS: Platelet Estimate Normal (Normal)
[2021-01-24] MEDS: *HR* Heparin 5,000 UNIT/ML VIAL SQ SCH ×2 (06:38→17:08)
[2021-01-24] MEDS: Thiamine (B-1) 100 MG TABLET PO SCH (07:33)
[2021-01-24] MEDS: Methadone Oral Concentrate 50 MG/5 ML UDC PO SCH (07:33)
[2021-01-24] MEDS: Gabapentin 300 MG CAPSULE PO SCH ×3 (07:33→21:24)
[2021-01-24] MEDS: predniSONE 10 MG TABLET PO SCH (07:33)
[2021-01-24] MEDS: Lactobacillus 1 EACH CAP.SPRINK PO SCH ×2 (07:33→21:23)
[2021-01-24] MEDS: Nicotine 14 MG PATCH.TD24 TD SCH (07:43)
[2021-01-24] MEDS: Multivit/Ca/Min/Fe/FA 1 TAB TABLET PO SCH (07:58)
[2021-01-24] MEDS: hydrOXYzine pamoate 25 MG CAPSULE PO PRN (21:23)
[2021-01-24] MEDS: Melatonin 3 MG TABLET PO PRN (21:23)
[2021-01-25] MEDS: Ipratropium/Albuterol Neb 3 ML IH SCH ×7 (00:47→23:42)
[2021-01-25] MEDS: *HR* Heparin 5,000 UNIT/ML VIAL SQ SCH ×2 (06:10→17:05)
[2021-01-25] MEDS: *HR* LORazepam 2 MG/ML VIAL IVP PRN ×4 (06:11→23:28)
[2021-01-25] MEDS: Methadone Oral Concentrate 50 MG/5 ML UDC PO SCH (09:35)
[2021-01-25] MEDS: predniSONE 10 MG TABLET PO SCH (09:38)
[2021-01-25] MEDS: Multivit/Ca/Min/Fe/FA 1 TAB TABLET PO SCH (09:39)
[2021-01-25] MEDS: Gabapentin 300 MG CAPSULE PO SCH ×3 (09:39→21:33)
[2021-01-25] MEDS: Thiamine (B-1) 100 MG TABLET PO SCH (09:39)
[2021-01-25] MEDS: Lactobacillus 1 EACH CAP.SPRINK PO SCH ×2 (09:40→21:33)
[2021-01-25] MEDS: Nicotine 14 MG PATCH.TD24 TD SCH (09:42)
[2021-01-25 21:34] LABS: Bilirubin,Urine Negative (Negative); Blood,Urine Negative (Negative); Clarity,Urine Clear (Clear); Color,Urine Colorless (Yellow); Glucose,Urine (UA) Normal (Normal); Ketones,Urine Negative (Negative); Leukocyte Esterase,Urine Negative (Negative); Nitrite,Urine Negative (Negative); PH,Urine 6.5 pH Units (5.0-8.0); Protein,Urine Negative (Neg-Trace); Specific Gravity,Urine 1.009 (1.010-1.025); Urobilinogen,Urine Normal (Normal)
[2021-01-25] MEDS: hydrOXYzine pamoate 25 MG CAPSULE PO PRN (21:38)
[2021-01-25] MEDS: Acetaminophen 325 MG TABLET PO PRN (21:38)
[2021-01-25] MEDS: Ondansetron 4 MG/2 ML VIAL IVP PRN (21:38)
[2021-01-25] MEDS: Melatonin 3 MG TABLET PO PRN (21:38)
[2021-01-26] MEDS: Ipratropium/Albuterol Neb 3 ML IH SCH ×2 (03:48→07:45)
[2021-01-26] MEDS: *HR* Heparin 5,000 UNIT/ML VIAL SQ SCH (06:01)
[2021-01-26 07:11] VITALS: BP 108/77
[2021-01-26] MEDS: *HR* LORazepam 2 MG/ML VIAL IVP PRN (08:43)
[2021-01-26] MEDS ORDERED: predniSONE 20 MG TABLET PO SCH (09:00)
[2021-01-26] MEDS: Multivit/Ca/Min/Fe/FA 1 TAB TABLET PO SCH (10:08)
[2021-01-26] MEDS: Thiamine (B-1) 100 MG TABLET PO SCH (10:08)
[2021-01-26] MEDS: Gabapentin 300 MG CAPSULE PO SCH (10:08)
[2021-01-26] MEDS: Lactobacillus 1 EACH CAP.SPRINK PO SCH (10:08)
[2021-01-26] MEDS: Methadone Oral Concentrate 50 MG/5 ML UDC PO SCH (10:09)
[2021-01-26] MEDS: Nicotine 14 MG PATCH.TD24 TD SCH (10:09)
[2021-01-28] MEDS ORDERED: predniSONE 10 MG TABLET PO SCH (09:00)
== END 2021-01-26 11:02 | disposition home or self-care (01) | DRG 773 ==
LOC: EMEROOARM 16:37 → 2NENU 16:37 → SUATTDRO 01-19 → 2NENU 01-19 00:33 → SUATTDRO 01-19 23:14 → 3BNU 01-22 17:56 → 2NENU 01-23 01:47
PROVIDERS: ADMIT Internal Medicine; ATTEND Internal Medicine

== ENCOUNTER 2021-02-08 14:35 | Inpatient (IN) ==
[2021-02-08] MEDS ORDERED: Albuterol 2.5 MG/3 ML NEBULIZER IH ONE (14:55)
[2021-02-08] MEDS ORDERED: methylPREDNISolone 125 MG/2 ML VIAL IVP ONE (14:55)
[2021-02-08] MEDS ORDERED: Ipratropium/Albuterol Neb 3 ML IH ONE (14:55)
[2021-02-08 16:32] LABS: Basophils % 0.2 %; Eosinophils # 0.7 K/mcL (0.0-0.6); Eosinophils % 7.6 %; Hematocrit 38.6 % (35.3-44.9); Hemoglobin 12.1 g/dL (11.5-15.4); Immature Granulocytes % 0.5 % (0-4); Lymphocytes # 2.2 K/mcL (0.6-4.6); Lymphocytes % 25.6 %; Mean Corpuscular HGB Conc 31.3 g/dL (31.6-35.5); Mean Corpuscular Hemoglobin 29.8 pg (28.0-33.3); Mean Corpuscular Volume 95.1 fL (83.0-100.0); Mean Platelet Volume 10.2 fL (9.4-12.4); Monocytes # 0.7 K/mcL (0.0-1.3); Monocytes % 7.6 %; Nucleated Red Blood Cells 0.2 /100 WBC (0); Platelet Count 261 K/mcL (140-400); Red Blood Count 4.06 M/mcL (3.82-4.97); Red Cell Distribution Width 16.5 % (11.5-14.5); Segmented Neutrophils % 58.5 %; White Blood Count 8.6 K/mcL (4.3-11.1)
[2021-02-08 16:41] LABS: Prothrombin Time 11.8 Seconds (9.4-12.1)
[2021-02-08 16:53] LABS: BUN/Creatinine Ratio 12 (6-26); Blood Urea Nitrogen 9 mg/dL (6-20); Calcium 9.4 mg/dL (8.6-10.3); Carbon Dioxide 32 mEq/L (23-29); Chloride 102 mEq/L (98-107); Glucose 103 mg/dL (70-105); Osmolality,Calculated 289 (280-300); Potassium 3.7 mEq/L (3.5-5.1); Sodium 140 mEq/L (136-145); Troponin I 0.11 ng/mL (< 0.04); eGFR For African Americans > 60 (> 60); eGFR For Non-African Americans > 60 (> 60)
[2021-02-08] MEDS ORDERED: Isovue-370 500 ML BOTTLE IVP ONE (16:57)
[2021-02-08] MEDS ORDERED: Naloxone 0.4 MG/ML INJ IVP PRN (21:29)
[2021-02-08] MEDS: Azithromycin 500 MG in 0.9 % Sodium Chloride 250 ML IVPB SCH (22:06)
[2021-02-08] MEDS: Ondansetron 4 MG/2 ML VIAL IVP PRN (22:07)
[2021-02-08] MEDS: Melatonin 3 MG TABLET PO PRN (22:07)
[2021-02-08] MEDS: *HR* LORazepam 2 MG/ML VIAL IVP PRN (22:10)
[2021-02-08] MEDS: Thiamine (B-1) 100 MG, Folic Acid 1 MG, MVI, adult with vitamin K 10 ML in 0.9 % Sodi... IVPB SCH (23:25)
[2021-02-08] MEDS: Ipratropium/Albuterol Neb 3 ML IH SCH (23:27)
[2021-02-09] MEDS: Ipratropium/Albuterol Neb 3 ML IH SCH ×4 (04:42→22:22)
[2021-02-09] MEDS: *HR* Heparin 5,000 UNIT/ML VIAL SQ SCH ×2 (05:15→17:05)
[2021-02-09] MEDS: *HR* LORazepam 2 MG/ML VIAL IVP PRN ×3 (05:15→23:09)
[2021-02-09] MEDS ORDERED: predniSONE 20 MG TABLET PO SCH (09:00)
[2021-02-09] MEDS: Gabapentin 300 MG CAPSULE PO SCH ×2 (14:01→20:25)
[2021-02-09] MEDS: MethylPREDNISolone 40 MG/ML VIAL IVP SCH ×2 (14:01→17:05)
[2021-02-09] MEDS: Methadone Oral Concentrate 50 MG/5 ML UDC PO SCH (15:05)
[2021-02-09] MEDS: Thiamine (B-1) 100 MG, Folic Acid 1 MG, MVI, adult with vitamin K 10 ML in 0.9 % Sodi... IVPB SCH (17:05)
[2021-02-09] MEDS: Azithromycin 500 MG in 0.9 % Sodium Chloride 250 ML IVPB SCH (23:10)
[2021-02-10] MEDS: Ipratropium/Albuterol Neb 3 ML IH SCH ×4 (04:30→22:21)
[2021-02-10] MEDS: *HR* Heparin 5,000 UNIT/ML VIAL SQ SCH ×2 (05:15→18:01)
[2021-02-10] MEDS: predniSONE 20 MG TABLET PO SCH (08:36)
[2021-02-10] MEDS: Gabapentin 300 MG CAPSULE PO SCH ×3 (08:36→20:27)
[2021-02-10] MEDS: Methadone Oral Concentrate 50 MG/5 ML UDC PO SCH (08:43)
[2021-02-10] MEDS: *HR* LORazepam 2 MG/ML VIAL IVP PRN ×2 (11:24→15:24)
[2021-02-10] MEDS: Ondansetron 4 MG/2 ML VIAL IVP PRN (15:30)
[2021-02-10] MEDS: Thiamine (B-1) 100 MG, Folic Acid 1 MG, MVI, adult with vitamin K 10 ML in 0.9 % Sodi... IVPB SCH (18:02)
[2021-02-10] MEDS: Azithromycin 500 MG in 0.9 % Sodium Chloride 250 ML IVPB SCH (23:16)
[2021-02-11] MEDS: Ipratropium/Albuterol Neb 3 ML IH SCH ×4 (04:22→22:50)
[2021-02-11] MEDS: *HR* LORazepam 2 MG/ML VIAL IVP PRN ×3 (04:53→16:39)
[2021-02-11] MEDS: *HR* Heparin 5,000 UNIT/ML VIAL SQ SCH ×2 (04:53→16:40)
[2021-02-11] MEDS: predniSONE 20 MG TABLET PO SCH (08:26)
[2021-02-11] MEDS: Methadone Oral Concentrate 50 MG/5 ML UDC PO SCH (08:26)
[2021-02-11] MEDS: Gabapentin 300 MG CAPSULE PO SCH ×3 (08:26→19:47)
[2021-02-11] MEDS ORDERED: Furosemide 20 MG/2 ML VIAL IVP ONE ×2 (08:48→17:00)
[2021-02-11] MEDS ORDERED: methylPREDNISolone 125 MG/2 ML VIAL IVP ONE (10:03)
[2021-02-11] MEDS: Folic Acid 1 MG TABLET PO SCH (14:20)
[2021-02-11] MEDS: Thiamine (B-1) 100 MG TABLET PO SCH (14:20)
[2021-02-11] MEDS: Azithromycin 500 MG in 0.9 % Sodium Chloride 250 ML IVPB SCH (22:12)
[2021-02-12] MEDS: *HR* LORazepam 2 MG/ML VIAL IVP PRN ×6 (02:02→21:58)
[2021-02-12] MEDS: Ipratropium/Albuterol Neb 3 ML IH SCH ×4 (03:47→23:31)
[2021-02-12] MEDS: Ondansetron 4 MG/2 ML VIAL IVP PRN ×2 (05:58→21:58)
[2021-02-12] MEDS: MethylPREDNISolone 40 MG/ML VIAL IVP SCH ×2 (06:00→17:42)
[2021-02-12] MEDS: *HR* Heparin 5,000 UNIT/ML VIAL SQ SCH ×2 (06:02→17:42)
[2021-02-12] MEDS: Gabapentin 300 MG CAPSULE PO SCH ×3 (09:17→20:54)
[2021-02-12] MEDS: Thiamine (B-1) 100 MG TABLET PO SCH (09:18)
[2021-02-12] MEDS: Folic Acid 1 MG TABLET PO SCH (09:18)
[2021-02-12] MEDS: Methadone Oral Concentrate 50 MG/5 ML UDC PO SCH (09:30)
[2021-02-12] MEDS: Azithromycin 250 MG TABLET PO SCH (20:54)
[2021-02-13] MEDS: *HR* LORazepam 2 MG/ML VIAL IVP PRN ×7 (00:56→23:47)
[2021-02-13] MEDS: Ipratropium/Albuterol Neb 3 ML IH SCH ×4 (04:14→22:33)
[2021-02-13] MEDS: *HR* Heparin 5,000 UNIT/ML VIAL SQ SCH ×2 (06:25→17:37)
[2021-02-13] MEDS: Methadone Oral Concentrate 50 MG/5 ML UDC PO SCH (08:32)
[2021-02-13] MEDS: Folic Acid 1 MG TABLET PO SCH (08:33)
[2021-02-13] MEDS: Gabapentin 300 MG CAPSULE PO SCH ×3 (08:33→20:04)
[2021-02-13] MEDS: Thiamine (B-1) 100 MG TABLET PO SCH (08:33)
[2021-02-13] MEDS ORDERED: predniSONE 20 MG TABLET PO SCH (09:00)
[2021-02-13] MEDS: Budesonide/Formoterol 160/4.5 1 PUFF INH IH SCH ×2 (12:21→22:33)
[2021-02-13] MEDS: MethylPREDNISolone 40 MG/ML VIAL IVP SCH ×2 (14:12→23:47)
[2021-02-13 15:21] LABS: BUN/Creatinine Ratio 36 (6-26); Blood Urea Nitrogen 39 mg/dL (6-20); Calcium 9.9 mg/dL (8.6-10.3); Carbon Dioxide 33 mEq/L (23-29); Chloride 94 mEq/L (98-107); Glucose 214 mg/dL (70-105); Magnesium 1.9 mg/dL (1.6-2.6); Osmolality,Calculated 296 (280-300); Phosphorous 3.6 mg/dL (2.7-4.5); Potassium 4.8 mEq/L (3.5-5.1); Sodium 135 mEq/L (136-145); eGFR For African Americans > 60 (> 60); eGFR For Non-African Americans 53 (> 60)
[2021-02-13] MEDS: Azithromycin 250 MG TABLET PO SCH (20:05)
[2021-02-14] MEDS: *HR* LORazepam 2 MG/ML VIAL IVP PRN ×5 (03:24→20:32)
[2021-02-14] MEDS: Ipratropium/Albuterol Neb 3 ML IH SCH ×4 (04:06→22:09)
[2021-02-14] MEDS: *HR* Heparin 5,000 UNIT/ML VIAL SQ SCH ×2 (05:58→17:35)
[2021-02-14] MEDS: MethylPREDNISolone 40 MG/ML VIAL IVP SCH ×2 (07:44→17:35)
[2021-02-14] MEDS: Methadone Oral Concentrate 50 MG/5 ML UDC PO SCH (07:45)
[2021-02-14] MEDS: Gabapentin 300 MG CAPSULE PO SCH ×3 (07:45→20:32)
[2021-02-14] MEDS: Folic Acid 1 MG TABLET PO SCH (07:45)
[2021-02-14] MEDS: Thiamine (B-1) 100 MG TABLET PO SCH (07:45)
[2021-02-14] MEDS: Budesonide/Formoterol 160/4.5 1 PUFF INH IH SCH ×2 (10:19→22:09)
[2021-02-14 10:29] LABS: Basophils # 0.1 K/mcL (0.0-0.2); Basophils % 0.9 %; Hematocrit 42.2 % (35.3-44.9); Hemoglobin 13.4 g/dL (11.5-15.4); Immature Granulocytes % 3.9 % (0-4); Lymphocytes # 1.2 K/mcL (0.6-4.6); Lymphocytes % 7.5 %; Mean Corpuscular HGB Conc 31.8 g/dL (31.6-35.5); Mean Corpuscular Volume 94.4 fL (83.0-100.0); Mean Platelet Volume 10.4 fL (9.4-12.4); Monocytes # 1.3 K/mcL (0.0-1.3); Monocytes % 8.2 %; Neutrophils # 12.4 K/mcL (1.6-8.9); Nucleated Red Blood Cells 0.1 /100 WBC (0); Platelet Count 310 K/mcL (140-400); Red Blood Count 4.47 M/mcL (3.82-4.97); Red Cell Distribution Width 17.2 % (11.5-14.5); Segmented Neutrophils % 79.5 %
[2021-02-14 10:37] LABS: White Blood Count 15.6 K/mcL (4.3-11.1)
[2021-02-14 10:47] LABS: BUN/Creatinine Ratio 38 (6-26); Blood Urea Nitrogen 39 mg/dL (6-20); Calcium 9.7 mg/dL (8.6-10.3); Carbon Dioxide 27 mEq/L (23-29); Chloride 95 mEq/L (98-107); Glucose 349 mg/dL (70-105); Magnesium 2.1 mg/dL (1.6-2.6); Osmolality,Calculated 297 (280-300); Phosphorous 3.8 mg/dL (2.7-4.5); Potassium 4.6 mEq/L (3.5-5.1); Sodium 132 mEq/L (136-145); eGFR For African Americans > 60 (> 60); eGFR For Non-African Americans 57 (> 60)
[2021-02-14] MEDS: Dexmedetomidine HCl 400 MCG/100 ML MLS IVC SCH (13:26)
[2021-02-14] MEDS: Azithromycin 250 MG TABLET PO SCH (20:32)
[2021-02-14] MEDS: Ondansetron 4 MG/2 ML VIAL IVP PRN (22:17)
[2021-02-15] MEDS: Ipratropium/Albuterol Neb 3 ML IH SCH ×4 (04:10→21:06)
[2021-02-15] MEDS: Dexmedetomidine HCl 400 MCG/100 ML MLS IVC SCH (05:11)
[2021-02-15] MEDS: *HR* Heparin 5,000 UNIT/ML VIAL SQ SCH ×2 (05:18→17:55)
[2021-02-15 06:03] LABS: Basophils # 0.1 K/mcL (0.0-0.2); Basophils % 0.6 %; Eosinophils % 0.1 %; Hematocrit 42.8 % (35.3-44.9); Immature Granulocytes % 3.7 % (0-4); Lymphocytes # 1.5 K/mcL (0.6-4.6); Lymphocytes % 10.1 %; Mean Corpuscular HGB Conc 32.7 g/dL (31.6-35.5); Mean Corpuscular Hemoglobin 30.2 pg (28.0-33.3); Mean Corpuscular Volume 92.4 fL (83.0-100.0); Mean Platelet Volume 9.9 fL (9.4-12.4); Monocytes # 1.3 K/mcL (0.0-1.3); Monocytes % 8.7 %; Neutrophils # 11.7 K/mcL (1.6-8.9); Platelet Count 340 K/mcL (140-400); Red Blood Count 4.63 M/mcL (3.82-4.97); Segmented Neutrophils % 76.8 %; White Blood Count 15.2 K/mcL (4.3-11.1)
[2021-02-15 06:14] LABS: BUN/Creatinine Ratio 38 (6-26); Blood Urea Nitrogen 31 mg/dL (6-20); Calcium 9.7 mg/dL (8.6-10.3); Carbon Dioxide 33 mEq/L (23-29); Chloride 96 mEq/L (98-107); Glucose 152 mg/dL (70-105); Magnesium 2.4 mg/dL (1.6-2.6); Osmolality,Calculated 290 (280-300); Phosphorous 4.7 mg/dL (2.7-4.5); Potassium 4.5 mEq/L (3.5-5.1); Sodium 135 mEq/L (136-145); eGFR For African Americans > 60 (> 60); eGFR For Non-African Americans > 60 (> 60)
[2021-02-15] MEDS: Methadone Oral Concentrate 50 MG/5 ML UDC PO SCH (08:00)
[2021-02-15] MEDS: predniSONE 20 MG TABLET PO SCH (08:00)
[2021-02-15] MEDS: Folic Acid 1 MG TABLET PO SCH (08:01)
[2021-02-15] MEDS: Gabapentin 300 MG CAPSULE PO SCH ×3 (08:01→21:05)
[2021-02-15] MEDS: Thiamine (B-1) 100 MG TABLET PO SCH (08:01)
[2021-02-15] MEDS: Budesonide/Formoterol 160/4.5 1 PUFF INH IH SCH ×2 (09:51→21:05)
[2021-02-15] MEDS: *HR* LORazepam 2 MG/ML VIAL IVP PRN ×2 (17:55→21:05)
[2021-02-15] MEDS: Azithromycin 250 MG TABLET PO SCH (21:05)
[2021-02-16] MEDS: Dexmedetomidine HCl 400 MCG/100 ML MLS IVC SCH ×2 (00:31→19:46)
[2021-02-16] MEDS: *HR* LORazepam 2 MG/ML VIAL IVP PRN ×4 (01:02→18:25)
[2021-02-16] MEDS: Albuterol 2.5 MG/3 ML NEBULIZER IH PRN (01:03)
[2021-02-16] MEDS: Ipratropium/Albuterol Neb 3 ML IH SCH ×4 (03:58→22:11)
[2021-02-16] MEDS: *HR* Heparin 5,000 UNIT/ML VIAL SQ SCH ×2 (06:08→18:14)
[2021-02-16] MEDS: Thiamine (B-1) 100 MG TABLET PO SCH (08:05)
[2021-02-16] MEDS: Folic Acid 1 MG TABLET PO SCH (08:05)
[2021-02-16] MEDS: predniSONE 20 MG TABLET PO SCH (08:05)
[2021-02-16] MEDS: Gabapentin 300 MG CAPSULE PO SCH ×3 (08:06→19:52)
[2021-02-16] MEDS: Methadone Oral Concentrate 50 MG/5 ML UDC PO SCH (08:09)
[2021-02-16 09:47] LABS: Hematocrit 42.7 % (35.3-44.9); Hemoglobin 13.5 g/dL (11.5-15.4); Mean Corpuscular HGB Conc 31.6 g/dL (31.6-35.5); Mean Corpuscular Hemoglobin 30.3 pg (28.0-33.3); Mean Corpuscular Volume 95.7 fL (83.0-100.0); Mean Platelet Volume 10.4 fL (9.4-12.4); Platelet Count 300 K/mcL (140-400); Red Blood Count 4.46 M/mcL (3.82-4.97)
[2021-02-16] MEDS: Budesonide/Formoterol 160/4.5 1 PUFF INH IH SCH ×2 (10:05→22:11)
[2021-02-16 10:09] LABS: BUN/Creatinine Ratio 31 (6-26); Blood Urea Nitrogen 33 mg/dL (6-20); Calcium 9.2 mg/dL (8.6-10.3); Carbon Dioxide 28 mEq/L (23-29); Chloride 95 mEq/L (98-107); Glucose 211 mg/dL (70-105); Osmolality,Calculated 290 (280-300); Potassium 3.4 mEq/L (3.5-5.1); Sodium 133 mEq/L (136-145); eGFR For African Americans > 60 (> 60); eGFR For Non-African Americans 54 (> 60)
[2021-02-16] MEDS ORDERED: Dexmedetomidine HCl 400 MCG/100 ML MLS IVC ONE (19:40)
[2021-02-16] MEDS: Azithromycin 250 MG TABLET PO SCH (19:52)
[2021-02-17] MEDS: Albuterol 2.5 MG/3 ML NEBULIZER IH PRN (02:00)
[2021-02-17] MEDS ORDERED: Isovue-370 500 ML BOTTLE IVP ONE (02:27)
[2021-02-17 04:17] LABS: Hematocrit 41.4 % (35.3-44.9); Hemoglobin 13.3 g/dL (11.5-15.4); Mean Corpuscular HGB Conc 32.1 g/dL (31.6-35.5); Mean Corpuscular Volume 93.5 fL (83.0-100.0); Mean Platelet Volume 10.3 fL (9.4-12.4); Platelet Count 310 K/mcL (140-400); Red Blood Count 4.43 M/mcL (3.82-4.97); Red Cell Distribution Width 16.8 % (11.5-14.5); White Blood Count 15.3 K/mcL (4.3-11.1)
[2021-02-17 04:27] LABS: Adenovirus Not Detected (Not Detect); Bordetella Pertussis Not Detected (Not Detect); Chlamydophila pneumoniae Not Detected (Not Detect); Coronavirus 229E Not Detected (Not Detect); Coronavirus HKU1 Not Detected (Not Detect); Coronavirus NL63 Not Detected (Not Detect); Coronavirus OC43 Not Detected (Not Detect); Human Metapneumovirus Not Detected (Not Detect); Human Rhinovirus/Enterovirus Not Detected (Not Detect); Influenza A Subtype 2009 H1 Not Detected (Not Detect); Influenza B Not Detected (Not Detect); Mycoplasma pneumoniae Not Detected (Not Detect); Parainfluenza Virus 1 Not Detected (Not Detect); Parainfluenza Virus 2 Not Detected (Not Detect); Parainfluenza Virus 3 Not Detected (Not Detect); Parainfluenza Virus 4 Not Detected (Not Detect); Respiratory Syncytial Virus Not Detected (Not Detect); SARS-CoV-2 Not Detected (Not Detect)
[2021-02-17] MEDS: Ipratropium/Albuterol Neb 3 ML IH SCH ×4 (04:48→22:57)
[2021-02-17] MEDS: *HR* Heparin 5,000 UNIT/ML VIAL SQ SCH ×2 (05:38→16:54)
[2021-02-17 06:10] LABS: BUN/Creatinine Ratio 36 (6-26); Blood Urea Nitrogen 34 mg/dL (6-20); Calcium 9.4 mg/dL (8.6-10.3); Carbon Dioxide 28 mEq/L (23-29); Chloride 96 mEq/L (98-107); Glucose 146 mg/dL (70-105); Osmolality,Calculated 292 (280-300); Potassium 3.7 mEq/L (3.5-5.1); Sodium 136 mEq/L (136-145); eGFR For African Americans > 60 (> 60); eGFR For Non-African Americans > 60 (> 60)
[2021-02-17] MEDS ORDERED: 0.9 % Sodium Chloride 1,000 ML IVC ONE (07:35)
[2021-02-17] MEDS: Folic Acid 1 MG TABLET PO SCH (07:46)
[2021-02-17] MEDS: predniSONE 20 MG TABLET PO SCH (07:46)
[2021-02-17] MEDS: Thiamine (B-1) 100 MG TABLET PO SCH (07:47)
[2021-02-17] MEDS: Gabapentin 300 MG CAPSULE PO SCH ×3 (07:47→20:56)
[2021-02-17] MEDS: Methadone Oral Concentrate 50 MG/5 ML UDC PO SCH (07:47)
[2021-02-17] MEDS: Ondansetron 4 MG/2 ML VIAL IVP PRN (09:55)
[2021-02-17] MEDS: Budesonide/Formoterol 160/4.5 1 PUFF INH IH SCH ×2 (10:00→22:56)
[2021-02-17] MEDS: Dexmedetomidine HCl 400 MCG/100 ML MLS IVC SCH (14:26)
[2021-02-17 16:44] LABS: Albumin 3.8 g/dL (3.5-5.7); Albumin/Globulin Ratio 1.4 (1.1-2.2); Bilirubin,Indirect 0.3 mg/dL (0.0-1.0); Bilirubin,Total 0.3 mg/dL (0.3-1.0); Globulin 2.7 g/dL (2.4-3.5); Total Protein 6.5 g/dL (6.4-8.9)
[2021-02-17] MEDS: Melatonin 3 MG TABLET PO PRN (22:00)
[2021-02-18] MEDS: Ipratropium/Albuterol Neb 3 ML IH SCH ×4 (04:43→22:21)
[2021-02-18] MEDS: *HR* Heparin 5,000 UNIT/ML VIAL SQ SCH ×2 (05:08→16:06)
[2021-02-18 05:29] LABS: Basophils # 0.2 K/mcL (0.0-0.2); Basophils % 0.7 %; Eosinophils # 0.3 K/mcL (0.0-0.6); Eosinophils % 1.1 %; Hematocrit 38.6 % (35.3-44.9); Hemoglobin 12.2 g/dL (11.5-15.4); Immature Granulocytes % 5.4 % (0-4); Lymphocytes # 2.8 K/mcL (0.6-4.6); Lymphocytes % 12.2 %; Mean Corpuscular HGB Conc 31.6 g/dL (31.6-35.5); Mean Corpuscular Hemoglobin 29.9 pg (28.0-33.3); Mean Corpuscular Volume 94.6 fL (83.0-100.0); Monocytes % 4.4 %; Neutrophils # 17.3 K/mcL (1.6-8.9); Platelet Count 268 K/mcL (140-400); Red Blood Count 4.08 M/mcL (3.82-4.97); Red Cell Distribution Width 17.2 % (11.5-14.5); Segmented Neutrophils % 76.2 %
[2021-02-18 05:41] LABS: White Blood Count 22.7 K/mcL (4.3-11.1)
[2021-02-18 05:44] LABS: BUN/Creatinine Ratio 37 (6-26); Blood Urea Nitrogen 29 mg/dL (6-20); Calcium 9.4 mg/dL (8.6-10.3); Carbon Dioxide 38 mEq/L (23-29); Chloride 96 mEq/L (98-107); Glucose 134 mg/dL (70-105); Magnesium 2.2 mg/dL (1.6-2.6); Osmolality,Calculated 296 (280-300); Phosphorous 3.8 mg/dL (2.7-4.5); Sodium 139 mEq/L (136-145); eGFR For African Americans > 60 (> 60); eGFR For Non-African Americans > 60 (> 60)
[2021-02-18] MEDS: Dexmedetomidine HCl 400 MCG/100 ML MLS IVC SCH ×2 (05:58→19:55)
[2021-02-18] MEDS: Folic Acid 1 MG TABLET PO SCH (08:26)
[2021-02-18] MEDS: Thiamine (B-1) 100 MG TABLET PO SCH (08:26)
[2021-02-18] MEDS: predniSONE 20 MG TABLET PO SCH (08:27)
[2021-02-18] MEDS: Gabapentin 300 MG CAPSULE PO SCH ×3 (08:28→20:22)
[2021-02-18] MEDS: Methadone Oral Concentrate 50 MG/5 ML UDC PO SCH (08:28)
[2021-02-18] MEDS: *HR* LORazepam 2 MG/ML VIAL IVP PRN ×3 (10:31→18:41)
[2021-02-18] MEDS: Budesonide/Formoterol 160/4.5 1 PUFF INH IH SCH ×2 (11:38→22:21)
[2021-02-19] MEDS: *HR* LORazepam 2 MG/ML VIAL IVP PRN ×6 (00:52→22:05)
[2021-02-19 04:21] LABS: Basophils % 0.2 %; Hematocrit 41.4 % (35.3-44.9); Hemoglobin 12.9 g/dL (11.5-15.4); Immature Granulocytes % 8.5 % (0-4); Lymphocytes # 3.4 K/mcL (0.6-4.6); Lymphocytes % 13.7 %; Mean Corpuscular HGB Conc 31.2 g/dL (31.6-35.5); Mean Corpuscular Volume 96.3 fL (83.0-100.0); Mean Platelet Volume 10.1 fL (9.4-12.4); Monocytes # 1.2 K/mcL (0.0-1.3); Monocytes % 4.8 %; Neutrophils # 17.9 K/mcL (1.6-8.9); Nucleated Red Blood Cells 0.1 /100 WBC (0); Platelet Count 325 K/mcL (140-400); Red Cell Distribution Width 17.1 % (11.5-14.5); Segmented Neutrophils % 71.8 %; White Blood Count 24.9 K/mcL (4.3-11.1)
[2021-02-19] MEDS: Ipratropium/Albuterol Neb 3 ML IH SCH ×4 (04:21→21:50)
[2021-02-19] MEDS: *HR* Heparin 5,000 UNIT/ML VIAL SQ SCH ×2 (04:24→17:37)
[2021-02-19 04:35] LABS: Basophils # 0.1 K/mcL (0.0-0.2); Eosinophils # 0.3 K/mcL (0.0-0.6)
[2021-02-19 04:58] LABS: Platelet Estimate Normal (Normal); Reactive Lymphocytes Present (Not Present)
[2021-02-19] MEDS: Dexmedetomidine HCl 400 MCG/100 ML MLS IVC SCH (05:38)
[2021-02-19] MEDS: Gabapentin 300 MG CAPSULE PO SCH ×3 (08:19→20:56)
[2021-02-19] MEDS: Folic Acid 1 MG TABLET PO SCH (08:19)
[2021-02-19] MEDS: Thiamine (B-1) 100 MG TABLET PO SCH (08:19)
[2021-02-19] MEDS: predniSONE 20 MG TABLET PO SCH (08:20)
[2021-02-19] MEDS: haloperidoL 1 MG TABLET PO SCH ×2 (08:21→20:56)
[2021-02-19] MEDS: Methadone Oral Concentrate 50 MG/5 ML UDC PO SCH (08:21)
[2021-02-19 09:38] LABS: BUN/Creatinine Ratio 29 (6-26); Blood Urea Nitrogen 28 mg/dL (6-20); Calcium 9.8 mg/dL (8.6-10.3); Carbon Dioxide 36 mEq/L (23-29); Chloride 95 mEq/L (98-107); Glucose 172 mg/dL (70-105); Osmolality,Calculated 298 (280-300); Potassium 4.1 mEq/L (3.5-5.1); Sodium 139 mEq/L (136-145); eGFR For African Americans > 60 (> 60); eGFR For Non-African Americans > 60 (> 60)
[2021-02-19] MEDS: Budesonide/Formoterol 160/4.5 1 PUFF INH IH SCH ×2 (09:41→21:52)
[2021-02-19] MEDS: Ondansetron 4 MG/2 ML VIAL IVP PRN (17:41)
[2021-02-19 20:07] LABS: Adenovirus F 40/41 PCR Not detected (Not detect); Astrovirus PCR Not detected (Not detect); Campylobacter by PCR Not detected (Not detect); Cryptosporidium by PCR Not detected (Not detect); Cyclospora cayetanensis PCR Not detected (Not detect); E. coli O157 by PCR Not detected (Not detect); Entamoeba histolytica PCR Not detected (Not detect); Enteroaggregative E.coli(EAEC) Not detected (Not detect); Enteropathogenic E.coli(EPEC) Not detected (Not detect); Enterotoxigenic E.coli (ETEC) Not detected (Not detect); Giardia lamblia PCR Not detected (Not detect); Norovirus GI/GII PCR Not detected (Not detect); Plesiomonas shigelloides PCR Not detected (Not detect); Rotavirus A PCR Not detected (Not detect); Salmonella PCR Not detected (Not detect); Sapovirus PCR Not detected (Not detect); Shig/EnteroinvasiveE coli EIEC Not detected (Not detect); Shigalike tox-prod E coli STEC Not detected (Not detect); Vibrio PCR Not detected (Not detect); Vibrio cholerae PCR Not detected (Not detect); Yersinia enterocolitica PCR Not detected (Not detect)
[2021-02-19 20:10] LABS: C.difficile Toxin A/B Gene PCR DETECTED (Not detect)
[2021-02-19] MEDS: Vancomycin Oral Soln 125 MG/2.5 ML UDC PO SCH (22:06)
[2021-02-20] MEDS: Ipratropium/Albuterol Neb 3 ML IH SCH ×4 (04:01→23:37)
[2021-02-20 04:39] LABS: Mean Corpuscular HGB Conc 31.4 g/dL (31.6-35.5); Mean Platelet Volume 10.5 fL (9.4-12.4); Red Cell Distribution Width 17.4 % (11.5-14.5)
[2021-02-20 04:41] LABS: Hematocrit 38.8 % (35.3-44.9); Hemoglobin 12.2 g/dL (11.5-15.4); Mean Corpuscular Volume 98.5 fL (83.0-100.0); Platelet Count 327 K/mcL (140-400); Red Blood Count 3.94 M/mcL (3.82-4.97)
[2021-02-20 05:06] LABS: Anisocytosis 1+ (Not Present); Lymphocytes # 3.5 K/mcL (0.6-4.6); Monocytes # 2.5 K/mcL (0.0-1.3); Platelet Estimate Normal (Normal)
[2021-02-20] MEDS: *HR* LORazepam 2 MG/ML VIAL IVP PRN ×2 (05:39→08:42)
[2021-02-20] MEDS: *HR* Heparin 5,000 UNIT/ML VIAL SQ SCH ×2 (05:39→17:26)
[2021-02-20 06:24] LABS: Alanine Aminotransferase 25 Units/L (7-52); Albumin 3.7 g/dL (3.5-5.7); Albumin/Globulin Ratio 1.4 (1.1-2.2); Alkaline Phosphatase 92 Units/L (34-104); Aspartate Amino Transferase 18 Units/L (13-39); BUN/Creatinine Ratio 35 (6-26); Bilirubin,Total 0.2 mg/dL (0.3-1.0); Blood Urea Nitrogen 29 mg/dL (6-20); Calcium 9.5 mg/dL (8.6-10.3); Carbon Dioxide 37 mEq/L (23-29); Chloride 96 mEq/L (98-107); Globulin 2.7 g/dL (2.4-3.5); Glucose 113 mg/dL (70-105); Osmolality,Calculated 295 (280-300); Potassium 3.9 mEq/L (3.5-5.1); Sodium 139 mEq/L (136-145); Total Protein 6.4 g/dL (6.4-8.9); eGFR For African Americans > 60 (> 60); eGFR For Non-African Americans > 60 (> 60)
[2021-02-20] MEDS: Gabapentin 300 MG CAPSULE PO SCH ×3 (08:04→20:17)
[2021-02-20] MEDS: Folic Acid 1 MG TABLET PO SCH (08:04)
[2021-02-20] MEDS: Thiamine (B-1) 100 MG TABLET PO SCH (08:04)
[2021-02-20] MEDS: haloperidoL 1 MG TABLET PO SCH ×2 (08:04→20:17)
[2021-02-20] MEDS: predniSONE 20 MG TABLET PO SCH (08:04)
[2021-02-20] MEDS: Vancomycin Oral Soln 125 MG/2.5 ML UDC PO SCH ×4 (08:05→20:20)
[2021-02-20] MEDS: Methadone Oral Concentrate 50 MG/5 ML UDC PO SCH (08:05)
[2021-02-20] MEDS: Budesonide/Formoterol 160/4.5 1 PUFF INH IH SCH ×2 (11:35→23:38)
[2021-02-20] MEDS: *HR* LORazepam 1 MG TABLET PO SCH ×2 (14:29→20:18)
[2021-02-21] MEDS: Ipratropium/Albuterol Neb 3 ML IH SCH ×5 (04:24→23:12)
[2021-02-21] MEDS: *HR* Heparin 5,000 UNIT/ML VIAL SQ SCH ×2 (04:51→17:34)
[2021-02-21] MEDS: Ondansetron 4 MG/2 ML VIAL IVP PRN ×2 (04:52→16:18)
[2021-02-21 05:43] LABS: Hematocrit 40.5 % (35.3-44.9); Hemoglobin 12.5 g/dL (11.5-15.4); Mean Corpuscular HGB Conc 30.9 g/dL (31.6-35.5); Mean Corpuscular Hemoglobin 30.2 pg (28.0-33.3); Mean Corpuscular Volume 97.8 fL (83.0-100.0); Mean Platelet Volume 10.4 fL (9.4-12.4); Nucleated Red Blood Cells 0.1 /100 WBC (0); Platelet Count 329 K/mcL (140-400); Red Blood Count 4.14 M/mcL (3.82-4.97); Red Cell Distribution Width 17.7 % (11.5-14.5); White Blood Count 23.4 K/mcL (4.3-11.1)
[2021-02-21 06:03] LABS: BUN/Creatinine Ratio 34 (6-26); Blood Urea Nitrogen 27 mg/dL (6-20); Calcium 9.5 mg/dL (8.6-10.3); Carbon Dioxide 39 mEq/L (23-29); Chloride 95 mEq/L (98-107); Glucose 98 mg/dL (70-105); Osmolality,Calculated 293 (280-300); Sodium 139 mEq/L (136-145); eGFR For African Americans > 60 (> 60); eGFR For Non-African Americans > 60 (> 60)
[2021-02-21 06:23] LABS: Lymphocytes # 6.6 K/mcL (0.6-4.6); Neutrophils # 16.4 K/mcL (1.6-8.9)
[2021-02-21 06:24] LABS: Platelet Estimate Normal (Normal)
[2021-02-21] MEDS: Albuterol 2.5 MG/3 ML NEBULIZER IH PRN (07:36)
[2021-02-21] MEDS ORDERED: GuaiFENesin/Pseudophedrine TABLET PO PRN (08:53)
[2021-02-21] MEDS: Vancomycin Oral Soln 125 MG/2.5 ML UDC PO SCH ×4 (09:14→20:28)
[2021-02-21] MEDS: Methadone Oral Concentrate 50 MG/5 ML UDC PO SCH (09:15)
[2021-02-21] MEDS: *HR* LORazepam 1 MG TABLET PO SCH ×3 (09:16→20:24)
[2021-02-21] MEDS: Thiamine (B-1) 100 MG TABLET PO SCH (09:16)
[2021-02-21] MEDS: Lactobacillus 1 EACH CAP.SPRINK PO SCH ×2 (09:16→20:24)
[2021-02-21] MEDS: Gabapentin 300 MG CAPSULE PO SCH ×3 (09:17→20:24)
[2021-02-21] MEDS: Folic Acid 1 MG TABLET PO SCH (09:17)
[2021-02-21] MEDS: predniSONE 20 MG TABLET PO SCH (09:17)
[2021-02-21] MEDS: haloperidoL 1 MG TABLET PO SCH ×2 (09:17→20:24)
[2021-02-21] MEDS: Budesonide/Formoterol 160/4.5 1 PUFF INH IH SCH ×2 (10:52→20:00)
[2021-02-22] MEDS: Ipratropium/Albuterol Neb 3 ML IH SCH ×4 (04:00→15:52)
[2021-02-22] MEDS: *HR* Heparin 5,000 UNIT/ML VIAL SQ SCH (05:12)
[2021-02-22 06:02] LABS: Hematocrit 39.5 % (35.3-44.9); Hemoglobin 12.5 g/dL (11.5-15.4); Mean Corpuscular HGB Conc 31.6 g/dL (31.6-35.5); Mean Corpuscular Hemoglobin 30.4 pg (28.0-33.3); Mean Corpuscular Volume 96.1 fL (83.0-100.0); Mean Platelet Volume 10.7 fL (9.4-12.4); Nucleated Red Blood Cells 0.1 /100 WBC (0); Platelet Count 285 K/mcL (140-400); Red Blood Count 4.11 M/mcL (3.82-4.97); Red Cell Distribution Width 17.4 % (11.5-14.5); White Blood Count 22.4 K/mcL (4.3-11.1)
[2021-02-22 06:17] LABS: BUN/Creatinine Ratio 25 (6-26); Blood Urea Nitrogen 26 mg/dL (6-20); Calcium 9.5 mg/dL (8.6-10.3); Carbon Dioxide 40 mEq/L (23-29); Chloride 95 mEq/L (98-107); Glucose 94 mg/dL (70-105); Osmolality,Calculated 295 (280-300); Potassium 3.9 mEq/L (3.5-5.1); Sodium 140 mEq/L (136-145); eGFR For African Americans > 60 (> 60); eGFR For Non-African Americans 57 (> 60)
[2021-02-22 06:41] LABS: Lymphocytes # 6.7 K/mcL (0.6-4.6); Monocytes # 0.9 K/mcL (0.0-1.3); Neutrophils # 14.8 K/mcL (1.6-8.9); Platelet Estimate Normal (Normal); Reactive Lymphocytes Present (Not Present)
[2021-02-22] MEDS: Budesonide/Formoterol 160/4.5 1 PUFF INH IH SCH (07:33)
[2021-02-22] MEDS: Thiamine (B-1) 100 MG TABLET PO SCH (08:57)
[2021-02-22] MEDS: Gabapentin 300 MG CAPSULE PO SCH ×2 (08:57→16:00)
[2021-02-22] MEDS: Lactobacillus 1 EACH CAP.SPRINK PO SCH (08:57)
[2021-02-22] MEDS: haloperidoL 1 MG TABLET PO SCH (08:57)
[2021-02-22] MEDS: predniSONE 20 MG TABLET PO SCH (08:58)
[2021-02-22] MEDS: Folic Acid 1 MG TABLET PO SCH (08:58)
[2021-02-22] MEDS: *HR* LORazepam 1 MG TABLET PO SCH (08:58)
[2021-02-22] MEDS: Methadone Oral Concentrate 50 MG/5 ML UDC PO SCH (08:58)
[2021-02-22] MEDS: Vancomycin Oral Soln 125 MG/2.5 ML UDC PO SCH ×2 (08:58→13:32)
[2021-02-22] MEDS ORDERED: Isovue-370 500 ML BOTTLE IVP ONE (10:29)
[2021-02-22] MEDS ORDERED: hydrOXYzine pamoate 25 MG CAPSULE PO ONE (11:47)
[2021-02-22 12:46] VITALS: BP 121/77
[2021-02-23] MEDS ORDERED: predniSONE 10 MG TABLET PO SCH (09:00)
== END 2021-02-22 18:15 | disposition home or self-care (01) | DRG 773 ==
LOC: 3BNU 14:35 → EMEROOARM 14:35 → SUATTDRO 19:23 → 3BNU 20:30 → SUATTDRO 02-13 09:20 → 3BNU 02-13 10:20 → 2NNU 02-14 13:18 → 3ANU 02-20 16:59
PROVIDERS: ADMIT Internal Medicine; ATTEND Internal Medicine

== ENCOUNTER 2021-03-03 22:17 | Inpatient (IN) ==
[2021-03-03] MEDS ORDERED: Ipratropium/Albuterol Neb 3 ML IH ONE (23:18)
[2021-03-03] MEDS ORDERED: methylPREDNISolone 125 MG/2 ML VIAL IVP ONE (23:19)
[2021-03-03 23:45] LABS: Basophils % 0.3 %; Eosinophils # 0.7 K/mcL (0.0-0.6); Eosinophils % 6.1 %; Hematocrit 38.6 % (35.3-44.9); Hemoglobin 12.6 g/dL (11.5-15.4); Immature Granulocytes % 0.4 % (0-4); Lymphocytes # 2.8 K/mcL (0.6-4.6); Lymphocytes % 26.4 %; Mean Corpuscular HGB Conc 32.6 g/dL (31.6-35.5); Mean Corpuscular Hemoglobin 30.6 pg (28.0-33.3); Mean Corpuscular Volume 93.7 fL (83.0-100.0); Monocytes # 0.7 K/mcL (0.0-1.3); Neutrophils # 6.5 K/mcL (1.6-8.9); Platelet Count 288 K/mcL (140-400); Red Blood Count 4.12 M/mcL (3.82-4.97); Segmented Neutrophils % 60.8 %; White Blood Count 10.8 K/mcL (4.3-11.1)
[2021-03-03 23:52] LABS: Alanine Aminotransferase 73 Units/L (7-52); Albumin 3.5 g/dL (3.5-5.7); Albumin/Globulin Ratio 1.1 (1.1-2.2); Alkaline Phosphatase 159 Units/L (34-104); Aspartate Amino Transferase 70 Units/L (13-39); BUN/Creatinine Ratio 10 (6-26); Bilirubin,Direct 0.1 mg/dL (0.0-0.2); Bilirubin,Indirect 0.4 mg/dL (0.0-1.0); Bilirubin,Total 0.5 mg/dL (0.3-1.0); Blood Urea Nitrogen 9 mg/dL (6-20); Calcium 8.9 mg/dL (8.6-10.3); Carbon Dioxide 28 mEq/L (23-29); Chloride 99 mEq/L (98-107); Globulin 3.1 g/dL (2.4-3.5); Glucose 103 mg/dL (70-105); Osmolality,Calculated 285 (280-300); Potassium 3.8 mEq/L (3.5-5.1); Sodium 138 mEq/L (136-145); Total Protein 6.6 g/dL (6.4-8.9); Troponin I < 0.03 ng/mL (< 0.04); eGFR For African Americans > 60 (> 60); eGFR For Non-African Americans > 60 (> 60)
[2021-03-04] MEDS ORDERED: Isovue-370 500 ML BOTTLE IVP ONE (00:29)
[2021-03-04] MEDS ORDERED: Piperacillin/Tazobactam 3.375 GM in 0.9 % Sodium Chloride Mini Bag 100 ML IVPB ONE (02:00)
[2021-03-04] MEDS ORDERED: Naloxone 0.4 MG/ML INJ IVP PRN (02:57)
[2021-03-04] MEDS ORDERED: Vancomycin 1,500 MG/265 ML IV.SOLN IVPB ONE (03:00)
[2021-03-04] MEDS ORDERED: haloperidoL 1 MG TABLET PO PRN (03:04)
[2021-03-04] MEDS ORDERED: Albuterol 2.5 MG/3 ML NEBULIZER IH PRN (03:05)
[2021-03-04] MEDS ORDERED: Ondansetron ODT 4 MG TAB.RAPDIS PO PRN (03:15)
[2021-03-04] MEDS: *HR* LORazepam 2 MG/ML VIAL IVP PRN ×6 (04:02→22:05)
[2021-03-04] MEDS: Albuterol 2.5 MG/3 ML NEBULIZER IH SCH ×6 (04:05→23:25)
[2021-03-04 05:20] LABS: Red Blood Count 4.18 M/mcL (3.82-4.97); Segmented Neutrophils % 86.7 %
[2021-03-04 05:22] LABS: Basophils % 0.3 %; Eosinophils % 0.5 %; Hematocrit 40.1 % (35.3-44.9); Immature Granulocytes % 0.5 % (0-4); Immature Platelets 4.6 % (1.1-6.1); Lymphocytes # 0.7 K/mcL (0.6-4.6); Lymphocytes % 10.9 %; Mean Corpuscular HGB Conc 32.4 g/dL (31.6-35.5); Mean Corpuscular Hemoglobin 31.1 pg (28.0-33.3); Mean Corpuscular Volume 95.9 fL (83.0-100.0); Monocytes # 0.1 K/mcL (0.0-1.3); Monocytes % 1.1 %; Neutrophils # 5.6 K/mcL (1.6-8.9); Platelet Count 212 K/mcL (140-400); Red Cell Distribution Width 15.3 % (11.5-14.5); White Blood Count 6.4 K/mcL (4.3-11.1)
[2021-03-04] MEDS: *HR* Heparin 5,000 UNIT/ML VIAL SQ SCH ×2 (05:22→17:16)
[2021-03-04 05:31] LABS: BUN/Creatinine Ratio 13 (6-26); Blood Urea Nitrogen 12 mg/dL (6-20); Calcium 8.8 mg/dL (8.6-10.3); Carbon Dioxide 26 mEq/L (23-29); Chloride 101 mEq/L (98-107); Glucose 172 mg/dL (70-105); Osmolality,Calculated 288 (280-300); Potassium 3.3 mEq/L (3.5-5.1); Sodium 137 mEq/L (136-145); eGFR For African Americans > 60 (> 60); eGFR For Non-African Americans > 60 (> 60)
[2021-03-04] MEDS: Ondansetron 4 MG/2 ML VIAL IVP PRN (08:37)
[2021-03-04] MEDS: Methadone Oral Concentrate 50 MG/5 ML UDC PO SCH (08:37)
[2021-03-04] MEDS: Thiamine (B-1) 100 MG TABLET PO SCH (08:39)
[2021-03-04] MEDS: predniSONE 20 MG TABLET PO SCH (08:39)
[2021-03-04] MEDS: Folic Acid 1 MG TABLET PO SCH (08:39)
[2021-03-04] MEDS: Gabapentin 300 MG CAPSULE PO SCH ×3 (08:39→22:07)
[2021-03-04] MEDS: Multivit/Ca/Min/Fe/FA 1 TAB TABLET PO SCH (08:39)
[2021-03-04] MEDS ORDERED: Thiamine (B-1) 100 MG TABLET PO SCH (09:00)
[2021-03-04] MEDS ORDERED: Piperacillin/Tazobactam 3.375 GM in 0.9 % Sodium Chloride Mini Bag 100 ML IVPB SCH (11:00)
[2021-03-04] MEDS: Piperacillin/Tazobactam 3.375 GM in 0.9 % Sodium Chloride Mini Bag 100 ML IVPB SCH ×2 (14:50→22:06)
[2021-03-04] MEDS: Vancomycin 1,500 MG/265 ML IV.SOLN IVPB SCH (14:51)
[2021-03-05 02:32] LABS: Basophils % 0.2 %; Hematocrit 37.1 % (35.3-44.9); Hemoglobin 11.9 g/dL (11.5-15.4); Immature Granulocytes % 0.7 % (0-4); Lymphocytes # 0.8 K/mcL (0.6-4.6); Lymphocytes % 7.2 %; Mean Corpuscular HGB Conc 32.1 g/dL (31.6-35.5); Mean Corpuscular Hemoglobin 30.9 pg (28.0-33.3); Mean Corpuscular Volume 96.4 fL (83.0-100.0); Mean Platelet Volume 9.9 fL (9.4-12.4); Monocytes # 0.8 K/mcL (0.0-1.3); Monocytes % 6.7 %; Neutrophils # 9.7 K/mcL (1.6-8.9); Platelet Count 300 K/mcL (140-400); Red Blood Count 3.85 M/mcL (3.82-4.97); Red Cell Distribution Width 15.7 % (11.5-14.5); Segmented Neutrophils % 85.2 %
[2021-03-05] MEDS: Vancomycin 1,500 MG/265 ML IV.SOLN IVPB SCH ×2 (02:35→15:41)
[2021-03-05 02:37] LABS: White Blood Count 11.4 K/mcL (4.3-11.1)
[2021-03-05] MEDS: *HR* LORazepam 2 MG/ML VIAL IVP PRN ×4 (02:40→13:28)
[2021-03-05 02:50] LABS: BUN/Creatinine Ratio 20 (6-26); Blood Urea Nitrogen 17 mg/dL (6-20); Calcium 9.2 mg/dL (8.6-10.3); Carbon Dioxide 28 mEq/L (23-29); Chloride 104 mEq/L (98-107); Glucose 202 mg/dL (70-105); Osmolality,Calculated 297 (280-300); Potassium 3.6 mEq/L (3.5-5.1); Sodium 140 mEq/L (136-145); eGFR For African Americans > 60 (> 60); eGFR For Non-African Americans > 60 (> 60)
[2021-03-05] MEDS: Albuterol 2.5 MG/3 ML NEBULIZER IH SCH ×6 (04:01→23:14)
[2021-03-05] MEDS: Piperacillin/Tazobactam 3.375 GM in 0.9 % Sodium Chloride Mini Bag 100 ML IVPB SCH ×2 (05:56→22:01)
[2021-03-05] MEDS: *HR* Heparin 5,000 UNIT/ML VIAL SQ SCH ×2 (05:56→17:45)
[2021-03-05] MEDS: Gabapentin 300 MG CAPSULE PO SCH ×3 (10:05→22:01)
[2021-03-05] MEDS: predniSONE 20 MG TABLET PO SCH (10:05)
[2021-03-05] MEDS: Folic Acid 1 MG TABLET PO SCH (10:05)
[2021-03-05] MEDS: Multivit/Ca/Min/Fe/FA 1 TAB TABLET PO SCH (10:05)
[2021-03-05] MEDS: Thiamine (B-1) 100 MG TABLET PO SCH (10:05)
[2021-03-05] MEDS: Methadone Oral Concentrate 50 MG/5 ML UDC PO SCH (10:06)
[2021-03-05] MEDS: Budesonide/Formoterol 160/4.5 1 PUFF INH IH SCH (19:56)
[2021-03-06] MEDS: Vancomycin 1,500 MG/265 ML IV.SOLN IVPB SCH (03:12)
[2021-03-06] MEDS: Piperacillin/Tazobactam 3.375 GM in 0.9 % Sodium Chloride Mini Bag 100 ML IVPB SCH (03:13)
[2021-03-06] MEDS: Albuterol 2.5 MG/3 ML NEBULIZER IH SCH ×6 (03:35→23:14)
[2021-03-06 03:36] LABS: Basophils % 0.2 %; Hematocrit 37.6 % (35.3-44.9); Hemoglobin 11.7 g/dL (11.5-15.4); Immature Granulocytes % 1.3 % (0-4); Lymphocytes # 1.5 K/mcL (0.6-4.6); Lymphocytes % 13.3 %; Mean Corpuscular HGB Conc 31.1 g/dL (31.6-35.5); Mean Corpuscular Hemoglobin 31.1 pg (28.0-33.3); Mean Platelet Volume 10.1 fL (9.4-12.4); Monocytes # 0.7 K/mcL (0.0-1.3); Monocytes % 6.8 %; Neutrophils # 8.6 K/mcL (1.6-8.9); Platelet Count 320 K/mcL (140-400); Red Blood Count 3.76 M/mcL (3.82-4.97); Red Cell Distribution Width 15.9 % (11.5-14.5); Segmented Neutrophils % 78.4 %; White Blood Count 10.9 K/mcL (4.3-11.1)
[2021-03-06 03:52] LABS: Alanine Aminotransferase 41 Units/L (7-52); Albumin 3.6 g/dL (3.5-5.7); Albumin/Globulin Ratio 1.3 (1.1-2.2); Alkaline Phosphatase 134 Units/L (34-104); Aspartate Amino Transferase 13 Units/L (13-39); BUN/Creatinine Ratio 19 (6-26); Bilirubin,Indirect 0.2 mg/dL (0.0-1.0); Bilirubin,Total 0.2 mg/dL (0.3-1.0); Blood Urea Nitrogen 15 mg/dL (6-20); Calcium 9.4 mg/dL (8.6-10.3); Carbon Dioxide 32 mEq/L (23-29); Chloride 103 mEq/L (98-107); Globulin 2.8 g/dL (2.4-3.5); Glucose 250 mg/dL (70-105); Osmolality,Calculated 299 (280-300); Potassium 3.9 mEq/L (3.5-5.1); Sodium 140 mEq/L (136-145); Total Protein 6.4 g/dL (6.4-8.9); eGFR For African Americans > 60 (> 60); eGFR For Non-African Americans > 60 (> 60)
[2021-03-06] MEDS: *HR* LORazepam 2 MG/ML VIAL IVP PRN ×5 (05:42→23:51)
[2021-03-06] MEDS: *HR* Heparin 5,000 UNIT/ML VIAL SQ SCH ×2 (05:44→19:02)
[2021-03-06] MEDS ORDERED: *HR* LORazepam 2 MG/ML VIAL IVP ONE (06:17)
[2021-03-06] MEDS: Budesonide/Formoterol 160/4.5 1 PUFF INH IH SCH ×2 (07:44→20:03)
[2021-03-06] MEDS: Gabapentin 300 MG CAPSULE PO SCH ×3 (09:50→20:40)
[2021-03-06] MEDS: Thiamine (B-1) 100 MG TABLET PO SCH (09:50)
[2021-03-06] MEDS: predniSONE 20 MG TABLET PO SCH (09:50)
[2021-03-06] MEDS: Multivit/Ca/Min/Fe/FA 1 TAB TABLET PO SCH (09:50)
[2021-03-06] MEDS: Doxycycline 100 MG CAPSULE PO SCH ×2 (09:50→20:40)
[2021-03-06] MEDS: Folic Acid 1 MG TABLET PO SCH (09:51)
[2021-03-06] MEDS: Methadone Oral Concentrate 50 MG/5 ML UDC PO SCH (09:51)
[2021-03-06] MEDS: cefTRIAXone 1,000 MG in Water for inj. (sterile) 10 ML IVP SCH (12:43)
[2021-03-07] MEDS: Albuterol 2.5 MG/3 ML NEBULIZER IH SCH ×6 (04:05→23:16)
[2021-03-07] MEDS: *HR* Heparin 5,000 UNIT/ML VIAL SQ SCH ×2 (06:26→17:21)
[2021-03-07 06:54] LABS: Basophils # 0.1 K/mcL (0.0-0.2); Basophils % 0.6 %; Eosinophils # 0.1 K/mcL (0.0-0.6); Eosinophils % 0.9 %; Hematocrit 37.1 % (35.3-44.9); Hemoglobin 11.5 g/dL (11.5-15.4); Immature Granulocytes % 2.3 % (0-4); Lymphocytes # 3.3 K/mcL (0.6-4.6); Lymphocytes % 26.9 %; Mean Corpuscular Hemoglobin 30.1 pg (28.0-33.3); Mean Corpuscular Volume 97.1 fL (83.0-100.0); Monocytes # 0.9 K/mcL (0.0-1.3); Monocytes % 7.4 %; Neutrophils # 7.7 K/mcL (1.6-8.9); Platelet Count 287 K/mcL (140-400); Red Blood Count 3.82 M/mcL (3.82-4.97); Red Cell Distribution Width 15.9 % (11.5-14.5); Segmented Neutrophils % 61.9 %; White Blood Count 12.4 K/mcL (4.3-11.1)
[2021-03-07 07:16] LABS: BUN/Creatinine Ratio 21 (6-26); Blood Urea Nitrogen 17 mg/dL (6-20); Calcium 9.6 mg/dL (8.6-10.3); Carbon Dioxide 35 mEq/L (23-29); Chloride 100 mEq/L (98-107); Glucose 181 mg/dL (70-105); Osmolality,Calculated 300 (280-300); Potassium 3.4 mEq/L (3.5-5.1); Sodium 142 mEq/L (136-145); eGFR For African Americans > 60 (> 60); eGFR For Non-African Americans > 60 (> 60)
[2021-03-07] MEDS: Budesonide/Formoterol 160/4.5 1 PUFF INH IH SCH ×2 (07:49→20:44)
[2021-03-07] MEDS: cefTRIAXone 1,000 MG in Water for inj. (sterile) 10 ML IVP SCH (08:27)
[2021-03-07] MEDS: Gabapentin 300 MG CAPSULE PO SCH ×3 (08:28→20:51)
[2021-03-07] MEDS: Thiamine (B-1) 100 MG TABLET PO SCH (08:28)
[2021-03-07] MEDS: *HR* LORazepam 2 MG/ML VIAL IVP PRN ×3 (08:28→20:52)
[2021-03-07] MEDS: Folic Acid 1 MG TABLET PO SCH (08:28)
[2021-03-07] MEDS: Multivit/Ca/Min/Fe/FA 1 TAB TABLET PO SCH (08:28)
[2021-03-07] MEDS: predniSONE 20 MG TABLET PO SCH (08:29)
[2021-03-07] MEDS: Doxycycline 100 MG CAPSULE PO SCH ×2 (08:29→20:51)
[2021-03-07] MEDS: Methadone Oral Concentrate 50 MG/5 ML UDC PO SCH (08:42)
[2021-03-07] MEDS ORDERED: Potassium Chloride Elixir 20 MEQ/15 ML UDC PO ONE ×2 (11:41→13:14)
[2021-03-07] MEDS ORDERED: 0.9 % Sodium Chloride 500 ML IVC ONE (11:45)
[2021-03-07] MEDS: Ondansetron 4 MG/2 ML VIAL IVP PRN (15:15)
[2021-03-08] MEDS: Albuterol 2.5 MG/3 ML NEBULIZER IH SCH ×6 (04:00→23:44)
[2021-03-08] MEDS: *HR* Heparin 5,000 UNIT/ML VIAL SQ SCH ×2 (05:35→18:03)
[2021-03-08 05:56] LABS: Basophils % 0.3 %; Eosinophils # 0.3 K/mcL (0.0-0.6); Eosinophils % 1.9 %; Hematocrit 37.4 % (35.3-44.9); Hemoglobin 11.7 g/dL (11.5-15.4); Immature Granulocytes % 4.5 % (0-4); Lymphocytes # 3.8 K/mcL (0.6-4.6); Lymphocytes % 26.3 %; Mean Corpuscular HGB Conc 31.3 g/dL (31.6-35.5); Mean Corpuscular Hemoglobin 30.5 pg (28.0-33.3); Mean Corpuscular Volume 97.4 fL (83.0-100.0); Mean Platelet Volume 10.1 fL (9.4-12.4); Monocytes # 0.9 K/mcL (0.0-1.3); Monocytes % 6.3 %; Neutrophils # 8.7 K/mcL (1.6-8.9); Nucleated Red Blood Cells 0.2 /100 WBC (0); Platelet Count 314 K/mcL (140-400); Red Blood Count 3.84 M/mcL (3.82-4.97); Red Cell Distribution Width 16.2 % (11.5-14.5); Segmented Neutrophils % 60.7 %; White Blood Count 14.4 K/mcL (4.3-11.1)
[2021-03-08 06:17] LABS: BUN/Creatinine Ratio 24 (6-26); Blood Urea Nitrogen 23 mg/dL (6-20); Calcium 9.5 mg/dL (8.6-10.3); Carbon Dioxide 32 mEq/L (23-29); Chloride 98 mEq/L (98-107); Glucose 203 mg/dL (70-105); Osmolality,Calculated 295 (280-300); Potassium 3.8 mEq/L (3.5-5.1); Sodium 138 mEq/L (136-145); eGFR For African Americans > 60 (> 60); eGFR For Non-African Americans > 60 (> 60)
[2021-03-08] MEDS: *HR* LORazepam 2 MG/ML VIAL IVP PRN ×4 (06:40→20:12)
[2021-03-08] MEDS: Budesonide/Formoterol 160/4.5 1 PUFF INH IH SCH ×2 (07:43→20:08)
[2021-03-08] MEDS: Gabapentin 300 MG CAPSULE PO SCH ×3 (09:10→20:05)
[2021-03-08] MEDS: predniSONE 20 MG TABLET PO SCH (09:10)
[2021-03-08] MEDS: Thiamine (B-1) 100 MG TABLET PO SCH (09:10)
[2021-03-08] MEDS: Methadone Oral Concentrate 50 MG/5 ML UDC PO SCH (09:11)
[2021-03-08] MEDS: Folic Acid 1 MG TABLET PO SCH (09:11)
[2021-03-08] MEDS: Multivit/Ca/Min/Fe/FA 1 TAB TABLET PO SCH (09:11)
[2021-03-08] MEDS: Doxycycline 100 MG CAPSULE PO SCH ×2 (09:11→20:04)
[2021-03-08] MEDS: cefTRIAXone 1,000 MG in Water for inj. (sterile) 10 ML IVP SCH (09:14)
[2021-03-09] MEDS: Albuterol 2.5 MG/3 ML NEBULIZER IH SCH ×2 (04:01→07:21)
[2021-03-09 05:11] LABS: Basophils # 0.1 K/mcL (0.0-0.2); Basophils % 0.3 %; Eosinophils # 0.1 K/mcL (0.0-0.6); Eosinophils % 0.8 %; Hemoglobin 12.2 g/dL (11.5-15.4); Immature Granulocytes % 6.6 % (0-4); Lymphocytes # 3.5 K/mcL (0.6-4.6); Lymphocytes % 20.7 %; Mean Corpuscular HGB Conc 32.1 g/dL (31.6-35.5); Mean Corpuscular Hemoglobin 30.7 pg (28.0-33.3); Mean Corpuscular Volume 95.7 fL (83.0-100.0); Monocytes # 1.3 K/mcL (0.0-1.3); Monocytes % 7.5 %; Nucleated Red Blood Cells 0.2 /100 WBC (0); Platelet Count 292 K/mcL (140-400); Red Blood Count 3.97 M/mcL (3.82-4.97); Segmented Neutrophils % 64.1 %; White Blood Count 16.8 K/mcL (4.3-11.1)
[2021-03-09 05:12] LABS: Neutrophils # 10.8 K/mcL (1.6-8.9)
[2021-03-09] MEDS: *HR* Heparin 5,000 UNIT/ML VIAL SQ SCH (05:17)
[2021-03-09] MEDS: Ondansetron 4 MG/2 ML VIAL IVP PRN (05:18)
[2021-03-09] MEDS: *HR* LORazepam 2 MG/ML VIAL IVP PRN ×2 (05:19→09:34)
[2021-03-09 05:30] LABS: BUN/Creatinine Ratio 27 (6-26); Blood Urea Nitrogen 23 mg/dL (6-20); Calcium 9.3 mg/dL (8.6-10.3); Carbon Dioxide 32 mEq/L (23-29); Chloride 100 mEq/L (98-107); Glucose 122 mg/dL (70-105); Osmolality,Calculated 295 (280-300); Sodium 140 mEq/L (136-145); eGFR For African Americans > 60 (> 60); eGFR For Non-African Americans > 60 (> 60)
[2021-03-09 06:01] LABS: Platelet Estimate Normal (Normal)
[2021-03-09 06:38] VITALS: BP 129/82
[2021-03-09] MEDS: Budesonide/Formoterol 160/4.5 1 PUFF INH IH SCH (07:21)
[2021-03-09] MEDS: cefTRIAXone 1,000 MG in Water for inj. (sterile) 10 ML IVP SCH (07:58)
[2021-03-09] MEDS: Methadone Oral Concentrate 50 MG/5 ML UDC PO SCH (07:58)
[2021-03-09] MEDS: Multivit/Ca/Min/Fe/FA 1 TAB TABLET PO SCH (07:59)
[2021-03-09] MEDS: Doxycycline 100 MG CAPSULE PO SCH (07:59)
[2021-03-09] MEDS: Folic Acid 1 MG TABLET PO SCH (07:59)
[2021-03-09] MEDS: Thiamine (B-1) 100 MG TABLET PO SCH (07:59)
[2021-03-09] MEDS: Gabapentin 300 MG CAPSULE PO SCH (07:59)
== END 2021-03-09 11:11 | disposition home or self-care (01) | DRG 139 ==
LOC: EMEROOARM 22:17 → 3ANU 22:17 → SUATTDRO 03-04 02:45 → 3ANU 03-04 03:11
PROVIDERS: ADMIT Internal Medicine; ATTEND Internal Medicine

== ENCOUNTER 2021-06-23 20:11 | Inpatient (IN) ==
[2021-06-23] MEDS ORDERED: predniSONE 20 MG TABLET PO ONE (21:20)
[2021-06-23] MEDS ORDERED: *HR* LORazepam 2 MG/ML VIAL IVP STA (21:23)
[2021-06-23 21:55] LABS: Basophils # 0.1 K/mcL (0.0-0.2); Basophils % 1.5 %; Eosinophils # 0.1 K/mcL (0.0-0.6); Eosinophils % 2.3 %; Hematocrit 41.1 % (35.3-44.9); Hemoglobin 13.4 g/dL (11.5-15.4); Immature Granulocytes % 0.3 % (0-4); Immature Platelets 7.1 % (1.1-6.1); Lymphocytes # 1.5 K/mcL (0.6-4.6); Lymphocytes % 37.6 %; Mean Corpuscular HGB Conc 32.6 g/dL (31.6-35.5); Mean Corpuscular Hemoglobin 30.2 pg (28.0-33.3); Mean Corpuscular Volume 92.6 fL (83.0-100.0); Mean Platelet Volume 9.7 fL (9.4-12.4); Monocytes # 0.7 K/mcL (0.0-1.3); Monocytes % 17.9 %; Neutrophils # 1.6 K/mcL (1.6-8.9); Red Blood Count 4.44 M/mcL (3.82-4.97); Segmented Neutrophils % 40.4 %
[2021-06-23] MEDS ORDERED: Isovue-370 500 ML BOTTLE IVP ONE (22:11)
[2021-06-23 22:13] LABS: BUN/Creatinine Ratio 13 (6-26); Blood Urea Nitrogen 11 mg/dL (6-20); Calcium 9.1 mg/dL (8.6-10.3); Carbon Dioxide 28 mEq/L (23-29); Chloride 102 mEq/L (98-107); Glucose 117 mg/dL (70-105); Osmolality,Calculated 294 (280-300); Potassium 3.7 mEq/L (3.5-5.1); Sodium 142 mEq/L (136-145); eGFR For African Americans > 60 (> 60); eGFR For Non-African Americans > 60 (> 60)
[2021-06-23 22:19] LABS: Platelet Count 68 K/mcL (140-400)
[2021-06-23 22:20] LABS: Platelet Estimate Decreased (Normal)
[2021-06-23 22:21] LABS: Troponin I < 0.03 ng/mL (< 0.04)
[2021-06-23 22:22] LABS: Influenza A PCR Negative (Negative); Influenza B PCR Negative (Negative); Resp. Syncytial Virus PCR Negative (Negative)
[2021-06-23 22:24] LABS: SARS-CoV-2 by PCR (In House) Negative (Negative)
[2021-06-24] MEDS ORDERED: Ipratropium/Albuterol Neb 3 ML IH ONE (00:18)
[2021-06-24] MEDS ORDERED: Naloxone 0.4 MG/ML INJ IVP PRN (01:31)
[2021-06-24] MEDS ORDERED: *HR* Promethazine 25 MG/ML VIAL IM PRN (01:31)
[2021-06-24] MEDS ORDERED: Melatonin 3 MG TABLET PO PRN (01:31)
[2021-06-24] MEDS ORDERED: *HR* LORazepam 2 MG/ML VIAL IVP PRN (01:33)
[2021-06-24] MEDS ORDERED: Ipratropium/Albuterol Neb 3 ML IH PRN (01:34)
[2021-06-24] MEDS: Ondansetron 4 MG/2 ML VIAL IVP PRN (01:48)
[2021-06-24] MEDS: *HR* LORazepam 2 MG/ML VIAL IVP PRN ×5 (01:48→21:53)
[2021-06-24] MEDS: Ipratropium/Albuterol Neb 3 ML IH SCH ×5 (03:31→22:20)
[2021-06-24] MEDS: *HR* Enoxaparin 40 MG/0.4 ML SYRINGE SQ SCH (05:31)
[2021-06-24 06:42] LABS: BUN/Creatinine Ratio 14 (6-26); Blood Urea Nitrogen 9 mg/dL (6-20); Calcium 8.9 mg/dL (8.6-10.3); Carbon Dioxide 24 mEq/L (23-29); Chloride 102 mEq/L (98-107); Glucose 137 mg/dL (70-105); Osmolality,Calculated 289 (280-300); Potassium 4.1 mEq/L (3.5-5.1); Sodium 139 mEq/L (136-145); eGFR For African Americans > 60 (> 60); eGFR For Non-African Americans > 60 (> 60)
[2021-06-24 06:55] LABS: Prothrombin Time 11.8 Seconds (9.4-12.1)
[2021-06-24] MEDS ORDERED: Artificial Tears SOLN 15 ML BOTTLE BOTH EYES PRN (08:06)
[2021-06-24] MEDS: Chlorhexidine Rinse 15 ML MOUTHWASH MM SCH ×2 (09:40→20:34)
[2021-06-24] MEDS: MethylPREDNISolone 40 MG/ML VIAL IVP SCH ×2 (09:40→15:39)
[2021-06-24] MEDS: Lactobacillus 1 EACH CAP.SPRINK PO SCH ×2 (09:40→20:33)
[2021-06-24] MEDS: Vitamin B Complex/Vit C/Vit E 1 EACH TABLET PO SCH (09:41)
[2021-06-24] MEDS: Folic Acid 1 MG TABLET PO SCH (09:41)
[2021-06-24] MEDS: Multivit/Ca/Min/Fe/FA 1 TAB TABLET PO SCH (09:41)
[2021-06-24] MEDS: Thiamine (B-1) 100 MG TABLET PO SCH (09:41)
[2021-06-24 09:56] LABS: Hematocrit 41.1 % (35.3-44.9); Red Cell Distribution Width 14.8 % (11.5-14.5)
[2021-06-24 09:58] LABS: Hemoglobin 13.6 g/dL (11.5-15.4); Immature Platelets 5.6 % (1.1-6.1); Lymphocytes # 0.4 K/mcL (0.6-4.6); Mean Corpuscular HGB Conc 33.1 g/dL (31.6-35.5); Mean Corpuscular Hemoglobin 31.1 pg (28.0-33.3); Mean Corpuscular Volume 93.8 fL (83.0-100.0); Mean Platelet Volume 9.9 fL (9.4-12.4); Monocytes # 0.1 K/mcL (0.0-1.3); Red Blood Count 4.38 M/mcL (3.82-4.97); White Blood Count 1.6 K/mcL (4.3-11.1)
[2021-06-24 10:00] LABS: Platelet Count 59 K/mcL (140-400)
[2021-06-24 10:14] LABS: Ethanol 99 mg/dL (Less than 10); Magnesium 1.5 mg/dL (1.6-2.6)
[2021-06-24 10:26] LABS: Neutrophils # 1.1 K/mcL (1.6-8.9)
[2021-06-24 10:27] LABS: Platelet Estimate Decreased (Normal)
[2021-06-24] MEDS: Budesonide/Formoterol 160/4.5 1 PUFF INH IH SCH ×2 (10:35→22:21)
[2021-06-24] MEDS: Insulin LISPRO 300 UNITS/3 ML VIAL SUBQ SCH ×3 (11:05→20:34)
[2021-06-24] MEDS ORDERED: Dexmedetomidine HCl 400 MCG/100 ML MLS IVC SCH (12:15)
[2021-06-24] MEDS ORDERED: Dextrose Gel 15 GM/37.5 ML TUBE PO PRN ×2 (15:39)
[2021-06-24] MEDS ORDERED: *HR* Dextrose 50 % in Water (Vial) 50 ML VIAL IVP PRN (15:39)
[2021-06-24] MEDS ORDERED: D5% in Water 1,000 ML IVC PRN (15:39)
[2021-06-24 16:17] LABS: Thyroid Stimulating Hormone 0.325 mcIU/mL (0.340-5.600)
[2021-06-24 16:21] LABS: ABG Base Excess 5 mEq/L (-2 to 3); ABG HCO3 32 mEq/L (21-27); ABG Oxygen Saturation 93 % (95-98); ABG PCO2 53 mmHg (35-45); ABG PH 7.38 pH Units (7.32-7.45); ABG PO2 70 mmHg (85-104); ABG TCO2 33 mEq/L (20-26)
[2021-06-24 17:17] LABS: Amphetamine Screen,Urine Negative ng/mL (Cutoff=1000); Barbiturate Screen,Urine Negative ng/mL (Cutoff=200); Benzodiazepines Screen,Urine Positive ng/mL (Cutoff=200); Cannabinoid Screen,Urine Negative ng/mL (Cutoff = 50); Cocaine Screen,Urine Negative ng/mL (Cutoff= 300); Opiate Screen,Urine Negative ng/mL (Cutoff=300); Phencyclidine Screen,Urine Negative ng/mL (Cutoff=25)
[2021-06-24 17:18] LABS: Bilirubin,Urine Negative (Negative); Blood,Urine Trace (Negative); Clarity,Urine Clear (Clear); Color,Urine Yellow (Yellow); Glucose,Urine (UA) Normal (Normal); Ketones,Urine 40 mg/dL (Negative); Leukocyte Esterase,Urine Trace (Negative); Mucus,Urine Few per lpf (None-Few); Nitrite,Urine Negative (Negative); PH,Urine 6.5 pH Units (5.0-8.0); Protein,Urine 100 mg/dL (Neg-Trace); RBC,Urine 0-3 per hpf (0-3); Specific Gravity,Urine 1.028 (1.010-1.025); Squamous Epithelial Cell,Urine Moderate per hpf (None-Few)
[2021-06-24] MEDS: Ringers Solution, Lactated 1,000 ML IVC SCH (17:44)
[2021-06-24] MEDS: Gabapentin 300 MG CAPSULE PO SCH (20:34)
[2021-06-25 01:13] LABS: Basophils % 0.2 %; Immature Granulocytes % 0.5 % (0-4); Mean Corpuscular Volume 92.5 fL (83.0-100.0); Mean Platelet Volume 11.1 fL (9.4-12.4); Red Blood Count 4.54 M/mcL (3.82-4.97); Red Cell Distribution Width 14.6 % (11.5-14.5)
[2021-06-25 01:15] LABS: Hemoglobin 14.3 g/dL (11.5-15.4); Immature Platelets 9.3 % (1.1-6.1); Lymphocytes # 0.3 K/mcL (0.6-4.6); Lymphocytes % 4.3 %; Mean Corpuscular Hemoglobin 31.5 pg (28.0-33.3); Monocytes # 0.7 K/mcL (0.0-1.3); Neutrophils # 5.3 K/mcL (1.6-8.9); Nucleated Red Blood Cells 0.3 /100 WBC (0); White Blood Count 6.3 K/mcL (4.3-11.1)
[2021-06-25 01:17] LABS: Platelet Count 60 K/mcL (140-400)
[2021-06-25 01:23] LABS: Prothrombin Time 11.3 Seconds (9.4-12.1)
[2021-06-25 01:35] LABS: Alanine Aminotransferase 58 Units/L (7-52); Albumin 4.2 g/dL (3.5-5.7); Albumin/Globulin Ratio 1.3 (1.1-2.2); Alkaline Phosphatase 125 Units/L (34-104); Aspartate Amino Transferase 69 Units/L (13-39); BUN/Creatinine Ratio 20 (6-26); Bilirubin,Total 0.6 mg/dL (0.3-1.0); Blood Urea Nitrogen 13 mg/dL (6-20); Calcium 10.1 mg/dL (8.6-10.3); Carbon Dioxide 29 mEq/L (23-29); Chloride 96 mEq/L (98-107); Globulin 3.3 g/dL (2.4-3.5); Glucose 217 mg/dL (70-105); Magnesium 1.5 mg/dL (1.6-2.6); Osmolality,Calculated 285 (280-300); Sodium 134 mEq/L (136-145); Total Protein 7.5 g/dL (6.4-8.9); eGFR For African Americans > 60 (> 60); eGFR For Non-African Americans > 60 (> 60)
[2021-06-25] MEDS: MethylPREDNISolone 40 MG/ML VIAL IVP SCH ×4 (01:52→23:51)
[2021-06-25] MEDS: Ipratropium/Albuterol Neb 3 ML IH SCH ×4 (03:41→23:10)
[2021-06-25] MEDS: Ringers Solution, Lactated 1,000 ML IVC SCH (04:10)
[2021-06-25] MEDS: *HR* LORazepam 2 MG/ML VIAL IVP PRN ×3 (05:41→23:51)
[2021-06-25] MEDS: *HR* Enoxaparin 40 MG/0.4 ML SYRINGE SQ SCH (05:42)
[2021-06-25] MEDS ORDERED: Multivit/Ca/Min/Fe/FA 1 TAB TABLET PO SCH (09:00)
[2021-06-25 09:06] LABS: Acetaminophen < 10 mcg/mL (10-20); Alanine Aminotransferase 69 Units/L (7-52); Albumin 4.3 g/dL (3.5-5.7); Albumin/Globulin Ratio 1.3 (1.1-2.2); Alkaline Phosphatase 127 Units/L (34-104); Aspartate Amino Transferase 119 Units/L (13-39); Bilirubin,Direct 0.1 mg/dL (0.0-0.2); Bilirubin,Indirect 0.3 mg/dL (0.0-1.0); Bilirubin,Total 0.4 mg/dL (0.3-1.0); Globulin 3.2 g/dL (2.4-3.5); Salicylate < 2.5 mg/dL (15.0-30.0); Total Protein 7.5 g/dL (6.4-8.9)
[2021-06-25] MEDS: Methadone Oral Concentrate 50 MG/5 ML UDC PO SCH (09:57)
[2021-06-25] MEDS: Lactobacillus 1 EACH CAP.SPRINK PO SCH ×2 (10:02→20:36)
[2021-06-25] MEDS: Multivit/Ca/Min/Fe/FA 1 TAB TABLET PO SCH (10:02)
[2021-06-25] MEDS: Thiamine (B-1) 100 MG TABLET PO SCH (10:02)
[2021-06-25] MEDS: Vitamin B Complex/Vit C/Vit E 1 EACH TABLET PO SCH (10:03)
[2021-06-25] MEDS: Folic Acid 1 MG TABLET PO SCH (10:03)
[2021-06-25] MEDS: Chlorhexidine Rinse 15 ML MOUTHWASH MM SCH ×2 (10:03→20:35)
[2021-06-25] MEDS: Insulin LISPRO 300 UNITS/3 ML VIAL SUBQ SCH ×4 (10:04→20:39)
[2021-06-25] MEDS: Gabapentin 300 MG CAPSULE PO SCH ×3 (10:05→20:36)
[2021-06-25] MEDS: Budesonide/Formoterol 160/4.5 1 PUFF INH IH SCH ×2 (11:13→23:10)
[2021-06-25] MEDS ORDERED: Ipratropium/Albuterol Neb 3 ML IH PRN (18:27)
[2021-06-26 02:12] LABS: Alanine Aminotransferase 44 Units/L (7-52); Albumin 3.9 g/dL (3.5-5.7); Albumin/Globulin Ratio 1.3 (1.1-2.2); Alkaline Phosphatase 109 Units/L (34-104); Aspartate Amino Transferase 44 Units/L (13-39); BUN/Creatinine Ratio 25 (6-26); Bilirubin,Total 0.5 mg/dL (0.3-1.0); Blood Urea Nitrogen 18 mg/dL (6-20); Calcium 9.5 mg/dL (8.6-10.3); Carbon Dioxide 22 mEq/L (23-29); Chloride 97 mEq/L (98-107); Globulin 3.1 g/dL (2.4-3.5); Glucose 248 mg/dL (70-105); Osmolality,Calculated 288 (280-300); Phosphorous 2.5 mg/dL (2.7-4.5); Potassium 4.3 mEq/L (3.5-5.1); Sodium 134 mEq/L (136-145); eGFR For African Americans > 60 (> 60); eGFR For Non-African Americans > 60 (> 60)
[2021-06-26 02:39] LABS: INR 0.9; Prothrombin Time 10.8 Seconds (9.4-12.1)
[2021-06-26] MEDS: Ipratropium/Albuterol Neb 3 ML IH SCH ×4 (03:22→22:24)
[2021-06-26] MEDS: Ondansetron 4 MG/2 ML VIAL IVP PRN ×2 (04:32→20:02)
[2021-06-26] MEDS: *HR* LORazepam 2 MG/ML VIAL IVP PRN ×3 (04:33→20:02)
[2021-06-26 05:25] LABS: Basophils % 0.1 %; Hematocrit 45.6 % (35.3-44.9); Hemoglobin 14.8 g/dL (11.5-15.4); Immature Granulocytes % 0.5 % (0-4); Immature Platelets 10.3 % (1.1-6.1); Lymphocytes # 0.3 K/mcL (0.6-4.6); Lymphocytes % 3.6 %; Mean Corpuscular HGB Conc 32.5 g/dL (31.6-35.5); Mean Corpuscular Volume 95.6 fL (83.0-100.0); Monocytes # 0.7 K/mcL (0.0-1.3); Monocytes % 8.2 %; Neutrophils # 7.3 K/mcL (1.6-8.9); Red Blood Count 4.77 M/mcL (3.82-4.97); Red Cell Distribution Width 15.2 % (11.5-14.5); Segmented Neutrophils % 87.6 %; White Blood Count 8.3 K/mcL (4.3-11.1)
[2021-06-26 05:29] LABS: Platelet Count 66 K/mcL (140-400)
[2021-06-26] MEDS: *HR* Enoxaparin 40 MG/0.4 ML SYRINGE SQ SCH (05:31)
[2021-06-26] MEDS: Gabapentin 300 MG CAPSULE PO SCH ×3 (08:44→20:01)
[2021-06-26] MEDS: MethylPREDNISolone 40 MG/ML VIAL IVP SCH ×2 (08:44→17:11)
[2021-06-26] MEDS: Multivit/Ca/Min/Fe/FA 1 TAB TABLET PO SCH (08:45)
[2021-06-26] MEDS: Lactobacillus 1 EACH CAP.SPRINK PO SCH ×2 (08:45→20:01)
[2021-06-26] MEDS: Thiamine (B-1) 100 MG TABLET PO SCH (08:45)
[2021-06-26] MEDS: Vitamin B Complex/Vit C/Vit E 1 EACH TABLET PO SCH (08:45)
[2021-06-26] MEDS: Methadone Oral Concentrate 50 MG/5 ML UDC PO SCH (08:46)
[2021-06-26] MEDS: Folic Acid 1 MG TABLET PO SCH (08:46)
[2021-06-26] MEDS: Insulin LISPRO 300 UNITS/3 ML VIAL SUBQ SCH ×4 (08:47→20:03)
[2021-06-26] MEDS: Chlorhexidine Rinse 15 ML MOUTHWASH MM SCH ×2 (08:47→20:03)
[2021-06-26] MEDS: Nicotine 14 MG PATCH.TD24 TD SCH (08:47)
[2021-06-26] MEDS: Calcium Gluconate 1gm/50mL 1 GM/50 ML BAG IVPB SCH ×2 (09:58→10:56)
[2021-06-26] MEDS: Budesonide/Formoterol 160/4.5 1 PUFF INH IH SCH ×2 (11:31→22:24)
[2021-06-26] MEDS ORDERED: Azithromycin 250 MG TABLET PO SCH (14:15)
[2021-06-26] MEDS: amLODIPine 5 MG TABLET PO SCH (14:42)
[2021-06-27] MEDS: MethylPREDNISolone 40 MG/ML VIAL IVP SCH ×3 (00:03→16:19)
[2021-06-27] MEDS: *HR* LORazepam 2 MG/ML VIAL IVP PRN ×6 (00:04→21:50)
[2021-06-27 03:19] LABS: Basophils % 0.3 %; Hemoglobin 14.9 g/dL (11.5-15.4); Immature Granulocytes % 1.4 % (0-4); Immature Platelets 11.3 % (1.1-6.1); Lymphocytes # 0.5 K/mcL (0.6-4.6); Lymphocytes % 5.9 %; Mean Corpuscular HGB Conc 32.4 g/dL (31.6-35.5); Mean Corpuscular Hemoglobin 30.8 pg (28.0-33.3); Mean Corpuscular Volume 95.2 fL (83.0-100.0); Monocytes # 0.7 K/mcL (0.0-1.3); Monocytes % 7.4 %; Neutrophils # 7.5 K/mcL (1.6-8.9); Red Blood Count 4.83 M/mcL (3.82-4.97); Red Cell Distribution Width 15.1 % (11.5-14.5); White Blood Count 8.8 K/mcL (4.3-11.1)
[2021-06-27 03:28] LABS: Platelet Count 77 K/mcL (140-400)
[2021-06-27 03:29] LABS: Alanine Aminotransferase 49 Units/L (7-52); Albumin 4.1 g/dL (3.5-5.7); Albumin/Globulin Ratio 1.3 (1.1-2.2); Alkaline Phosphatase 101 Units/L (34-104); Aspartate Amino Transferase 38 Units/L (13-39); BUN/Creatinine Ratio 29 (6-26); Bilirubin,Total 0.5 mg/dL (0.3-1.0); Blood Urea Nitrogen 19 mg/dL (6-20); Calcium 9.6 mg/dL (8.6-10.3); Carbon Dioxide 27 mEq/L (23-29); Chloride 100 mEq/L (98-107); Globulin 3.2 g/dL (2.4-3.5); Glucose 293 mg/dL (70-105); Magnesium 1.8 mg/dL (1.6-2.6); Osmolality,Calculated 295 (280-300); Phosphorous 3.1 mg/dL (2.7-4.5); Potassium 4.2 mEq/L (3.5-5.1); Sodium 136 mEq/L (136-145); Total Protein 7.3 g/dL (6.4-8.9); eGFR For African Americans > 60 (> 60); eGFR For Non-African Americans > 60 (> 60)
[2021-06-27] MEDS: Ipratropium/Albuterol Neb 3 ML IH SCH ×4 (04:48→21:37)
[2021-06-27] MEDS: *HR* Enoxaparin 40 MG/0.4 ML SYRINGE SQ SCH (05:36)
[2021-06-27] MEDS: amLODIPine 5 MG TABLET PO SCH (07:57)
[2021-06-27] MEDS: Thiamine (B-1) 100 MG TABLET PO SCH (07:57)
[2021-06-27] MEDS: Vitamin B Complex/Vit C/Vit E 1 EACH TABLET PO SCH (07:57)
[2021-06-27] MEDS: Gabapentin 300 MG CAPSULE PO SCH ×3 (07:57→21:49)
[2021-06-27] MEDS: Chlorhexidine Rinse 15 ML MOUTHWASH MM SCH ×2 (07:58→22:41)
[2021-06-27] MEDS: Folic Acid 1 MG TABLET PO SCH (07:58)
[2021-06-27] MEDS: Lactobacillus 1 EACH CAP.SPRINK PO SCH ×2 (07:58→21:49)
[2021-06-27] MEDS: Methadone Oral Concentrate 50 MG/5 ML UDC PO SCH (07:58)
[2021-06-27] MEDS: Insulin LISPRO 300 UNITS/3 ML VIAL SUBQ SCH ×5 (07:59→21:55)
[2021-06-27] MEDS: Nicotine 14 MG PATCH.TD24 TD SCH (08:00)
[2021-06-27 09:56] LABS: INR 0.9; Prothrombin Time 10.9 Seconds (9.4-12.1)
[2021-06-27] MEDS: Budesonide/Formoterol 160/4.5 1 PUFF INH IH SCH ×2 (10:35→21:36)
[2021-06-27] MEDS: Ondansetron 4 MG/2 ML VIAL IVP PRN (16:20)
[2021-06-28] MEDS: *HR* LORazepam 2 MG/ML VIAL IVP PRN ×4 (01:40→19:57)
[2021-06-28] MEDS: Ipratropium/Albuterol Neb 3 ML IH SCH ×4 (03:50→21:57)
[2021-06-28] MEDS: *HR* Enoxaparin 40 MG/0.4 ML SYRINGE SQ SCH (06:12)
[2021-06-28 07:06] LABS: Hematocrit 43.9 % (35.3-44.9); Hemoglobin 14.3 g/dL (11.5-15.4); Immature Platelets 8.8 % (1.1-6.1); Mean Corpuscular HGB Conc 32.6 g/dL (31.6-35.5); Mean Corpuscular Volume 95.2 fL (83.0-100.0); Mean Platelet Volume 10.8 fL (9.4-12.4); Red Blood Count 4.61 M/mcL (3.82-4.97); Red Cell Distribution Width 15.4 % (11.5-14.5); White Blood Count 9.9 K/mcL (4.3-11.1)
[2021-06-28] MEDS: MethylPREDNISolone 40 MG/ML VIAL IVP SCH (07:24)
[2021-06-28] MEDS: Insulin LISPRO 300 UNITS/3 ML VIAL SUBQ SCH ×4 (07:52→19:57)
[2021-06-28] MEDS: amLODIPine 5 MG TABLET PO SCH (07:53)
[2021-06-28] MEDS: Folic Acid 1 MG TABLET PO SCH (07:53)
[2021-06-28] MEDS: Nicotine 14 MG PATCH.TD24 TD SCH (07:53)
[2021-06-28] MEDS: Lactobacillus 1 EACH CAP.SPRINK PO SCH ×2 (07:53→19:56)
[2021-06-28] MEDS: Chlorhexidine Rinse 15 ML MOUTHWASH MM SCH ×2 (07:53→19:56)
[2021-06-28] MEDS: Thiamine (B-1) 100 MG TABLET PO SCH (07:54)
[2021-06-28] MEDS: Gabapentin 300 MG CAPSULE PO SCH ×3 (07:54→19:56)
[2021-06-28] MEDS: Vitamin B Complex/Vit C/Vit E 1 EACH TABLET PO SCH (07:54)
[2021-06-28] MEDS: Methadone Oral Concentrate 50 MG/5 ML UDC PO SCH (07:55)
[2021-06-28] MEDS ORDERED: MethylPREDNISolone 40 MG/ML VIAL IVP SCH (09:00)
[2021-06-28] MEDS: Budesonide/Formoterol 160/4.5 1 PUFF INH IH SCH ×2 (09:42→21:57)
[2021-06-28 11:18] LABS: BUN/Creatinine Ratio 34 (6-26); Blood Urea Nitrogen 22 mg/dL (6-20); Calcium 9.4 mg/dL (8.6-10.3); Carbon Dioxide 24 mEq/L (23-29); Chloride 101 mEq/L (98-107); Glucose 243 mg/dL (70-105); Magnesium 2.1 mg/dL (1.6-2.6); Osmolality,Calculated 289 (280-300); Phosphorous 4.4 mg/dL (2.7-4.5); Potassium 4.5 mEq/L (3.5-5.1); Sodium 134 mEq/L (136-145); eGFR For African Americans > 60 (> 60); eGFR For Non-African Americans > 60 (> 60)
[2021-06-28] MEDS ORDERED: Ondansetron ODT 4 MG TAB.RAPDIS SL ONE (13:35)
[2021-06-29] MEDS: *HR* LORazepam 2 MG/ML VIAL IVP PRN ×2 (00:03→05:35)
[2021-06-29 00:24] LABS: Red Blood Count 4.6 M/mcL (3.82-4.97)
[2021-06-29 00:26] LABS: Hematocrit 45.8 % (35.3-44.9); Hemoglobin 14.2 g/dL (11.5-15.4); Immature Platelets 8.7 % (1.1-6.1); Mean Corpuscular Hemoglobin 30.9 pg (28.0-33.3); Mean Corpuscular Volume 99.6 fL (83.0-100.0); Mean Platelet Volume 11.1 fL (9.4-12.4); Red Cell Distribution Width 15.6 % (11.5-14.5); White Blood Count 11.5 K/mcL (4.3-11.1)
[2021-06-29 00:50] LABS: BUN/Creatinine Ratio 29 (6-26); Blood Urea Nitrogen 31 mg/dL (6-20); Calcium 9.7 mg/dL (8.6-10.3); Carbon Dioxide 27 mEq/L (23-29); Chloride 100 mEq/L (98-107); Glucose 146 mg/dL (70-105); Magnesium 1.9 mg/dL (1.6-2.6); Osmolality,Calculated 289 (280-300); Phosphorous 5.7 mg/dL (2.7-4.5); Potassium 4.9 mEq/L (3.5-5.1); Sodium 135 mEq/L (136-145); eGFR For African Americans > 60 (> 60); eGFR For Non-African Americans 55 (> 60)
[2021-06-29] MEDS: Ipratropium/Albuterol Neb 3 ML IH SCH ×2 (03:44→10:23)
[2021-06-29] MEDS: *HR* Enoxaparin 40 MG/0.4 ML SYRINGE SQ SCH (04:57)
[2021-06-29] MEDS: Ondansetron 4 MG/2 ML VIAL IVP PRN (05:35)
[2021-06-29 07:34] VITALS: BP 129/88; PULSE 96; TEMP 97.6; O2SAT 93
[2021-06-29] MEDS ORDERED: predniSONE 20 MG TABLET PO SCH (09:00)
[2021-06-29] MEDS ORDERED: NIFEdipine XL (24 HR) 60 MG TAB.ER.24 PO SCH (09:00)
[2021-06-29] MEDS: Insulin LISPRO 300 UNITS/3 ML VIAL SUBQ SCH (09:01)
[2021-06-29] MEDS: Methadone Oral Concentrate 50 MG/5 ML UDC PO SCH (09:03)
[2021-06-29] MEDS: Gabapentin 300 MG CAPSULE PO SCH (09:04)
[2021-06-29] MEDS: Thiamine (B-1) 100 MG TABLET PO SCH (09:04)
[2021-06-29] MEDS: Lactobacillus 1 EACH CAP.SPRINK PO SCH (09:04)
[2021-06-29] MEDS: Folic Acid 1 MG TABLET PO SCH (09:04)
[2021-06-29] MEDS: Chlorhexidine Rinse 15 ML MOUTHWASH MM SCH (09:05)
[2021-06-29] MEDS: Nicotine 14 MG PATCH.TD24 TD SCH (09:07)
[2021-06-29] MEDS: Vitamin B Complex/Vit C/Vit E 1 EACH TABLET PO SCH (09:09)
[2021-06-29] MEDS: Budesonide/Formoterol 160/4.5 1 PUFF INH IH SCH (10:23)
== END 2021-06-29 12:42 | disposition home or self-care (01) | DRG 773 ==
LOC: 3ANU 20:11 → EMEROOARM 20:11 → SUATTDRO 06-24 00:41 → 3ANU 06-24 01:08 → 2NNU 06-24 14:49 → 3ANU 06-26 13:59
PROVIDERS: ADMIT Internal Medicine; ATTEND Internal Medicine

== ENCOUNTER 2021-09-01 21:40 | Inpatient (IN) ==
[2021-09-01] MEDS ORDERED: Ipratropium/Albuterol Neb 3 ML IH ONE (22:52)
[2021-09-01] MEDS ORDERED: predniSONE 20 MG TABLET PO ONE (22:53)
[2021-09-01 23:49] LABS: Basophils # 0.1 K/mcL (0.0-0.2); Eosinophils # 0.2 K/mcL (0.0-0.6); Eosinophils % 3.7 %; Hematocrit 38.7 % (35.3-44.9); Hemoglobin 12.8 g/dL (11.5-15.4); Lymphocytes # 1.6 K/mcL (0.6-4.6); Lymphocytes % 39.2 %; Mean Corpuscular HGB Conc 33.1 g/dL (31.6-35.5); Mean Corpuscular Hemoglobin 31.3 pg (28.0-33.3); Mean Corpuscular Volume 94.6 fL (83.0-100.0); Mean Platelet Volume 9.7 fL (9.4-12.4); Monocytes # 0.6 K/mcL (0.0-1.3); Monocytes % 14.3 %; Neutrophils # 1.6 K/mcL (1.6-8.9); Platelet Count 179 K/mcL (140-400); Red Blood Count 4.09 M/mcL (3.82-4.97); Red Cell Distribution Width 15.8 % (11.5-14.5); Segmented Neutrophils % 39.8 %; White Blood Count 4.1 K/mcL (4.3-11.1)
[2021-09-01 23:56] LABS: INR 0.9; Prothrombin Time 9.7 Seconds (9.4-12.1)
[2021-09-01 23:59] LABS: Activated Partial Thrombo Time 20.7 Seconds (26.0-36.0)
[2021-09-02] MEDS ORDERED: Ondansetron 4 MG/2 ML VIAL IVP ONE (00:11)
[2021-09-02 00:13] LABS: VBG HCO3 30 mEq/L (21-27); VBG PCO2 46 mmHg (41-51); VBG PH 7.43 pH Units (7.32-7.42); VBG PO2 191 mmHg (25-50)
[2021-09-02 00:33] LABS: Alanine Aminotransferase 34 Units/L (7-52); Albumin 4.1 g/dL (3.5-5.7); Alkaline Phosphatase 104 Units/L (34-104); Aspartate Amino Transferase 64 Units/L (13-39); BUN/Creatinine Ratio 14 (6-26); Bilirubin,Total 0.2 mg/dL (0.3-1.0); Blood Urea Nitrogen 8 mg/dL (6-20); Calcium 9.1 mg/dL (8.6-10.3); Carbon Dioxide 26 mEq/L (23-29); Chloride 103 mEq/L (98-107); Glucose 104 mg/dL (70-105); Osmolality,Calculated 293 (280-300); Potassium 5.1 mEq/L (3.5-5.1); Sodium 142 mEq/L (136-145); Troponin I < 0.03 ng/mL (< 0.04); eGFR For African Americans > 60 (> 60); eGFR For Non-African Americans > 60 (> 60)
[2021-09-02 00:40] LABS: Influenza A PCR Negative (Negative); Influenza B PCR Negative (Negative); Resp. Syncytial Virus PCR Negative (Negative)
[2021-09-02 00:41] LABS: SARS-CoV-2 by PCR (In House) Negative (Negative)
[2021-09-02] MEDS ORDERED: predniSONE 20 MG TABLET PO ONE (01:00)
[2021-09-02] MEDS ORDERED: *HR* LORazepam 2 MG/ML VIAL IVP ONE (01:30)
[2021-09-02] MEDS ORDERED: Ipratropium/Albuterol Neb 3 ML IH ONE (01:30)
[2021-09-02] MEDS ORDERED: methylPREDNISolone 125 MG/2 ML VIAL IVP ONE (02:24)
[2021-09-02] MEDS ORDERED: *HR* Dextrose 50 % in Water (Syg) 50 ML SYRINGE IVP PRN (02:46)
[2021-09-02] MEDS ORDERED: D5% in Water 1,000 ML IVC PRN (02:46)
[2021-09-02] MEDS ORDERED: Dextrose Gel 15 GM/37.5 ML TUBE PO PRN ×2 (02:46)
[2021-09-02] MEDS: *HR* LORazepam 2 MG/ML VIAL IVP PRN ×8 (03:15→22:20)
[2021-09-02] MEDS: Ipratropium/Albuterol Neb 3 ML IH SCH ×6 (03:37→23:18)
[2021-09-02 03:41] LABS: Bilirubin,Indirect 0.2 mg/dL (0.0-1.0)
[2021-09-02 03:55] LABS: Albumin/Globulin Ratio 1.2 (1.1-2.2); Globulin 3.4 g/dL (2.4-3.5); Total Protein 7.5 g/dL (6.4-8.9)
[2021-09-02 04:26] LABS: Thyroid Stimulating Hormone 0.873 mcIU/mL (0.340-5.600)
[2021-09-02] MEDS: *HR* Enoxaparin 40 MG/0.4 ML SYRINGE SQ SCH (05:28)
[2021-09-02 05:46] LABS: VBG HCO3 30 mEq/L (21-27); VBG PCO2 50 mmHg (41-51); VBG PH 7.39 pH Units (7.32-7.42); VBG PO2 184 mmHg (25-50)
[2021-09-02 06:08] LABS: Estimated Average Glucose 128 mg/dl; Hemoglobin A1C 6.1 %
[2021-09-02] MEDS: Thiamine (B-1) 100 MG TABLET PO SCH (09:07)
[2021-09-02] MEDS: Vitamin B Complex/Vit C/Vit E 1 EACH TABLET PO SCH (09:07)
[2021-09-02] MEDS: Folic Acid 1 MG TABLET PO SCH (09:07)
[2021-09-02] MEDS: Nicotine 21 MG PATCH.TD24 TD SCH (09:07)
[2021-09-02] MEDS: NIFEdipine XL (24 HR) 60 MG TAB.ER.24 PO SCH (09:07)
[2021-09-02] MEDS: Azithromycin 250 MG TABLET PO SCH (09:07)
[2021-09-02] MEDS: Chlorhexidine Rinse 15 ML MOUTHWASH MM SCH ×2 (09:08→20:15)
[2021-09-02] MEDS: MethylPREDNISolone 40 MG/ML VIAL IVP SCH ×2 (09:08→16:23)
[2021-09-02] MEDS: Methadone Oral Concentrate 50 MG/5 ML UDC PO SCH (10:51)
[2021-09-02] MEDS ORDERED: Isovue-370 500 ML BOTTLE IVP ONE ×2 (10:57→14:22)
[2021-09-02] MEDS: Budesonide/Formoterol 160/4.5 1 PUFF INH IH SCH ×2 (11:09→20:00)
[2021-09-02] MEDS: Furosemide 20 MG/2 ML VIAL IVP SCH ×2 (12:50→20:15)
[2021-09-02] MEDS ORDERED: Perflutren Lipid Microsphere 1.3 ML in 0.9 % Sodium Chloride 8.7 ML IVP PRN (16:50)
[2021-09-02 16:56] LABS: Amphetamine Screen,Urine Negative ng/mL (Cutoff=1000); Barbiturate Screen,Urine Negative ng/mL (Cutoff=200); Benzodiazepines Screen,Urine Positive ng/mL (Cutoff=200); Cannabinoid Screen,Urine Negative ng/mL (Cutoff = 50); Cocaine Screen,Urine Negative ng/mL (Cutoff= 300); Opiate Screen,Urine Negative ng/mL (Cutoff=300); Phencyclidine Screen,Urine Negative ng/mL (Cutoff=25)
[2021-09-03] MEDS: Ipratropium/Albuterol Neb 3 ML IH SCH ×5 (04:27→19:58)
[2021-09-03 05:23] LABS: Basophils % 0.2 %; Hematocrit 41.9 % (35.3-44.9); Immature Granulocytes % 1.3 % (0-4); Lymphocytes # 0.4 K/mcL (0.6-4.6); Lymphocytes % 6.2 %; Mean Corpuscular HGB Conc 33.4 g/dL (31.6-35.5); Mean Corpuscular Hemoglobin 31.3 pg (28.0-33.3); Mean Corpuscular Volume 93.5 fL (83.0-100.0); Mean Platelet Volume 9.6 fL (9.4-12.4); Monocytes # 1.2 K/mcL (0.0-1.3); Monocytes % 19.8 %; Platelet Count 169 K/mcL (140-400); Red Blood Count 4.48 M/mcL (3.82-4.97); Segmented Neutrophils % 72.5 %
[2021-09-03 05:24] LABS: BUN/Creatinine Ratio 24 (6-26); Blood Urea Nitrogen 14 mg/dL (6-20); Calcium 9.5 mg/dL (8.6-10.3); Carbon Dioxide 36 mEq/L (23-29); Chloride 92 mEq/L (98-107); Glucose 115 mg/dL (70-105); Osmolality,Calculated 291 (280-300); Potassium 2.9 mEq/L (3.5-5.1); Sodium 140 mEq/L (136-145); eGFR For African Americans > 60 (> 60); eGFR For Non-African Americans > 60 (> 60)
[2021-09-03 05:37] LABS: Neutrophils # 4.4 K/mcL (1.6-8.9)
[2021-09-03] MEDS: *HR* Enoxaparin 40 MG/0.4 ML SYRINGE SQ SCH (06:11)
[2021-09-03] MEDS: MethylPREDNISolone 40 MG/ML VIAL IVP SCH ×3 (06:11→20:18)
[2021-09-03 06:21] LABS: Platelet Estimate Normal (Normal)
[2021-09-03] MEDS: Furosemide 20 MG/2 ML VIAL IVP SCH (07:52)
[2021-09-03] MEDS: *HR* LORazepam 2 MG/ML VIAL IVP PRN ×5 (07:52→20:19)
[2021-09-03] MEDS: Methadone Oral Concentrate 50 MG/5 ML UDC PO SCH (07:55)
[2021-09-03] MEDS: NIFEdipine XL (24 HR) 60 MG TAB.ER.24 PO SCH (07:56)
[2021-09-03] MEDS: Thiamine (B-1) 100 MG TABLET PO SCH (07:57)
[2021-09-03] MEDS: Azithromycin 250 MG TABLET PO SCH (07:57)
[2021-09-03] MEDS: Vitamin B Complex/Vit C/Vit E 1 EACH TABLET PO SCH (07:57)
[2021-09-03] MEDS: Folic Acid 1 MG TABLET PO SCH (07:57)
[2021-09-03] MEDS: Chlorhexidine Rinse 15 ML MOUTHWASH MM SCH ×2 (07:58→20:18)
[2021-09-03] MEDS: Nicotine 21 MG PATCH.TD24 TD SCH (07:59)
[2021-09-03] MEDS: Budesonide/Formoterol 160/4.5 1 PUFF INH IH SCH ×2 (08:13→19:58)
[2021-09-03] MEDS ORDERED: Perflutren Lipid Microsphere 1.3 ML in 0.9 % Sodium Chloride 8.7 ML IVP PRN (11:19)
[2021-09-03] MEDS: Gabapentin 400 MG CAPSULE PO SCH ×2 (14:57→20:18)
[2021-09-04] MEDS: Ipratropium/Albuterol Neb 3 ML IH SCH ×7 (00:04→23:38)
[2021-09-04] MEDS: *HR* LORazepam 2 MG/ML VIAL IVP PRN ×7 (01:51→20:39)
[2021-09-04 04:10] LABS: Basophils % 0.3 %; Hematocrit 42.4 % (35.3-44.9); Hemoglobin 13.9 g/dL (11.5-15.4); Immature Granulocytes % 1.3 % (0-4); Lymphocytes # 0.4 K/mcL (0.6-4.6); Lymphocytes % 4.5 %; Mean Corpuscular HGB Conc 32.8 g/dL (31.6-35.5); Mean Corpuscular Hemoglobin 31.4 pg (28.0-33.3); Mean Corpuscular Volume 95.7 fL (83.0-100.0); Mean Platelet Volume 9.8 fL (9.4-12.4); Monocytes # 0.9 K/mcL (0.0-1.3); Monocytes % 9.8 %; Platelet Count 181 K/mcL (140-400); Red Blood Count 4.43 M/mcL (3.82-4.97); Red Cell Distribution Width 15.5 % (11.5-14.5); Segmented Neutrophils % 84.1 %; White Blood Count 9.5 K/mcL (4.3-11.1)
[2021-09-04 04:14] LABS: Prothrombin Time 11.1 Seconds (9.4-12.1)
[2021-09-04 05:22] LABS: BUN/Creatinine Ratio 33 (6-26); Blood Urea Nitrogen 23 mg/dL (6-20); Calcium 9.6 mg/dL (8.6-10.3); Carbon Dioxide 31 mEq/L (23-29); Chloride 99 mEq/L (98-107); Glucose 194 mg/dL (70-105); Osmolality,Calculated 297 (280-300); Potassium 3.9 mEq/L (3.5-5.1); Sodium 139 mEq/L (136-145); eGFR For African Americans > 60 (> 60); eGFR For Non-African Americans > 60 (> 60)
[2021-09-04] MEDS: MethylPREDNISolone 40 MG/ML VIAL IVP SCH ×3 (06:15→20:39)
[2021-09-04] MEDS: *HR* Enoxaparin 40 MG/0.4 ML SYRINGE SQ SCH (06:16)
[2021-09-04] MEDS: Chlorhexidine Rinse 15 ML MOUTHWASH MM SCH ×2 (07:34→20:39)
[2021-09-04] MEDS: Gabapentin 400 MG CAPSULE PO SCH ×3 (07:35→20:39)
[2021-09-04] MEDS: Folic Acid 1 MG TABLET PO SCH (07:35)
[2021-09-04] MEDS: Azithromycin 250 MG TABLET PO SCH (07:36)
[2021-09-04] MEDS: Nicotine 21 MG PATCH.TD24 TD SCH (07:36)
[2021-09-04] MEDS: NIFEdipine XL (24 HR) 60 MG TAB.ER.24 PO SCH (07:41)
[2021-09-04] MEDS: Vitamin B Complex/Vit C/Vit E 1 EACH TABLET PO SCH (07:41)
[2021-09-04] MEDS: Thiamine (B-1) 100 MG TABLET PO SCH (07:41)
[2021-09-04] MEDS: Budesonide/Formoterol 160/4.5 1 PUFF INH IH SCH ×2 (07:52→19:54)
[2021-09-04] MEDS: Methadone Oral Concentrate 50 MG/5 ML UDC PO SCH (07:55)
[2021-09-04] MEDS ORDERED: PHENobarbital 65 MG/ML VIAL IVP ONE (12:36)
[2021-09-04] MEDS ORDERED: Lidocaine -MPF 2% 2 ML VIAL ONE (15:48)
[2021-09-04] MEDS ORDERED: Ondansetron 4 MG/2 ML VIAL ONE (15:48)
[2021-09-04] MEDS ORDERED: *HR* Propofol 200 MG/20 ML VIAL IVP ONE (15:48)
[2021-09-04] MEDS ORDERED: Lidocaine -MPF 4% 5 ML AMPUL ONE (15:48)
[2021-09-04] MEDS ORDERED: *HR* Rocuronium Bromide 50 MG/5 ML VIAL ONE (16:27)
[2021-09-04] MEDS ORDERED: Albuterol 2.5 MG/3 ML NEBULIZER IH PRN (16:44)
[2021-09-04] MEDS ORDERED: Ondansetron 4 MG/2 ML VIAL IVP PRN (16:44)
[2021-09-04] MEDS ORDERED: *HR* Labetalol 20 MG/4 ML SYRINGE IVP ONE ×2 (16:57→17:42)
[2021-09-04] MEDS: Ampicillin/Sulbactam 1,500 MG in 0.9 % Sodium Chloride Mini Bag 100 ML IVPB SCH (18:49)
[2021-09-04 22:48] LABS: Appearance of Body Fluid Slightly Hazy (Clear); Volume of Body Fluid 14 mL
[2021-09-05] MEDS: Ampicillin/Sulbactam 1,500 MG in 0.9 % Sodium Chloride Mini Bag 100 ML IVPB SCH ×5 (00:26→23:19)
[2021-09-05] MEDS: *HR* LORazepam 2 MG/ML VIAL IVP PRN ×5 (01:14→23:19)
[2021-09-05] MEDS: Ipratropium/Albuterol Neb 3 ML IH SCH ×6 (04:33→23:41)
[2021-09-05] MEDS: MethylPREDNISolone 40 MG/ML VIAL IVP SCH ×3 (05:33→20:45)
[2021-09-05] MEDS: *HR* Enoxaparin 40 MG/0.4 ML SYRINGE SQ SCH (05:34)
[2021-09-05 05:44] LABS: Hematocrit 45.9 % (35.3-44.9); Hemoglobin 14.7 g/dL (11.5-15.4); Mean Corpuscular Hemoglobin 30.9 pg (28.0-33.3); Mean Corpuscular Volume 96.6 fL (83.0-100.0); Mean Platelet Volume 9.5 fL (9.4-12.4); Platelet Count 177 K/mcL (140-400); Red Blood Count 4.75 M/mcL (3.82-4.97); Red Cell Distribution Width 15.3 % (11.5-14.5); White Blood Count 11.5 K/mcL (4.3-11.1)
[2021-09-05 06:05] LABS: BUN/Creatinine Ratio 28 (6-26); Blood Urea Nitrogen 17 mg/dL (6-20); Calcium 9.8 mg/dL (8.6-10.3); Carbon Dioxide 26 mEq/L (23-29); Chloride 102 mEq/L (98-107); Glucose 143 mg/dL (70-105); Osmolality,Calculated 288 (280-300); Potassium 4.1 mEq/L (3.5-5.1); Sodium 137 mEq/L (136-145); eGFR For African Americans > 60 (> 60); eGFR For Non-African Americans > 60 (> 60)
[2021-09-05] MEDS: Budesonide/Formoterol 160/4.5 1 PUFF INH IH SCH ×2 (07:29→19:53)
[2021-09-05] MEDS ORDERED: cloNIDine HCL 0.1 MG TABLET PO ONE (07:46)
[2021-09-05] MEDS: Vitamin B Complex/Vit C/Vit E 1 EACH TABLET PO SCH (10:07)
[2021-09-05] MEDS: Thiamine (B-1) 100 MG TABLET PO SCH (10:07)
[2021-09-05] MEDS: Methadone Oral Concentrate 50 MG/5 ML UDC PO SCH (10:07)
[2021-09-05] MEDS: Gabapentin 400 MG CAPSULE PO SCH ×3 (10:07→20:45)
[2021-09-05] MEDS: NIFEdipine XL (24 HR) 60 MG TAB.ER.24 PO SCH (10:07)
[2021-09-05] MEDS: Folic Acid 1 MG TABLET PO SCH (10:07)
[2021-09-05] MEDS: Azithromycin 250 MG TABLET PO SCH (10:07)
[2021-09-05] MEDS: Chlorhexidine Rinse 15 ML MOUTHWASH MM SCH ×2 (10:08→20:45)
[2021-09-05] MEDS: Nicotine 21 MG PATCH.TD24 TD SCH (10:10)
[2021-09-06] MEDS: Ipratropium/Albuterol Neb 3 ML IH SCH ×3 (03:41→11:28)
[2021-09-06] MEDS: *HR* LORazepam 2 MG/ML VIAL IVP PRN ×2 (03:53→07:55)
[2021-09-06] MEDS: *HR* Enoxaparin 40 MG/0.4 ML SYRINGE SQ SCH (05:26)
[2021-09-06] MEDS: MethylPREDNISolone 40 MG/ML VIAL IVP SCH (05:26)
[2021-09-06] MEDS: Ampicillin/Sulbactam 1,500 MG in 0.9 % Sodium Chloride Mini Bag 100 ML IVPB SCH (05:26)
[2021-09-06 05:50] LABS: Hematocrit 42.7 % (35.3-44.9); Mean Corpuscular HGB Conc 32.8 g/dL (31.6-35.5); Mean Corpuscular Hemoglobin 31.4 pg (28.0-33.3); Mean Corpuscular Volume 95.7 fL (83.0-100.0); Mean Platelet Volume 10.4 fL (9.4-12.4); Platelet Count 194 K/mcL (140-400); Red Blood Count 4.46 M/mcL (3.82-4.97); White Blood Count 12.7 K/mcL (4.3-11.1)
[2021-09-06 06:00] LABS: BUN/Creatinine Ratio 28 (6-26); Blood Urea Nitrogen 21 mg/dL (6-20); Calcium 9.2 mg/dL (8.6-10.3); Carbon Dioxide 27 mEq/L (23-29); Chloride 104 mEq/L (98-107); Glucose 175 mg/dL (70-105); Osmolality,Calculated 295 (280-300); Potassium 4.2 mEq/L (3.5-5.1); Sodium 139 mEq/L (136-145); eGFR For African Americans > 60 (> 60); eGFR For Non-African Americans > 60 (> 60)
[2021-09-06] MEDS: Budesonide/Formoterol 160/4.5 1 PUFF INH IH SCH (07:29)
[2021-09-06] MEDS: Chlorhexidine Rinse 15 ML MOUTHWASH MM SCH (07:45)
[2021-09-06] MEDS: Azithromycin 250 MG TABLET PO SCH (07:45)
[2021-09-06] MEDS: Folic Acid 1 MG TABLET PO SCH (07:46)
[2021-09-06] MEDS: Methadone Oral Concentrate 50 MG/5 ML UDC PO SCH (07:46)
[2021-09-06] MEDS: Gabapentin 400 MG CAPSULE PO SCH (07:46)
[2021-09-06] MEDS: Vitamin B Complex/Vit C/Vit E 1 EACH TABLET PO SCH (07:46)
[2021-09-06] MEDS: NIFEdipine XL (24 HR) 60 MG TAB.ER.24 PO SCH (07:46)
[2021-09-06] MEDS: Thiamine (B-1) 100 MG TABLET PO SCH (07:46)
[2021-09-06] MEDS: Nicotine 21 MG PATCH.TD24 TD SCH (07:51)
[2021-09-06 08:00] VITALS: BP 147/94; PULSE 109; TEMP 97; O2SAT 95
== END 2021-09-06 13:03 | disposition home or self-care (01) | DRG 133 ==
LOC: 2NENU 21:40 → EMEROOARM 21:40 → SUATTDRO 09-02 02:13 → 2NENU 09-02 02:43 → SUATTDRO 09-03 13:58
PROVIDERS: ADMIT Family Medicine; ATTEND Internal Medicine

== ENCOUNTER 2021-10-12 19:34 | Inpatient (IN) ==
[2021-10-12] MEDS ORDERED: *HR* LORazepam 2 MG/ML VIAL IVP ONE ×2 (20:51→23:10)
[2021-10-12 21:20] LABS: Nucleated Red Blood Cells 0.2 /100 WBC (0)
[2021-10-12 21:22] LABS: Hematocrit 37.9 % (35.3-44.9); Hemoglobin 12.4 g/dL (11.5-15.4); Immature Platelets 5.7 % (1.1-6.1); Mean Corpuscular HGB Conc 32.7 g/dL (31.6-35.5); Mean Corpuscular Hemoglobin 31.5 pg (28.0-33.3); Mean Corpuscular Volume 96.2 fL (83.0-100.0); Mean Platelet Volume 10.5 fL (9.4-12.4); Red Blood Count 3.94 M/mcL (3.82-4.97)
[2021-10-12] MEDS ORDERED: 0.9 % Sodium Chloride 1,000 ML IVC ONE (21:43)
[2021-10-12] MEDS ORDERED: cefTRIAXone 1,000 MG in 0.9 % Sodium Chloride Mini Bag 100 ML IVPB ONE (21:44)
[2021-10-12] MEDS ORDERED: Azithromycin 500 MG in 0.9 % Sodium Chloride 250 ML IVPB ONE (21:44)
[2021-10-12 21:45] LABS: BUN/Creatinine Ratio 14 (6-26); Blood Urea Nitrogen 9 mg/dL (6-20); Calcium 8.8 mg/dL (8.6-10.3); Carbon Dioxide 26 mEq/L (23-29); Chloride 92 mEq/L (98-107); Glucose 62 mg/dL (70-105); Osmolality,Calculated 271 (280-300); Potassium 3.4 mEq/L (3.5-5.1); Sodium 132 mEq/L (136-145); Troponin I < 0.03 ng/mL (< 0.04); eGFR For African Americans > 60 (> 60); eGFR For Non-African Americans > 60 (> 60)
[2021-10-12 21:57] LABS: Platelet Count 91 K/mcL (140-400)
[2021-10-12 21:59] LABS: Lymphocytes # 1.8 K/mcL (0.6-4.6); Monocytes # 0.2 K/mcL (0.0-1.3); Platelet Estimate Normal (Normal)
[2021-10-12 22:00] LABS: Influenza A PCR Negative (Negative); Influenza B PCR Negative (Negative); Resp. Syncytial Virus PCR Negative (Negative)
[2021-10-12 22:07] LABS: SARS-CoV-2 by PCR (In House) Positive (Negative)
[2021-10-12] MEDS ORDERED: Ondansetron 4 MG/2 ML VIAL IVP PRN (23:55)
[2021-10-12] MEDS ORDERED: *HR* Promethazine 25 MG/ML VIAL IM PRN (23:55)
[2021-10-12] MEDS ORDERED: Naloxone 0.4 MG/ML INJ IVP PRN (23:55)
[2021-10-12] MEDS ORDERED: polyethylene glycoL 3350 17 GM POWD.PACK PO PRN (23:58)
[2021-10-12] MEDS ORDERED: Dexamethasone Sodium Phos/PF 10 MG/ML VIAL IVP ONE (23:58)
[2021-10-13] MEDS ORDERED: *HR* Promethazine 25 MG/ML VIAL IM PRN
[2021-10-13] MEDS ORDERED: Dextrose Gel 15 GM/37.5 ML TUBE PO PRN ×2 (00:02)
[2021-10-13] MEDS ORDERED: D5% in Water 1,000 ML IVC PRN (00:02)
[2021-10-13] MEDS: *HR* LORazepam 2 MG/ML VIAL IVP PRN ×4 (01:15→21:14)
[2021-10-13 02:35] LABS: Basophils % 0.2 %; Eosinophils # 0.2 K/mcL (0.0-0.6); Eosinophils % 2.9 %; Hematocrit 34.1 % (35.3-44.9); Hemoglobin 11.2 g/dL (11.5-15.4); Immature Granulocytes % 0.6 % (0-4); Immature Platelets 4.8 % (1.1-6.1); Lymphocytes # 0.7 K/mcL (0.6-4.6); Lymphocytes % 8.4 %; Mean Corpuscular HGB Conc 32.8 g/dL (31.6-35.5); Mean Corpuscular Hemoglobin 31.6 pg (28.0-33.3); Mean Corpuscular Volume 96.3 fL (83.0-100.0); Mean Platelet Volume 10.5 fL (9.4-12.4); Monocytes % 11.8 %; Neutrophils # 6.2 K/mcL (1.6-8.9); Platelet Count 87 K/mcL (140-400); Red Blood Count 3.54 M/mcL (3.82-4.97); Red Cell Distribution Width 16.1 % (11.5-14.5); Segmented Neutrophils % 76.1 %; White Blood Count 8.1 K/mcL (4.3-11.1)
[2021-10-13 02:42] LABS: INR 1.1; Prothrombin Time 11.9 Seconds (9.4-12.1)
[2021-10-13 02:50] LABS: Alanine Aminotransferase 52 Units/L (7-52); Albumin 3.5 g/dL (3.5-5.7); Albumin/Globulin Ratio 1.3 (1.1-2.2); Alkaline Phosphatase 81 Units/L (34-104); Aspartate Amino Transferase 129 Units/L (13-39); BUN/Creatinine Ratio 15 (6-26); Bilirubin,Total 0.3 mg/dL (0.3-1.0); Blood Urea Nitrogen 9 mg/dL (6-20); C-Reactive Protein 260 mg/L (Less than 10); Carbon Dioxide 23 mEq/L (23-29); Chloride 96 mEq/L (98-107); Chol/HDL Ratio 5.5 (0-4.9); Cholesterol 186 mg/dL (< 200); Globulin 2.8 g/dL (2.4-3.5); Glucose 63 mg/dL (70-105); HDL Cholesterol 34 mg/dL (40-59); LDL Cholesterol,Calculated 115 mg/dL (< 100); Lactate Dehydrogenase 395 Units/L (140-271); Magnesium 1.3 mg/dL (1.6-2.6); Osmolality,Calculated 275 (280-300); Phosphorous 1.9 mg/dL (2.7-4.5); Potassium 3.3 mEq/L (3.5-5.1); Sodium 134 mEq/L (136-145); Total Protein 6.3 g/dL (6.4-8.9); Triglycerides 183 mg/dL (< 150); eGFR For African Americans > 60 (> 60); eGFR For Non-African Americans > 60 (> 60)
[2021-10-13] MEDS: Acetaminophen 325 MG TABLET PO PRN (02:55)
[2021-10-13] MEDS ORDERED: Budesonide/Formoterol 160/4.5 1 PUFF INH IH ONE (04:15)
[2021-10-13] MEDS ORDERED: Isovue-370 500 ML BOTTLE IVP ONE (04:19)
[2021-10-13] MEDS: *HR* Enoxaparin 40 MG/0.4 ML SYRINGE SQ SCH (05:59)
[2021-10-13] MEDS ORDERED: Azithromycin 500 MG in 0.9 % Sodium Chloride 250 ML IVPB SCH (06:00)
[2021-10-13] MEDS: Budesonide/Formoterol 160/4.5 1 PUFF INH IH SCH (07:14)
[2021-10-13] MEDS ORDERED: cefTRIAXone 1,000 MG in Water for inj. (sterile) 10 ML IVP SCH (09:00)
[2021-10-13] MEDS ORDERED: Dexamethasone Sodium Phos/PF 10 MG/ML VIAL IVP SCH (09:00)
[2021-10-13] MEDS: Thiamine (B-1) 100 MG TABLET PO SCH (09:13)
[2021-10-13] MEDS: Vitamin B Complex/Vit C/Vit E 1 EACH TABLET PO SCH (09:13)
[2021-10-13] MEDS: Folic Acid 1 MG TABLET PO SCH (09:13)
[2021-10-13] MEDS: Piperacillin/Tazobactam 3.375 GM in 0.9 % Sodium Chloride Mini Bag 100 ML IVPB SCH (15:55)
[2021-10-14] MEDS: Budesonide/Formoterol 160/4.5 1 PUFF INH IH SCH ×3 (00:05→20:37)
[2021-10-14] MEDS: *HR* LORazepam 2 MG/ML VIAL IVP PRN ×4 (01:00→20:20)
[2021-10-14] MEDS: Piperacillin/Tazobactam 3.375 GM in 0.9 % Sodium Chloride Mini Bag 100 ML IVPB SCH ×3 (01:00→16:06)
[2021-10-14] MEDS: *HR* Enoxaparin 40 MG/0.4 ML SYRINGE SQ SCH (05:57)
[2021-10-14 06:47] LABS: BUN/Creatinine Ratio 21 (6-26); Blood Urea Nitrogen 12 mg/dL (6-20); Calcium 9.5 mg/dL (8.6-10.3); Carbon Dioxide 29 mEq/L (23-29); Chloride 97 mEq/L (98-107); Glucose 178 mg/dL (70-105); Osmolality,Calculated 288 (280-300); Potassium 3.3 mEq/L (3.5-5.1); Sodium 137 mEq/L (136-145); eGFR For African Americans > 60 (> 60); eGFR For Non-African Americans > 60 (> 60)
[2021-10-14 07:48] LABS: Hematocrit 40.4 % (35.3-44.9); Hemoglobin 13.6 g/dL (11.5-15.4); Immature Platelets 8.3 % (1.1-6.1); Mean Corpuscular HGB Conc 33.7 g/dL (31.6-35.5); Mean Corpuscular Hemoglobin 32.5 pg (28.0-33.3); Mean Corpuscular Volume 96.7 fL (83.0-100.0); Mean Platelet Volume 10.9 fL (9.4-12.4); Red Blood Count 4.18 M/mcL (3.82-4.97); White Blood Count 7.2 K/mcL (4.3-11.1)
[2021-10-14] MEDS: Vitamin B Complex/Vit C/Vit E 1 EACH TABLET PO SCH (10:06)
[2021-10-14] MEDS: Dexamethasone Sodium Phos/PF 10 MG/ML VIAL IVP SCH (10:06)
[2021-10-14] MEDS: Thiamine (B-1) 100 MG TABLET PO SCH (10:06)
[2021-10-14] MEDS: Folic Acid 1 MG TABLET PO SCH (10:06)
[2021-10-14] MEDS: Methadone Oral Concentrate 50 MG/5 ML UDC PO SCH (13:27)
[2021-10-14] MEDS: Gabapentin 400 MG CAPSULE PO SCH ×2 (16:06→20:19)
[2021-10-14 19:04] LABS: Ferritin 308 ng/mL (10-120)
[2021-10-15] MEDS: Piperacillin/Tazobactam 3.375 GM in 0.9 % Sodium Chloride Mini Bag 100 ML IVPB SCH ×3 (00:08→17:31)
[2021-10-15] MEDS: *HR* OxyCODONE Immed Rel 5 MG TABLET PO PRN ×2 (00:15→21:51)
[2021-10-15] MEDS: *HR* Enoxaparin 40 MG/0.4 ML SYRINGE SQ SCH (05:24)
[2021-10-15] MEDS: *HR* LORazepam 2 MG/ML VIAL IVP PRN ×3 (05:30→21:51)
[2021-10-15] MEDS: Budesonide/Formoterol 160/4.5 1 PUFF INH IH SCH ×2 (08:36→20:26)
[2021-10-15] MEDS: Dexamethasone Sodium Phos/PF 10 MG/ML VIAL IVP SCH (09:29)
[2021-10-15] MEDS: Thiamine (B-1) 100 MG TABLET PO SCH (09:30)
[2021-10-15] MEDS: Folic Acid 1 MG TABLET PO SCH (09:30)
[2021-10-15] MEDS: Methadone Oral Concentrate 50 MG/5 ML UDC PO SCH (09:30)
[2021-10-15] MEDS: Gabapentin 400 MG CAPSULE PO SCH ×3 (09:30→21:55)
[2021-10-15] MEDS: Vitamin B Complex/Vit C/Vit E 1 EACH TABLET PO SCH (09:30)
[2021-10-16] MEDS: Piperacillin/Tazobactam 3.375 GM in 0.9 % Sodium Chloride Mini Bag 100 ML IVPB SCH ×3 (00:37→15:31)
[2021-10-16] MEDS: *HR* LORazepam 2 MG/ML VIAL IVP PRN ×3 (05:24→18:56)
[2021-10-16] MEDS: *HR* Enoxaparin 40 MG/0.4 ML SYRINGE SQ SCH (05:24)
[2021-10-16 06:26] LABS: Hematocrit 42.7 % (35.3-44.9); Hemoglobin 14.1 g/dL (11.5-15.4); Mean Platelet Volume 11.3 fL (9.4-12.4); Platelet Count 154 K/mcL (140-400); Red Cell Distribution Width 15.9 % (11.5-14.5); White Blood Count 9.8 K/mcL (4.3-11.1)
[2021-10-16 06:46] LABS: BUN/Creatinine Ratio 24 (6-26); Blood Urea Nitrogen 17 mg/dL (6-20); Calcium 9.4 mg/dL (8.6-10.3); Carbon Dioxide 28 mEq/L (23-29); Chloride 99 mEq/L (98-107); Glucose 343 mg/dL (70-105); Osmolality,Calculated 301 (280-300); Potassium 3.7 mEq/L (3.5-5.1); Sodium 138 mEq/L (136-145); eGFR For African Americans > 60 (> 60); eGFR For Non-African Americans > 60 (> 60)
[2021-10-16] MEDS: Budesonide/Formoterol 160/4.5 1 PUFF INH IH SCH ×2 (08:27→21:23)
[2021-10-16] MEDS: Dexamethasone Sodium Phos/PF 10 MG/ML VIAL IVP SCH (08:49)
[2021-10-16] MEDS: Thiamine (B-1) 100 MG TABLET PO SCH (08:49)
[2021-10-16] MEDS: Vitamin B Complex/Vit C/Vit E 1 EACH TABLET PO SCH (08:49)
[2021-10-16] MEDS: Folic Acid 1 MG TABLET PO SCH (08:49)
[2021-10-16] MEDS: Gabapentin 400 MG CAPSULE PO SCH ×3 (08:49→22:33)
[2021-10-16] MEDS: Methadone Oral Concentrate 50 MG/5 ML UDC PO SCH (08:56)
[2021-10-16] MEDS ORDERED: Dextrose Gel 15 GM/37.5 ML TUBE PO PRN (11:20)
[2021-10-16] MEDS: amLODIPine 5 MG TABLET PO SCH (14:00)
[2021-10-16] MEDS: Insulin LISPRO 300 UNITS/3 ML VIAL SUBQ SCH ×3 (14:05→21:30)
[2021-10-16] MEDS ORDERED: Insulin Human Regular 20 UNIT in 0.9 % Sodium Chloride 10 ML IV ONE (18:12)
[2021-10-17] MEDS: Piperacillin/Tazobactam 3.375 GM in 0.9 % Sodium Chloride Mini Bag 100 ML IVPB SCH ×3 (01:11→17:19)
[2021-10-17] MEDS: *HR* LORazepam 2 MG/ML VIAL IVP PRN ×4 (02:16→22:33)
[2021-10-17] MEDS: *HR* Enoxaparin 40 MG/0.4 ML SYRINGE SQ SCH (06:48)
[2021-10-17] MEDS: Budesonide/Formoterol 160/4.5 1 PUFF INH IH SCH ×2 (07:45→20:18)
[2021-10-17] MEDS: amLODIPine 5 MG TABLET PO SCH (08:20)
[2021-10-17] MEDS: Thiamine (B-1) 100 MG TABLET PO SCH (08:20)
[2021-10-17] MEDS: Gabapentin 400 MG CAPSULE PO SCH ×3 (08:20→20:17)
[2021-10-17] MEDS: Folic Acid 1 MG TABLET PO SCH (08:20)
[2021-10-17] MEDS: Methadone Oral Concentrate 50 MG/5 ML UDC PO SCH (08:20)
[2021-10-17] MEDS: Vitamin B Complex/Vit C/Vit E 1 EACH TABLET PO SCH (08:20)
[2021-10-17] MEDS: dexAMETHasone 4 MG TABLET PO SCH (08:50)
[2021-10-17] MEDS: Insulin LISPRO 300 UNITS/3 ML VIAL SUBQ SCH ×4 (08:51→20:16)
[2021-10-17] MEDS: Acetaminophen 325 MG TABLET PO PRN (12:50)
[2021-10-17] MEDS: *HR* OxyCODONE Immed Rel 5 MG TABLET PO PRN ×2 (12:51→22:32)
[2021-10-17] MEDS: *HR* HYDROcodone/Acet 5/325 mg TABLET PO PRN (20:41)
[2021-10-17] MEDS: Melatonin 3 MG TABLET PO PRN (22:32)
[2021-10-18] MEDS: Piperacillin/Tazobactam 3.375 GM in 0.9 % Sodium Chloride Mini Bag 100 ML IVPB SCH ×4 (00:07→23:21)
[2021-10-18] MEDS: *HR* HYDROcodone/Acet 5/325 mg TABLET PO PRN (03:36)
[2021-10-18] MEDS: *HR* LORazepam 2 MG/ML VIAL IVP PRN ×2 (03:36→21:02)
[2021-10-18] MEDS: *HR* OxyCODONE Immed Rel 5 MG TABLET PO PRN (06:06)
[2021-10-18] MEDS: *HR* Enoxaparin 40 MG/0.4 ML SYRINGE SQ SCH (06:06)
[2021-10-18 06:55] LABS: Hematocrit 45.2 % (35.3-44.9); Hemoglobin 14.3 g/dL (11.5-15.4); Mean Corpuscular HGB Conc 31.6 g/dL (31.6-35.5); Mean Corpuscular Hemoglobin 31.5 pg (28.0-33.3); Mean Corpuscular Volume 99.6 fL (83.0-100.0); Mean Platelet Volume 11.2 fL (9.4-12.4); Platelet Count 152 K/mcL (140-400); Red Blood Count 4.54 M/mcL (3.82-4.97); Red Cell Distribution Width 16.3 % (11.5-14.5); White Blood Count 8.9 K/mcL (4.3-11.1)
[2021-10-18 07:40] LABS: BUN/Creatinine Ratio 22 (6-26); Blood Urea Nitrogen 16 mg/dL (6-20); Carbon Dioxide 22 mEq/L (23-29); Chloride 100 mEq/L (98-107); Glucose 264 mg/dL (70-105); Osmolality,Calculated 292 (280-300); Potassium 3.8 mEq/L (3.5-5.1); Sodium 136 mEq/L (136-145); eGFR For African Americans > 60 (> 60); eGFR For Non-African Americans > 60 (> 60)
[2021-10-18] MEDS: Budesonide/Formoterol 160/4.5 1 PUFF INH IH SCH ×2 (07:56→20:05)
[2021-10-18 08:12] LABS: Estimated Average Glucose 148 mg/dl; Hemoglobin A1C 6.8 %
[2021-10-18] MEDS: dexAMETHasone 4 MG TABLET PO SCH (08:17)
[2021-10-18] MEDS: amLODIPine 5 MG TABLET PO SCH (08:17)
[2021-10-18] MEDS: Gabapentin 400 MG CAPSULE PO SCH ×3 (08:18→20:54)
[2021-10-18] MEDS: Thiamine (B-1) 100 MG TABLET PO SCH (08:18)
[2021-10-18] MEDS: Vitamin B Complex/Vit C/Vit E 1 EACH TABLET PO SCH (08:18)
[2021-10-18] MEDS: Methadone Oral Concentrate 50 MG/5 ML UDC PO SCH (08:18)
[2021-10-18] MEDS: Folic Acid 1 MG TABLET PO SCH (08:18)
[2021-10-18] MEDS: Insulin LISPRO 300 UNITS/3 ML VIAL SUBQ SCH ×4 (08:18→20:54)
[2021-10-19] MEDS: *HR* LORazepam 2 MG/ML VIAL IVP PRN (03:16)
[2021-10-19 03:41] LABS: Hematocrit 43.5 % (35.3-44.9); Hemoglobin 13.8 g/dL (11.5-15.4); Mean Corpuscular HGB Conc 31.7 g/dL (31.6-35.5); Mean Corpuscular Hemoglobin 30.8 pg (28.0-33.3); Mean Corpuscular Volume 97.1 fL (83.0-100.0); Mean Platelet Volume 11.2 fL (9.4-12.4); Platelet Count 190 K/mcL (140-400); Red Blood Count 4.48 M/mcL (3.82-4.97); White Blood Count 10.3 K/mcL (4.3-11.1)
[2021-10-19 03:59] LABS: BUN/Creatinine Ratio 16 (6-26); Blood Urea Nitrogen 15 mg/dL (6-20); Calcium 9.4 mg/dL (8.6-10.3); Carbon Dioxide 31 mEq/L (23-29); Chloride 98 mEq/L (98-107); Glucose 197 mg/dL (70-105); Osmolality,Calculated 292 (280-300); Potassium 3.4 mEq/L (3.5-5.1); Sodium 138 mEq/L (136-145); eGFR For African Americans > 60 (> 60); eGFR For Non-African Americans > 60 (> 60)
[2021-10-19] MEDS: dexAMETHasone 4 MG TABLET PO SCH (09:53)
[2021-10-19] MEDS: Gabapentin 400 MG CAPSULE PO SCH ×3 (09:53→20:03)
[2021-10-19] MEDS: *HR* Enoxaparin 40 MG/0.4 ML SYRINGE SQ SCH (09:53)
[2021-10-19] MEDS: Vitamin B Complex/Vit C/Vit E 1 EACH TABLET PO SCH (09:53)
[2021-10-19] MEDS: amLODIPine 5 MG TABLET PO SCH (09:54)
[2021-10-19] MEDS: Thiamine (B-1) 100 MG TABLET PO SCH (09:54)
[2021-10-19] MEDS: Folic Acid 1 MG TABLET PO SCH (09:54)
[2021-10-19] MEDS: Insulin LISPRO 300 UNITS/3 ML VIAL SUBQ SCH ×4 (09:55→21:54)
[2021-10-19] MEDS: Piperacillin/Tazobactam 3.375 GM in 0.9 % Sodium Chloride Mini Bag 100 ML IVPB SCH ×2 (09:59→15:35)
[2021-10-19] MEDS: Budesonide/Formoterol 160/4.5 1 PUFF INH IH SCH ×2 (10:38→20:05)
[2021-10-19] MEDS: Methadone Oral Concentrate 50 MG/5 ML UDC PO SCH (11:01)
[2021-10-20] MEDS: Piperacillin/Tazobactam 3.375 GM in 0.9 % Sodium Chloride Mini Bag 100 ML IVPB SCH ×4 (00:47→23:28)
[2021-10-20] MEDS: *HR* Enoxaparin 40 MG/0.4 ML SYRINGE SQ SCH (05:07)
[2021-10-20] MEDS: Insulin LISPRO 300 UNITS/3 ML VIAL SUBQ SCH ×4 (08:23→20:43)
[2021-10-20] MEDS: Gabapentin 400 MG CAPSULE PO SCH ×3 (08:23→20:43)
[2021-10-20] MEDS: dexAMETHasone 4 MG TABLET PO SCH (08:23)
[2021-10-20] MEDS: Thiamine (B-1) 100 MG TABLET PO SCH (08:23)
[2021-10-20] MEDS: Vitamin B Complex/Vit C/Vit E 1 EACH TABLET PO SCH (08:23)
[2021-10-20] MEDS: amLODIPine 5 MG TABLET PO SCH (08:23)
[2021-10-20] MEDS: Folic Acid 1 MG TABLET PO SCH (08:24)
[2021-10-20] MEDS: Methadone Oral Concentrate 50 MG/5 ML UDC PO SCH (08:24)
[2021-10-20] MEDS: Budesonide/Formoterol 160/4.5 1 PUFF INH IH SCH ×2 (08:39→19:54)
[2021-10-20] MEDS ORDERED: Isovue-370 500 ML BOTTLE IVP ONE (10:33)
[2021-10-20] MEDS: Insulin DETEMIR 100 UNIT/ML X5UNITS SUBQ SCH (20:44)
[2021-10-20] MEDS: *HR* OxyCODONE Immed Rel 5 MG TABLET PO PRN (22:50)
[2021-10-21] MEDS ORDERED: Ipratropium 1 PUFF INHALER IH ONE (00:20)
[2021-10-21] MEDS: Ipratropium 1 PUFF INHALER IH SCH ×8 (00:30→23:09)
[2021-10-21] MEDS: *HR* Enoxaparin 40 MG/0.4 ML SYRINGE SQ SCH (05:34)
[2021-10-21] MEDS: Piperacillin/Tazobactam 3.375 GM in 0.9 % Sodium Chloride Mini Bag 100 ML IVPB SCH ×2 (08:10→15:01)
[2021-10-21] MEDS: Methadone Oral Concentrate 50 MG/5 ML UDC PO SCH (08:10)
[2021-10-21] MEDS: Vitamin B Complex/Vit C/Vit E 1 EACH TABLET PO SCH (08:11)
[2021-10-21] MEDS: Folic Acid 1 MG TABLET PO SCH (08:11)
[2021-10-21] MEDS: Gabapentin 400 MG CAPSULE PO SCH ×3 (08:11→20:27)
[2021-10-21] MEDS: amLODIPine 5 MG TABLET PO SCH (08:11)
[2021-10-21] MEDS: Thiamine (B-1) 100 MG TABLET PO SCH (08:11)
[2021-10-21] MEDS: Insulin LISPRO 300 UNITS/3 ML VIAL SUBQ SCH ×4 (08:12→20:24)
[2021-10-21] MEDS: Insulin DETEMIR 100 UNIT/ML X5UNITS SUBQ SCH ×2 (08:16→20:25)
[2021-10-21] MEDS: *HR* HYDROcodone/Acet 5/325 mg TABLET PO PRN ×2 (08:21→18:39)
[2021-10-21] MEDS: Budesonide/Formoterol 160/4.5 1 PUFF INH IH SCH ×2 (08:34→20:06)
[2021-10-21] MEDS: *HR* OxyCODONE Immed Rel 5 MG TABLET PO PRN ×2 (13:46→20:32)
[2021-10-22] MEDS: *HR* HYDROcodone/Acet 5/325 mg TABLET PO PRN ×3 (02:58→20:24)
[2021-10-22] MEDS: Ipratropium 1 PUFF INHALER IH SCH ×6 (03:18→23:45)
[2021-10-22 03:48] LABS: BUN/Creatinine Ratio 24 (6-26); Blood Urea Nitrogen 17 mg/dL (6-20); Carbon Dioxide 29 mEq/L (23-29); Chloride 97 mEq/L (98-107); Glucose 287 mg/dL (70-105); Magnesium 2.1 mg/dL (1.6-2.6); Osmolality,Calculated 294 (280-300); Sodium 136 mEq/L (136-145); eGFR For African Americans > 60 (> 60); eGFR For Non-African Americans > 60 (> 60)
[2021-10-22 04:22] LABS: Platelet Estimate Normal (Normal)
[2021-10-22 04:23] LABS: Reactive Lymphocytes Present (Not Present)
[2021-10-22 04:30] LABS: Hematocrit 41.3 % (35.3-44.9); Hemoglobin 13.7 g/dL (11.5-15.4); Mean Corpuscular HGB Conc 33.2 g/dL (31.6-35.5); Mean Corpuscular Hemoglobin 32.2 pg (28.0-33.3); Mean Corpuscular Volume 97.2 fL (83.0-100.0); Monocytes # 0.4 K/mcL (0.0-1.3); Neutrophils # 12.9 K/mcL (1.6-8.9); Red Blood Count 4.25 M/mcL (3.82-4.97); White Blood Count 14.3 K/mcL (4.3-11.1)
[2021-10-22 04:31] LABS: Platelet Count 286 K/mcL (140-400); Red Cell Distribution Width 15.9 % (11.5-14.5)
[2021-10-22] MEDS: *HR* Enoxaparin 40 MG/0.4 ML SYRINGE SQ SCH (06:15)
[2021-10-22] MEDS: Budesonide/Formoterol 160/4.5 1 PUFF INH IH SCH ×2 (08:30→20:10)
[2021-10-22] MEDS: *HR* OxyCODONE Immed Rel 5 MG TABLET PO PRN ×2 (08:38→18:19)
[2021-10-22] MEDS: Insulin LISPRO 300 UNITS/3 ML VIAL SUBQ SCH ×4 (08:40→20:24)
[2021-10-22] MEDS: amLODIPine 5 MG TABLET PO SCH (08:40)
[2021-10-22] MEDS: Vitamin B Complex/Vit C/Vit E 1 EACH TABLET PO SCH (08:40)
[2021-10-22] MEDS: Insulin DETEMIR 100 UNIT/ML X5UNITS SUBQ SCH ×2 (08:40→20:24)
[2021-10-22] MEDS: Folic Acid 1 MG TABLET PO SCH (08:40)
[2021-10-22] MEDS: Thiamine (B-1) 100 MG TABLET PO SCH (08:40)
[2021-10-22] MEDS: Gabapentin 400 MG CAPSULE PO SCH ×3 (08:40→20:24)
[2021-10-22] MEDS: Methadone Oral Concentrate 50 MG/5 ML UDC PO SCH (08:41)
[2021-10-22] MEDS: Melatonin 3 MG TABLET PO PRN (20:24)
[2021-10-22] MEDS ORDERED: *HR* LORazepam 2 MG/ML VIAL IVP PRN ×2 (23:13)
[2021-10-22] MEDS: *HR* LORazepam 2 MG/ML VIAL IVP PRN (23:59)
[2021-10-22] MEDS: 0.9 % Sodium Chloride 250 ML IVC SCH (23:59)
[2021-10-23] MEDS: 0.9 % Sodium Chloride 250 ML IVC SCH (02:39)
[2021-10-23] MEDS: Ipratropium 1 PUFF INHALER IH SCH ×5 (03:43→20:13)
[2021-10-23 04:04] LABS: Basophils # 0.1 K/mcL (0.0-0.2); Basophils % 0.4 %; Hematocrit 38.3 % (35.3-44.9); Hemoglobin 12.6 g/dL (11.5-15.4); Immature Granulocytes % 3.9 % (0-4); Lymphocytes # 0.7 K/mcL (0.6-4.6); Lymphocytes % 4.4 %; Mean Corpuscular HGB Conc 32.9 g/dL (31.6-35.5); Mean Corpuscular Volume 97.2 fL (83.0-100.0); Mean Platelet Volume 11.2 fL (9.4-12.4); Monocytes # 0.8 K/mcL (0.0-1.3); Monocytes % 4.6 %; Neutrophils # 14.1 K/mcL (1.6-8.9); Platelet Count 333 K/mcL (140-400); Red Blood Count 3.94 M/mcL (3.82-4.97); Red Cell Distribution Width 15.8 % (11.5-14.5); Segmented Neutrophils % 86.7 %; White Blood Count 16.2 K/mcL (4.3-11.1)
[2021-10-23 04:18] LABS: BUN/Creatinine Ratio 26 (6-26); Blood Urea Nitrogen 16 mg/dL (6-20); Calcium 9.7 mg/dL (8.6-10.3); Carbon Dioxide 28 mEq/L (23-29); Chloride 100 mEq/L (98-107); Glucose 248 mg/dL (70-105); Magnesium 1.9 mg/dL (1.6-2.6); Osmolality,Calculated 293 (280-300); Potassium 4.1 mEq/L (3.5-5.1); Sodium 137 mEq/L (136-145); eGFR For African Americans > 60 (> 60); eGFR For Non-African Americans > 60 (> 60)
[2021-10-23] MEDS: *HR* Enoxaparin 40 MG/0.4 ML SYRINGE SQ SCH (06:11)
[2021-10-23] MEDS: Budesonide/Formoterol 160/4.5 1 PUFF INH IH SCH ×2 (08:06→20:13)
[2021-10-23] MEDS: Thiamine (B-1) 100 MG TABLET PO SCH (11:09)
[2021-10-23] MEDS: Gabapentin 400 MG CAPSULE PO SCH ×3 (11:09→20:37)
[2021-10-23] MEDS: amLODIPine 5 MG TABLET PO SCH (11:09)
[2021-10-23] MEDS: Folic Acid 1 MG TABLET PO SCH (11:09)
[2021-10-23] MEDS: Vitamin B Complex/Vit C/Vit E 1 EACH TABLET PO SCH (11:09)
[2021-10-23] MEDS: Methadone Oral Concentrate 50 MG/5 ML UDC PO SCH (11:09)
[2021-10-23] MEDS: Insulin DETEMIR 100 UNIT/ML X5UNITS SUBQ SCH ×2 (11:10→20:38)
[2021-10-23] MEDS: Insulin LISPRO 300 UNITS/3 ML VIAL SUBQ SCH ×4 (11:10→20:38)
[2021-10-23] MEDS: *HR* HYDROcodone/Acet 5/325 mg TABLET PO PRN (11:21)
[2021-10-23] MEDS ORDERED: Furosemide 40 MG/4 ML VIAL IVP ONE (12:13)
[2021-10-23] MEDS: *HR* LORazepam 2 MG/ML VIAL IVP PRN (13:45)
[2021-10-23 16:20] LABS: Albumin 3.4 g/dL (3.5-5.7); Albumin/Globulin Ratio 0.9 (1.1-2.2); Bilirubin,Indirect 0.3 mg/dL (0.0-1.0); Bilirubin,Total 0.3 mg/dL (0.3-1.0); Globulin 3.8 g/dL (2.4-3.5); Total Protein 7.2 g/dL (6.4-8.9)
[2021-10-23] MEDS: *HR* OxyCODONE Immed Rel 5 MG TABLET PO PRN ×2 (16:50→23:33)
[2021-10-24] MEDS: Ipratropium 1 PUFF INHALER IH SCH ×7 (00:02→23:47)
[2021-10-24 04:18] LABS: Basophils # 0.1 K/mcL (0.0-0.2); Basophils % 0.6 %; Hematocrit 38.7 % (35.3-44.9); Hemoglobin 12.4 g/dL (11.5-15.4); Immature Granulocytes % 3.9 % (0-4); Lymphocytes # 1.1 K/mcL (0.6-4.6); Lymphocytes % 6.5 %; Mean Corpuscular Hemoglobin 31.4 pg (28.0-33.3); Mean Platelet Volume 11.3 fL (9.4-12.4); Monocytes # 0.7 K/mcL (0.0-1.3); Neutrophils # 14.2 K/mcL (1.6-8.9); Platelet Count 345 K/mcL (140-400); Red Blood Count 3.95 M/mcL (3.82-4.97); Red Cell Distribution Width 15.9 % (11.5-14.5); White Blood Count 16.7 K/mcL (4.3-11.1)
[2021-10-24 04:35] LABS: BUN/Creatinine Ratio 31 (6-26); Blood Urea Nitrogen 23 mg/dL (6-20); Calcium 9.9 mg/dL (8.6-10.3); Carbon Dioxide 31 mEq/L (23-29); Chloride 95 mEq/L (98-107); Glucose 310 mg/dL (70-105); Magnesium 1.9 mg/dL (1.6-2.6); Osmolality,Calculated 295 (280-300); Phosphorous 4.2 mg/dL (2.7-4.5); Potassium 4.6 mEq/L (3.5-5.1); Sodium 135 mEq/L (136-145); eGFR For African Americans > 60 (> 60); eGFR For Non-African Americans > 60 (> 60)
[2021-10-24] MEDS: *HR* Enoxaparin 40 MG/0.4 ML SYRINGE SQ SCH (05:17)
[2021-10-24] MEDS: Budesonide/Formoterol 160/4.5 1 PUFF INH IH SCH ×2 (07:40→19:53)
[2021-10-24] MEDS: Vitamin B Complex/Vit C/Vit E 1 EACH TABLET PO SCH (09:50)
[2021-10-24] MEDS: Gabapentin 400 MG CAPSULE PO SCH ×3 (09:50→21:07)
[2021-10-24] MEDS: Thiamine (B-1) 100 MG TABLET PO SCH (09:50)
[2021-10-24] MEDS: amLODIPine 5 MG TABLET PO SCH (09:51)
[2021-10-24] MEDS: Folic Acid 1 MG TABLET PO SCH (09:51)
[2021-10-24] MEDS: Furosemide 40 MG/4 ML VIAL IVP SCH (09:52)
[2021-10-24] MEDS: Methadone Oral Concentrate 50 MG/5 ML UDC PO SCH (09:52)
[2021-10-24] MEDS: Insulin LISPRO 300 UNITS/3 ML VIAL SUBQ SCH ×4 (09:54→21:09)
[2021-10-24] MEDS: *HR* OxyCODONE Immed Rel 5 MG TABLET PO PRN ×2 (09:59→18:00)
[2021-10-24] MEDS: Insulin DETEMIR 100 UNIT/ML X5UNITS SUBQ SCH ×2 (09:59→21:10)
[2021-10-24] MEDS: *HR* LORazepam 2 MG/ML VIAL IVP PRN ×2 (11:10→21:05)
[2021-10-25] MEDS: *HR* HYDROcodone/Acet 5/325 mg TABLET PO PRN ×2 (02:07→17:45)
[2021-10-25 03:31] LABS: Basophils # 0.1 K/mcL (0.0-0.2); Basophils % 0.5 %; Hematocrit 37.8 % (35.3-44.9); Hemoglobin 12.5 g/dL (11.5-15.4); Lymphocytes % 5.2 %; Mean Corpuscular HGB Conc 33.1 g/dL (31.6-35.5); Mean Corpuscular Hemoglobin 31.6 pg (28.0-33.3); Mean Corpuscular Volume 95.5 fL (83.0-100.0); Mean Platelet Volume 10.6 fL (9.4-12.4); Monocytes # 0.7 K/mcL (0.0-1.3); Monocytes % 3.8 %; Neutrophils # 16.7 K/mcL (1.6-8.9); Platelet Count 269 K/mcL (140-400); Red Blood Count 3.96 M/mcL (3.82-4.97); Red Cell Distribution Width 15.7 % (11.5-14.5); Segmented Neutrophils % 86.5 %; White Blood Count 19.3 K/mcL (4.3-11.1)
[2021-10-25 03:47] LABS: BUN/Creatinine Ratio 31 (6-26); Blood Urea Nitrogen 26 mg/dL (6-20); Calcium 9.7 mg/dL (8.6-10.3); Carbon Dioxide 27 mEq/L (23-29); Chloride 98 mEq/L (98-107); Glucose 280 mg/dL (70-105); Magnesium 1.7 mg/dL (1.6-2.6); Osmolality,Calculated 295 (280-300); Phosphorous 3.9 mg/dL (2.7-4.5); Potassium 4.3 mEq/L (3.5-5.1); Sodium 135 mEq/L (136-145); eGFR For African Americans > 60 (> 60); eGFR For Non-African Americans > 60 (> 60)
[2021-10-25] MEDS: Ipratropium 1 PUFF INHALER IH SCH ×6 (03:47→23:57)
[2021-10-25] MEDS: *HR* Enoxaparin 40 MG/0.4 ML SYRINGE SQ SCH (05:54)
[2021-10-25] MEDS: *HR* OxyCODONE Immed Rel 5 MG TABLET PO PRN (05:59)
[2021-10-25] MEDS: Budesonide/Formoterol 160/4.5 1 PUFF INH IH SCH ×2 (08:32→20:21)
[2021-10-25] MEDS: Insulin LISPRO 300 UNITS/3 ML VIAL SUBQ SCH ×4 (09:29→20:26)
[2021-10-25] MEDS: Methadone Oral Concentrate 50 MG/5 ML UDC PO SCH (09:30)
[2021-10-25] MEDS: Gabapentin 400 MG CAPSULE PO SCH ×3 (09:30→20:24)
[2021-10-25] MEDS: amLODIPine 5 MG TABLET PO SCH (09:32)
[2021-10-25] MEDS: Thiamine (B-1) 100 MG TABLET PO SCH (09:32)
[2021-10-25] MEDS: Furosemide 40 MG/4 ML VIAL IVP SCH (09:32)
[2021-10-25] MEDS: Vitamin B Complex/Vit C/Vit E 1 EACH TABLET PO SCH (09:32)
[2021-10-25] MEDS: Insulin DETEMIR 100 UNIT/ML X5UNITS SUBQ SCH ×2 (09:56→20:25)
[2021-10-25] MEDS: Folic Acid 1 MG TABLET PO SCH (09:56)
[2021-10-25] MEDS: Acetaminophen 325 MG TABLET PO PRN (14:54)
[2021-10-25] MEDS ORDERED: Insulin Human Regular 20 UNIT in 0.9 % Sodium Chloride 10 ML IV ONE (17:54)
[2021-10-26] MEDS: *HR* OxyCODONE Immed Rel 5 MG TABLET PO PRN ×2 (00:13→16:53)
[2021-10-26] MEDS: *HR* LORazepam 2 MG/ML VIAL IVP PRN ×2 (02:47→07:01)
[2021-10-26] MEDS: Ipratropium 1 PUFF INHALER IH SCH ×7 (04:24→23:56)
[2021-10-26] MEDS: *HR* Enoxaparin 40 MG/0.4 ML SYRINGE SQ SCH (07:22)
[2021-10-26] MEDS: Budesonide/Formoterol 160/4.5 1 PUFF INH IH SCH ×2 (07:55→20:41)
[2021-10-26 10:13] LABS: Basophils # 0.1 K/mcL (0.0-0.2); Basophils % 0.5 %; Eosinophils # 0.1 K/mcL (0.0-0.6); Eosinophils % 0.4 %; Hematocrit 40.8 % (35.3-44.9); Hemoglobin 13.8 g/dL (11.5-15.4); Immature Granulocytes % 3.4 % (0-4); Lymphocytes # 1.3 K/mcL (0.6-4.6); Lymphocytes % 5.4 %; Mean Corpuscular HGB Conc 33.8 g/dL (31.6-35.5); Mean Corpuscular Hemoglobin 31.9 pg (28.0-33.3); Mean Corpuscular Volume 94.2 fL (83.0-100.0); Mean Platelet Volume 10.5 fL (9.4-12.4); Monocytes # 0.7 K/mcL (0.0-1.3); Monocytes % 2.8 %; Platelet Count 251 K/mcL (140-400); Red Blood Count 4.33 M/mcL (3.82-4.97); Red Cell Distribution Width 15.9 % (11.5-14.5); Segmented Neutrophils % 87.5 %; White Blood Count 23.9 K/mcL (4.3-11.1)
[2021-10-26] MEDS: amLODIPine 5 MG TABLET PO SCH (10:24)
[2021-10-26] MEDS: Thiamine (B-1) 100 MG TABLET PO SCH (10:24)
[2021-10-26] MEDS: Folic Acid 1 MG TABLET PO SCH (10:24)
[2021-10-26] MEDS: Gabapentin 400 MG CAPSULE PO SCH ×3 (10:24→20:56)
[2021-10-26] MEDS: Vitamin B Complex/Vit C/Vit E 1 EACH TABLET PO SCH (10:24)
[2021-10-26] MEDS: Furosemide 40 MG/4 ML VIAL IVP SCH (10:25)
[2021-10-26] MEDS: Methadone Oral Concentrate 50 MG/5 ML UDC PO SCH (10:25)
[2021-10-26] MEDS: Insulin LISPRO 300 UNITS/3 ML VIAL SUBQ SCH ×4 (10:26→20:56)
[2021-10-26] MEDS: Insulin DETEMIR 100 UNIT/ML X5UNITS SUBQ SCH ×2 (10:32→20:57)
[2021-10-26 12:01] LABS: BUN/Creatinine Ratio 38 (6-26); Blood Urea Nitrogen 33 mg/dL (6-20); Calcium 10.2 mg/dL (8.6-10.3); Carbon Dioxide 28 mEq/L (23-29); Chloride 94 mEq/L (98-107); Glucose 126 mg/dL (70-105); Magnesium 1.8 mg/dL (1.6-2.6); Osmolality,Calculated 281 (280-300); Potassium 4.9 mEq/L (3.5-5.1); Sodium 131 mEq/L (136-145); eGFR For African Americans > 60 (> 60); eGFR For Non-African Americans > 60 (> 60)
[2021-10-26 21:21] LABS: ABG Base Excess 4 mEq/L (-2 to 3); ABG HCO3 29 mEq/L (21-27); ABG Oxygen Saturation 89 % (95-98); ABG PCO2 43 mmHg (35-45); ABG PH 7.44 pH Units (7.32-7.45); ABG PO2 55 mmHg (85-104); ABG TCO2 31 mEq/L (20-26)
[2021-10-26] MEDS ORDERED: Morphine Sulfate 2 MG/ML SYRINGE IVP ONE (21:32)
[2021-10-26] MEDS ORDERED: Furosemide 40 MG in 0.9 % Sodium Chloride 50 ML IVPB ONE (23:40)
[2021-10-27] MEDS: Dexmedetomidine HCl 400 MCG/100 ML MLS IVC SCH ×3 (00:58→22:52)
[2021-10-27] MEDS: Ipratropium 1 PUFF INHALER IH SCH ×5 (03:31→20:00)
[2021-10-27 04:11] LABS: ABG Base Excess 6 mEq/L (-2 to 3); ABG HCO3 31 mEq/L (21-27); ABG Oxygen Saturation 95 % (95-98); ABG PCO2 45 mmHg (35-45); ABG PH 7.45 pH Units (7.32-7.45); ABG PO2 70 mmHg (85-104); ABG TCO2 33 mEq/L (20-26)
[2021-10-27] MEDS: *HR* Enoxaparin 40 MG/0.4 ML SYRINGE SQ SCH (04:54)
[2021-10-27] MEDS: *HR* OxyCODONE Immed Rel 5 MG TABLET PO PRN (04:54)
[2021-10-27 06:01] LABS: Basophils % 0.3 %; Eosinophils % 0.1 %; Hematocrit 41.2 % (35.3-44.9); Hemoglobin 13.4 g/dL (11.5-15.4); Immature Granulocytes % 2.2 % (0-4); Lymphocytes % 6.6 %; Mean Corpuscular HGB Conc 32.5 g/dL (31.6-35.5); Mean Corpuscular Hemoglobin 31.1 pg (28.0-33.3); Mean Corpuscular Volume 95.6 fL (83.0-100.0); Mean Platelet Volume 10.7 fL (9.4-12.4); Monocytes # 0.4 K/mcL (0.0-1.3); Monocytes % 2.6 %; Neutrophils # 13.4 K/mcL (1.6-8.9); Platelet Count 237 K/mcL (140-400); Red Blood Count 4.31 M/mcL (3.82-4.97); Red Cell Distribution Width 15.8 % (11.5-14.5); Segmented Neutrophils % 88.2 %; White Blood Count 15.1 K/mcL (4.3-11.1)
[2021-10-27] MEDS: Budesonide/Formoterol 160/4.5 1 PUFF INH IH SCH ×2 (07:38→20:00)
[2021-10-27 07:57] LABS: Alanine Aminotransferase 18 Units/L (7-52); Albumin 3.4 g/dL (3.5-5.7); Albumin/Globulin Ratio 0.8 (1.1-2.2); Alkaline Phosphatase 82 Units/L (34-104); Aspartate Amino Transferase 19 Units/L (13-39); BUN/Creatinine Ratio 46 (6-26); Bilirubin,Total 0.6 mg/dL (0.3-1.0); Blood Urea Nitrogen 40 mg/dL (6-20); Calcium 9.8 mg/dL (8.6-10.3); Carbon Dioxide 30 mEq/L (23-29); Chloride 92 mEq/L (98-107); Globulin 4.5 g/dL (2.4-3.5); Glucose 98 mg/dL (70-105); Osmolality,Calculated 280 (280-300); Phosphorous 3.9 mg/dL (2.7-4.5); Potassium 4.4 mEq/L (3.5-5.1); Sodium 130 mEq/L (136-145); Total Protein 7.9 g/dL (6.4-8.9); eGFR For African Americans > 60 (> 60); eGFR For Non-African Americans > 60 (> 60)
[2021-10-27] MEDS: Folic Acid 1 MG TABLET PO SCH (08:07)
[2021-10-27] MEDS: Thiamine (B-1) 100 MG TABLET PO SCH (08:07)
[2021-10-27] MEDS: Gabapentin 400 MG CAPSULE PO SCH (08:07)
[2021-10-27] MEDS: Vitamin B Complex/Vit C/Vit E 1 EACH TABLET PO SCH (08:07)
[2021-10-27] MEDS: amLODIPine 5 MG TABLET PO SCH (08:08)
[2021-10-27] MEDS: Furosemide 40 MG/4 ML VIAL IVP SCH (08:08)
[2021-10-27] MEDS: Methadone Oral Concentrate 50 MG/5 ML UDC PO SCH (08:13)
[2021-10-27] MEDS: Insulin LISPRO 300 UNITS/3 ML VIAL SUBQ SCH ×4 (08:24→21:46)
[2021-10-27] MEDS: Insulin DETEMIR 100 UNIT/ML X5UNITS SUBQ SCH (08:45)
[2021-10-27] MEDS: Acetaminophen 325 MG TABLET PO PRN ×2 (11:54→21:47)
[2021-10-27 16:59] LABS: ABG Base Excess 5 mEq/L (-2 to 3); ABG HCO3 31 mEq/L (21-27); ABG Oxygen Saturation 84 % (95-98); ABG PCO2 50 mmHg (35-45); ABG PO2 50 mmHg (85-104); ABG TCO2 33 mEq/L (20-26)
[2021-10-27] MEDS ORDERED: Morphine Sulfate 2 MG/ML SYRINGE IVP PRN (22:16)
[2021-10-27] MEDS ORDERED: *HR* Metoprolol 5 MG/5 ML VIAL IVP ONE (22:23)
[2021-10-27 22:56] LABS: ABG Base Excess 5 mEq/L (-2 to 3); ABG HCO3 31 mEq/L (21-27); ABG Oxygen Saturation 79 % (95-98); ABG PCO2 53 mmHg (35-45); ABG PH 7.38 pH Units (7.32-7.45); ABG PO2 45 mmHg (85-104); ABG TCO2 33 mEq/L (20-26); Blood Gas Modality AVAPS; Blood Gas VT 480 cc
[2021-10-28] MEDS ORDERED: Morphine Sulfate 2 MG/ML SYRINGE IVP ONE (00:15)
[2021-10-28] MEDS ORDERED: Lidocaine -MPF 1% 5 ML AMPUL ONE (00:33)
[2021-10-28] MEDS ORDERED: *HR* LORazepam 2 MG/ML VIAL IVP ONE (01:47)
[2021-10-28] MEDS: Ipratropium 1 PUFF INHALER IH SCH ×7 (03:10→23:17)
[2021-10-28] MEDS: *HR* Dextrose 50 % in Water (Syg) 50 ML SYRINGE IVP PRN ×2 (03:23→12:22)
[2021-10-28] MEDS: Dexmedetomidine HCl 400 MCG/100 ML MLS IVC SCH (04:41)
[2021-10-28 04:42] LABS: ABG Base Excess 4 mEq/L (-2 to 3); ABG HCO3 29 mEq/L (21-27); ABG Oxygen Saturation 83 % (95-98); ABG PCO2 41 mmHg (35-45); ABG PH 7.45 pH Units (7.32-7.45); ABG PO2 46 mmHg (85-104); ABG TCO2 30 mEq/L (20-26); Blood Gas Modality AVAPS; Blood Gas VT 480 cc
[2021-10-28 06:49] LABS: Hematocrit 44.5 % (35.3-44.9); Hemoglobin 14.6 g/dL (11.5-15.4); Mean Corpuscular HGB Conc 32.8 g/dL (31.6-35.5); Mean Corpuscular Hemoglobin 31.1 pg (28.0-33.3); Mean Corpuscular Volume 94.9 fL (83.0-100.0); Mean Platelet Volume 11.1 fL (9.4-12.4); Platelet Count 253 K/mcL (140-400); Red Blood Count 4.69 M/mcL (3.82-4.97); Red Cell Distribution Width 15.8 % (11.5-14.5)
[2021-10-28 06:54] LABS: White Blood Count 5.1 K/mcL (4.3-11.1)
[2021-10-28] MEDS: *HR* Enoxaparin 40 MG/0.4 ML SYRINGE SQ SCH (07:09)
[2021-10-28 07:23] LABS: Alanine Aminotransferase 40 Units/L (7-52); Albumin 3.3 g/dL (3.5-5.7); Albumin/Globulin Ratio 0.7 (1.1-2.2); Alkaline Phosphatase 75 Units/L (34-104); Aspartate Amino Transferase 85 Units/L (13-39); BUN/Creatinine Ratio 31 (6-26); Bilirubin,Total 0.8 mg/dL (0.3-1.0); Blood Urea Nitrogen 79 mg/dL (6-20); C-Reactive Protein > 300 mg/L (Less than 10); Calcium 9.8 mg/dL (8.6-10.3); Carbon Dioxide 26 mEq/L (23-29); Chloride 89 mEq/L (98-107); Globulin 4.6 g/dL (2.4-3.5); Glucose 117 mg/dL (70-105); Osmolality,Calculated 299 (280-300); Phosphorous 4.6 mg/dL (2.7-4.5); Sodium 132 mEq/L (136-145); Total Protein 7.9 g/dL (6.4-8.9); eGFR For African Americans 24 (> 60); eGFR For Non-African Americans 20 (> 60)
[2021-10-28] MEDS: Budesonide/Formoterol 160/4.5 1 PUFF INH IH SCH ×2 (07:53→20:10)
[2021-10-28] MEDS: Folic Acid 1 MG TABLET PO SCH (08:09)
[2021-10-28] MEDS: Insulin LISPRO 300 UNITS/3 ML VIAL SUBQ SCH ×2 (08:09→12:12)
[2021-10-28] MEDS: amLODIPine 5 MG TABLET PO SCH (08:09)
[2021-10-28] MEDS: Furosemide 40 MG/4 ML VIAL IVP SCH (08:09)
[2021-10-28] MEDS: Vitamin B Complex/Vit C/Vit E 1 EACH TABLET PO SCH (08:09)
[2021-10-28] MEDS: Thiamine (B-1) 100 MG TABLET PO SCH (08:10)
[2021-10-28] MEDS ORDERED: 0.9 % Sodium Chloride 1,000 ML ONE ×2 (08:39→08:53)
[2021-10-28] MEDS ORDERED: 0.9 % Sodium Chloride 1,000 ML IV ONE (08:41)
[2021-10-28] MEDS: Norepinephrine 4 MG/254 ML IV.SOLN IVC SCH ×3 (08:45→22:30)
[2021-10-28] MEDS ORDERED: Norepinephrine 4 MG/254 ML IV.SOLN IVC ONE (08:46)
[2021-10-28] MEDS: Albumin 25% 25gram/100mL 25 GM/100 ML IV.SOLN IVC SCH ×2 (09:16→10:59)
[2021-10-28] MEDS ORDERED: Acetaminophen IV 1,000 MG/100 ML BAG IVPB ONE (09:25)
[2021-10-28] MEDS ORDERED: Artificial Tears SOLN 15 ML BOTTLE BOTH EYES PRN ×2 (12:59→13:14)
[2021-10-28] MEDS: FentaNYL (PF) 1,000 MCG/100 ML IV.SOLN IVC SCH ×2 (13:00→19:25)
[2021-10-28] MEDS ORDERED: Furosemide 40 MG/4 ML VIAL IVP ONE (13:00)
[2021-10-28] MEDS: Midazolam HCl 50 MG/100 ML IV.SOLN IVC SCH ×2 (13:00→19:30)
[2021-10-28] MEDS ORDERED: Midazolam HCl 50 MG/100 ML IV.SOLN IVC ONE (13:04)
[2021-10-28] MEDS ORDERED: Naloxone 0.4 MG/ML INJ IVP PRN (13:14)
[2021-10-28] MEDS ORDERED: Cisatracurium 200 MG in 0.9 % Sodium Chloride 180 ML IVC SCH (13:15)
[2021-10-28 14:37] LABS: ABG Base Excess -4 mEq/L (-2 to 3); ABG HCO3 25 mEq/L (21-27); ABG Oxygen Saturation 85 % (95-98); ABG PCO2 63 mmHg (35-45); ABG PH 7.21 pH Units (7.32-7.45); ABG PO2 62 mmHg (85-104); ABG TCO2 27 mEq/L (20-26); Blood Gas Modality ASSIST CONTROL; Blood Gas VT 400 cc
[2021-10-28] MEDS ORDERED: Artificial Tears SOLN 15 ML BOTTLE BOTH EYES SCH (16:00)
[2021-10-28] MEDS: Artificial Tears SOLN 15 ML BOTTLE BOTH EYES SCH ×2 (16:32→19:51)
[2021-10-28] MEDS: Chlorhexidine Rinse 15 ML MOUTHWASH MM SCH ×2 (16:32→19:51)
[2021-10-28] MEDS ORDERED: Famotidine 20 MG/2 ML VIAL IVP SCH (18:00)
[2021-10-28] MEDS ORDERED: Insulin LISPRO 300 UNITS/3 ML VIAL SUBQ SCH (18:00)
[2021-10-28] MEDS ORDERED: Perflutren Lipid Microsphere 1.3 ML in 0.9 % Sodium Chloride 8.7 ML IVP PRN (19:01)
[2021-10-28 20:20] VITALS: TEMP 101.6
[2021-10-28] MEDS: Acetaminophen 325 MG TABLET PO PRN (20:39)
[2021-10-28] MEDS ORDERED: Chlorhexidine Rinse 15 ML MOUTHWASH MM SCH (21:00)
[2021-10-28] MEDS ORDERED: *HR* Metoprolol 5 MG/5 ML VIAL IVP ONE (22:07)
[2021-10-28] MEDS ORDERED: Albumin 25% 25gram/100mL 25 GM/100 ML IV.SOLN IVC SCH (22:15)
[2021-10-28 22:25] LABS: ABG Base Excess -4 mEq/L (-2 to 3); ABG HCO3 26 mEq/L (21-27); ABG Oxygen Saturation 76 % (95-98); ABG PCO2 69 mmHg (35-45); ABG PH 7.18 pH Units (7.32-7.45); ABG PO2 52 mmHg (85-104); ABG TCO2 28 mEq/L (20-26); Blood Gas VT 400 cc
[2021-10-28] MEDS ORDERED: Phenylephrine 10 MG in 0.9 % Sodium Chloride 250 ML IVC SCH (22:30)
[2021-10-28] MEDS ORDERED: Dexmedetomidine HCl 400 MCG/100 ML MLS IVC SCH (22:30)
[2021-10-28] MEDS ORDERED: *HR* EPINEPHrine 1 MG/10 ML SYRINGE IVP ONE (23:01)
[2021-10-28] MEDS ORDERED: *HR* Amiodarone 150 MG/3 ML VIAL IVPB ONE (23:01)
[2021-10-28] MEDS ORDERED: EPINEPHrine 1 MG/ML VIAL IV ONE (23:01)
[2021-10-28 23:43] VITALS: BP 102/76; PULSE 149; O2SAT 80
[2021-10-29] MEDS: Ipratropium 1 PUFF INHALER IH SCH (03:16)
[2021-10-29] MEDS ORDERED: *HR* Enoxaparin 30 MG/0.3 ML SYRINGE SQ SCH (06:00)
[2021-10-29] MEDS ORDERED: Pantoprazole 40 MG VIAL IVP SCH (09:00)
== END 2021-10-28 23:02 | disposition expired | DRG 720 ==
LOC: 3NENU 19:34 → EMEROOARM 19:34 → 3NENU 10-13 00:37 → SUATTDRO 10-13 12:40 → 2NNU 10-28 03:03 → ICNU 10-28 12:40
PROVIDERS: ADMIT Internal Medicine; ATTEND Family Medicine